=== PATIENT | male | born 1960 | race Caucasian/White ===

== ENCOUNTER 2016-10-13 11:47 | Inpatient (IN) | payer MEDICARE, MEDICAID ==
[2016-10-13 12:12] VITALS: BMI 29.1
[2016-10-13] MEDS ORDERED: Sodium Chloride 0.9% 1,000 ML IV ONE (13:25)
[2016-10-13 13:44] LABS: BASO # 0.1 K/uL (0.0-0.2); BASO % 0.4 % (0.0-2.0); EOS % 0.2 % (0.0-4.0); HEMATOCRIT 39.3 % (35.0-51.0); LYMPH % 6.1 % (20.0-40.0); MEAN CELL VOLUME 89.3 fL (80.0-94.0); MEAN CORPUSCULAR HEMOGLOBIN 29.7 pg (27.0-31.0); MEAN CORPUSCULAR HGB CONC 33.3 g/dL (33.0-37.0); MEAN PLATELET VOLUME 8.2 fL (7.2-11.7); MONO # 1.3 K/uL (0.0-0.8); PLATELET COUNT 232 K/uL (130-400); WHITE BLOOD COUNT 15.9 K/uL (4.8-10.8)
[2016-10-13 13:46] LABS: CHLORIDE 92 mmol/L (98-107); POTASSIUM 4.5 mmol/L (3.6-5.2); SODIUM 127 mmol/L (132-148)
[2016-10-13 13:48] LABS: AST/SGOT 21 U/L (17-59); BILIRUBIN,TOTAL 1.2 mg/dL (0.2-1.3); CARBON DIOXIDE 22 mmol/L (22-30); GFR AFRICAN-AMERICAN > 60
[2016-10-13 13:49] LABS: ALKALINE PHOSPHATASE 66 U/L (38-126); ALT/SGPT 29 U/L (21-72); BLOOD UREA NITROGEN 20 mg/dL (9-20); CALCIUM 8.3 mg/dl (8.6-10.4); GLUCOSE,RANDOM 222 mg/dL (75-110); MAGNESIUM 1.4 mg/dL (1.6-2.3); PHOSPHOROUS 3.2 mg/dL (2.5-4.5); TOTAL PROTEIN 7.1 g/dL (6.3-8.3)
[2016-10-13 14:06] LABS: INR 1.3
[2016-10-13 14:11] LABS: VENOUS BLOOD GAS BASE EXCESS -0.8 mmol/L (0.0-2.0); VENOUS BLOOD GAS PCO2 37 mmHg (40-60); VENOUS BLOOD PH 7.41 (7.32-7.43)
--- NOTE | 2016-10-13 14:12 | C.PDOC ---
History Of Present Illness Pt c/o b/l foot ulcers. Right foot got infected and became red. Pt developed fever. He was evaluated by his PMD who started him on Cipro and Clindamycin within any improvement. Time Seen by Provider: 10/13/16 13:05 Chief Complaint (Nursing): Abnormal Skin Integrity History Per: Patient Onset/Duration Of Symptoms: Days (about 2 weeks), Gradual Current Symptoms Are (Timing): Worse Location Of Injury: Right: Foot, Left: Foot Quality Of Symptoms: Painful, Draining Severity: Severe Additional History Per: Prior Records Past Medical History Reviewed: Historical Data, Nursing Documentation, Vital Signs Vital Signs: Last Vital Signs Temp 101.6 F H 10/13/16 12:12 Pulse 107 H 10/13/16 12:12 Resp 20 10/13/16 12:12 BP 114/76 10/13/16 12:12 Pulse Ox 97 10/13/16 14:16 - Medical History PMH: Depression, Diabetes, HTN, Hyperlipidemia Surgical History: Appendectomy (5 yrs ago) - [facility] Procedures CENTRAL VENOUS CATHETER PLACEMENT WITH GUIDANCE (11/13/14) EXCIS DEBRIDE OF WOUND, INFECT, OR BURN (07/16/14) OTH METATARS/TARS INCIS (07/16/14) PART OSTECT-METATAR/TAR (10/29/13) Family History: States: Unknown Family Hx - Social History Hx Tobacco Use: Yes Hx Alcohol Use: No Hx Substance Use: No - Immunization History Hx Tetanus Toxoid Vaccination: No Hx Influenza Vaccination: No Hx Pneumococcal Vaccination: No Review Of Systems Except As Marked, All Systems Reviewed And Found Negative. Constitutional: Positive for: Fever, Chills, Malaise ENT: Negative for: Throat Pain Cardiovascular: Negative for: Chest Pain Respiratory: Negative for: Cough, Shortness of Breath Gastrointestinal: Negative for: Vomiting, Abdominal Pain, Diarrhea Genitourinary: Negative for: Dysuria Musculoskeletal: Positive for: Leg Pain, Foot Pain. Negative for: Neck Pain Skin: Positive for: Rash Neurological: Negative for: Weakness, Numbness, Seizures, Altered Mental Status Physical Exam - Physical Exam Appears: No Acute Distress Skin: Warm, Dry Head: Atraumatic, Normacephalic Eye(s): bilateral: PERRL, EOMI Neck: Normal ROM, Supple Cardiovascular: Rhythm Regular Respiratory: Normal Breath Sounds, No Accessory Muscle Use Gastrointestinal/Abdominal: Soft, No Tenderness Back: No CVA Tenderness Extremity: Normal ROM, Other (Right foot ulcers with erythema, tenderness and lymphangitic streaking going up leg. Left foot ulcer also, but with no erythema. ) Pulses: Left Dorsalis Pedis: Normal, Right Dorsalis Pedis: Decreased Neurological/Psych: Oriented x3, Normal Motor, Normal Sensation ED Course And Treatment - Laboratory Results Result Diagrams: 10/13/16 13:34 10/13/16 13:34 Lab Interpretation: Abnormal Interpretation Of Abnormal: Leukocytosis. ECG: Interpreted By Me, Viewed By Me ECG Rhythm: Sinus Rhythm, Nonspecific Changes ECG Interpretation: No Acute Changes Rate From EC O2 Sat by Pulse Oximetry: 97 Pulse Ox Interpretation: Normal - Radiology CXR: Viewed By Me, Read By Radiologist CXR Interpretation: Yes: No Acute Disease - Physician Consult Information Physician Contacted: Adryan Mayen (PMD) Outcome Of Conversation: He wants pt admitted on hospitalist service. Progress - Interventions Interventions:: Observation, Intravenous fluid - Data Reviewed Data Reviewed: Lab, Diagnostic imaging, Old records - Patient Status Patient status: Partially improved - Continuity of Care Discussed patient case with:: Patient, ED Nurse, PMD, Covering for PMD - Patient Plan Patient Plan: Admission Disposition Discussed With : Dawson Guevara Comment: He accepted pt on hospitalist service. Doctor Will See Patient In The: Hospital Counseled Patient/Family Regarding: Studies Performed, Diagnosis - Disposition Disposition: HOSPITALIZED Disposition Time: 15:37 Condition: SERIOUS - Clinical Impression Clinical Impression: Diabetic ulcer of both feet, Cellulitis of right foot, Fever
--- NOTE | 2016-10-13 14:20 | RAD ---
HISTORY: Sepsis Patient COMPARISON: Chest x-ray performed 11/14/14 TECHNIQUE: Chest, one view. FINDINGS: Examination limited by habitus. LUNGS: No focal consolidation. Please note that chest x-ray has limited sensitivity for the detection of pulmonary masses. PLEURA: No significant pleural effusion identified. No definite pneumothorax . CARDIOVASCULAR: Heart size appears within normal limits. OSSEOUS STRUCTURES: Partially imaged cervical fusion hardware. VISUALIZED UPPER ABDOMEN: Unremarkable. OTHER FINDINGS: None. IMPRESSION: No focal consolidation, significant pleural effusion, or definite pneumothorax identified.
[2016-10-13 14:26] LABS: EOSINOPHIL 1 % (0-4); NEUTROPHIL 79 % (50-75); TOTAL CELLS COUNTED 100
[2016-10-13 14:29] LABS: LARGE PLATELETS PRESENT
[2016-10-13] MEDS ORDERED: Piperacillin/Tazobact 3.375 gm 100 ML IVPB STA (14:52)
[2016-10-13] MEDS ORDERED: Vancomycin 1 GM 1 GM/250 ML BAG IVPB STA (14:52)
[2016-10-13] MEDS ORDERED: Piperacillin/Tazobact 3.375 gm 100 ML IVPB ONE (14:56)
[2016-10-13] MEDS ORDERED: Vancomycin 1 GM 1 GM/250 ML BAG IVPB ONE (14:56)
[2016-10-13 15:47] LABS: GRANULAR CAST 5 /lpf (0-1); RBC URINE 4 /hpf (0-3); URINE BACTERIA RARE (<OCC); URINE BILIRUBIN NEGATIVE (NEGATIVE); URINE BLOOD NEGATIVE (NEGATIVE); URINE COLOR Amber (YELLOW); URINE GLUCOSE (UA) 3+ mg/dL (Normal); URINE KETONE TRACE mg/dL (NEGATIVE); URINE LEUKOCYTE ESTERASE NEG Leu/uL (Negative); URINE PROTEIN 2+ mg/dL (NEGATIVE); URINE UROBILINOGEN NORMAL mg/dL (0.2-1.0); WBC URINE 4 /hpf (0-5)
--- NOTE | 2016-10-13 16:03 | CP.PCM.HP ---
Addendum entered and electronically signed by Guillermo Vega DO 10/13/16 19:01: Addendum to plan: Hypertension Well-controlled since admission Pt reorts taking both MOHAMUD/ARB as home med - will restart home enalapril 20mg PO Daily - will hold home losartan/hctz NS @ 100 cc/hr Will monitor elevated creatinine Elevated Creatinine Last admission 06/10 0.9; now Cr 1.3 Will monitor Hyponatremia Na 127 on presentation labs NS @ 100cc/hr Monitor Hypomagnesemia 1.4 on presentation labs - repleted Abnormal UA Ua (10/13/16): 2+ protein, 3+ glucose, 4 RBC, hyaline casts -, LE/nitrite negative Discussed with Dr. 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 Patient reports that he first noted the foot pain on September 27, 2016 when [place] He was been wrapping the foot himself with no relief. On Monday, he went to see his PMD, Dr. Mayen, who wanted him to go to the Emergency room, but patient denied and asked for antibiotics, for which he received Ciprofloxacin and Clindamycin and promised his PMD that if it got worse he would go to the ED. When pt began to have fever/chills today, with increasing pain and discoloration in the foot he knew he had to go to the ED. Patient also states that he also has a wound in his left foot that is not concerning to him. Patient states that prior to arriving to the ED, his foot was intact but when he tried standing up to use the restroom his foot opened up and started to drain. Patient has admission before for a similar presentation but moved to [place] and was unable to follow up with Dr. Urrutia (credit control administrator). ROS: patient denies chest pain, palpitations, SOB, N/V/C/D, headches, fevers. Patient admits to chills, night sweats and numbness and tingling in his feet. PMHx: Diabetes Type II, HTN, hyperlipidemia (10 years) and Emphysema Surgical Hx: Endoscopy, surgery for cervical neck disc/impingement, appendectomy , 2 foot surgeries (removed portions of bone) over the right foot and left foot. Family Hx: Mother - asthma, DM, HTN, hyperlipidemia, triple bypass (living). Father - DM, from [place]. Allergies: Morphine - gets itchy and red. Social Hx: currently smokes 1/2 pack of cigarettes in 1 week as he is trying to quit. Has smoked since age 15; Avg of quarter pack x 30 years. Denies any alcohol or illicit drug use. Patient lives at home with . Currently on disability. 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 Mayen (PMD), Dr. Cortes (cardiology) Dr. Tahir Urrutia (podiatry) Present on Admission - Present on Admission Any Indicators Present on Admission: No History of DVT/PE: No History of Uncontrolled Diabetes: No Urinary Catheter: No Review of Systems - Constitutional Constitutional: Chills, Fever, Malaise - EENT Eyes: absent: Change in Vision Ears: absent: Decreased Hearing - Cardiovascular Cardiovascular: absent: Chest Pain, Dyspnea, Syncope - Respiratory Respiratory: absent: Cough, Dyspnea - Gastrointestinal Gastrointestinal: absent: Abdominal Pain, Diarrhea, Nausea, Vomiting - Genitourinary Genitourinary: absent: Difficulty Urinating, Dysuria - Musculoskeletal Musculoskeletal: absent: Back Pain, Numbness, Tingling - Integumentary Integumentary: Bleeding Lesions, Non-Healing Lesions, Wounds (right foot ulcer ) - Neurological Neurological: Numbness, Sensory Deficit, Tingling, Weakness. absent: Dizziness - Psychiatric Psychiatric: absent: Anxiety, Depression - Endocrine Endocrine: Polyuria. absent: Fatigue, Polydipsia, Polyphagia Past Patient History - Infectious Disease Hx of Infectious Diseases: None - Tetanus Immunizations Tetanus Immunization: Unknown - Past Medical History & Family History Past Medical History?: Yes - Past Social History Smoking Status: Light Smoker < 10 Cigarettes Daily - CARDIAC Hx Hypertension: Yes - PULMONARY Hx Respiratory Disorders: No - NEUROLOGICAL Hx Neurological Disorder: Yes (chronic fatigue) - HEENT Hx HEENT Problems: No - RENAL Hx Chronic Kidney Disease: No - ENDOCRINE/METABOLIC Hx Endocrine Disorders: Yes Hx Diabetes Mellitus Type 2: Yes - HEMATOLOGICAL/ONCOLOGICAL Hx Blood Disorders: No - INTEGUMENTARY Hx Dermatological Problems: No - MUSCULOSKELETAL/RHEUMATOLOGICAL Hx Musculoskeletal Disorders: Yes Hx Herniated Disk: Yes (cervical +metal, lumbar disc) - GASTROINTESTINAL Hx Gastrointestinal Disorders: No - GENITOURINARY/GYNECOLOGICAL Hx Genitourinary Disorders: No - PSYCHIATRIC Hx Depression: Yes Hx Substance Use: No - SURGICAL HISTORY Hx Appendectomy: Yes (5 yrs ago) - ANESTHESIA Hx Anesthesia: Yes Hx Anesthesia Reactions: No Hx Malignant Hyperthermia: No Meds Allergies/Adverse Reactions: Allergies Allergy/AdvReac Type Severity Reaction Status Date / Time morphine Allergy RASH Verified 03/17/16 14:32 Physical Exam - Constitutional Appears: Non-toxic, No Acute Distress Additional comments: Pt found laughing talking on phone, able to speak in full sentences - Head Exam Head Exam: ATRAUMATIC, NORMAL INSPECTION, NORMOCEPHALIC - Eye Exam Eye Exam: EOMI. absent: Scleral icterus Pupil Exam: PERRL - ENT Exam ENT Exam: Mucous Membranes Dry - Neck Exam Neck exam: Positive for: Tenderness Additional comments: hx - Respiratory Exam Respiratory Exam: Clear to Auscultation Bilateral, NORMAL BREATHING PATTERN - Cardiovascular Exam Cardiovascular Exam: REGULAR RHYTHM, +S1, +S2 - GI/Abdominal Exam GI & Abdominal Exam: Normal Bowel Sounds, Soft. absent: Distended, Firm, Tenderness - Extremities Exam Extremities exam: Negative for: normal inspection Additional comments: Right foot ulcer between 1st /2nd digit. Draining serosanguinous fluid. Tender to palpation. Lympangitic streaking up right leg. DP pulse 1/4 1cm ulcer on left foot. DP pulse 2/4 - Back Exam Back exam: absent: CVA tenderness (L), CVA tenderness (R) - Neurological Exam Neurological exam: Alert, Oriented x3 Additional comments: Proprioception intact on right foot; Babinski WNL; Light touch sensation reduced on L5-S1 dermatome bilaterally - Psychiatric Exam Psychiatric exam: Normal Affect, Normal Mood - Skin Skin Exam: Normal Color, Warm Results - Vital Signs Recent Vital Signs: Last Vital Signs Temp 101.6 F H 10/13/16 12:12 Pulse 107 H 10/13/16 12:12 Resp 20 10/13/16 12:12 BP 114/76 10/13/16 12:12 Pulse Ox 97 10/13/16 15:42 - Labs Result Diagrams: 10/13/16 13:34 10/13/16 13:34 Labs: Laboratory Results - last 24 hr 10/13/16 10/13/16 10/13/16 13:34 13:34 13:55 WBC 15.9 H RBC 4.40 Hgb 13.1 D Hct 39.3 MCV 89.3 MCH 29.7 MCHC 33.3 RDW 13.0 Plt Count 232 MPV 8.2 Neut % (Auto) 85.3 H Lymph % (Auto) 6.1 L [place] % (Auto) 8.0 Eos % (Auto) 0.2 Baso % (Auto) 0.4 Neut # 13.5 H Lymph # 1.0 [place] # 1.3 H Eos # 0.0 Baso # 0.1 Neutrophils % (Manual) 79 H Band Neutrophils % 3 H Lymphocytes % (Manual) 6 L Monocytes % (Manual) 11 H Eosinophils % (Manual) 1 Platelet Estimate Normal Large Platelets Present RBC Morphology Normal PT 14.7 H INR 1.3 APTT 31 pO2 VBG pH VBG pCO2 VBG HCO3 VBG Total CO2 VBG O2 Sat (Calc) VBG Base Excess VBG Potassium Glucose Lactate Sodium 127 L Potassium 4.5 Chloride 92 L Carbon Dioxide 22 Anion Gap 18 BUN 20 Creatinine 1.3 Est GFR ( Amer) > 60 Est GFR (Non-Af Amer) 57 Random Glucose 222 H Calcium 8.3 L Phosphorus 3.2 Magnesium 1.4 L Total Bilirubin 1.2 AST 21 ALT 29 Alkaline Phosphatase 66 Total Protein 7.1 Albumin 3.5 D Globulin 3.6 Albumin/Globulin Ratio 1.0 Venous Blood Potassium Urine Color Urine Clarity Urine pH Ur Specific [place] Urine Protein Urine Glucose (UA) Urine Ketones Urine Blood Urine Nitrate Urine Bilirubin Urine Urobilinogen Ur Leukocyte Esterase Urine WBC (Auto) Urine RBC (Auto) Ur Squamous Epith Cells Urine Bacteria Hyaline Casts Granular Casts (Auto) 10/13/16 10/13/16 14:05 15:32 WBC RBC Hgb Hct MCV MCH MCHC RDW Plt Count MPV Neut % (Auto) Lymph % (Auto) [place] % (Auto) Eos % (Auto) Baso % (Auto) Neut # Lymph # [place] # Eos # Baso # Neutrophils % (Manual) Band Neutrophils % Lymphocytes % (Manual) Monocytes % (Manual) Eosinophils % (Manual) Platelet Estimate Large Platelets RBC Morphology PT INR APTT pO2 39 VBG pH 7.41 VBG pCO2 37 L VBG HCO3 23.7 VBG Total CO2 24.6 VBG O2 Sat (Calc) 82.2 H VBG Base Excess -0.8 L VBG Potassium 4.4 Glucose 237 H Lactate 2.0 Sodium 130.0 L Potassium Chloride 97.0 L Carbon Dioxide Anion Gap BUN Creatinine Est GFR ( Amer) Est GFR (Non-Af Amer) Random Glucose Calcium Phosphorus Magnesium Total Bilirubin AST ALT Alkaline Phosphatase Total Protein Albumin Globulin Albumin/Globulin Ratio Venous Blood Potassium 4.4 Urine Color Brandi Urine Clarity Hazy Urine pH 5.0 Ur Specific [place] 1.023 Urine Protein 2+ H Urine Glucose (UA) 3+ H Urine Ketones Trace Urine Blood Negative Urine Nitrate Negative Urine Bilirubin Negative Urine Urobilinogen Normal Ur Leukocyte Esterase Neg Urine WBC (Auto) 4 Urine RBC (Auto) 4 H Ur Squamous Epith Cells 1 Urine Bacteria Rare Hyaline Casts 11-20 H Granular Casts (Auto) 5 Assessment & Plan - Assessment and Plan (Free Text) Assessment: Diabetic foot ulcers Admit to med/surg Consult: Dr. Carney (podiatry) Blood cultures X2 ordered Zosyn and Vancomycin 1 dose each given in ED Zosyn 3.375 IV Q 6hours Vancomycin 1 gram IV Q12H f/u foot xray f/u MRI foot Note: patient has metal in neck Sepsis Criteria (WBC >12k, Temp > 100.9, HR> 90) Secondary to foot infection Lactate on VB.0 NS @ 100 cc/hr f/u blood, urine cx Cellulitis Current Visit: No Status: Acute Priority: Medium Comment: Consult: Dr. Carney (podiatry) Zosyn 2.25 IV q 8hours Vancomycin 1 gram IVq daily given zosyn and Vanco in the ED X1 Blood cultures Ordered stat Diabetes Current Visit: No Status: Chronic Priority: Medium Comment: Accuchecks QACHS Lantus 40 units daily Novolog 15 units TIDAC -Novolog insulin sliding scale held janumet and glimepride Moderate carbohydrate diet f/u A1C - 8.4 on 05/2016 Emphysema Home med Arnuity ellipta (not formulary) Duonebs Q6H PRN Cervical pain (neck) Comment: history of cervical neck pain sees pain management outpatient - Dr. Banda (salinas) Oxycodone 15mg PO Q6H Hyperlipidemia Crestor 5mg PO HS Prophylactic measure Heparin 5000 units sub [id number] for dvt ppx Protonix 40mg PO daily for gi ppx SCD CI PT/OT ordered <Bolivar Guevaran Nicholas - Last Filed: 10/14/16 17:38> Results - Vital Signs Recent Vital Signs: Last Vital Signs Temp 98 F 10/14/16 14:40 Pulse 65 10/14/16 14:45 Resp 15 10/14/16 14:45 BP 120/65 10/14/16 14:45 Pulse Ox 100 10/14/16 14:45 - Labs Result Diagrams: 10/14/16 07:09 10/14/16 07:09 Labs: Laboratory Results - last 24 hr 10/13/16 10/14/16 10/14/16 21:16 02:31 07:09 WBC RBC Hgb Hct MCV MCH MCHC RDW Plt Count MPV Neut % (Auto) Lymph % (Auto) [place] % (Auto) Eos % (Auto) Baso % (Auto) Neut # Lymph # [place] # Eos # Baso # Neutrophils % (Manual) Lymphocytes % (Manual) Monocytes % (Manual) Eosinophils % (Manual) Platelet Estimate Hypochromasia (manual) Sodium Potassium Chloride Carbon Dioxide Anion Gap BUN Creatinine Est GFR ( Amer) Est GFR (Non-Af Amer) POC Glucose (mg/dL) 402 H* 233 H Random Glucose Hemoglobin A1c 8.5 H Calcium Phosphorus Magnesium Total Bilirubin AST ALT Alkaline Phosphatase Total Protein Albumin Globulin Albumin/Globulin Ratio 10/14/16 10/14/16 10/14/16 07:09 07:09 07:13 WBC 10.0 RBC 3.72 L Hgb 11.3 L Hct 33.3 L MCV 89.5 MCH 30.4 MCHC 33.9 RDW 12.8 Plt Count 209 MPV 8.2 Neut % (Auto) 79.2 H Lymph % (Auto) 9.0 L [place] % (Auto) 9.5 Eos % (Auto) 1.9 Baso % (Auto) 0.4 Neut # 7.9 H Lymph # 0.9 L [place] # 0.9 H Eos # 0.2 Baso # 0.0 Neutrophils % (Manual) 76 H Lymphocytes % (Manual) 15 L Monocytes % (Manual) 7 Eosinophils % (Manual) 2 Platelet Estimate Normal Hypochromasia (manual) Slight Sodium 128 L Potassium 4.4 Chloride 97 L Carbon Dioxide 23 Anion Gap 12 BUN 19 Creatinine 1.2 Est GFR ( Amer) > 60 Est GFR (Non-Af Amer) > 60 POC Glucose (mg/dL) 277 H Random Glucose 241 H Hemoglobin A1c Calcium 7.5 L Phosphorus 2.9 Magnesium 1.9 Total Bilirubin 0.7 AST 22 ALT 34 Alkaline Phosphatase 45 Total Protein 5.8 L Albumin 2.8 L Globulin 3.0 Albumin/Globulin Ratio 0.9 L 10/14/16 10/14/16 11:11 16:24 WBC RBC Hgb Hct MCV MCH MCHC RDW Plt Count MPV Neut % (Auto) Lymph % (Auto) [place] % (Auto) Eos % (Auto) Baso % (Auto) Neut # Lymph # [place] # Eos # Baso # Neutrophils % (Manual) Lymphocytes % (Manual) Monocytes % (Manual) Eosinophils % (Manual) Platelet Estimate Hypochromasia (manual) Sodium Potassium Chloride Carbon Dioxide Anion Gap BUN Creatinine Est GFR ( Amer) Est GFR (Non-Af Amer) POC Glucose (mg/dL) 260 H 317 H Random Glucose Hemoglobin A1c Calcium Phosphorus Magnesium Total Bilirubin AST ALT Alkaline Phosphatase Total Protein Albumin Globulin Albumin/Globulin Ratio Attending/Attestation - Attestation I have personally seen and examined this patient.: Yes I have fully participated in the care of the patient.: Yes I have reviewed all pertinent clinical information: Yes Notes (Text): 10/14/16 17:38 Patient was seen and examined at bedside with the resident Patient will be admitted for diabetic foot ulcer We will request a podiatry and infectious disease consultation Patient may need to debridement of the infected wound on the foot I discussed the plan of care with the resident and agree with the history and physical and assessment/plan documented above.
[2016-10-13] MEDS ORDERED: oxyCODONE 5 mg Immediate Release Tab PO PRN (18:12)
[2016-10-13] MEDS ORDERED: Piperacillin/Tazobact 3.375 GM in Sodium Chloride 100 ML IVPB SCH (18:30)
--- NOTE | 2016-10-13 19:04 | CP.PCM.CON ---
History of Present Illness - History of Present Illness History of Present Illness: discussed with dr Kevin IV antibiotics started cultures pending dr khan on board Review of Systems - Review of Systems All systems: reviewed and no additional remarkable complaints except - Constitutional Constitutional: absent: As Per HPI, Anorexia, Chills, Daytime Sleepiness, Excessive Sweating, Fatigue, Fever, Frequent Falls, Headache, Increased Appetite , Lethargy, Malaise, Night Sweats, Snoring, Sleep Apnea, Weight Gain, Weight Loss, Weakness, Other - EENT Eyes: absent: As Per HPI, Blind Spots, Blurred Vision, Change in Vision, Decreased Night Vision, Diplopia, Discharge, Dry Eye, Exophthalmos, Floaters, Irritation, Itchy Eyes, Loss of Peripheral Vision, Pain, Photophobia, Requires Corrective Lenses, Sees Flashes, Spots in Vision, Tunnel Vision, Other Visual Disturbances, Loss of Vision, Other Nose/Mouth/Throat: absent: As Per HPI, Epistaxis, Nasal Congestion, Nasal Discharge, Nasal Obstruction, Nasal Trauma, Nose Pain, Post Nasal Drip, Sinus Pain, Sinus Pressure, Bleeding Gums, Change in Voice, Dental Pain, Dry Mouth, Dysphagia, Halitosis, Hoarsness, Lip Swelling, Mouth Lesions, Mouth Pain, Odynophagia, Sore Throat, Throat Swelling, Tongue Swelling, Facial Pain, Neck Pain, Neck Mass, Other - Cardiovascular Cardiovascular: absent: As Per HPI, Acrocyanosis, Chest Pain, Chest Pain at Rest , Chest Pain with Activity, Claudication, Diaphoresis, Dyspnea, Dyspnea on Exertion, Edema, Irregular Heart Rhythm, Pain Radiating to Arm/Neck/Jaw, Leg Edema, Leg Ulcers, Lightheadedness, Orthopnea, Palpitations, Paroxysmal Nocturnal Dyspnea, Pedal Edema, Radiating Pain, Rapid Heart Rate, Slow Heart Rate, Syncope, Other - Gastrointestinal Gastrointestinal: absent: As Per HPI, Abdominal Pain, Belching, Bloating, Change in Bowel Habits, Change in Stool Character, Coffee Ground Emesis, Constipation, Cramping, Diarrhea, Dyspepsia, Dysphagia, Early Satiety, Excessive Flatus, Fecal Incontinence, Heartburn, Hematemesis, Hematochezia, Loose Stools, Melena, Nausea, Odynophagia, Temesmus, Vomiting, Other - Genitourinary Genitourinary: absent: As Per HPI, Change in Urinary Stream, Difficulty Urinating, Dysuria, Flank Pain, Hematuria, Pyuria, Nocturia, Urinary Incontinence, Urinary Frequency, Urinary Hesitance, Urinary Urgency, Voiding Freq/Small Amts, Freq UTI, Hx Renal/Bladder Calculi, Hx /Renal Surgery, Bladder Distension, Other - Musculoskeletal Musculoskeletal: absent: As Per HPI, Abnormal Gait, Arthralgias, Atrophy, Back Pain, Deformity, Joint Swelling, Limited Range of Motion, Loss of Height, Muscle Cramps, Muscle Weakness, Myalgias, Neck Pain, Numbness, Radiating Pain into Limb, Stiffness, Tingling, Other - Integumentary Integumentary: As Per HPI - Neurological Neurological: absent: As Per HPI, Abnormal Gait, Abnormal Hearing, Abnormal Movements, Abnormal Speech, Behavioral Changes, Burning Sensations, Confusion, Convulsions, Disequilibrium, Dizziness, Numbness, Focal Weakness, Frequent Falls , Headaches, Lack of Coordination, Loss of Vision, Memory Loss, Paresthesias, Radicular Pain, Restless Legs, Sensory Deficit, Syncope, Tingling, Tremor, Vertigo, Weakness, Other Visual Disturbances, Other - Psychiatric Psychiatric: absent: As Per HPI, Abnormal Sleep Pattern, Anhedonia, Anxiety, Auditory Hallucinations, Behavioral Changes, Change in Appetite, Change in Libido, Confusion, Depression, Difficulty Concentrating, Hallucinations, Homicidal Ideation, Hopelessness, Irritability, Memory Loss, Mood Swings, Panic Attacks, Paranoia, Suicidal Ideation, Visual Hallucinations, Tactile Hallucinations, Other - Endocrine Endocrine: As Per HPI - Hematologic/Lymphatic Hematologic: absent: As Per HPI, Easy Bleeding, Easy Bruising, Lymphadenopathy, Other Past Patient History - Infectious Disease Hx of Infectious Diseases: None - Tetanus Immunizations Tetanus Immunization: Unknown - Past Medical History & Family History Past Medical History?: Yes - Past Social History Smoking Status: Light Smoker < 10 Cigarettes Daily - CARDIAC Hx Hypertension: Yes - PULMONARY Hx Respiratory Disorders: No - NEUROLOGICAL Hx Neurological Disorder: Yes (chronic fatigue) - HEENT Hx HEENT Problems: No - RENAL Hx Chronic Kidney Disease: No - ENDOCRINE/METABOLIC Hx Endocrine Disorders: Yes Hx Diabetes Mellitus Type 2: Yes - HEMATOLOGICAL/ONCOLOGICAL Hx Blood Disorders: No - INTEGUMENTARY Hx Dermatological Problems: No - MUSCULOSKELETAL/RHEUMATOLOGICAL Hx Musculoskeletal Disorders: Yes Hx Herniated Disk: Yes (cervical +metal, lumbar disc) - GASTROINTESTINAL Hx Gastrointestinal Disorders: No - GENITOURINARY/GYNECOLOGICAL Hx Genitourinary Disorders: No - PSYCHIATRIC Hx Depression: Yes Hx Substance Use: No - SURGICAL HISTORY Hx Appendectomy: Yes (5 yrs ago) - ANESTHESIA Hx Anesthesia: Yes Hx Anesthesia Reactions: No Hx Malignant Hyperthermia: No Meds Allergies/Adverse Reactions: Allergies Allergy/AdvReac Type Severity Reaction Status Date / Time morphine Allergy RASH Verified 03/17/16 14:32 - Medications Medications: Current Medications Albuterol/Ipratropium (Duoneb 3 Mg/0.5 Mg (3 Ml) Ud) 3 ml INH RQ4 PRN PRN Reason: Shortness of Breath Aspirin (Ecotrin) 81 mg PO DAILY [facility] Enalapril Maleate (Vasotec) 20 mg PO DAILY [facility] Heparin Sodium (Porcine) (Heparin) 5,000 units SC Q8 [facility] Sodium Chloride (Sodium Chloride 0.9%) 1,000 mls @ 100 mls/hr IV .Q10H [facility] Vancomycin HCl 1,000 mg/ (Sodium Chloride) 250 mls @ 166.6 mls/hr IVPB Q12H [facility] Piperacillin Sod/Tazobactam (Sod 3.375 gm/ Sodium Chloride) 100 mls @ 200 mls/ hr IVPB Q6H [facility] Insulin Aspart (Novolog) 15 unit SC TIDAC [facility] Insulin Aspart (Novolog) 0 unit SC ACHS [facility] PRN Reason: Protocol Insulin Glargine (Lantus) 40 unit SC DAILY [facility] Oxycodone HCl (Oxycodone Immediate Release Tab) 15 mg PO Q6 [facility] Pantoprazole Sodium (Protonix Ec Tab) 40 mg PO DAILY [facility] Rosuvastatin Calcium (Crestor) 5 mg PO HS [facility] Physical Exam - Constitutional Appears: Non-toxic, Chronically Ill - Head Exam Head Exam: NORMOCEPHALIC - Eye Exam Eye Exam: PERRL. absent: Scleral icterus - ENT Exam ENT Exam: Mucous Membranes Dry - Neck Exam Neck exam: Negative for: Lymphadenopathy - Respiratory Exam Respiratory Exam: Decreased Breath Sounds, Rhonchi - Cardiovascular Exam Cardiovascular Exam: REGULAR RHYTHM, +S1, +S2 - GI/Abdominal Exam GI & Abdominal Exam: Diminished Bowel Sounds, Soft. absent: Tenderness - Rectal Exam Rectal Exam: Deferred - Exam Exam: NORMAL INSPECTION - Extremities Exam Extremities exam: Positive for: pedal edema Additional comments: foot ulcers infected - Back Exam Back exam: absent: CVA tenderness (L), CVA tenderness (R) - Neurological Exam Neurological exam: Alert, CN II-XII Intact, Oriented x3, Reflexes Normal - Psychiatric Exam Psychiatric exam: Normal Mood - Skin Skin Exam: Dry Results - Vital Signs Recent Vital Signs: Last Vital Signs Temp 98.6 F 10/13/16 18:15 Pulse 90 10/13/16 18:15 Resp 20 10/13/16 18:15 BP 128/68 10/13/16 18:15 Pulse Ox 98 10/13/16 18:15 - Labs Result Diagrams: 10/16/16 07:07 10/16/16 07:07 Assessment & Plan (1) Cellulitis of right foot Status: Acute (2) Diabetic ulcer of both feet Status: Acute (3) Fever Status: Acute (4) Abscess Status: Acute (5) Cellulitis Status: Acute Priority: Medium (6) Diabetic foot ulcers Status: Acute
[2016-10-13] MEDS ORDERED: Magnesium Sulfate 1 gm in D5W 1 GM/100 ML BAG IVPB ONE (19:44)
[2016-10-13] MEDS: Magnesium Sulfate 1 gm in D5W 1 GM/100 ML BAG IVPB SCH ×2 (19:52→20:09)
[2016-10-13] MEDS: Sodium Chloride 0.9% 1,000 ML IV SCH (19:53)
--- NOTE | 2016-10-13 21:18 | CP.PCM.CON ---
History of Present Illness - History of Present Illness History of Present Illness: 56 year old male with PMHx of DM, osteomyelitis, cervical disc herniation, emphysema, HLD, HTN seen in [facility] complaining of painful ulceration to first interdigital space of right foot. Patient states he first noticed a blister in the area roughly three weeks ago and did not see any significant improvement with self treatment. On Monday he presented to his PCP who placed him on Clindamycin and Ciprofloxacin and urged him to visit the ED which he did not do until today, stating that the pain has become significantly worsened. Patient states that while in the ED he began to notice dark colored drainage from the ulceration site as well as malodor. He has also noticed increased redness and swelling to his forefoot over the last few days. Patient also states that he has seen Dr. 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 During the time spent with patient in ED he admitted to increased right foot pain. Patient denies any further pedal complaints at this time. Patient admits to chills but denies N/V/F /CP/SOB at this time. Review of Systems - Review of Systems Review of Systems: ROS unremarkable outside of HPI Past Patient History - Infectious Disease Hx of Infectious Diseases: None - Tetanus Immunizations Tetanus Immunization: Unknown - Past Medical History & Family History Past Medical History?: Yes - Past Social History Smoking Status: Light Smoker < 10 Cigarettes Daily - CARDIAC Hx Hypertension: Yes - PULMONARY Hx Respiratory Disorders: No - NEUROLOGICAL Hx Neurological Disorder: Yes (chronic fatigue) - HEENT Hx HEENT Problems: No - RENAL Hx Chronic Kidney Disease: No - ENDOCRINE/METABOLIC Hx Endocrine Disorders: Yes Hx Diabetes Mellitus Type 2: Yes - HEMATOLOGICAL/ONCOLOGICAL Hx Blood Disorders: No - INTEGUMENTARY Hx Dermatological Problems: No - MUSCULOSKELETAL/RHEUMATOLOGICAL Hx Musculoskeletal Disorders: Yes Hx Herniated Disk: Yes (cervical +metal, lumbar disc) - GASTROINTESTINAL Hx Gastrointestinal Disorders: No - GENITOURINARY/GYNECOLOGICAL Hx Genitourinary Disorders: No - PSYCHIATRIC Hx Depression: Yes Hx Substance Use: No - SURGICAL HISTORY Hx Appendectomy: Yes (5 yrs ago) - ANESTHESIA Hx Anesthesia: Yes Hx Anesthesia Reactions: No Hx Malignant Hyperthermia: No Meds Allergies/Adverse Reactions: Allergies Allergy/AdvReac Type Severity Reaction Status Date / Time morphine Allergy RASH Verified 03/17/16 14:32 - Medications Medications: Current Medications Albuterol/Ipratropium (Duoneb 3 Mg/0.5 Mg (3 Ml) Ud) 3 ml INH RQ4 PRN PRN Reason: Shortness of Breath Enalapril Maleate (Vasotec) 20 mg PO DAILY [facility] Sodium Chloride (Sodium Chloride 0.9%) 1,000 mls @ 100 mls/hr IV .Q10H [facility] Last Admin: 10/13/16 19:53 Dose: 100 mls/hr Vancomycin HCl 1,000 mg/ (Sodium Chloride) 250 mls @ 166.6 mls/hr IVPB Q12H [facility] Piperacillin Sod/Tazobactam (Sod 3.375 gm/ Sodium Chloride) 100 mls @ 200 mls/ hr IVPB Q6H [facility] Insulin Aspart (Novolog) 15 unit SC TIDAC [facility] Insulin Aspart (Novolog) 0 unit SC ACHS [facility] PRN Reason: Protocol Insulin Glargine (Lantus) 40 unit SC DAILY [facility] Oxycodone HCl (Oxycodone Immediate Release Tab) 15 mg PO Q6 [facility] Pantoprazole Sodium (Protonix Ec Tab) 40 mg PO DAILY [facility] Rosuvastatin Calcium (Crestor) 5 mg PO HS [facility] Physical Exam - Constitutional Appears: Well, Non-toxic, No Acute Distress - Extremities Exam Additional comments: LE focused examination: Vasc: DP/PT pulses fully palpable 2/4 b/l. CFT < 3 seconds to digits 1-5 b/l. Skin temperature increased at distal forefoot of right foot. Neuro: Epicritic and protective sensations grossly diminished to b/l LE Derm: Ulcerations noted to first interdigital space of right foot, medial plantar aspect of right foot at level of first MTPJ (1.0 cm x 1.0 cm) and plantar left foot at level of fourth metatarsal head (0.7 cm x 0.7 cm). Fluctuance is present proximally to interdigital ulceration and approximately 2 cc of purulent drainage was appreciated following milking of the foot. Probe to bone test negative at all ulceration sites but undermining between right foot ulcerations appreciated. Strong malodor from right foot noted as well as periwound erythema with erythematous streaking up the leg. Mild erythematous streaking also noted to dorsum of left foot as well. No malodor or purulent drainage appreciated from ulceration on plantar aspect of left foot. MSK: POP noted to interdigital ulceration of right foot Xrays evaluated. No osseous changes indicative of osteomyelitis present at this time. No evidence of soft tissue emphysema noted. - Neurological Exam Neurological exam: Alert, Oriented x3 - Psychiatric Exam Psychiatric exam: Normal Affect, Normal Mood Results - Vital Signs Recent Vital Signs: Last Vital Signs Temp 99.2 F 10/13/16 20:15 Pulse 93 H 10/13/16 20:15 Resp 20 10/13/16 20:15 BP 134/76 10/13/16 20:15 Pulse Ox 98 10/13/16 20:15 - Labs Result Diagrams: 10/13/16 13:34 10/13/16 13:34 Assessment & Plan - Assessment and Plan (Free Text) Assessment: 56 year old male seen for multiple foot ulcerations secondary to DM Plan: Patient seen and evaluated in the ED Labs, charts and vitals reviewed; WBC 15.9, afebrile, glucose 222 Patient admitted to hospital under Dr. Ismael Penny also consulted Plan discussed with Dr. Patel: To be taken to OR tomorrow if medically cleared for radical I and D with possible resection of bone pending MRI results Patient to continue Vancomycin/Zosyn per ID Aspirin and Heparin stopped at this time Wound, blood and urine cx pending MRI results pending Dr. Guevara's resident, Dr. Vega contacted to give medical clearance for surgery Patient to be NPO except meds after midnight - Date & Time Date: 10/13/16 Time: 20:30
[2016-10-13] MEDS ORDERED: (Novolog) Insulin Aspart, Recombinant 100 u/ml 10 ml vial SC ONE (21:39)
[2016-10-13] MEDS ORDERED: oxyCODONE 5 mg Immediate Release Tab PO STA (21:42)
[2016-10-13] MEDS: (Novolog) Insulin Aspart, Recombinant 100 u/ml 10 ml vial SC SCH (21:47)
[2016-10-13] MEDS: Piperacillin/Tazobact 3.375 GM in Sodium Chloride 100 ML IVPB SCH (22:01)
[2016-10-14] MEDS: oxyCODONE 5 mg Immediate Release Tab PO SCH ×4 (00:14→18:00)
[2016-10-14] MEDS: Piperacillin/Tazobact 3.375 GM in Sodium Chloride 100 ML IVPB SCH ×4 (03:00→21:17)
[2016-10-14] MEDS: Sodium Chloride 0.9% 1,000 ML IV SCH ×3 (05:39→23:45)
[2016-10-14 07:26] LABS: BASO % 0.4 % (0.0-2.0); EOS # 0.2 K/uL (0.0-0.7); EOS % 1.9 % (0.0-4.0); HEMATOCRIT 33.3 % (35.0-51.0); LYMPH # 0.9 K/uL (1.0-4.3); MEAN CELL VOLUME 89.5 fL (80.0-94.0); MEAN CORPUSCULAR HEMOGLOBIN 30.4 pg (27.0-31.0); MEAN CORPUSCULAR HGB CONC 33.9 g/dL (33.0-37.0); MEAN PLATELET VOLUME 8.2 fL (7.2-11.7); MONO # 0.9 K/uL (0.0-0.8); MONO % 9.5 % (0.0-10.0); PLATELET COUNT 209 K/uL (130-400); RED CELL DISTRIBUTION WIDTH 12.8 % (11.5-14.5)
[2016-10-14 07:39] LABS: CHLORIDE 97 mmol/L (98-107); POTASSIUM 4.4 mmol/L (3.6-5.2); SODIUM 128 mmol/L (132-148)
[2016-10-14 07:41] LABS: AST/SGOT 22 U/L (17-59); BILIRUBIN,TOTAL 0.7 mg/dL (0.2-1.3); CARBON DIOXIDE 23 mmol/L (22-30); GFR AFRICAN-AMERICAN > 60
[2016-10-14 07:42] LABS: ALB/GLOB RATIO 0.9 (1.0-2.1); ALKALINE PHOSPHATASE 45 U/L (38-126); ALT/SGPT 34 U/L (21-72); BLOOD UREA NITROGEN 19 mg/dL (9-20); CALCIUM 7.5 mg/dl (8.6-10.4); GLUCOSE,RANDOM 241 mg/dL (75-110); MAGNESIUM 1.9 mg/dL (1.6-2.3); PHOSPHOROUS 2.9 mg/dL (2.5-4.5); TOTAL PROTEIN 5.8 g/dL (6.3-8.3)
[2016-10-14] MEDS: (Novolog) Insulin Aspart, Recombinant 100 u/ml 10 ml vial SC SCH ×7 (08:46→21:23)
[2016-10-14 09:00] LABS: EOSINOPHIL 2 % (0-4); NEUTROPHIL 76 % (50-75); TOTAL CELLS COUNTED 100
--- NOTE | 2016-10-14 10:03 | CP.PCM.PN ---
Subjective - Date & Time of Evaluation Date of Evaluation: 10/14/16 Time of Evaluation: 10:00 - Subjective Subjective: 56 year old male seen at bedside regarding right foot ulceration. Patient scheduled to go to OR today for right foot debridement with incision and drainage by Dr. Patel. Patient denies any further pedal complaints at this time. Patient admits to chills but denies N/V/F/CP/SOB at this time. Objective - Vital Signs/Intake and Output Vital Signs (last 24 hours): Temp Pulse Resp BP Pulse Ox 97.8 F 71 20 99/65 L 96 10/14/16 07:32 10/14/16 07:32 10/14/16 07:32 10/14/16 07:32 10/14/16 07:32 Intake and Output: 10/14/16 10/14/16 06:59 18:59 Intake Total 540 800 Balance 540 800 - Medications Medications: Current Medications Acetaminophen (Tylenol 325mg Tab) 650 mg PO Q6 PRN PRN Reason: Fever >100.4 F Albuterol/Ipratropium (Duoneb 3 Mg/0.5 Mg (3 Ml) Ud) 3 ml INH RQ4 PRN PRN Reason: Shortness of Breath Enalapril Maleate (Vasotec) 20 mg PO DAILY [facility] Sodium Chloride (Sodium Chloride 0.9%) 1,000 mls @ 100 mls/hr IV .Q10H [facility] Last Admin: 10/14/16 05:39 Dose: 100 mls/hr Vancomycin HCl 1,000 mg/ (Sodium Chloride) 250 mls @ 166.6 mls/hr IVPB Q12H [facility] Last Admin: 10/14/16 06:01 Dose: 166.6 mls/hr Piperacillin Sod/Tazobactam (Sod 3.375 gm/ Sodium Chloride) 100 mls @ 200 mls/ hr IVPB Q6H [facility] Last Admin: 10/14/16 03:00 Dose: 200 mls/hr Insulin Aspart (Novolog) 15 unit SC TIDAC [facility] Last Admin: 10/14/16 08:47 Dose: Not Given Insulin Aspart (Novolog) 0 unit SC ACHS [facility] PRN Reason: Protocol Last Admin: 10/14/16 08:46 Dose: Not Given Insulin Glargine (Lantus) 40 unit SC DAILY [facility] Oxycodone HCl (Oxycodone Immediate Release Tab) 15 mg PO Q6 [facility] Last Admin: 10/14/16 05:33 Dose: 15 mg Pantoprazole Sodium (Protonix Ec Tab) 40 mg PO DAILY [facility] Rosuvastatin Calcium (Crestor) 5 mg PO HS [facility] Last Admin: 10/13/16 21:42 Dose: 5 mg - Labs Labs: 10/14/16 07:09 10/14/16 07:09 PT 14.7 SECONDS (9.7-12.2) H 10/13/16 13:55 INR 1.3 10/13/16 13:55 APTT 31 SECONDS (21-34) 10/13/16 13:55 - Constitutional Appears: Well, Non-toxic, No Acute Distress - Extremities Exam Additional comments: LE focused examination: Vasc: DP/PT pulses fully palpable 2/4 b/l. CFT < 3 seconds to digits 1-5 b/l. Skin temperature increased at distal forefoot of right foot. Neuro: Epicritic and protective sensations grossly diminished to b/l LE Derm: Ulcerations noted to first interdigital space of right foot, medial plantar aspect of right foot at level of first MTPJ (1.0 cm x 1.0 cm) and plantar left foot at level of fourth metatarsal head (0.7 cm x 0.7 cm). Fluctuance is present proximally to interdigital ulceration and approximately 2 cc of purulent drainage was noted, Probe to bone test negative at all ulceration sites but undermining between right foot ulcerations appreciated. Strong malodor from right foot noted as well as periwound erythema with erythematous streaking up the leg. Mild erythematous streaking also noted to dorsum of left foot as well. No malodor or purulent drainage appreciated from ulceration on plantar aspect of left foot. MSK: POP noted to interdigital ulceration of right foot Xrays evaluated. No osseous changes indicative of osteomyelitis present at this time. No evidence of soft tissue emphysema noted. - Neurological Exam Neurological Exam: Alert, Awake, Oriented x3 - Psychiatric Exam Psychiatric exam: Normal Affect, Normal Mood Assessment and Plan - Assessment and Plan (Free Text) Assessment: 56 year old male seen for multiple foot ulcerations secondary to DM Plan: Patient seen and evaluated in the ED Labs, charts and vitals reviewed; WBC 10.0, afebrile discussed in detail with attending Dr. Patel Patient admitted to hospital under Dr. Ismael Penny also consulted, cont. IV abx - Vanc/Zosyn Patient to go to OR today for right foot radical I and D with possible resection of bone F/U MRI Aspirin and Heparin held Wound, blood and urine cx pending medical optimization obtained as per Dr. Guevara discussed risks, benefits, complications of surgical procedure no guarantees were given nor implied NPO status was confirmed podiatry will continue to follow while patient remains in house
[2016-10-14] MEDS: (Lantus) Insulin Glargine, Recombinant SC SCH (10:23)
[2016-10-14] MEDS: Pantoprazole 40 mg EC Tab PO SCH (10:24)
[2016-10-14] MEDS ORDERED: Lidocaine 1% Inj (20ml) ONE (11:36)
[2016-10-14] MEDS ORDERED: Bupivacaine HCl 0.5% PF (10 ml) Inj ONE (11:36)
[2016-10-14] MEDS ORDERED: Bacitracin 50,000 UNIT in Sodium Chloride 0.9% Irrig 1,000 ML IR SCH (12:07)
--- NOTE | 2016-10-14 12:38 | CARD ---
APPROVED REPORT EKG Measurement Heart [id number] <Conclusion> Normal sinus rhythm Possible Left atrial enlargement Borderline ECG
[2016-10-14] MEDS ORDERED: HYDROmorphone 0.5 mg/0.5 ml ISec IVP PRN ×2 (12:52→13:59)
[2016-10-14] MEDS ORDERED: Lactated Ringer's 1,000 ML IV ONE ×2 (13:05)
[2016-10-14] MEDS ORDERED: Midazolam 2 MG/2 ML VIAL ONE (13:11)
[2016-10-14] MEDS ORDERED: Propofol 10 mg/ml Inj (20 ML) ONE (13:11)
[2016-10-14] MEDS ORDERED: Oxycodone/Acetaminophen 5/325 mg Tab PO PRN ×2 (13:56)
--- NOTE | 2016-10-14 13:56 | PCM.SURG1 ---
Surgeon's Initial Post Op Note - Surgeon's Notes Surgeon: Dr. Patel Release Specialist: Dr. Trinidad PGY-2 Type of Anesthesia: General LMA, Local Anesthesia Administered By: Suzan Marti Pre-Operative Diagnosis: right foot gas gangrene Operative Findings: see dictation Post-Operative Diagnosis: same Operation Performed: right foot incision and drainage Specimen/Specimens Removed: soft tissue Estimated Blood Loss: EBL {In ML}: 10 Blood Products Given: N/A Drains Used: No Drains Post-Op Condition: Good Date of Surgery/Procedure: 10/14/16 Time of Surgery/Procedure: 13:00
[2016-10-14] MEDS: Lactated Ringer's 1,000 ML IV SCH (15:12)
--- NOTE | 2016-10-14 15:16 | RAD ---
PROCEDURE: Bilateral Feet Radiographs. HISTORY: diabetic foot ulcer; eval for osteomyelitis COMPARISON: 11/14/2014 FINDINGS: BONES: Right Foot: No acute fracture. Status post osteotomy distal aspect 2nd and 3rd metatarsal. There is thick smooth periosteal reaction about the distal aspect of the 3rd metatarsal. This is unchanged from prior examination. No osseous erosion. Left Foot: Status post osteotomy distal aspect 5th metatarsal. No acute fracture. No osseous erosion. JOINTS: Right Foot: Normal. No osteoarthritis. Left Foot: Normal. No osteoarthritis. SOFT TISSUES: Right Foot: Unremarkable Left Foot: Soft tissue swelling adjacent to 5th metatarsal phalangeal articulation. OTHER FINDINGS: None. IMPRESSION: No plain radiographic evidence of osteomyelitis. Multiple prior osteotomies as described.
--- NOTE | 2016-10-14 16:37 | CP.PCM.PN ---
<Corky Guerra R - Last Filed: 10/14/16 21:55> Subjective - Date & Time of Evaluation Date of Evaluation: 10/14/16 Time of Evaluation: 16:00 - Subjective Subjective: PGY-[address] Guevara's Service: Patient was S and E at bedside. Patient was seen in the morning and then again in late afternoon after his I&D procedure with medical chief technician Dr Carney. Patient was resting comfortably in bed eating pudding and watching tv. Patient stated he had pain in his right foot, the patient was offered percocet 5/325 but says it makes him nauseous and is requesting oxycodone 15mg. He denied cp, sob, headache, f/c, n/v/d/c, bleeding. Objective - Vital Signs/Intake and Output Vital Signs (last 24 hours): Temp Pulse Resp BP Pulse Ox 98 F 65 15 120/65 100 10/14/16 14:40 10/14/16 14:45 10/14/16 14:45 10/14/16 14:45 10/14/16 14:45 Intake and Output: 10/14/16 10/14/16 06:59 18:59 Intake Total 540 800 Balance 540 800 - Medications Medications: Current Medications Acetaminophen (Tylenol 325mg Tab) 650 mg PO Q6 PRN PRN Reason: Fever >100.4 F Acetaminophen (Tylenol 325mg Tab) 650 mg PO Q6 PRN PRN Reason: Pain, Mild (1-3) Albuterol/Ipratropium (Duoneb 3 Mg/0.5 Mg (3 Ml) Ud) 3 ml INH RQ4 PRN PRN Reason: Shortness of Breath Enalapril Maleate (Vasotec) 20 mg PO DAILY [facility] Last Admin: 10/14/16 10:24 Dose: Not Given Sodium Chloride (Sodium Chloride 0.9%) 1,000 mls @ 100 mls/hr IV .Q10H [facility] Last Admin: 10/14/16 14:30 Dose: Not Given Vancomycin HCl 1,000 mg/ (Sodium Chloride) 250 mls @ 166.6 mls/hr IVPB Q12H [facility] Last Admin: 10/14/16 06:01 Dose: 166.6 mls/hr Piperacillin Sod/Tazobactam (Sod 3.375 gm/ Sodium Chloride) 100 mls @ 200 mls/ hr IVPB Q6H [facility] Last Admin: 10/14/16 15:00 Dose: 200 mls/hr Lactated Ringer's (Lactated Ringer's) 1,000 mls @ 100 mls/hr IV .Q10H [facility] Last Admin: 10/14/16 15:12 Dose: Not Given Insulin Aspart (Novolog) 15 unit SC TIDAC [facility] Last Admin: 10/14/16 11:34 Dose: Not Given Insulin Aspart (Novolog) 0 unit SC ACHS [facility] PRN Reason: Protocol Last Admin: 10/14/16 11:34 Dose: Not Given Insulin Glargine (Lantus) 40 unit SC DAILY [facility] Last Admin: 10/14/16 10:23 Dose: Not Given Oxycodone HCl (Oxycodone Immediate Release Tab) 15 mg PO Q6 [facility] Last Admin: 10/14/16 11:35 Dose: Not Given Oxycodone/Acetaminophen (Percocet 5/325 Mg Tab) 1 tab PO Q4H PRN PRN Reason: Pain, moderate (4-7) Stop: 10/17/16 13:57 Oxycodone/Acetaminophen (Percocet 5/325 Mg Tab) 2 tab PO Q4H PRN PRN Reason: Pain, severe (8-10) Stop: 10/17/16 13:57 Pantoprazole Sodium (Protonix Ec Tab) 40 mg PO DAILY [facility] Last Admin: 10/14/16 10:24 Dose: Not Given Rosuvastatin Calcium (Crestor) 5 mg PO HS [facility] Last Admin: 10/13/16 21:42 Dose: 5 mg - Labs Labs: 10/14/16 07:09 10/14/16 07:09 PT 14.7 SECONDS (9.7-12.2) H 10/13/16 13:55 INR 1.3 10/13/16 13:55 APTT 31 SECONDS (21-34) 10/13/16 13:55 - Constitutional Appears: Well, No Acute Distress - Head Exam Head Exam: NORMAL INSPECTION - Eye Exam Eye Exam: EOMI, Normal appearance - ENT Exam ENT Exam: Mucous Membranes Moist - Neck Exam Neck Exam: Normal Inspection - Respiratory Exam Respiratory Exam: Clear to Ausculation Bilateral, NORMAL BREATHING PATTERN - Cardiovascular Exam Cardiovascular Exam: REGULAR RHYTHM, +S1, +S2. absent: JVD, Rubs, Murmur - GI/Abdominal Exam GI & Abdominal Exam: Soft, Normal Bowel Sounds - Rectal Exam Rectal Exam: Deferred - Extremities Exam Additional comments: right foot dressing was c/d/i DP/PT pulses fully palpable 2/4 b/l Capillary Fill Time < 3 seconds right foot warmer to touch compared to left - Neurological Exam Neurological Exam: Alert, Awake - Psychiatric Exam Psychiatric exam: Normal Affect, Normal Mood - Skin Skin Exam: Dry, Intact, Normal Color, Warm Assessment and Plan - Assessment and Plan (Free Text) Assessment: Diabetic foot ulcers 10/14: s/p right foot incision and drainage with Dr Carney to treat right foot gas gangrene 10/14: foot xray: "No plain radiographic evidence of osteomyelitis. Multiple prior osteotomies as described" Admit to med/surg Consult: Dr. Carney (podiatry) Blood cultures X2 ordered Zosyn and Vancomycin 1 dose each given in ED Zosyn 3.375 IV Q 6hours Vancomycin 1 gram IV Q12H f/u foot xray f/u MRI foot Note: patient has metal in neck Sepsis Criteria (WBC >12k, Temp > 100.9, HR> 90) Secondary to foot infection Lactate on VB.0 NS @ 100 cc/hr f/u blood, urine cx Cellulitis Current Visit: No Status: Acute Priority: Medium Comment: Consult: Dr. Carney (podiatry) Zosyn 2.25 IV q 8hours Vancomycin 1 gram IVq daily given zosyn and Vanco in the ED X1 Blood cultures Ordered stat Diabetes Current Visit: No Status: Chronic Priority: Medium Comment: Accuchecks QACHS 10/14: A1C 8.5 on this admission Lantus 40 units daily Novolog 15 units TIDAC -Novolog insulin sliding scale held janumet and glimepride Moderate carbohydrate diet f/u A1C - 8.4 on 05/2016 Emphysema Home med Arnuity ellipta (not formulary) Duonebs Q6H PRN Cervical pain (neck) Comment: history of cervical neck pain sees pain management outpatient - Dr. Banda ([facility]) Oxycodone 15mg PO Q6H Hyperlipidemia Crestor 5mg PO HS Hypertension Well-controlled since admission Pt reorts taking both MOHAMUD/ARB as home med - will restart home enalapril 20mg PO Daily - will hold home losartan/hctz NS @ 100 cc/hr Will monitor elevated creatinine Elevated Creatinine 10/14: Cr 1.2 today Last admission 06/10 0.9; now Cr 1.3 Will monitor Hyponatremia 10/14: Na 128 today Na 127 on presentation labs NS @ 100cc/hr Monitor Hypomagnesemia 10/14: Mag 1.9 today 1.4 on presentation labs - repleted Abnormal UA Ua (10/13/16): 2+ protein, 3+ glucose, 4 RBC, hyaline casts 11-20, LE/nitrite negative Prophylactic measure Heparin 5000 units sub [id number] for dvt ppx Protonix 40mg PO daily for gi ppx SCD CI PT/OT ordered <Dawson Guevara - Last Filed: 10/15/16 16:20> Objective - Vital Signs/Intake and Output Vital Signs (last 24 hours): Temp Pulse Resp BP Pulse Ox 99 F 69 20 127/74 95 10/15/16 07:51 10/15/16 07:51 10/15/16 07:51 10/15/16 10:00 10/15/16 07:51 Intake and Output: 10/15/16 10/15/16 06:59 18:59 Intake Total 2250 800 Output Total 1450 1200 Balance 800 -400 - Medications Medications: Current Medications Acetaminophen (Tylenol 325mg Tab) 650 mg PO Q6 PRN PRN Reason: Fever >100.4 F Albuterol/Ipratropium (Duoneb 3 Mg/0.5 Mg (3 Ml) Ud) 3 ml INH RQ4 PRN PRN Reason: Shortness of Breath Aspirin (Ecotrin) 81 mg PO DAILY [facility] Last Admin: 10/15/16 10:00 Dose: 81 mg Enalapril Maleate (Vasotec) 20 mg PO DAILY [facility] Last Admin: 10/15/16 10:00 Dose: 20 mg Heparin Sodium (Porcine) (Heparin) 5,000 units SC Q8 [facility] Last Admin: 10/15/16 14:53 Dose: 5,000 units Sodium Chloride (Sodium Chloride 0.9%) 1,000 mls @ 100 mls/hr IV .Q10H [facility] Last Admin: 10/15/16 09:45 Dose: Not Given Vancomycin HCl 1,000 mg/ (Sodium Chloride) 250 mls @ 166.6 mls/hr IVPB Q12H [facility] Last Admin: 10/15/16 06:42 Dose: 166.6 mls/hr Piperacillin Sod/Tazobactam (Sod 3.375 gm/ Sodium Chloride) 100 mls @ 200 mls/ hr IVPB Q6H [facility] Last Admin: 10/15/16 14:54 Dose: 200 mls/hr Lactated Ringer's (Lactated Ringer's) 1,000 mls @ 100 mls/hr IV .Q10H [facility] Last Admin: 10/15/16 10:00 Dose: 100 mls/hr Insulin Aspart (Novolog) 0 unit SC ACHS [facility] PRN Reason: Protocol Last Admin: 10/15/16 07:30 Dose: 6 unit Insulin Aspart (Novolog) 18 unit SC TIDAC [facility] Last Admin: 10/15/16 11:19 Dose: 18 unit Insulin Glargine (Lantus) 40 unit SC DAILY [facility] Last Admin: 10/15/16 10:05 Dose: 40 units Oxycodone HCl (Oxycodone Immediate Release Tab) 15 mg PO Q4H PRN PRN Reason: Pain, moderate (4-7) Last Admin: 10/15/16 14:51 Dose: 15 mg Pantoprazole Sodium (Protonix Ec Tab) 40 mg PO DAILY [facility] Last Admin: 10/15/16 10:00 Dose: 40 mg Rosuvastatin Calcium (Crestor) 5 mg PO HS [facility] Last Admin: 10/14/16 21:24 Dose: 5 mg - Labs Labs: 10/15/16 08:50 10/15/16 08:50 PT 14.7 SECONDS (9.7-12.2) H 10/13/16 13:55 INR 1.3 10/13/16 13:55 APTT 31 SECONDS (21-34) 10/13/16 13:55 Attending/Attestation - Attestation I have personally seen and examined this patient.: Yes I have fully participated in the care of the patient.: Yes I have reviewed all pertinent clinical information, including history, physical exam and plan: Yes Notes (Text): 10/15/16 16:19 Patient seen and examined at bedside with the resident Status post incision and drainage of the right foot wound Follow-up report of the MRI Continue antibiotics as per recommendations of ID Discussed the plan of care with the resident and agree with the history and physical and assessment/plan but the resident.
--- NOTE | 2016-10-14 16:58 | CP.PCM.CON ---
History of Present Illness - History of Present Illness History of Present Illness: Pt c/o b/l foot ulcers. Right foot got infected and became red. Pt developed fever. He was evaluated by his PMD who started him on Cipro and Clindamycin without any improvement. - Medical History PMH: Depression, Diabetes, HTN, Hyperlipidemia Surgical History: Appendectomy (5 yrs ago) - [facility] Procedures CENTRAL VENOUS CATHETER PLACEMENT WITH GUIDANCE (11/13/14) EXCIS DEBRIDE OF WOUND, INFECT, OR BURN (07/16/14) OTH METATARS/TARS INCIS (07/16/14) PART OSTECT-METATAR/TAR (10/29/13) Review of Systems - Review of Systems All systems: reviewed and no additional remarkable complaints except - Constitutional Constitutional: absent: As Per HPI, Anorexia, Chills, Daytime Sleepiness, Excessive Sweating, Fatigue, Fever, Frequent Falls, Headache, Increased Appetite , Lethargy, Malaise, Night Sweats, Snoring, Sleep Apnea, Weight Gain, Weight Loss, Weakness, Other - EENT Eyes: absent: As Per HPI, Blind Spots, Blurred Vision, Change in Vision, Decreased Night Vision, Diplopia, Discharge, Dry Eye, Exophthalmos, Floaters, Irritation, Itchy Eyes, Loss of Peripheral Vision, Pain, Photophobia, Requires Corrective Lenses, Sees Flashes, Spots in Vision, Tunnel Vision, Other Visual Disturbances, Loss of Vision, Other Ears: absent: As Per HPI, Decreased Hearing, Ear Discharge, Ear Pain, Tinnitus, Abnormal Hearing, Disequilibrium, Dizziness, Other Nose/Mouth/Throat: absent: As Per HPI, Epistaxis, Nasal Congestion, Nasal Discharge, Nasal Obstruction, Nasal Trauma, Nose Pain, Post Nasal Drip, Sinus Pain, Sinus Pressure, Bleeding Gums, Change in Voice, Dental Pain, Dry Mouth, Dysphagia, Halitosis, Hoarsness, Lip Swelling, Mouth Lesions, Mouth Pain, Odynophagia, Sore Throat, Throat Swelling, Tongue Swelling, Facial Pain, Neck Pain, Neck Mass, Other - Cardiovascular Cardiovascular: absent: As Per HPI, Acrocyanosis, Chest Pain, Chest Pain at Rest , Chest Pain with Activity, Claudication, Diaphoresis, Dyspnea, Dyspnea on Exertion, Edema, Irregular Heart Rhythm, Pain Radiating to Arm/Neck/Jaw, Leg Edema, Leg Ulcers, Lightheadedness, Orthopnea, Palpitations, Paroxysmal Nocturnal Dyspnea, Pedal Edema, Radiating Pain, Rapid Heart Rate, Slow Heart Rate, Syncope, Other - Respiratory Respiratory: absent: As Per HPI, Cough, Dyspnea, Hemoptysis, Dyspnea on Exertion , Wheezing, Snoring, Stridor, Pain on Inspiration, Chest Congestion, Excessive Mucous Production, Change in Mucous Color, Pain with Coughing, Other - Gastrointestinal Gastrointestinal: absent: As Per HPI, Abdominal Pain, Belching, Bloating, Change in Bowel Habits, Change in Stool Character, Coffee Ground Emesis, Constipation, Cramping, Diarrhea, Dyspepsia, Dysphagia, Early Satiety, Excessive Flatus, Fecal Incontinence, Heartburn, Hematemesis, Hematochezia, Loose Stools, Melena, Nausea, Odynophagia, Temesmus, Vomiting, Other - Genitourinary Genitourinary: absent: As Per HPI, Change in Urinary Stream, Difficulty Urinating, Dysuria, Flank Pain, Hematuria, Pyuria, Nocturia, Urinary Incontinence, Urinary Frequency, Urinary Hesitance, Urinary Urgency, Voiding Freq/Small Amts, Freq UTI, Hx Renal/Bladder Calculi, Hx /Renal Surgery, Bladder Distension, Other - Musculoskeletal Musculoskeletal: As Per HPI - Integumentary Integumentary: As Per HPI - Neurological Neurological: As Per HPI - Psychiatric Psychiatric: absent: As Per HPI, Abnormal Sleep Pattern, Anhedonia, Anxiety, Auditory Hallucinations, Behavioral Changes, Change in Appetite, Change in Libido, Confusion, Depression, Difficulty Concentrating, Hallucinations, Homicidal Ideation, Hopelessness, Irritability, Memory Loss, Mood Swings, Panic Attacks, Paranoia, Suicidal Ideation, Visual Hallucinations, Tactile Hallucinations, Other - Endocrine Endocrine: absent: As Per HPI, Change in Body Appearance, Change in Libido, Cold Intolorance, Deepening of Voice, Excessive Sweating, Fatigue, Flushing, Heat Intolorance, Increase in Ring/Shoe/Hat Size, Palpitations, Polydipsia, Polyphagia, Polyuria, Other Past Patient History - Infectious Disease Hx of Infectious Diseases: None - Tetanus Immunizations Tetanus Immunization: Unknown - Past Medical History & Family History Past Medical History?: Yes - Past Social History Smoking Status: Light Smoker < 10 Cigarettes Daily - CARDIAC Hx Hypertension: Yes - PULMONARY Hx Respiratory Disorders: No - NEUROLOGICAL Hx Neurological Disorder: Yes (chronic fatigue) - HEENT Hx HEENT Problems: No - RENAL Hx Chronic Kidney Disease: No - ENDOCRINE/METABOLIC Hx Endocrine Disorders: Yes Hx Diabetes Mellitus Type 2: Yes - HEMATOLOGICAL/ONCOLOGICAL Hx Blood Disorders: No - INTEGUMENTARY Hx Dermatological Problems: No - MUSCULOSKELETAL/RHEUMATOLOGICAL Hx Musculoskeletal Disorders: Yes Hx Falls: No Hx Herniated Disk: Yes (cervical +metal, lumbar disc) - GASTROINTESTINAL Hx Gastrointestinal Disorders: No - GENITOURINARY/GYNECOLOGICAL Hx Genitourinary Disorders: No - PSYCHIATRIC Hx Depression: Yes Hx Substance Use: No - SURGICAL HISTORY Hx Appendectomy: Yes (5 yrs ago) - ANESTHESIA Hx Anesthesia: Yes Hx Anesthesia Reactions: No Hx Malignant Hyperthermia: No Meds Allergies/Adverse Reactions: Allergies Allergy/AdvReac Type Severity Reaction Status Date / Time morphine Allergy RASH Verified 03/17/16 14:32 - Medications Medications: Current Medications Acetaminophen (Tylenol 325mg Tab) 650 mg PO Q6 PRN PRN Reason: Fever >100.4 F Acetaminophen (Tylenol 325mg Tab) 650 mg PO Q6 PRN PRN Reason: Pain, Mild (1-3) Albuterol/Ipratropium (Duoneb 3 Mg/0.5 Mg (3 Ml) Ud) 3 ml INH RQ4 PRN PRN Reason: Shortness of Breath Enalapril Maleate (Vasotec) 20 mg PO DAILY [facility] Last Admin: 10/14/16 10:24 Dose: Not Given Sodium Chloride (Sodium Chloride 0.9%) 1,000 mls @ 100 mls/hr IV .Q10H [facility] Last Admin: 10/14/16 14:30 Dose: Not Given Vancomycin HCl 1,000 mg/ (Sodium Chloride) 250 mls @ 166.6 mls/hr IVPB Q12H [facility] Last Admin: 10/14/16 06:01 Dose: 166.6 mls/hr Piperacillin Sod/Tazobactam (Sod 3.375 gm/ Sodium Chloride) 100 mls @ 200 mls/ hr IVPB Q6H [facility] Last Admin: 10/14/16 15:00 Dose: 200 mls/hr Lactated Ringer's (Lactated Ringer's) 1,000 mls @ 100 mls/hr IV .Q10H [facility] Last Admin: 10/14/16 15:12 Dose: Not Given Insulin Aspart (Novolog) 15 unit SC TIDAC [facility] Last Admin: 10/14/16 11:34 Dose: Not Given Insulin Aspart (Novolog) 0 unit SC ACHS [facility] PRN Reason: Protocol Last Admin: 10/14/16 11:34 Dose: Not Given Insulin Glargine (Lantus) 40 unit SC DAILY [facility] Last Admin: 10/14/16 10:23 Dose: Not Given Oxycodone HCl (Oxycodone Immediate Release Tab) 15 mg PO Q6 [facility] Last Admin: 10/14/16 11:35 Dose: Not Given Oxycodone/Acetaminophen (Percocet 5/325 Mg Tab) 1 tab PO Q4H PRN PRN Reason: Pain, moderate (4-7) Stop: 10/17/16 13:57 Oxycodone/Acetaminophen (Percocet 5/325 Mg Tab) 2 tab PO Q4H PRN PRN Reason: Pain, severe (8-10) Stop: 10/17/16 13:57 Pantoprazole Sodium (Protonix Ec Tab) 40 mg PO DAILY [facility] Last Admin: 10/14/16 10:24 Dose: Not Given Rosuvastatin Calcium (Crestor) 5 mg PO HS [facility] Last Admin: 10/13/16 21:42 Dose: 5 mg Physical Exam - Constitutional Appears: No Acute Distress - Head Exam Head Exam: ATRAUMATIC - Eye Exam Eye Exam: PERRL. absent: Scleral icterus - ENT Exam ENT Exam: Mucous Membranes Dry - Neck Exam Neck exam: Negative for: Lymphadenopathy - Respiratory Exam Respiratory Exam: Decreased Breath Sounds, Clear to Auscultation Bilateral - Cardiovascular Exam Cardiovascular Exam: REGULAR RHYTHM - GI/Abdominal Exam GI & Abdominal Exam: Diminished Bowel Sounds, Soft. absent: Tenderness - Rectal Exam Rectal Exam: Deferred - Exam Exam: NORMAL INSPECTION - Extremities Exam Extremities exam: Positive for: pedal edema Additional comments: LE focused examination: Vasc: DP/PT pulses fully palpable 2/4 b/l. CFT < 3 seconds to digits 1-5 b/l. Skin temperature increased at distal forefoot of right foot. Neuro: Epicritic and protective sensations grossly diminished to b/l LE Derm: Ulcerations noted to first interdigital space of right foot, medial plantar aspect of right foot at level of first MTPJ (1.0 cm x 1.0 cm) and plantar left foot at level of fourth metatarsal head (0.7 cm x 0.7 cm). Fluctuance is present proximally to interdigital ulceration and approximately 2 cc of purulent drainage was noted, Probe to bone test negative at all ulceration sites but undermining between right foot ulcerations appreciated. Strong malodor from right foot noted as well as periwound erythema with erythematous streaking up the leg. Mild erythematous streaking also noted to dorsum of left foot as well. No malodor or purulent drainage appreciated from ulceration on plantar aspect of left foot. MSK: POP noted to interdigital ulceration of right foot Xrays evaluated. No osseous changes indicative of osteomyelitis present at this time. No evidence of soft tissue emphysema noted. - Back Exam Back exam: absent: CVA tenderness (L), CVA tenderness (R) - Neurological Exam Neurological exam: Alert, CN II-XII Intact, Oriented x3, Reflexes Normal - Psychiatric Exam Psychiatric exam: Anxious Results - Vital Signs Recent Vital Signs: Last Vital Signs Temp 98 F 10/14/16 14:40 Pulse 65 10/14/16 14:45 Resp 15 10/14/16 14:45 BP 120/65 10/14/16 14:45 Pulse Ox 100 10/14/16 14:45 - Labs Result Diagrams: 10/14/16 07:09 10/14/16 07:09 Labs: Laboratory Results - last 24 hr 10/13/16 10/14/16 10/14/16 21:16 02:31 07:09 WBC RBC Hgb Hct MCV MCH MCHC RDW Plt Count MPV Neut % (Auto) Lymph % (Auto) [place] % (Auto) Eos % (Auto) Baso % (Auto) Neut # Lymph # [place] # Eos # Baso # Neutrophils % (Manual) Lymphocytes % (Manual) Monocytes % (Manual) Eosinophils % (Manual) Platelet Estimate Hypochromasia (manual) Sodium Potassium Chloride Carbon Dioxide Anion Gap BUN Creatinine Est GFR ( Amer) Est GFR (Non-Af Amer) POC Glucose (mg/dL) 402 H* 233 H Random Glucose Hemoglobin A1c 8.5 H Calcium Phosphorus Magnesium Total Bilirubin AST ALT Alkaline Phosphatase Total Protein Albumin Globulin Albumin/Globulin Ratio 10/14/16 10/14/16 10/14/16 07:09 07:09 07:13 WBC 10.0 RBC 3.72 L Hgb 11.3 L Hct 33.3 L MCV 89.5 MCH 30.4 MCHC 33.9 RDW 12.8 Plt Count 209 MPV 8.2 Neut % (Auto) 79.2 H Lymph % (Auto) 9.0 L [place] % (Auto) 9.5 Eos % (Auto) 1.9 Baso % (Auto) 0.4 Neut # 7.9 H Lymph # 0.9 L [place] # 0.9 H Eos # 0.2 Baso # 0.0 Neutrophils % (Manual) 76 H Lymphocytes % (Manual) 15 L Monocytes % (Manual) 7 Eosinophils % (Manual) 2 Platelet Estimate Normal Hypochromasia (manual) Slight Sodium 128 L Potassium 4.4 Chloride 97 L Carbon Dioxide 23 Anion Gap 12 BUN 19 Creatinine 1.2 Est GFR ( Amer) > 60 Est GFR (Non-Af Amer) > 60 POC Glucose (mg/dL) 277 H Random Glucose 241 H Hemoglobin A1c Calcium 7.5 L Phosphorus 2.9 Magnesium 1.9 Total Bilirubin 0.7 AST 22 ALT 34 Alkaline Phosphatase 45 Total Protein 5.8 L Albumin 2.8 L Globulin 3.0 Albumin/Globulin Ratio 0.9 L 10/14/16 10/14/16 11:11 16:24 WBC RBC Hgb Hct MCV MCH MCHC RDW Plt Count MPV Neut % (Auto) Lymph % (Auto) [place] % (Auto) Eos % (Auto) Baso % (Auto) Neut # Lymph # [place] # Eos # Baso # Neutrophils % (Manual) Lymphocytes % (Manual) Monocytes % (Manual) Eosinophils % (Manual) Platelet Estimate Hypochromasia (manual) Sodium Potassium Chloride Carbon Dioxide Anion Gap BUN Creatinine Est GFR ( Amer) Est GFR (Non-Af Amer) POC Glucose (mg/dL) 260 H 317 H Random Glucose Hemoglobin A1c Calcium Phosphorus Magnesium Total Bilirubin AST ALT Alkaline Phosphatase Total Protein Albumin Globulin Albumin/Globulin Ratio Assessment & Plan - Assessment and Plan (Free Text) Assessment: gangrene right foot failed out pt rx taken to or for debridment needs vascular deuce; may need BKA poor prognosis await cultures cont iv antibiotics
[2016-10-15] MEDS: Lactated Ringer's 1,000 ML IV SCH ×3 (00:05→20:00)
[2016-10-15] MEDS: oxyCODONE 5 mg Immediate Release Tab PO SCH ×3 (00:14→11:04)
[2016-10-15] MEDS: Piperacillin/Tazobact 3.375 GM in Sodium Chloride 100 ML IVPB SCH ×4 (03:04→21:14)
[2016-10-15] MEDS: (Novolog) Insulin Aspart, Recombinant 100 u/ml 10 ml vial SC SCH ×4 (07:30→16:30)
[2016-10-15 07:52] VITALS: RESP 20
[2016-10-15 09:04] LABS: BASO % 0.6 % (0.0-2.0); EOS # 0.2 K/uL (0.0-0.7); HEMATOCRIT 32.2 % (35.0-51.0); LYMPH # 1.1 K/uL (1.0-4.3); LYMPH % 14.6 % (20.0-40.0); MEAN CELL VOLUME 88.4 fL (80.0-94.0); MEAN CORPUSCULAR HEMOGLOBIN 29.9 pg (27.0-31.0); MEAN CORPUSCULAR HGB CONC 33.9 g/dL (33.0-37.0); MEAN PLATELET VOLUME 8.4 fL (7.2-11.7); MONO # 0.9 K/uL (0.0-0.8); MONO % 12.5 % (0.0-10.0); WHITE BLOOD COUNT 7.5 K/uL (4.8-10.8)
[2016-10-15 09:21] LABS: ALB/GLOB RATIO 0.9 (1.0-2.1); ALKALINE PHOSPHATASE 55 U/L (38-126); ALT/SGPT 48 U/L (21-72); AST/SGOT 37 U/L (17-59); BILIRUBIN,TOTAL 0.7 mg/dL (0.2-1.3); BLOOD UREA NITROGEN 14 mg/dL (9-20); CALCIUM 7.9 mg/dl (8.6-10.4); CARBON DIOXIDE 22 mmol/L (22-30); CHLORIDE 99 mmol/L (98-107); GFR AFRICAN-AMERICAN > 60; GLUCOSE,RANDOM 264 mg/dL (75-110); MAGNESIUM 1.9 mg/dL (1.6-2.3); PHOSPHOROUS 2.8 mg/dL (2.5-4.5); POTASSIUM 4.4 mmol/L (3.6-5.2); SODIUM 130 mmol/L (132-148); TOTAL PROTEIN 6.1 g/dL (6.3-8.3)
[2016-10-15] MEDS: Sodium Chloride 0.9% 1,000 ML IV SCH ×2 (09:45→19:45)
[2016-10-15] MEDS: Pantoprazole 40 mg EC Tab PO SCH (10:00)
[2016-10-15] MEDS: (Lantus) Insulin Glargine, Recombinant SC SCH (10:05)
[2016-10-15] MEDS ORDERED: Gadodiamide 287 mg/ml 20 ml IV ONE (10:32)
--- NOTE | 2016-10-15 13:26 | CP.PCM.PN ---
<Connie Bryson - Last Filed: 10/15/16 13:23> Subjective - Date & Time of Evaluation Date of Evaluation: 10/15/16 Time of Evaluation: 13:23 - Subjective Subjective: PGY2 progress note for hospitalists Pt is seen and examined at bedside. No acute events overnight. s/p I&D of right foot POD #1. Pt denies having any CP, SOB, abd pain, N/V/D/C. Patient will have MRI of [place] done today. Patient only complains of right foot pain. 12 point ROS are negative except for the above mentioned. Objective - Vital Signs/Intake and Output Vital Signs (last 24 hours): Temp Pulse Resp BP Pulse Ox 99 F 69 20 127/74 95 10/15/16 07:51 10/15/16 07:51 10/15/16 07:51 10/15/16 10:00 10/15/16 07:51 Intake and Output: 10/15/16 10/15/16 06:59 18:59 Intake Total 2250 Output Total 1450 Balance 800 - Medications Medications: Current Medications Acetaminophen (Tylenol 325mg Tab) 650 mg PO Q6 PRN PRN Reason: Fever >100.4 F Albuterol/Ipratropium (Duoneb 3 Mg/0.5 Mg (3 Ml) Ud) 3 ml INH RQ4 PRN PRN Reason: Shortness of Breath Aspirin (Ecotrin) 81 mg PO DAILY [facility] Last Admin: 10/15/16 10:00 Dose: 81 mg Enalapril Maleate (Vasotec) 20 mg PO DAILY [facility] Last Admin: 10/15/16 10:00 Dose: 20 mg Heparin Sodium (Porcine) (Heparin) 5,000 units SC Q8 [facility] Sodium Chloride (Sodium Chloride 0.9%) 1,000 mls @ 100 mls/hr IV .Q10H [facility] Last Admin: 10/14/16 23:45 Dose: Not Given Vancomycin HCl 1,000 mg/ (Sodium Chloride) 250 mls @ 166.6 mls/hr IVPB Q12H [facility] Last Admin: 10/15/16 06:42 Dose: 166.6 mls/hr Piperacillin Sod/Tazobactam (Sod 3.375 gm/ Sodium Chloride) 100 mls @ 200 mls/ hr IVPB Q6H [facility] Last Admin: 10/15/16 05:11 Dose: 200 mls/hr Lactated Ringer's (Lactated Ringer's) 1,000 mls @ 100 mls/hr IV .Q10H [facility] Last Admin: 10/15/16 10:00 Dose: 100 mls/hr Insulin Aspart (Novolog) 0 unit SC ACHS [facility] PRN Reason: Protocol Last Admin: 10/15/16 07:30 Dose: 6 unit Insulin Aspart (Novolog) 18 unit SC TIDAC [facility] Last Admin: 10/15/16 11:19 Dose: 18 unit Insulin Glargine (Lantus) 40 unit SC DAILY [facility] Last Admin: 10/15/16 10:05 Dose: 40 units Oxycodone HCl (Oxycodone Immediate Release Tab) 15 mg PO Q4H PRN PRN Reason: Pain, moderate (4-7) Pantoprazole Sodium (Protonix Ec Tab) 40 mg PO DAILY [facility] Last Admin: 10/15/16 10:00 Dose: 40 mg Rosuvastatin Calcium (Crestor) 5 mg PO HS [facility] Last Admin: 10/14/16 21:24 Dose: 5 mg - Labs Labs: 10/15/16 08:50 10/15/16 08:50 PT 14.7 SECONDS (9.7-12.2) H 10/13/16 13:55 INR 1.3 10/13/16 13:55 APTT 31 SECONDS (21-34) 10/13/16 13:55 - Constitutional Appears: Non-toxic, No Acute Distress - Head Exam Head Exam: ATRAUMATIC - ENT Exam ENT Exam: Mucous Membranes Moist - Respiratory Exam Respiratory Exam: Clear to Ausculation Bilateral. absent: Accessory Muscle Use , Rales, Rhonchi, Wheezes, Respiratory Distress - Cardiovascular Exam Cardiovascular Exam: REGULAR RHYTHM, +S1, +S2. absent: Gallop, Rubs, Murmur - GI/Abdominal Exam GI & Abdominal Exam: Soft, Normal Bowel Sounds. absent: Firm, Guarding, Rigid, Tenderness, Organomegaly - Extremities Exam Extremities Exam: absent: Pedal Edema, Tenderness - Neurological Exam Neurological Exam: Alert, Awake, Oriented x3 - Psychiatric Exam Psychiatric exam: Normal Affect, Normal Mood - Skin Skin Exam: Dry, Intact, Normal Color, Warm Assessment and Plan - Assessment and Plan (Free Text) Assessment: Diabetic foot ulcers s/p right foot I&D POD #[address] Carney to treat right foot gas gangrene. After discussed with Dr. Carney, will restart patient on Aspirin and heparin sc Right foot wound culture shows gram negative rods and cocci Patient remained a febrile overnight. WBC count down trending 10/14: foot xray: "No plain radiographic evidence of osteomyelitis. Multiple prior osteotomies as described" Consult: Dr. Carney (podiatry) Blood cultures X2 ordered Zosyn and Vancomycin 1 dose each given in ED Zosyn 3.375 IV Q 6hours Vancomycin 1 gram IV Q12H f/u foot xray f/u MRI foot Note: patient has metal in neck Continue NS 100 cc Cellulitis Consult: Dr. Carney (podiatry) Zosyn 2.25 IV q 8hours Vancomycin 1 gram IVq daily Diabetes Patient blood sugar is still elevated. Will increase Novolog 15 units TIDAC ( pre-meal insulin) to 18 units Accuchecks QACHS Hgb A1C 8.5 Lantus 40 units daily Novolog 18 units TIDAC Novolog insulin sliding scale held janumet and glimepride Moderate carbohydrate diet Emphysema Home med Arnuity ellipta (not formulary) Duonebs Q6H PRN Cervical pain (neck) history of cervical neck pain sees pain management outpatient - Dr. Banda ([facility]) Oxycodone 15mg PO Q6H Hyperlipidemia Crestor 5mg PO HS Hypertension Well-controlled since admission Pt reports taking both MOHAMUD/ARB as home med - will restart home enalapril 20mg PO Daily - will hold home losartan/hctz Will monitor elevated creatinine Elevated Creatinine Resolved Hyponatremia Stable and asymptomatic NS @ 100cc/hr Monitor Hypomagnesemia Resolved Prophylactic measure Heparin 5000 units sub [id number] for dvt ppx Protonix 40mg PO daily for gi ppx SCD CI PT/OT ordered Case discussed with attending, Dr. Guevara <Dawson Guevara - Last Filed: 10/15/16 16:56> Objective - Vital Signs/Intake and Output Vital Signs (last 24 hours): Temp Pulse Resp BP Pulse Ox 99 F 69 20 127/74 95 10/15/16 07:51 10/15/16 07:51 10/15/16 07:51 10/15/16 10:00 10/15/16 07:51 Intake and Output: 10/15/16 10/15/16 06:59 18:59 Intake Total 2250 800 Output Total 1450 1200 Balance 800 -400 - Medications Medications: Current Medications Acetaminophen (Tylenol 325mg Tab) 650 mg PO Q6 PRN PRN Reason: Fever >100.4 F Albuterol/Ipratropium (Duoneb 3 Mg/0.5 Mg (3 Ml) Ud) 3 ml INH RQ4 PRN PRN Reason: Shortness of Breath Aspirin (Ecotrin) 81 mg PO DAILY [facility] Last Admin: 10/15/16 10:00 Dose: 81 mg Enalapril Maleate (Vasotec) 20 mg PO DAILY [facility] Last Admin: 10/15/16 10:00 Dose: 20 mg Heparin Sodium (Porcine) (Heparin) 5,000 units SC Q8 [facility] Last Admin: 10/15/16 14:53 Dose: 5,000 units Sodium Chloride (Sodium Chloride 0.9%) 1,000 mls @ 100 mls/hr IV .Q10H [facility] Last Admin: 10/15/16 09:45 Dose: Not Given Vancomycin HCl 1,000 mg/ (Sodium Chloride) 250 mls @ 166.6 mls/hr IVPB Q12H [facility] Last Admin: 10/15/16 06:42 Dose: 166.6 mls/hr Piperacillin Sod/Tazobactam (Sod 3.375 gm/ Sodium Chloride) 100 mls @ 200 mls/ hr IVPB Q6H [facility] Last Admin: 10/15/16 14:54 Dose: 200 mls/hr Lactated Ringer's (Lactated Ringer's) 1,000 mls @ 100 mls/hr IV .Q10H [facility] Last Admin: 10/15/16 10:00 Dose: 100 mls/hr Insulin Aspart (Novolog) 0 unit SC ACHS [facility] PRN Reason: Protocol Last Admin: 10/15/16 07:30 Dose: 6 unit Insulin Aspart (Novolog) 18 unit SC TIDAC [facility] Last Admin: 10/15/16 11:19 Dose: 18 unit Insulin Glargine (Lantus) 40 unit SC DAILY [facility] Last Admin: 10/15/16 10:05 Dose: 40 units Oxycodone HCl (Oxycodone Immediate Release Tab) 15 mg PO Q4H PRN PRN Reason: Pain, moderate (4-7) Last Admin: 10/15/16 14:51 Dose: 15 mg Pantoprazole Sodium (Protonix Ec Tab) 40 mg PO DAILY [facility] Last Admin: 10/15/16 10:00 Dose: 40 mg Rosuvastatin Calcium (Crestor) 5 mg PO HS [facility] Last Admin: 10/14/16 21:24 Dose: 5 mg - Labs Labs: 10/15/16 08:50 10/15/16 08:50 PT 14.7 SECONDS (9.7-12.2) H 10/13/16 13:55 INR 1.3 10/13/16 13:55 APTT 31 SECONDS (21-34) 10/13/16 13:55 Attending/Attestation - Attestation I have personally seen and examined this patient.: Yes I have fully participated in the care of the patient.: Yes I have reviewed all pertinent clinical information, including history, physical exam and plan: Yes Notes (Text): 10/15/16 16:53 Patient was seen and examined at bedside Patient is status post incision and drainage of the right foot wound by podiatry Continue antibiotics as per recommendations of ID Aspirin is on hold pending decision by podiatry for further surgical intervention We have restarted the heparin subcutaneous for DVT prophylaxis after discussion with podiatry Follow-up report of the MRI of the foot to rule out osteomyelitis I discussed the plan of care with the resident IV discontinued and assessment/ plan documented here.
[2016-10-15] MEDS: oxyCODONE 5 mg Immediate Release Tab PO PRN ×2 (14:51→18:50)
--- NOTE | 2016-10-15 23:20 | CP.PCM.PN ---
Subjective - Date & Time of Evaluation Date of Evaluation: 10/15/16 Time of Evaluation: 12:00 - Subjective Subjective: 56 year old male patient seen at bedside POD#1 right foot incision and drainage. Patient seen resting in bed comfortably, AAOx3 and NAD. Patient is accompanied by his friend. Patient reports pain to surgical site, however well managed by pain medications. Patient denies any acute events overnight. Patient denies N/V/F/D/C/SOB/calf pain. No other pedal complaints at this time. Objective - Vital Signs/Intake and Output Vital Signs (last 24 hours): Temp Pulse Resp BP Pulse Ox 98.6 F 64 20 98/61 L 97 10/15/16 16:00 10/15/16 16:00 10/15/16 16:00 10/15/16 16:00 10/15/16 16:00 Intake and Output: 10/15/16 10/16/16 18:59 06:59 Intake Total 800 Output Total 1200 Balance -400 - Medications Medications: Current Medications Acetaminophen (Tylenol 325mg Tab) 650 mg PO Q6 PRN PRN Reason: Fever >100.4 F Albuterol/Ipratropium (Duoneb 3 Mg/0.5 Mg (3 Ml) Ud) 3 ml INH RQ4 PRN PRN Reason: Shortness of Breath Aspirin (Ecotrin) 81 mg PO DAILY [facility] Last Admin: 10/15/16 10:00 Dose: 81 mg Enalapril Maleate (Vasotec) 20 mg PO DAILY [facility] Last Admin: 10/15/16 10:00 Dose: 20 mg Heparin Sodium (Porcine) (Heparin) 5,000 units SC Q8 [facility] Last Admin: 10/15/16 21:08 Dose: 5,000 units Sodium Chloride (Sodium Chloride 0.9%) 1,000 mls @ 100 mls/hr IV .Q10H [facility] Last Admin: 10/15/16 19:45 Dose: Not Given Vancomycin HCl 1,000 mg/ (Sodium Chloride) 250 mls @ 166.6 mls/hr IVPB Q12H [facility] Last Admin: 10/15/16 18:08 Dose: 166.6 mls/hr Piperacillin Sod/Tazobactam (Sod 3.375 gm/ Sodium Chloride) 100 mls @ 200 mls/ hr IVPB Q6H [facility] Last Admin: 10/15/16 21:14 Dose: 200 mls/hr Lactated Ringer's (Lactated Ringer's) 1,000 mls @ 100 mls/hr IV .Q10H [facility] Last Admin: 10/15/16 20:00 Dose: 100 mls/hr Insulin Aspart (Novolog) 0 unit SC ACHS [facility] PRN Reason: Protocol Last Admin: 10/15/16 07:30 Dose: 6 unit Insulin Aspart (Novolog) 18 unit SC TIDAC [facility] Last Admin: 10/15/16 16:30 Dose: 18 unit Insulin Glargine (Lantus) 40 unit SC DAILY [facility] Last Admin: 10/15/16 10:05 Dose: 40 units Oxycodone HCl (Oxycodone Immediate Release Tab) 15 mg PO Q4H PRN PRN Reason: Pain, moderate (4-7) Last Admin: 10/15/16 18:50 Dose: 15 mg Pantoprazole Sodium (Protonix Ec Tab) 40 mg PO DAILY [facility] Last Admin: 10/15/16 10:00 Dose: 40 mg Rosuvastatin Calcium (Crestor) 5 mg PO HS [facility] Last Admin: 10/15/16 21:08 Dose: 5 mg - Labs Labs: 10/15/16 08:50 10/15/16 08:50 PT 14.7 SECONDS (9.7-12.2) H 10/13/16 13:55 INR 1.3 10/13/16 13:55 APTT 31 SECONDS (21-34) 10/13/16 13:55 - Constitutional Appears: Well, Non-toxic, No Acute Distress - Extremities Exam Additional comments: Dressings appear clean, dry, and intact. - Neurological Exam Neurological Exam: Alert, Awake, Oriented x3 - Psychiatric Exam Psychiatric exam: Normal Affect, Normal Mood Assessment and Plan - Assessment and Plan (Free Text) Assessment: 56 year old male seen for multiple foot ulcerations secondary to DM Plan: Patient seen and evaluated at bedside. Discussed with attending, Dr. Patel. Charts, labs, vitals reviewed = afebrile, WBC WNL @ 7.5 Continue abx per ID = Zosyn, Vancomycin. Awaiting cultures. Contine pain mgmt per medicine Per conversation with Dr. Guevara, Aspirin is on hold pending need for further surgical intervention. Restart heparin for DVT prophylaxis. F/U MRI report Dressing change tomorrow. Podiatry will continue to follow patient while in house.
[2016-10-16] MEDS: oxyCODONE 5 mg Immediate Release Tab PO PRN ×6 (00:10→22:30)
[2016-10-16] MEDS: Albuterol-Ipratrop 3 mg / 0.5 (3 ml) UD INH PRN (00:23)
[2016-10-16] MEDS: Piperacillin/Tazobact 3.375 GM in Sodium Chloride 100 ML IVPB SCH ×4 (02:14→20:29)
[2016-10-16] MEDS: Sodium Chloride 0.9% 1,000 ML IV SCH (05:14)
[2016-10-16] MEDS: Lactated Ringer's 1,000 ML IV SCH (05:15)
[2016-10-16 07:32] LABS: ALB/GLOB RATIO 0.9 (1.0-2.1); ALKALINE PHOSPHATASE 62 U/L (38-126); ALT/SGPT 65 U/L (21-72); AST/SGOT 47 U/L (17-59); BILIRUBIN,TOTAL 0.5 mg/dL (0.2-1.3); BLOOD UREA NITROGEN 13 mg/dL (9-20); CALCIUM 7.9 mg/dl (8.6-10.4); CARBON DIOXIDE 24 mmol/L (22-30); CHLORIDE 97 mmol/L (98-107); GFR AFRICAN-AMERICAN > 60; GLUCOSE,RANDOM 257 mg/dL (75-110); MAGNESIUM 1.6 mg/dL (1.6-2.3); PHOSPHOROUS 3.8 mg/dL (2.5-4.5); POTASSIUM 4.3 mmol/L (3.6-5.2); SODIUM 134 mmol/L (132-148)
[2016-10-16] MEDS: (Novolog) Insulin Aspart, Recombinant 100 u/ml 10 ml vial SC SCH ×3 (07:50→17:10)
[2016-10-16 07:56] LABS: BASO # 0.1 K/uL (0.0-0.2); EOS # 0.2 K/uL (0.0-0.7); EOS % 3.6 % (0.0-4.0); HEMATOCRIT 31.7 % (35.0-51.0); LYMPH # 1.5 K/uL (1.0-4.3); LYMPH % 22.6 % (20.0-40.0); MEAN CELL VOLUME 89.4 fL (80.0-94.0); MEAN CORPUSCULAR HEMOGLOBIN 30.3 pg (27.0-31.0); MEAN CORPUSCULAR HGB CONC 33.9 g/dL (33.0-37.0); MEAN PLATELET VOLUME 8.3 fL (7.2-11.7); MONO # 0.9 K/uL (0.0-0.8); MONO % 13.6 % (0.0-10.0); RED CELL DISTRIBUTION WIDTH 12.9 % (11.5-14.5); WHITE BLOOD COUNT 6.6 K/uL (4.8-10.8)
[2016-10-16] MEDS: Pantoprazole 40 mg EC Tab PO SCH (09:19)
[2016-10-16] MEDS: (Lantus) Insulin Glargine, Recombinant SC SCH ×2 (09:20→10:37)
[2016-10-16] MEDS ORDERED: (Lantus) Insulin Glargine, Recombinant SC ONE (10:45)
--- NOTE | 2016-10-16 10:53 | CP.PCM.PN ---
Subjective - Date & Time of Evaluation Date of Evaluation: 10/16/16 Time of Evaluation: 10:53 - Subjective Subjective: 56 year old male patient seen at bedside POD#2 right foot incision and drainage. Patient seen resting in bed comfortably, AAOx3 and NAD. Patient reports increased pain to surgical site, however well managed by pain medications. Patient denies any acute events overnight. Patient denies N/V/F/D/C /SOB/calf pain. No other pedal complaints at this time. Objective - Vital Signs/Intake and Output Vital Signs (last 24 hours): Temp Pulse Resp BP Pulse Ox 98.7 F 68 20 123/75 96 10/16/16 08:31 10/16/16 08:31 10/16/16 08:31 10/16/16 09:19 10/16/16 08:31 Intake and Output: 10/16/16 10/16/16 06:59 18:59 Intake Total 1040 Output Total 800 Balance 240 - Medications Medications: Current Medications Acetaminophen (Tylenol 325mg Tab) 650 mg PO Q6 PRN PRN Reason: Fever >100.4 F Albuterol/Ipratropium (Duoneb 3 Mg/0.5 Mg (3 Ml) Ud) 3 ml INH RQ4 PRN PRN Reason: Shortness of Breath Last Admin: 10/16/16 00:23 Dose: 3 ml Aspirin (Ecotrin) 81 mg PO DAILY [facility] Last Admin: 10/15/16 10:00 Dose: 81 mg Enalapril Maleate (Vasotec) 20 mg PO DAILY [facility] Last Admin: 10/16/16 09:19 Dose: 20 mg Heparin Sodium (Porcine) (Heparin) 5,000 units SC Q8 [facility] Last Admin: 10/16/16 04:59 Dose: 5,000 units Sodium Chloride (Sodium Chloride 0.9%) 1,000 mls @ 100 mls/hr IV .Q10H [facility] Last Admin: 10/16/16 05:14 Dose: Not Given Vancomycin HCl 1,000 mg/ (Sodium Chloride) 250 mls @ 166.6 mls/hr IVPB Q12H [facility] Last Admin: 10/16/16 06:21 Dose: 166.6 mls/hr Piperacillin Sod/Tazobactam (Sod 3.375 gm/ Sodium Chloride) 100 mls @ 200 mls/ hr IVPB Q6H [facility] Last Admin: 10/16/16 09:19 Dose: 200 mls/hr Insulin Aspart (Novolog) 0 unit SC ACHS [facility] PRN Reason: Protocol Last Admin: 10/15/16 07:30 Dose: 6 unit Insulin Aspart (Novolog) 18 unit SC TIDAC [facility] Last Admin: 10/16/16 07:50 Dose: 18 unit Insulin Glargine (Lantus) 45 unit SC DAILY [facility] Last Admin: 10/16/16 10:37 Dose: Not Given Oxycodone HCl (Oxycodone Immediate Release Tab) 15 mg PO Q4H PRN PRN Reason: Pain, moderate (4-7) Last Admin: 10/16/16 09:36 Dose: 15 mg Pantoprazole Sodium (Protonix Ec Tab) 40 mg PO DAILY [facility] Last Admin: 10/16/16 09:19 Dose: 40 mg Rosuvastatin Calcium (Crestor) 5 mg PO HS [facility] Last Admin: 10/15/16 21:08 Dose: 5 mg - Labs Labs: 10/16/16 07:07 10/16/16 07:07 PT 14.7 SECONDS (9.7-12.2) H 10/13/16 13:55 INR 1.3 10/13/16 13:55 APTT 31 SECONDS (21-34) 10/13/16 13:55 - Constitutional Appears: Well, Non-toxic, No Acute Distress - Extremities Exam Additional comments: Vasc: DP/PT pulses palpable 2/4 b/l. CFT < 3 seconds to digits x10. TG warm to warm Neuro: Epicritic and protective sensations grossly diminished to b/l LE Derm: 1)Ulceration noted to first interdigital space of right foot to medial plantar aspect of right foot at level of first MTPJ s/p surgical debridement. Wound has a mixed fibrogranular base. Sanguinous drainage expressed from wound however no purulence noted. 2) Ulceration noted to plantar left foot at level of fourth metatarsal head (0.7 cm x 0.7 cm) with hyperkeratotic rim. No drainage , purulence, malodor, increase in warmth, erythema noted to left foot ulceration. No clinical signs of infection noted at this time. MSK: POP noted to interdigital ulceration s/p wound debridement right foot - Neurological Exam Neurological Exam: Alert, Awake, Oriented x3 - Psychiatric Exam Psychiatric exam: Normal Affect, Normal Mood Assessment and Plan - Assessment and Plan (Free Text) Assessment: 56 year old male POD#2 right foot incision and drainage for ulcerations secondary to DM Plan: Patient seen and evaluated at bedside. Discussed with attending, Dr. Patel. Charts, labs, vitals reviewed = afebrile, WBC WNL and trending downards @ 6.6 ( 7.5 on 10/15/16) Dressing changed today - wound flushed with peroxide, packed with saline soaked kerlix, and dressed with DSD. Continue abx per ID = Zosyn, Vancomycin. Reviewed wound cx = Proteus Mirabilis, Strep Intermedius/Milleri Contine pain mgmt per medicine F/U MRI report Podiatry will continue to follow patient while in house.
--- NOTE | 2016-10-16 14:07 | CP.PCM.PN ---
<Connie Bryson - Last Filed: 10/16/16 14:01> Subjective - Date & Time of Evaluation Date of Evaluation: 10/16/16 Time of Evaluation: 14:01 - Subjective Subjective: PGY2 progress note for hospitalists Pt is seen and exmained at bedside. No acute events overnight. patient c/o LE pain but it is controlled with pain medications. Patient denies having any CP, SOB, abd pain, N/V/D/C, F/c. 12 point ROS are negative except for the above mentioned. Objective - Vital Signs/Intake and Output Vital Signs (last 24 hours): Temp Pulse Resp BP Pulse Ox 98.7 F 68 20 123/75 96 10/16/16 08:31 10/16/16 08:31 10/16/16 08:31 10/16/16 09:19 10/16/16 08:31 Intake and Output: 10/16/16 10/16/16 06:59 18:59 Intake Total 1040 Output Total 800 Balance 240 - Medications Medications: Current Medications Acetaminophen (Tylenol 325mg Tab) 650 mg PO Q6 PRN PRN Reason: Fever >100.4 F Albuterol/Ipratropium (Duoneb 3 Mg/0.5 Mg (3 Ml) Ud) 3 ml INH RQ4 PRN PRN Reason: Shortness of Breath Last Admin: 10/16/16 00:23 Dose: 3 ml Aspirin (Ecotrin) 81 mg PO DAILY [facility] Last Admin: 10/15/16 10:00 Dose: 81 mg Enalapril Maleate (Vasotec) 20 mg PO DAILY [facility] Last Admin: 10/16/16 09:19 Dose: 20 mg Heparin Sodium (Porcine) (Heparin) 5,000 units SC Q8 [facility] Last Admin: 10/16/16 04:59 Dose: 5,000 units Vancomycin HCl 1,000 mg/ (Sodium Chloride) 250 mls @ 166.6 mls/hr IVPB Q12H [facility] Last Admin: 10/16/16 06:21 Dose: 166.6 mls/hr Piperacillin Sod/Tazobactam (Sod 3.375 gm/ Sodium Chloride) 100 mls @ 200 mls/ hr IVPB Q6H [facility] Last Admin: 10/16/16 14:00 Dose: 200 mls/hr Insulin Aspart (Novolog) 0 unit SC ACHS [facility] PRN Reason: Protocol Last Admin: 10/15/16 07:30 Dose: 6 unit Insulin Aspart (Novolog) 18 unit SC TIDAC [facility] Last Admin: 10/16/16 12:11 Dose: 18 unit Insulin Glargine (Lantus) 45 unit SC DAILY [facility] Last Admin: 10/16/16 10:37 Dose: Not Given Oxycodone HCl (Oxycodone Immediate Release Tab) 15 mg PO Q4H PRN PRN Reason: Pain, moderate (4-7) Last Admin: 10/16/16 13:50 Dose: 15 mg Pantoprazole Sodium (Protonix Ec Tab) 40 mg PO DAILY [facility] Last Admin: 10/16/16 09:19 Dose: 40 mg Rosuvastatin Calcium (Crestor) 5 mg PO HS [facility] Last Admin: 10/15/16 21:08 Dose: 5 mg - Labs Labs: 10/16/16 07:07 10/16/16 07:07 PT 14.7 SECONDS (9.7-12.2) H 10/13/16 13:55 INR 1.3 10/13/16 13:55 APTT 31 SECONDS (21-34) 10/13/16 13:55 - Constitutional Appears: Non-toxic, No Acute Distress - Head Exam Head Exam: ATRAUMATIC - Eye Exam Eye Exam: EOMI - ENT Exam ENT Exam: Mucous Membranes Moist - Respiratory Exam Respiratory Exam: Clear to Ausculation Bilateral. absent: Accessory Muscle Use , Rales, Rhonchi, Wheezes, Respiratory Distress - Cardiovascular Exam Cardiovascular Exam: REGULAR RHYTHM, +S1, +S2 - GI/Abdominal Exam GI & Abdominal Exam: Soft, Normal Bowel Sounds. absent: Firm, Guarding, Rigid, Tenderness, Organomegaly - Extremities Exam Extremities Exam: Tenderness. absent: Pedal Edema - Neurological Exam Neurological Exam: Alert, Awake, Oriented x3 - Psychiatric Exam Psychiatric exam: Normal Affect, Normal Mood - Skin Skin Exam: Dry, Intact, Normal Color, Warm Assessment and Plan - Assessment and Plan (Free Text) Assessment: Diabetic foot ulcers s/p right foot I&D POD #[address] Carney to treat right foot gas gangrene. Right foot wound culture grew proteus mirabilis MRI of foot shows no signs of osteomyelitis 10/14: foot xray: "No plain radiographic evidence of osteomyelitis. Multiple prior osteotomies as described" Consult: Dr. Carney (podiatry). Pending recs about further procedures Zosyn 3.375 IV Q 6hours Vancomycin 1 gram IV Q12H Continue NS 100 cc Aspirin will be on hold in case further surgical intervention is necessary. Continue heparin SC Cellulitis Consult: Dr. Carney (podiatry) Zosyn 2.25 IV q 8hours Vancomycin 1 gram IVq daily Diabetes Patient's blood sugar remains elevated. Increased Lantus to 45 units today Accuchecks QACHS Hgb A1C 8.5 Lantus 45 units daily Novolog 18 units TIDAC Novolog insulin sliding scale held janumet and glimepride Moderate carbohydrate diet Emphysema Home med Arnuity ellipta (not formulary) Duonebs Q6H PRN Cervical pain (neck) history of cervical neck pain sees pain management outpatient - Dr. Banda ([place]) Oxycodone 15mg PO Q6H Hyperlipidemia Crestor 5mg PO HS Hypertension Well-controlled since admission Pt reports taking both MOHAMUD/ARB as home med - will restart home enalapril 20mg PO Daily - will hold home losartan/hctz Will monitor elevated creatinine Elevated Creatinine Resolved Prophylactic measure Heparin 5000 units sub I4dmeta for dvt ppx Protonix 40mg PO daily for gi ppx SCD CI PT/OT ordered Case discussed with attending, Dr. Guevara <Dawson Guevara - Last Filed: 10/16/16 16:22> Objective - Vital Signs/Intake and Output Vital Signs (last 24 hours): Temp Pulse Resp BP Pulse Ox 98.7 F 68 20 123/75 96 10/16/16 08:31 10/16/16 08:31 10/16/16 08:31 10/16/16 09:19 10/16/16 08:31 Intake and Output: 10/16/16 10/16/16 06:59 18:59 Intake Total 2040 Output Total 800 Balance 1240 - Medications Medications: Current Medications Acetaminophen (Tylenol 325mg Tab) 650 mg PO Q6 PRN PRN Reason: Fever >100.4 F Albuterol/Ipratropium (Duoneb 3 Mg/0.5 Mg (3 Ml) Ud) 3 ml INH RQ4 PRN PRN Reason: Shortness of Breath Last Admin: 10/16/16 00:23 Dose: 3 ml Aspirin (Ecotrin) 81 mg PO DAILY [facility] Last Admin: 10/15/16 10:00 Dose: 81 mg Enalapril Maleate (Vasotec) 20 mg PO DAILY [facility] Last Admin: 10/16/16 09:19 Dose: 20 mg Heparin Sodium (Porcine) (Heparin) 5,000 units SC Q8 [facility] Last Admin: 10/16/16 14:05 Dose: 5,000 units Vancomycin HCl 1,000 mg/ (Sodium Chloride) 250 mls @ 166.6 mls/hr IVPB Q12H [facility] Last Admin: 10/16/16 06:21 Dose: 166.6 mls/hr Piperacillin Sod/Tazobactam (Sod 3.375 gm/ Sodium Chloride) 100 mls @ 200 mls/ hr IVPB Q6H [facility] Last Admin: 10/16/16 14:00 Dose: 200 mls/hr Insulin Aspart (Novolog) 0 unit SC ACHS [facility] PRN Reason: Protocol Last Admin: 10/15/16 07:30 Dose: 6 unit Insulin Aspart (Novolog) 18 unit SC TIDAC [facility] Last Admin: 10/16/16 12:11 Dose: 18 unit Insulin Glargine (Lantus) 45 unit SC DAILY [facility] Last Admin: 10/16/16 10:37 Dose: Not Given Oxycodone HCl (Oxycodone Immediate Release Tab) 15 mg PO Q4H PRN PRN Reason: Pain, moderate (4-7) Last Admin: 10/16/16 13:50 Dose: 15 mg Pantoprazole Sodium (Protonix Ec Tab) 40 mg PO DAILY [facility] Last Admin: 10/16/16 09:19 Dose: 40 mg Rosuvastatin Calcium (Crestor) 5 mg PO HS [facility] Last Admin: 10/15/16 21:08 Dose: 5 mg - Labs Labs: 10/16/16 07:07 10/16/16 07:07 PT 14.7 SECONDS (9.7-12.2) H 10/13/16 13:55 INR 1.3 10/13/16 13:55 APTT 31 SECONDS (21-34) 10/13/16 13:55 Attending/Attestation - Attestation I have personally seen and examined this patient.: Yes I have fully participated in the care of the patient.: Yes I have reviewed all pertinent clinical information, including history, physical exam and plan: Yes Notes (Text): 10/16/16 16:20 Patient was seen and examined at bedside Patient appears comfortable Status post incision and drainage of the diabetic foot ulcer. Do follow-up blood culture reports and continue antibiotics as per recommendation of ID Aspirin is on hold pending decision by the podiatry to take the patient to OR again. Restart aspirin if no plan for OR. Hyperglycemia noted. Increase the dose of insulin. Titrate as needed. I agree with the history and physical and assessment/plan but the wound with the necessary amendments .
--- NOTE | 2016-10-16 15:22 | CP.PCM.PN ---
Subjective - Date & Time of Evaluation Date of Evaluation: 10/16/16 Time of Evaluation: 07:00 - Subjective Subjective: events noted dressings changed foot same s/p debridement await MRI cont iv rx and wound care Objective - Vital Signs/Intake and Output Vital Signs (last 24 hours): Temp Pulse Resp BP Pulse Ox 98.7 F 68 20 123/75 96 10/16/16 08:31 10/16/16 08:31 10/16/16 08:31 10/16/16 09:19 10/16/16 08:31 Intake and Output: 10/16/16 10/16/16 06:59 18:59 Intake Total 2040 Output Total 800 Balance 1240 - Medications Medications: Current Medications Acetaminophen (Tylenol 325mg Tab) 650 mg PO Q6 PRN PRN Reason: Fever >100.4 F Albuterol/Ipratropium (Duoneb 3 Mg/0.5 Mg (3 Ml) Ud) 3 ml INH RQ4 PRN PRN Reason: Shortness of Breath Last Admin: 10/16/16 00:23 Dose: 3 ml Aspirin (Ecotrin) 81 mg PO DAILY [facility] Last Admin: 10/15/16 10:00 Dose: 81 mg Enalapril Maleate (Vasotec) 20 mg PO DAILY [facility] Last Admin: 10/16/16 09:19 Dose: 20 mg Heparin Sodium (Porcine) (Heparin) 5,000 units SC Q8 [facility] Last Admin: 10/16/16 14:05 Dose: 5,000 units Vancomycin HCl 1,000 mg/ (Sodium Chloride) 250 mls @ 166.6 mls/hr IVPB Q12H [facility] Last Admin: 10/16/16 06:21 Dose: 166.6 mls/hr Piperacillin Sod/Tazobactam (Sod 3.375 gm/ Sodium Chloride) 100 mls @ 200 mls/ hr IVPB Q6H [facility] Last Admin: 10/16/16 14:00 Dose: 200 mls/hr Insulin Aspart (Novolog) 0 unit SC ACHS [facility] PRN Reason: Protocol Last Admin: 10/15/16 07:30 Dose: 6 unit Insulin Aspart (Novolog) 18 unit SC TIDAC [facility] Last Admin: 10/16/16 12:11 Dose: 18 unit Insulin Glargine (Lantus) 45 unit SC DAILY [facility] Last Admin: 10/16/16 10:37 Dose: Not Given Oxycodone HCl (Oxycodone Immediate Release Tab) 15 mg PO Q4H PRN PRN Reason: Pain, moderate (4-7) Last Admin: 10/16/16 13:50 Dose: 15 mg Pantoprazole Sodium (Protonix Ec Tab) 40 mg PO DAILY [facility] Last Admin: 10/16/16 09:19 Dose: 40 mg Rosuvastatin Calcium (Crestor) 5 mg PO HS [facility] Last Admin: 10/15/16 21:08 Dose: 5 mg - Labs Labs: 10/16/16 07:07 10/16/16 07:07 PT 14.7 SECONDS (9.7-12.2) H 10/13/16 13:55 INR 1.3 10/13/16 13:55 APTT 31 SECONDS (21-34) 10/13/16 13:55 - Constitutional Appears: Non-toxic, Chronically Ill - Head Exam Head Exam: NORMOCEPHALIC - Eye Exam Eye Exam: PERRL - ENT Exam ENT Exam: Normal External Ear Exam - Neck Exam Neck Exam: absent: Lymphadenopathy - Respiratory Exam Respiratory Exam: Decreased Breath Sounds, Clear to Ausculation Bilateral - Cardiovascular Exam Cardiovascular Exam: REGULAR RHYTHM - GI/Abdominal Exam GI & Abdominal Exam: Distended, Soft - Exam Exam: NORMAL INSPECTION - Extremities Exam Extremities Exam: Pedal Edema, Tenderness - Back Exam Back Exam: absent: CVA tenderness (L), CVA tenderness (R) - Neurological Exam Neurological Exam: Alert, Awake, Oriented x3 Assessment and Plan (1) Cellulitis of right foot Status: Acute (2) Diabetic ulcer of both feet Status: Acute (3) Fever Status: Acute (4) Abscess Status: Acute (5) Cellulitis Status: Acute (6) Diabetic foot ulcers Status: Acute - Assessment and Plan (Free Text) Assessment: severely infected diabetic ulcers s/p debridement await MRI may need loing term rx
[2016-10-17] MEDS: Piperacillin/Tazobact 3.375 GM in Sodium Chloride 100 ML IVPB SCH ×3 (02:28→15:01)
[2016-10-17] MEDS: oxyCODONE 5 mg Immediate Release Tab PO PRN ×4 (02:28→19:22)
[2016-10-17 07:44] LABS: BASO # 0.1 K/uL (0.0-0.2); BASO % 0.7 % (0.0-2.0); EOS # 0.3 K/uL (0.0-0.7); EOS % 3.5 % (0.0-4.0); HEMATOCRIT 33.3 % (35.0-51.0); LYMPH # 1.9 K/uL (1.0-4.3); LYMPH % 22.1 % (20.0-40.0); MEAN CELL VOLUME 88.6 fL (80.0-94.0); MEAN CORPUSCULAR HEMOGLOBIN 29.7 pg (27.0-31.0); MEAN CORPUSCULAR HGB CONC 33.5 g/dL (33.0-37.0); MEAN PLATELET VOLUME 8.3 fL (7.2-11.7); MONO # 0.8 K/uL (0.0-0.8); MONO % 9.5 % (0.0-10.0); RED CELL DISTRIBUTION WIDTH 12.8 % (11.5-14.5); WHITE BLOOD COUNT 8.6 K/uL (4.8-10.8)
[2016-10-17 08:05] LABS: CHLORIDE 97 mmol/L (98-107); SODIUM 135 mmol/L (132-148)
[2016-10-17 08:06] LABS: POTASSIUM 4.4 mmol/L (3.6-5.2)
[2016-10-17 08:07] LABS: GFR AFRICAN-AMERICAN > 60
[2016-10-17 08:08] LABS: ALB/GLOB RATIO 0.9 (1.0-2.1); ALKALINE PHOSPHATASE 60 U/L (38-126); AST/SGOT 31 U/L (17-59); BILIRUBIN,TOTAL 0.4 mg/dL (0.2-1.3); BLOOD UREA NITROGEN 12 mg/dL (9-20); CARBON DIOXIDE 26 mmol/L (22-30); GLUCOSE,RANDOM 224 mg/dL (75-110); PHOSPHOROUS 3.6 mg/dL (2.5-4.5); TOTAL PROTEIN 6.3 g/dL (6.3-8.3)
[2016-10-17 08:09] LABS: ALT/SGPT 67 U/L (21-72); CALCIUM 8.3 mg/dl (8.6-10.4); MAGNESIUM 1.5 mg/dL (1.6-2.3)
[2016-10-17] MEDS: (Novolog) Insulin Aspart, Recombinant 100 u/ml 10 ml vial SC SCH ×7 (08:55→22:10)
[2016-10-17] MEDS: Pantoprazole 40 mg EC Tab PO SCH (10:18)
[2016-10-17] MEDS: (Lantus) Insulin Glargine, Recombinant SC SCH (10:19)
[2016-10-17] MEDS ORDERED: Magnesium Sulfate 1 gm in D5W 1 GM/100 ML BAG IVPB ONE (10:56)
--- NOTE | 2016-10-17 11:09 | MRI ---
MRI right forefoot History: Prior recent surgery. Evaluate for osteomyelitis. Comparison: X-ray dated 10/13/2016 Technique: Multi-echo multiplanar sequences were performed through the right forefoot without the use of intravenous contrast. Findings: Markedly limited evaluation given the patient's recent postoperative status as well as prominent patient artifact as well as suboptimal patient positioning. Prominent degenerative changes at the tarsometatarsal joint spaces throughout the forefoot. Postsurgical changes at the 3rd metatarsal head with periosteal reaction and cortical thickening at the 3rd metatarsal head. Minimal reactive edema at this level as well as within the corresponding base of the 3rd proximal phalanx. No gross corresponding T1 signal abnormality. This may be the sequelae of postoperative changes. No gross acute osteomyelitis noted at this level ; however, mild acute infectious and or inflammatory changes cannot also be excluded on the basis of these images. Postsurgical changes at the head of the 2nd metatarsal bone. Signal abnormality seen within the 2nd proximal phalanx with increased STIR signal and minimal patchy decreased T1 signal. These changes may be related to postsurgical changes versus suboptimal positioning versus early acute infectious and or inflammatory changes. Clinical correlation. Mild hallux valgus deformity. Mild patchy nonspecific reactive edema seen at the head of the 1st metatarsal bone as well as 1st proximal phalanx. Clinical correlation. Patchy reactive signal abnormality seen within the lateral aspect of the cuboid bone with increased STIR signal and patchy decreased T1 signal, this is of uncertain clinical etiology however acute infectious and or inflammatory changes at this level cannot entirely be excluded. Clinical correlation. Minimal patchy nonspecific reactive edema seen within the medial cuneiform bone. Additional mild patchy nonspecific reactive edema seen at the lateral aspect of the calcaneus. Plantar calcaneal spurring. Impression: Markedly limited evaluation given the patient's recent postoperative status as well as prominent patient artifact as well as suboptimal patient positioning. 1. Prominent degenerative changes at the tarsometatarsal joint spaces throughout the forefoot. 2. Postsurgical changes at the 3rd metatarsal head with periosteal reaction and cortical thickening at the 3rd metatarsal head. Minimal reactive edema at this level as well as within the corresponding base of the 3rd proximal phalanx. No gross corresponding T1 signal abnormality. This may be the sequelae of postoperative changes. No gross acute osteomyelitis noted at this level ; however, mild acute infectious and or inflammatory changes cannot also be excluded on the basis of these images. 3. Postsurgical changes at the head of the 2nd metatarsal bone. Signal abnormality seen within the 2nd proximal phalanx with increased STIR signal and minimal patchy decreased T1 signal. These changes may be related to postsurgical changes versus suboptimal positioning versus early acute infectious and or inflammatory changes. Clinical correlation. 4. Mild hallux valgus deformity. Mild patchy nonspecific reactive edema seen at the head of the 1st metatarsal bone as well as 1st proximal phalanx. Clinical correlation. 5. Patchy reactive signal abnormality seen within the lateral aspect of the cuboid bone with increased STIR signal and patchy decreased T1 signal, this is of uncertain clinical etiology however acute infectious and or inflammatory changes at this level cannot entirely be excluded. Clinical correlation. 6. Minimal patchy nonspecific reactive edema seen within the medial cuneiform bone. 7. Additional mild patchy nonspecific reactive edema seen at the lateral aspect of the calcaneus. 8. Plantar calcaneal spurring. These findings were preliminarily reported 2:18 p.m. on 10/15/[address] Jaimee Martinez from [facility].
--- NOTE | 2016-10-17 14:05 | CP.PCM.PN ---
Subjective - Date & Time of Evaluation Date of Evaluation: 10/17/16 Time of Evaluation: 14:03 - Subjective Subjective: 56 year old male patient seen at bedside POD#3 right foot incision and drainage. Patient seen resting in bed comfortably, AAOx3 and NAD. Patient reports increased pain to surgical site, however well managed by pain medications. Patient denies any acute events overnight. Patient denies N/V/F/D/C /SOB/calf pain. No other pedal complaints at this time. Objective - Vital Signs/Intake and Output Vital Signs (last 24 hours): Temp Pulse Resp BP Pulse Ox 98.8 F 72 20 133/74 97 10/17/16 08:00 10/17/16 08:00 10/17/16 08:00 10/17/16 10:18 10/17/16 08:00 Intake and Output: 10/17/16 10/17/16 06:59 18:59 Intake Total 1680 Output Total 1200 Balance 480 - Medications Medications: Current Medications Acetaminophen (Tylenol 325mg Tab) 650 mg PO Q6 PRN PRN Reason: Fever >100.4 F Albuterol/Ipratropium (Duoneb 3 Mg/0.5 Mg (3 Ml) Ud) 3 ml INH RQ4 PRN PRN Reason: Shortness of Breath Last Admin: 10/16/16 00:23 Dose: 3 ml Aspirin (Ecotrin) 81 mg PO DAILY [facility] Last Admin: 10/15/16 10:00 Dose: 81 mg Enalapril Maleate (Vasotec) 20 mg PO DAILY [facility] Last Admin: 10/17/16 10:18 Dose: 20 mg Heparin Sodium (Porcine) (Heparin) 5,000 units SC Q8 [facility] Last Admin: 10/17/16 07:15 Dose: 5,000 units Vancomycin HCl 1,000 mg/ (Sodium Chloride) 250 mls @ 166.6 mls/hr IVPB Q12H [facility] Last Admin: 10/17/16 07:51 Dose: 166.6 mls/hr Piperacillin Sod/Tazobactam (Sod 3.375 gm/ Sodium Chloride) 100 mls @ 200 mls/ hr IVPB Q6H [facility] Last Admin: 10/17/16 08:57 Dose: 200 mls/hr Insulin Aspart (Novolog) 0 unit SC ACHS [facility] PRN Reason: Protocol Last Admin: 10/17/16 12:21 Dose: 2 unit Insulin Aspart (Novolog) 18 unit SC TIDAC [facility] Last Admin: 10/17/16 12:24 Dose: 18 unit Insulin Glargine (Lantus) 45 unit SC DAILY [facility] Last Admin: 10/17/16 10:19 Dose: 45 units Oxycodone HCl (Oxycodone Immediate Release Tab) 15 mg PO Q4H PRN PRN Reason: Pain, moderate (4-7) Last Admin: 10/17/16 08:53 Dose: 15 mg Pantoprazole Sodium (Protonix Ec Tab) 40 mg PO DAILY [facility] Last Admin: 10/17/16 10:18 Dose: 40 mg Rosuvastatin Calcium (Crestor) 5 mg PO HS [facility] Last Admin: 10/16/16 22:29 Dose: 5 mg Saccharomyces Boulardii (Florastor) 250 mg PO BID [facility] - Labs Labs: 10/17/16 07:12 10/17/16 07:12 PT 14.7 SECONDS (9.7-12.2) H 10/13/16 13:55 INR 1.3 10/13/16 13:55 APTT 31 SECONDS (21-34) 10/13/16 13:55 - Constitutional Appears: Well, Non-toxic, No Acute Distress - Extremities Exam Additional comments: Vasc: DP/PT pulses palpable 2/4 b/l. CFT < 3 seconds to digits x10. TG warm to warm Neuro: Epicritic and protective sensations grossly diminished to b/l LE Derm: 1)Ulceration noted to first interdigital space of right foot to medial plantar aspect of right foot at level of first MTPJ s/p surgical debridement. Wound has a mixed fibrogranular base. Sanguinous drainage expressed from wound however no purulence noted. 2) Ulceration noted to plantar left foot at level of fourth metatarsal head (0.7 cm x 0.7 cm) with hyperkeratotic rim. No drainage , purulence, malodor, increase in warmth, erythema noted to left foot ulceration. No clinical signs of infection noted at this time. MSK: POP noted to interdigital ulceration s/p wound debridement right foot - Neurological Exam Neurological Exam: Alert, Awake, Oriented x3 - Psychiatric Exam Psychiatric exam: Normal Affect, Normal Mood Assessment and Plan - Assessment and Plan (Free Text) Assessment: 56 year old male POD#3 right foot incision and drainage for ulcerations secondary to DM Plan: Patient seen and evaluated at bedside. Discussed with attending, Dr. Patel. Charts, labs, vitals reviewed = afebrile, WBC 8.6 Dressing changed today - wound flushed with peroxide, packed with saline soaked kerlix, and dressed with DSD. Continue abx per ID = Zosyn, Vancomycin. Reviewed wound cx = Proteus Mirabilis, Strep Intermedius/Milleri Contine pain mgmt per medicine MRI report shows reactive edema and post surgical changes at the 1st,2nd,3rd metatarsal levels Podiatry will continue to follow patient while in house.
--- NOTE | 2016-10-17 14:43 | CP.PCM.PN ---
<Corky Guerra R - Last Filed: 10/17/16 18:18> Subjective - Date & Time of Evaluation Date of Evaluation: 10/17/16 Time of Evaluation: 14:30 - Subjective Subjective: PGY-[address] Juan Carlos Flynn's Service Patient was seen and examined at bedside. Patient was lying comfortably in bed. He stated he had mild pain in plantar surfaces of feet bilaterally. He had no other complaints. He was concerned about being sent back to rehab for foot wound treatment and stated he will decline. He consented for PICC placement. He denied cp, sob, n/v/d/c, f/d, bleeding, headache, appetite change. Objective - Vital Signs/Intake and Output Vital Signs (last 24 hours): Temp Pulse Resp BP Pulse Ox 98.8 F 72 20 133/74 97 10/17/16 08:00 10/17/16 08:00 10/17/16 08:00 10/17/16 10:18 10/17/16 08:00 Intake and Output: 10/17/16 10/17/16 06:59 18:59 Intake Total 1680 Output Total 1200 Balance 480 - Medications Medications: Current Medications Acetaminophen (Tylenol 325mg Tab) 650 mg PO Q6 PRN PRN Reason: Fever >100.4 F Albuterol/Ipratropium (Duoneb 3 Mg/0.5 Mg (3 Ml) Ud) 3 ml INH RQ4 PRN PRN Reason: Shortness of Breath Last Admin: 10/16/16 00:23 Dose: 3 ml Aspirin (Ecotrin) 81 mg PO DAILY [facility] Last Admin: 10/15/16 10:00 Dose: 81 mg Enalapril Maleate (Vasotec) 20 mg PO DAILY [facility] Last Admin: 10/17/16 10:18 Dose: 20 mg Heparin Sodium (Porcine) (Heparin) 5,000 units SC Q8 [facility] Last Admin: 10/17/16 07:15 Dose: 5,000 units Vancomycin HCl 1,000 mg/ (Sodium Chloride) 250 mls @ 166.6 mls/hr IVPB Q12H [facility] Last Admin: 10/17/16 07:51 Dose: 166.6 mls/hr Piperacillin Sod/Tazobactam (Sod 3.375 gm/ Sodium Chloride) 100 mls @ 200 mls/ hr IVPB Q6H [facility] Last Admin: 10/17/16 08:57 Dose: 200 mls/hr Insulin Aspart (Novolog) 0 unit SC ACHS [facility] PRN Reason: Protocol Last Admin: 10/17/16 12:21 Dose: 2 unit Insulin Aspart (Novolog) 18 unit SC TIDAC [facility] Last Admin: 10/17/16 12:24 Dose: 18 unit Insulin Glargine (Lantus) 45 unit SC DAILY [facility] Last Admin: 10/17/16 10:19 Dose: 45 units Oxycodone HCl (Oxycodone Immediate Release Tab) 15 mg PO Q4H PRN PRN Reason: Pain, moderate (4-7) Last Admin: 10/17/16 08:53 Dose: 15 mg Pantoprazole Sodium (Protonix Ec Tab) 40 mg PO DAILY [facility] Last Admin: 10/17/16 10:18 Dose: 40 mg Rosuvastatin Calcium (Crestor) 5 mg PO HS [facility] Last Admin: 10/16/16 22:29 Dose: 5 mg Saccharomyces Boulardii (Florastor) 250 mg PO BID [facility] - Labs Labs: 10/17/16 07:12 10/17/16 07:12 PT 14.7 SECONDS (9.7-12.2) H 10/13/16 13:55 INR 1.3 10/13/16 13:55 APTT 31 SECONDS (21-34) 10/13/16 13:55 - Constitutional Appears: Well, No Acute Distress - Head Exam Head Exam: NORMAL INSPECTION - Eye Exam Eye Exam: Normal appearance - ENT Exam ENT Exam: Mucous Membranes Moist - Neck Exam Neck Exam: Full ROM, Normal Inspection - Respiratory Exam Respiratory Exam: Clear to Ausculation Bilateral, NORMAL BREATHING PATTERN - Cardiovascular Exam Cardiovascular Exam: REGULAR RHYTHM, +S1, +S2. absent: Murmur - GI/Abdominal Exam GI & Abdominal Exam: Soft, Normal Bowel Sounds. absent: Tenderness - Rectal Exam Rectal Exam: Deferred - Extremities Exam Extremities Exam: absent: Calf Tenderness, Pedal Edema Additional comments: gauze covered his feet bilaterally. the right foot gauze was intact, slightly damp with red spotting. the left foot gauze was clean/dry/intact - Neurological Exam Neurological Exam: Alert, Awake - Psychiatric Exam Psychiatric exam: Normal Affect, Normal Mood - Skin Skin Exam: Dry, Intact, Normal Color, Warm Assessment and Plan - Assessment and Plan (Free Text) Assessment: Diabetic foot ulcers s/p right foot I&D POD #[address] Carney to treat right foot gas gangrene. Right foot wound culture grew proteus mirabilis and Strep Intermedius MRI of foot done I&D POD #0 shows reactive edema and post surgical changes at the 1st,2nd,3rd metatarsal levels. Consider repeat MRI vs bone scan to rule out osteomylitis as prior MRI showed post surgical changes which prevented an accurate read. 10/14: foot xray: "No plain radiographic evidence of osteomyelitis. Multiple prior osteotomies as described" Consult: Dr. Carney (podiatry). Pending recs about further procedures Ceftriaxone 1gm ivpb q12, started 10/17 as it covers both proteus mirabilis and strep intermedius Zosyn 3.375 IV Q 6hours, d/c 7/ Vancomycin 1 gram IV Q12H, d/c 7/24 Florastor 250mg bid po daily Continue NS 100 cc PICC line placement ordered Aspirin will be on hold in case further surgical intervention is necessary. Continue heparin SC Cellulitis Consult: Dr. Carney (podiatry) Ceftriaxone 1gm ivpb q12, started 10/17 as it covers both proteus mirabilis and strep intermedius Zosyn 3.375 IV Q 6hours, d/c 7/24 Vancomycin 1 gram IV Q12H, d/c 7/24 Diabetes Patient's friend brings in donuts, etc. Dr Juan Carlos Flynn counseled patient on effects of high sugar foods on blood sugar levels. Patient's blood sugar remains elevated. Increased Lantus to 45 units today. Accuchecks QACHS Hgb A1C 8.5 Lantus 45 units daily Novolog 18 units TIDAC Novolog insulin sliding scale held janumet and glimepride Moderate carbohydrate diet Emphysema Home med Arnuity ellipta (not formulary) Duonebs Q6H PRN Cervical pain (neck) history of cervical neck pain sees pain management outpatient - Dr. Banda ([place]) Oxycodone 15mg PO Q6H Hyperlipidemia Crestor 5mg PO HS Hypertension Well-controlled since admission Pt reports taking both MOHAMUD/ARB as home med - will restart home enalapril 20mg PO Daily - will hold home losartan/hctz Will monitor elevated creatinine Elevated Creatinine Resolved Hypomagnesemia Mag 1.5, repleted with 1gm iv, f/u Prophylactic measure Heparin 5000 units sub [id number] for dvt ppx Protonix 40mg PO daily for gi ppx SCD CI PT/OT ordered Case discussed with attending, Dr. Juan Carlos Flynn <Juan Carlos Flynn - Last Filed: 10/17/16 20:03> Objective - Vital Signs/Intake and Output Vital Signs (last 24 hours): Temp Pulse Resp BP Pulse Ox 98.5 F 66 20 165/81 H 96 10/17/16 15:00 10/17/16 15:00 10/17/16 15:00 10/17/16 15:00 10/17/16 15:00 Intake and Output: 10/17/16 10/18/16 18:59 06:59 Intake Total 680 Output Total 800 Balance -120 - Medications Medications: Current Medications Acetaminophen (Tylenol 325mg Tab) 650 mg PO Q6 PRN PRN Reason: Fever >100.4 F Albuterol/Ipratropium (Duoneb 3 Mg/0.5 Mg (3 Ml) Ud) 3 ml INH RQ4 PRN PRN Reason: Shortness of Breath Last Admin: 10/16/16 00:23 Dose: 3 ml Aspirin (Ecotrin) 81 mg PO DAILY [facility] Last Admin: 10/15/16 10:00 Dose: 81 mg Enalapril Maleate (Vasotec) 20 mg PO DAILY [facility] Last Admin: 10/17/16 10:18 Dose: 20 mg Heparin Sodium (Porcine) (Heparin) 5,000 units SC Q8 [facility] Last Admin: 10/17/16 15:05 Dose: Not Given Ceftriaxone Sodium 1 gm/ (Sodium Chloride) 100 mls @ 100 mls/hr IVPB Q12H [facility] Insulin Aspart (Novolog) 0 unit SC ACHS [facility] PRN Reason: Protocol Last Admin: 10/17/16 17:10 Dose: 2 unit Insulin Aspart (Novolog) 18 unit SC TIDAC [facility] Last Admin: 10/17/16 17:10 Dose: 18 unit Insulin Glargine (Lantus) 45 unit SC DAILY [facility] Last Admin: 10/17/16 10:19 Dose: 45 units Oxycodone HCl (Oxycodone Immediate Release Tab) 15 mg PO Q4H PRN PRN Reason: Pain, moderate (4-7) Last Admin: 10/17/16 19:22 Dose: 15 mg Pantoprazole Sodium (Protonix Ec Tab) 40 mg PO DAILY [facility] Last Admin: 10/17/16 10:18 Dose: 40 mg Rosuvastatin Calcium (Crestor) 5 mg PO HS [facility] Last Admin: 10/16/16 22:29 Dose: 5 mg Saccharomyces Boulardii (Florastor) 250 mg PO BID [facility] Last Admin: 10/17/16 17:51 Dose: 250 mg - Labs Labs: 10/17/16 07:12 10/17/16 07:12 PT 14.7 SECONDS (9.7-12.2) H 10/13/16 13:55 INR 1.3 10/13/16 13:55 APTT 31 SECONDS (21-34) 10/13/16 13:55 Attending/Attestation - Attestation I have personally seen and examined this patient.: Yes I have fully participated in the care of the patient.: Yes I have reviewed all pertinent clinical information, including history, physical exam and plan: Yes Notes (Text): 10/17/16 19:56 Patient was seen and examined at 12:30 PM 10/17/16: Exam, assessment and plan were thoroughly gone over with the Resident. Please also note that the above should also include the following Assessment and Plans: Hyponatremia: 127 on admission and today 135 Anemia Likely Secondary to Chronic Disease: F/U Stool Occult Blood, Vitamin B12 , Folate, Iron Studies, Peripheral Blood Smear, Homocysteine, Methylmalonic Acid , Haptoglobin, LDH, Reticulocyte Count, Direct Bilirubin Chronic Cervical Neck Pain: history of surgery with metal hardware placement, patient follows up with Pain Management Dr. Santiago as an outpatient, oxycodone 15 mg PO Q4H PRN Pain Juan Carlos Flynn D.O.
--- NOTE | 2016-10-17 16:04 | RAD ---
HISTORY: verify right PICC COMPARISON: 10/13/2016. FINDINGS: Evaluation of this portable radiograph is limited due to patient rotation to the left. Allowing for this, the right PICC line likely terminates at the cavoatrial junction. LUNGS: There is multifocal airspace disease in the right lower lobe, left upper and lower lobes. PLEURA: No significant pleural effusion identified, no pneumothorax apparent. CARDIOVASCULAR: Normal. OSSEOUS STRUCTURES: No significant abnormalities. VISUALIZED UPPER ABDOMEN: Normal. OTHER FINDINGS: None. IMPRESSION: Limited portable radiographs due to patient rotation to the left. Allowing for this, the right PICC line likely terminates at the cavoatrial junction. Suspect multifocal pneumonia in the right lower lobe, left upper and lower lobes. Follow-up to resolution is advised.
[2016-10-17] MEDS: Saccharomyces Boulardi 250 mg Cap PO SCH (17:51)
[2016-10-18] MEDS: oxyCODONE 5 mg Immediate Release Tab PO PRN ×5 (00:19→19:44)
--- NOTE | 2016-10-18 03:58 | OP ---
PROCEDURE DATE: 10/14/2016 PREOPERATIVE DIAGNOSIS: Right foot - gangrene. POSTOPERATIVE DIAGNOSIS: Right foot - gangrene. NAME OF PROCEDURE: Right foot incision and drainage. SURGEON: Dr. Youngblood. COMPENSATION CONSULTING MANAGER: Dr. Trinidad, PGY2 SUPERVISOR PRE WAVE: Dr. Calzada. ANESTHESIA: General, LMA. INDICATIONS: The patient is a 56-year-old male with the above diagnosis. The patient has exhausted all conservative treatment at this time and now requires surgical intervention. The patient signed the consent after careful explanation of risks, benefits, complications and alternatives for surgical procedure. No guarantees were given or implied. PREPARATION: The patient was brought into the operating room and placed on the operating room table in a supine position. A time out was performed for identification of the correct patient and procedure. After induction of general anesthesia, the right foot was then prepped and draped in a normal sterile manner. No tourniquet was used during the procedure. DESCRIPTION OF PROCEDURE: Attention was then directed to the dorsal aspect of the first interspace of the right foot. A linear incision was made at extending proximally to the level of the metatarsal shaft and then The incision was then extended distally through the interspace and plantarly to the plantar metatarsal shaft in the first interspace about midway along the metatarsal shaft in the interspace. The incision site was then deepened using a hemostat and scissors and all purulent drainage was expressed about 3 mL and all nonviable necrotic tissue was excisionally debrided and sent to pathology. The site was then copiously flushed with peroxide mixed with saline and then a 3 L pulse lavage of bacitracin mixed with saline was used to irrigate the wound. Wound cultures were then taken from the wound site. The wound site was left open and packed with peroxide soaked gauze, dry sterile dressing, ABD and Kerlix. POSTOPERATIVE CONDITION: The patient tolerated the anesthesia and procedure well and was escorted to the recovery room with vital signs stable and neurovascular status intact to the right foot. The patient will be seen and followed by Dr. Youngblood while the patient remains in the hospital. Tahmina Trinidad DPM [facility] # [id number] PATRICK
[2016-10-18 06:54] LABS: BASO # 0.1 K/uL (0.0-0.2); BASO % 0.8 % (0.0-2.0); EOS # 0.3 K/uL (0.0-0.7); EOS % 3.4 % (0.0-4.0); HEMATOCRIT 34.5 % (35.0-51.0); LYMPH % 23.5 % (20.0-40.0); MEAN CELL VOLUME 87.9 fL (80.0-94.0); MEAN CORPUSCULAR HEMOGLOBIN 30.9 pg (27.0-31.0); MEAN CORPUSCULAR HGB CONC 35.1 g/dL (33.0-37.0); MEAN PLATELET VOLUME 8.1 fL (7.2-11.7); MONO # 0.7 K/uL (0.0-0.8); MONO % 8.8 % (0.0-10.0); RED CELL DISTRIBUTION WIDTH 12.7 % (11.5-14.5); WHITE BLOOD COUNT 8.5 K/uL (4.8-10.8)
[2016-10-18 07:02] LABS: ALB/GLOB RATIO 0.9 (1.0-2.1); ALKALINE PHOSPHATASE 55 U/L (38-126); ALT/SGPT 54 U/L (21-72); AST/SGOT 24 U/L (17-59); BILIRUBIN,DIRECT 0.4 mg/dL (0.0-0.4); BILIRUBIN,TOTAL 0.5 mg/dL (0.2-1.3); BLOOD UREA NITROGEN 15 mg/dL (9-20); CALCIUM 8.8 mg/dl (8.6-10.4); CARBON DIOXIDE 28 mmol/L (22-30); CHLORIDE 94 mmol/L (98-107); GFR AFRICAN-AMERICAN > 60; GLUCOSE,RANDOM 260 mg/dL (75-110); MAGNESIUM 1.7 mg/dL (1.6-2.3); PHOSPHOROUS 4.1 mg/dL (2.5-4.5); POTASSIUM 4.5 mmol/L (3.6-5.2); SODIUM 134 mmol/L (132-148); TOTAL PROTEIN 6.8 g/dL (6.3-8.3)
[2016-10-18 07:37] LABS: HOMOCYSTEINE 11.2 umol/L (6.6-14.8)
[2016-10-18 07:48] LABS: RETIC% 1.2 % (0.5-1.5)
[2016-10-18] MEDS: (Novolog) Insulin Aspart, Recombinant 100 u/ml 10 ml vial SC SCH ×7 (08:47→22:25)
[2016-10-18] MEDS: Pantoprazole 40 mg EC Tab PO SCH (10:12)
[2016-10-18] MEDS: Saccharomyces Boulardi 250 mg Cap PO SCH ×2 (10:12→17:53)
[2016-10-18] MEDS: (Lantus) Insulin Glargine, Recombinant SC SCH (10:14)
--- NOTE | 2016-10-18 10:26 | CP.PCM.PN ---
Subjective - Date & Time of Evaluation Date of Evaluation: 10/18/16 Time of Evaluation: 10:15 - Subjective Subjective: PGY-[address] Juan Carlos Flynn's Service: Patient was seen and examined at bedside today in NAD POD#4 right foot I&D. Complains of pain at the incision site, well managed on pain medication. Patient denies any acute events overnight. Reports no BM since the surgery, although no urinary complaints. Admits fatigue, tingling down lower extremities bilaterally, numbness in digits 2-5 of left hand. Denies headache, chest pain, palpitations, SOB, TAN, n/v/c/d, f/c, cough, wheezing, sputum production. Objective - Vital Signs/Intake and Output Vital Signs (last 24 hours): Temp Pulse Resp BP Pulse Ox 97.9 F 63 20 137/79 95 10/18/16 08:00 10/18/16 08:00 10/18/16 08:00 10/18/16 08:00 10/18/16 08:00 Intake and Output: 10/18/16 10/18/16 06:59 18:59 Intake Total 990 Output Total 1050 Balance -60 - Medications Medications: Current Medications Acetaminophen (Tylenol 325mg Tab) 650 mg PO Q6 PRN PRN Reason: Fever >100.4 F Albuterol/Ipratropium (Duoneb 3 Mg/0.5 Mg (3 Ml) Ud) 3 ml INH RQ4 PRN PRN Reason: Shortness of Breath Last Admin: 10/16/16 00:23 Dose: 3 ml Aspirin (Ecotrin) 81 mg PO DAILY [facility] Last Admin: 10/15/16 10:00 Dose: 81 mg Enalapril Maleate (Vasotec) 20 mg PO DAILY [facility] Last Admin: 10/17/16 10:18 Dose: 20 mg Heparin Sodium (Porcine) (Heparin) 5,000 units SC Q8 [facility] Last Admin: 10/18/16 05:56 Dose: 5,000 units Ceftriaxone Sodium 1 gm/ (Sodium Chloride) 100 mls @ 100 mls/hr IVPB Q12H [facility] Last Admin: 10/18/16 06:08 Dose: 100 mls/hr Insulin Aspart (Novolog) 0 unit SC ACHS [facility] PRN Reason: Protocol Last Admin: 10/18/16 08:47 Dose: 4 unit Insulin Aspart (Novolog) 18 unit SC TIDAC [facility] Last Admin: 10/18/16 08:48 Dose: 18 unit Insulin Glargine (Lantus) 45 unit SC DAILY [facility] Last Admin: 10/17/16 10:19 Dose: 45 units Oxycodone HCl (Oxycodone Immediate Release Tab) 15 mg PO Q4H PRN PRN Reason: Pain, moderate (4-7) Last Admin: 10/18/16 06:02 Dose: 15 mg Pantoprazole Sodium (Protonix Ec Tab) 40 mg PO DAILY [facility] Last Admin: 10/17/16 10:18 Dose: 40 mg Rosuvastatin Calcium (Crestor) 5 mg PO HS [facility] Last Admin: 10/17/16 21:13 Dose: 5 mg Saccharomyces Boulardii (Florastor) 250 mg PO BID [facility] Last Admin: 10/17/16 17:51 Dose: 250 mg - Labs Labs: 10/18/16 06:32 10/18/16 06:34 PT 14.7 SECONDS (9.7-12.2) H 10/13/16 13:55 INR 1.3 10/13/16 13:55 APTT 31 SECONDS (21-34) 10/13/16 13:55 - Constitutional Appears: No Acute Distress - Head Exam Head Exam: NORMAL INSPECTION - Eye Exam Eye Exam: Normal appearance - ENT Exam ENT Exam: Mucous Membranes Moist - Neck Exam Neck Exam: Normal Inspection - Respiratory Exam Respiratory Exam: Clear to Ausculation Bilateral, NORMAL BREATHING PATTERN - Cardiovascular Exam Cardiovascular Exam: REGULAR RHYTHM, +S1, +S2. absent: Murmur - GI/Abdominal Exam GI & Abdominal Exam: Soft, Normal Bowel Sounds - Rectal Exam Rectal Exam: Deferred - Extremities Exam Extremities Exam: Normal Inspection Additional comments: right and left foot covered in gauze which was clean/dry/intact New dressing had just been replaced by podiatry so I did not uncover for my exam. Please see podiatry note for full examination of feet. - Neurological Exam Neurological Exam: Alert, Awake - Psychiatric Exam Psychiatric exam: Normal Affect, Normal Mood - Skin Skin Exam: Dry, Intact, Normal Color, Warm Assessment and Plan - Assessment and Plan (Free Text) Assessment: Diabetic foot ulcers 10/18: If ceftriaxone can be given 2g iv once a day then patient can receive antibiotic treatment at infusion center via picc line. Will discuss this plan with ID, Dr Penny. 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 Right foot wound culture grew proteus mirabilis and Strep Intermedius MRI of foot done I&D POD #0 shows reactive edema and post surgical changes at the 1st,2nd,3rd metatarsal levels. Consider repeat MRI vs bone scan to rule out osteomylitis as prior MRI showed post surgical changes which prevented an accurate read. 10/14: foot xray: "No plain radiographic evidence of osteomyelitis. Multiple prior osteotomies as described" Consult: Dr. Carney (podiatry). Pending recs about further procedures Ceftriaxone 1gm ivpb q12, started 10/17 as it covers both proteus mirabilis and strep intermedius Zosyn 3.375 IV Q 6hours, -> d/c 10/17 Vancomycin 1 gram IV Q12H, -> d/c 10/17 Florastor 250mg bid po daily Continue NS 100 cc PICC line placement ordered Aspirin will be on hold in case further surgical intervention is necessary. Continue heparin SC Multifocal pneumonia on portable CXR 10/18: Portable cxr s/p picc placement showed multifocal pneumonia in right lower lobe and left upper and left lower lobe. A repeat PA and Lateral cxr has been ordered, will f/u. Cellulitis Consult: Dr. Carney (podiatry) Ceftriaxone 1gm ivpb q12, started 10/17 as it covers both proteus mirabilis and strep intermedius Zosyn 3.375 IV Q 6hours, d/c 10/17 Vancomycin 1 gram IV Q12H, d/c 10/17 Diabetes Patient's friend brings in donuts, etc. Dr Juan Carlos Flynn counseled patient on effects of high sugar foods on blood sugar levels. Patient's blood sugar remains elevated. Increased Lantus to 45 units today. Accuchecks QACHS Hgb A1C 8.5 Lantus 45 units daily Novolog 18 units TIDAC Novolog insulin sliding scale held janumet and glimepride Moderate carbohydrate diet Anemia Likely Secondary to Chronic Disease F/U Stool Occult Blood, Vitamin B12, Folate, Iron Studies, Peripheral Blood Smear, Homocysteine 11.2, wnl Methylmalonic Acid, Haptoglobin, LDH, Reticulocyte Count 1.2, wnl Direct Bilirubin 0.4, wnl Emphysema Home med Arnuity ellipta (not formulary) Duonebs Q6H PRN Chronic Cervical Neck Pain history of surgery with metal hardware placement sees pain management outpatient - Dr. Banda ([place]) Oxycodone 15mg PO Q6H Hyperlipidemia Crestor 5mg PO HS Hypertension Well-controlled since admission Pt reports taking both MOHAMUD/ARB as home med - will restart home enalapril 20mg PO Daily - will hold home losartan/hctz Will monitor elevated creatinine Hyponatremia Resolved 10/17: Na 135 Na 127 on admission Elevated Creatinine Resolved Cr 1.3 on admission Hypomagnesemia Resolved Mag 1.5, repleted with 1gm iv, f/u Prophylactic measure Heparin 5000 units sub [id number] for dvt ppx Protonix 40mg PO daily for gi ppx SCD CI PT/OT ordered Colace 100mg bid Case discussed with attending, Dr. Juan Carlos Flynn
--- NOTE | 2016-10-18 11:01 | CP.PCM.PN ---
Subjective - Date & Time of Evaluation Date of Evaluation: 10/18/16 Time of Evaluation: 10:57 - Subjective Subjective: 56 year old male patient seen at bedside POD#4right foot incision and drainage. Patient seen resting in bed comfortably, AAOx3 and NAD. Patient reports increased pain to surgical site, however well managed by pain medications. Patient denies any acute events overnight. Patient denies N/V/F/D/C/SOB/calf pain. No other pedal complaints at this time. Objective - Vital Signs/Intake and Output Vital Signs (last 24 hours): Temp Pulse Resp BP Pulse Ox 97.9 F 63 20 137/79 95 10/18/16 08:00 10/18/16 08:00 10/18/16 08:00 10/18/16 10:12 10/18/16 08:00 Intake and Output: 10/18/16 10/18/16 06:59 18:59 Intake Total 990 Output Total 1050 Balance -60 - Medications Medications: Current Medications Acetaminophen (Tylenol 325mg Tab) 650 mg PO Q6 PRN PRN Reason: Fever >100.4 F Albuterol/Ipratropium (Duoneb 3 Mg/0.5 Mg (3 Ml) Ud) 3 ml INH RQ4 PRN PRN Reason: Shortness of Breath Last Admin: 10/16/16 00:23 Dose: 3 ml Aspirin (Ecotrin) 81 mg PO DAILY [facility] Last Admin: 10/15/16 10:00 Dose: 81 mg Enalapril Maleate (Vasotec) 20 mg PO DAILY [facility] Last Admin: 10/18/16 10:12 Dose: 20 mg Heparin Sodium (Porcine) (Heparin) 5,000 units SC Q8 [facility] Last Admin: 10/18/16 05:56 Dose: 5,000 units Ceftriaxone Sodium 1 gm/ (Sodium Chloride) 100 mls @ 100 mls/hr IVPB Q12H [facility] Last Admin: 10/18/16 06:08 Dose: 100 mls/hr Insulin Aspart (Novolog) 0 unit SC ACHS [facility] PRN Reason: Protocol Last Admin: 10/18/16 08:47 Dose: 4 unit Insulin Aspart (Novolog) 18 unit SC TIDAC [facility] Last Admin: 10/18/16 08:48 Dose: 18 unit Insulin Glargine (Lantus) 45 unit SC DAILY [facility] Last Admin: 10/18/16 10:14 Dose: 45 units Oxycodone HCl (Oxycodone Immediate Release Tab) 15 mg PO Q4H PRN PRN Reason: Pain, moderate (4-7) Last Admin: 10/18/16 10:13 Dose: 15 mg Pantoprazole Sodium (Protonix Ec Tab) 40 mg PO DAILY [facility] Last Admin: 10/18/16 10:12 Dose: 40 mg Rosuvastatin Calcium (Crestor) 5 mg PO HS [facility] Last Admin: 10/17/16 21:13 Dose: 5 mg Saccharomyces Boulardii (Florastor) 250 mg PO BID [facility] Last Admin: 10/18/16 10:12 Dose: 250 mg - Labs Labs: 10/18/16 06:32 10/18/16 06:34 PT 14.7 SECONDS (9.7-12.2) H 10/13/16 13:55 INR 1.3 10/13/16 13:55 APTT 31 SECONDS (21-34) 10/13/16 13:55 - Constitutional Appears: Well, Non-toxic, No Acute Distress - Extremities Exam Additional comments: Vasc: DP/PT pulses palpable 2/4 b/l. CFT < 3 seconds to digits x10. TG warm to warm Neuro: Epicritic and protective sensations grossly diminished to b/l LE Derm: 1)Ulceration noted to first interdigital space of right foot to medial plantar aspect of right foot at level of first MTPJ s/p surgical debridement. Wound has a granular base. Sanguinous drainage expressed from wound however no purulence noted. 2) Ulceration noted to plantar left foot at level of fourth metatarsal head (0.7 cm x 0.7 cm) with hyperkeratotic rim. No drainage, purulence, malodor, increase in warmth, erythema noted to left foot ulceration. No clinical signs of infection noted at this time. MSK: POP noted to interdigital ulceration s/p wound debridement right foot - Neurological Exam Neurological Exam: Alert, Awake, Oriented x3 - Psychiatric Exam Psychiatric exam: Normal Affect, Normal Mood Assessment and Plan - Assessment and Plan (Free Text) Assessment: 56 year old male POD#4 right foot incision and drainage for ulcerations secondary to DM Plan: Patient seen and evaluated at bedside. seen at bedside with attending, Dr. Patel. Charts, labs, vitals reviewed = afebrile, WBC 8.5 Dressing changed today - wound flushed with peroxide, packed with saline soaked gauze, and dressed with DSD. Continue abx per ID = Zosyn, Vancomycin. Reviewed wound cx = Proteus Mirabilis, Strep Intermedius/Milleri Contine pain mgmt per medicine MRI report shows reactive edema and post surgical changes at the 1st,2nd,3rd metatarsal levels Podiatry will continue to follow patient while in house.
[2016-10-18] MEDS: Albuterol-Ipratrop 3 mg / 0.5 (3 ml) UD INH PRN ×2 (16:11→19:55)
[2016-10-19] MEDS: oxyCODONE 5 mg Immediate Release Tab PO PRN ×5 (04:15→22:55)
[2016-10-19 07:27] LABS: BASO % 0.6 % (0.0-2.0); EOS # 0.2 K/uL (0.0-0.7); EOS % 2.5 % (0.0-4.0); HEMATOCRIT 35.4 % (35.0-51.0); LYMPH # 1.6 K/uL (1.0-4.3); LYMPH % 19.3 % (20.0-40.0); MEAN CELL VOLUME 88.4 fL (80.0-94.0); MEAN CORPUSCULAR HEMOGLOBIN 30.1 pg (27.0-31.0); MEAN PLATELET VOLUME 8.1 fL (7.2-11.7); MONO # 0.7 K/uL (0.0-0.8); WHITE BLOOD COUNT 8.3 K/uL (4.8-10.8)
[2016-10-19 07:53] LABS: CHLORIDE 94 mmol/L (98-107)
[2016-10-19 07:54] LABS: POTASSIUM 4.6 mmol/L (3.6-5.2); SODIUM 135 mmol/L (132-148)
[2016-10-19 07:56] LABS: ALB/GLOB RATIO 0.9 (1.0-2.1); ALKALINE PHOSPHATASE 56 U/L (38-126); ALT/SGPT 46 U/L (21-72); AST/SGOT 20 U/L (17-59); BILIRUBIN,TOTAL 0.5 mg/dL (0.2-1.3); BLOOD UREA NITROGEN 16 mg/dL (9-20); CARBON DIOXIDE 28 mmol/L (22-30); GFR AFRICAN-AMERICAN > 60; GLUCOSE,RANDOM 236 mg/dL (75-110); TOTAL PROTEIN 6.8 g/dL (6.3-8.3)
[2016-10-19 07:57] LABS: CALCIUM 8.9 mg/dl (8.6-10.4); MAGNESIUM 1.5 mg/dL (1.6-2.3); PHOSPHOROUS 3.8 mg/dL (2.5-4.5)
[2016-10-19] MEDS: (Novolog) Insulin Aspart, Recombinant 100 u/ml 10 ml vial SC SCH ×6 (08:51→22:08)
--- NOTE | 2016-10-19 09:29 | RAD ---
HISTORY: multifocal pneumonia on portable cxr COMPARISON: 10/17/2016 TECHNIQUE: Chest PA and lateral FINDINGS: LUNGS: There is interval improved aeration in both lungs with patchy airspace disease in the left lower lobe. PLEURA: No significant pleural effusion identified. No pneumothorax apparent. CARDIOVASCULAR: Normal. OSSEOUS STRUCTURES: No significant abnormalities. VISUALIZED UPPER ABDOMEN: Normal. OTHER FINDINGS: None. IMPRESSION: Interval improved aeration in both lungs which in part could be related to improved inspiration. Patchy airspace disease in the left lower lobe could represent atelectasis or pneumonia. Follow-up after medical management is advised.
[2016-10-19] MEDS: Pantoprazole 40 mg EC Tab PO SCH (11:04)
[2016-10-19] MEDS: Saccharomyces Boulardi 250 mg Cap PO SCH ×2 (11:04→18:37)
[2016-10-19] MEDS: (Lantus) Insulin Glargine, Recombinant SC SCH (11:04)
--- NOTE | 2016-10-19 12:32 | CP.PCM.PN ---
Subjective - Date & Time of Evaluation Date of Evaluation: 10/19/16 Time of Evaluation: 12:29 - Subjective Subjective: 56 year old male patient seen at bedside POD# 5 right foot incision and drainage. Patient seen resting in bed comfortably, AAOx3 and NAD. Patient reports mild pain to surgical site, however well managed by pain medications. Patient denies any acute events overnight. Patient denies N/V/F/D/C/SOB/calf pain. No other pedal complaints at this time. Objective - Vital Signs/Intake and Output Vital Signs (last 24 hours): Temp Pulse Resp BP Pulse Ox 98.4 F 75 20 145/92 H 97 10/19/16 07:32 10/19/16 07:32 10/19/16 07:32 10/19/16 11:04 10/19/16 07:32 Intake and Output: 10/19/16 10/19/16 06:59 18:59 Intake Total 1480 Output Total 700 Balance 780 - Medications Medications: Current Medications Acetaminophen (Tylenol 325mg Tab) 650 mg PO Q6 PRN PRN Reason: Fever >100.4 F Albuterol/Ipratropium (Duoneb 3 Mg/0.5 Mg (3 Ml) Ud) 3 ml INH RQ4 PRN PRN Reason: Shortness of Breath Last Admin: 10/18/16 19:55 Dose: 3 ml Aspirin (Ecotrin) 81 mg PO DAILY [facility] Last Admin: 10/15/16 10:00 Dose: 81 mg Docusate Sodium (Colace) 100 mg PO BID [facility] Last Admin: 10/19/16 11:04 Dose: 100 mg Enalapril Maleate (Vasotec) 20 mg PO DAILY [facility] Last Admin: 10/19/16 11:04 Dose: 20 mg Ceftriaxone Sodium 1 gm/ (Sodium Chloride) 100 mls @ 100 mls/hr IVPB Q12H [facility] Last Admin: 10/19/16 06:15 Dose: 100 mls/hr Insulin Aspart (Novolog) 0 unit SC ACHS [facility] PRN Reason: Protocol Last Admin: 10/19/16 08:51 Dose: 2 unit Insulin Aspart (Novolog) 18 unit SC TIDAC [facility] Last Admin: 10/19/16 08:51 Dose: 18 unit Insulin Glargine (Lantus) 45 unit SC DAILY [facility] Last Admin: 10/19/16 11:04 Dose: 45 units Oxycodone HCl (Oxycodone Immediate Release Tab) 15 mg PO Q4H PRN PRN Reason: Pain, moderate (4-7) Last Admin: 10/19/16 09:57 Dose: 15 mg Pantoprazole Sodium (Protonix Ec Tab) 40 mg PO DAILY [facility] Last Admin: 10/19/16 11:04 Dose: 40 mg Rosuvastatin Calcium (Crestor) 5 mg PO HS [facility] Last Admin: 10/18/16 21:23 Dose: 5 mg Saccharomyces Boulardii (Florastor) 250 mg PO BID [facility] Last Admin: 10/19/16 11:04 Dose: 250 mg - Labs Labs: 10/19/16 06:46 10/19/16 06:46 PT 14.7 SECONDS (9.7-12.2) H 10/13/16 13:55 INR 1.3 10/13/16 13:55 APTT 31 SECONDS (21-34) 10/13/16 13:55 - Constitutional Appears: Well, Non-toxic, No Acute Distress - Extremities Exam Additional comments: Vasc: DP/PT pulses palpable 2/4 b/l. CFT < 3 seconds to digits x10. TG warm to warm Neuro: Epicritic and protective sensations grossly diminished to b/l LE Derm: 1)Ulceration noted to first interdigital space of right foot to medial plantar aspect of right foot at level of first MTPJ s/p surgical debridement. Wound has a granular base. Sanguinous drainage expressed from wound however no purulence noted. 2) Ulceration noted to plantar left foot at level of fourth metatarsal head (0.7 cm x 0.7 cm) with hyperkeratotic rim. No drainage, purulence, malodor, increase in warmth, erythema noted to left foot ulceration. No clinical signs of infection noted at this time. MSK: POP noted to interdigital ulceration s/p wound debridement right foot - Neurological Exam Neurological Exam: Alert, Awake, Oriented x3 - Psychiatric Exam Psychiatric exam: Normal Affect, Normal Mood Assessment and Plan - Assessment and Plan (Free Text) Assessment: 56 year old male POD# 5 right foot incision and drainage for ulcerations secondary to DM Plan: Patient seen and evaluated at bedside. discussed in detail with attending Dr. Patel Charts, labs, vitals reviewed = afebrile, WBC 8.3 Dressing changed today - wound flushed with peroxide, packed with saline soaked gauze, and dressed with DSD to right foot, left foot dressed with peroxide soaked gauze, DSD Continue abx per ID = Zosyn, Vancomycin. Reviewed wound cx = Proteus Mirabilis, Strep Intermedius/Milleri Contine pain mgmt per medicine MRI report shows reactive edema and post surgical changes at the 1st,2nd,3rd metatarsal levels patient stable from podiatry standpoint and will follow up with Dr. Patel as outpatient Podiatry will continue to follow patient while in house.
--- NOTE | 2016-10-19 12:52 | CP.PCM.PN ---
Subjective - Date & Time of Evaluation Date of Evaluation: 10/19/16 Time of Evaluation: 07:00 - Subjective Subjective: discussed on rounds to cont iv rx for om Objective - Vital Signs/Intake and Output Vital Signs (last 24 hours): Temp Pulse Resp BP Pulse Ox 98.4 F 75 20 145/92 H 97 10/19/16 07:32 10/19/16 07:32 10/19/16 07:32 10/19/16 11:04 10/19/16 07:32 Intake and Output: 10/19/16 10/19/16 06:59 18:59 Intake Total 1480 Output Total 700 Balance 780 - Medications Medications: Current Medications Acetaminophen (Tylenol 325mg Tab) 650 mg PO Q6 PRN PRN Reason: Fever >100.4 F Albuterol/Ipratropium (Duoneb 3 Mg/0.5 Mg (3 Ml) Ud) 3 ml INH RQ4 PRN PRN Reason: Shortness of Breath Last Admin: 10/18/16 19:55 Dose: 3 ml Aspirin (Ecotrin) 81 mg PO DAILY [facility] Last Admin: 10/15/16 10:00 Dose: 81 mg Docusate Sodium (Colace) 100 mg PO BID [facility] Last Admin: 10/19/16 11:04 Dose: 100 mg Enalapril Maleate (Vasotec) 20 mg PO DAILY [facility] Last Admin: 10/19/16 11:04 Dose: 20 mg Ceftriaxone Sodium 1 gm/ (Sodium Chloride) 100 mls @ 100 mls/hr IVPB Q12H [facility] Last Admin: 10/19/16 06:15 Dose: 100 mls/hr Insulin Aspart (Novolog) 0 unit SC ACHS [facility] PRN Reason: Protocol Last Admin: 10/19/16 12:38 Dose: 6 unit Insulin Aspart (Novolog) 18 unit SC TIDAC [facility] Last Admin: 10/19/16 08:51 Dose: 18 unit Insulin Glargine (Lantus) 45 unit SC DAILY [facility] Last Admin: 10/19/16 11:04 Dose: 45 units Oxycodone HCl (Oxycodone Immediate Release Tab) 15 mg PO Q4H PRN PRN Reason: Pain, moderate (4-7) Last Admin: 10/19/16 09:57 Dose: 15 mg Pantoprazole Sodium (Protonix Ec Tab) 40 mg PO DAILY [facility] Last Admin: 10/19/16 11:04 Dose: 40 mg Rosuvastatin Calcium (Crestor) 5 mg PO HS [facility] Last Admin: 10/18/16 21:23 Dose: 5 mg Saccharomyces Boulardii (Florastor) 250 mg PO BID [facility] Last Admin: 10/19/16 11:04 Dose: 250 mg - Labs Labs: 10/19/16 06:46 10/19/16 06:46 PT 14.7 SECONDS (9.7-12.2) H 10/13/16 13:55 INR 1.3 10/13/16 13:55 APTT 31 SECONDS (21-34) 10/13/16 13:55 - Constitutional Appears: Non-toxic - Head Exam Head Exam: NORMOCEPHALIC - Eye Exam Eye Exam: EOMI, PERRL - ENT Exam ENT Exam: Mucous Membranes Dry - Neck Exam Neck Exam: absent: Lymphadenopathy - Respiratory Exam Respiratory Exam: Decreased Breath Sounds - Cardiovascular Exam Cardiovascular Exam: REGULAR RHYTHM - GI/Abdominal Exam GI & Abdominal Exam: Distended, Soft - Rectal Exam Rectal Exam: Deferred - Exam Exam: NORMAL INSPECTION - Extremities Exam Extremities Exam: absent: Pedal Edema - Back Exam Back Exam: absent: CVA tenderness (L), CVA tenderness (R) - Neurological Exam Neurological Exam: Alert, Awake Assessment and Plan (1) Cellulitis of right foot Status: Acute (2) Diabetic ulcer of both feet Status: Acute (3) Fever Status: Acute (4) Abscess Status: Acute (5) Cellulitis Status: Acute (6) Diabetic foot ulcers Status: Acute
--- NOTE | 2016-10-19 18:42 | CP.PCM.DIS ---
<Corky Guerra - Last Filed: 10/19/16 18:24> Provider - Provider Date of Admission: 10/13/16 15:43 Attending physician: Dawson Guevara MD Primary care physician: PMD: Dr Mayen Consults: Podiatry: Dr Urrutia ID: Dr Penny Time Spent in preparation of Discharge (in minutes): 45 Hospital Course - Lab Results Lab Results: Micro Results 10/14/16 Unknown Foot - Right Gram Stain - Final 10/14/16 Unknown Foot - Right Wound Culture - Final Proteus Mirabilis Strep Intermedius/Milleri 10/13/16 21:20 Foot - Right Gram Stain - Final 10/13/16 21:20 Foot - Right Wound Culture - Final Proteus Mirabilis Strep Intermedius/Milleri Most Recent Lab Values WBC 8.3 K/uL (4.8-10.8) 10/19/16 06:46 RBC 4.01 Mil/uL (4.40-5.90) L 10/19/16 06:46 Hgb 12.1 g/dL (12.0-18.0) 10/19/16 06:46 Hct 35.4 % (35.0-51.0) 10/19/16 06:46 MCV 88.4 fL (80.0-94.0) 10/19/16 06:46 MCH 30.1 pg (27.0-31.0) 10/19/16 06:46 MCHC 34.0 g/dL (33.0-37.0) 10/19/16 06:46 RDW 13.0 % (11.5-14.5) 10/19/16 06:46 Plt Count 325 K/uL (130-400) 10/19/16 06:46 MPV 8.1 fL (7.2-11.7) 10/19/16 06:46 Neut % (Auto) 69.6 % (50.0-75.0) 10/19/16 06:46 Lymph % (Auto) 19.3 % (20.0-40.0) L 10/19/16 06:46 Grant % (Auto) 8.0 % (0.0-10.0) 10/19/16 06:46 Eos % (Auto) 2.5 % (0.0-4.0) 10/19/16 06:46 Baso % (Auto) 0.6 % (0.0-2.0) 10/19/16 06:46 Neut # 5.8 K/uL (1.8-7.0) 10/19/16 06:46 Lymph # 1.6 K/uL (1.0-4.3) 10/19/16 06:46 Grant # 0.7 K/uL (0.0-0.8) 10/19/16 06:46 Eos # 0.2 K/uL (0.0-0.7) 10/19/16 06:46 Baso # 0.0 K/uL (0.0-0.2) 10/19/16 06:46 Neutrophils % (Manual) 76 % (50-75) H 10/14/16 07:09 Band Neutrophils % 3 % (0-2) H 10/13/16 13:34 Lymphocytes % (Manual) 15 % (20-40) L 10/14/16 07:09 Monocytes % (Manual) 7 % (0-10) 10/14/16 07:09 Eosinophils % (Manual) 2 % (0-4) 10/14/16 07:09 Platelet Estimate Normal (NORMAL) 10/14/16 07:09 Large Platelets Present 10/13/16 13:34 RBC Morphology Normal 10/13/16 13:34 Hypochromasia (manual) Slight 10/14/16 07:09 Retic Count 1.2 % (0.5-1.5) 10/18/16 06:32 Haptoglobin 285 mg/dL (43-212) H 10/18/16 06:32 PT 14.7 SECONDS (9.7-12.2) H 10/13/16 13:55 INR 1.3 10/13/16 13:55 APTT 31 SECONDS (21-34) 10/13/16 13:55 pO2 39 mm/Hg (30-55) 10/13/16 14:05 VBG pH 7.41 (7.32-7.43) 10/13/16 14:05 VBG pCO2 37 mmHg (40-60) L 10/13/16 14:05 VBG HCO3 23.7 mmol/L 10/13/16 14:05 VBG Total CO2 24.6 mmol/L (22-28) 10/13/16 14:05 VBG O2 Sat (Calc) 82.2 % (40-65) H 10/13/16 14:05 VBG Base Excess -0.8 mmol/L (0.0-2.0) L 10/13/16 14:05 VBG Potassium 4.4 mmol/L (3.6-5.2) 10/13/16 14:05 Sodium 130.0 mmol/l (132-148) L 10/13/16 14:05 Chloride 97.0 mmol/L (98-107) L 10/13/16 14:05 Glucose 237 mg/dl (75-110) H 10/13/16 14:05 Lactate 2.0 mmol/L (0.7-2.1) 10/13/16 14:05 Sodium 135 mmol/L (132-148) 10/19/16 06:46 Potassium 4.6 mmol/L (3.6-5.2) 10/19/16 06:46 Chloride 94 mmol/L (98-107) L 10/19/16 06:46 Carbon Dioxide 28 mmol/L (22-30) 10/19/16 06:46 Anion Gap 18 (10-20) 10/19/16 06:46 BUN 16 mg/dL (9-20) 10/19/16 06:46 Creatinine 1.0 MG/DL (0.8-1.5) 10/19/16 06:46 Est GFR ( Amer) > 60 10/19/16 06:46 Est GFR (Non-Af Amer) > 60 10/19/16 06:46 POC Glucose (mg/dL) 185 mg/dL (65-110) H 10/19/16 16:09 Random Glucose 236 mg/dL (75-110) H 10/19/16 06:46 Hemoglobin A1c 8.5 % (4.2-6.5) H 10/14/16 07:09 Calcium 8.9 mg/dl (8.6-10.4) 10/19/16 06:46 Phosphorus 3.8 mg/dL (2.5-4.5) 10/19/16 06:46 Magnesium 1.5 mg/dL (1.6-2.3) L 10/19/16 06:46 Total Bilirubin 0.5 mg/dL (0.2-1.3) 10/19/16 06:46 Direct Bilirubin 0.4 mg/dL (0.0-0.4) 10/18/16 06:34 AST 20 U/L (17-59) 10/19/16 06:46 ALT 46 U/L (21-72) 10/19/16 06:46 Alkaline Phosphatase 56 U/L (38-126) 10/19/16 06:46 Lactate Dehydrogenase 289 U/L (313-618) L 10/18/16 06:34 Total Protein 6.8 g/dL (6.3-8.3) 10/19/16 06:46 Albumin 3.2 g/dL (3.5-5.0) L 10/19/16 06:46 Globulin 3.6 gm/dL (2.2-3.9) 10/19/16 06:46 Albumin/Globulin Ratio 0.9 (1.0-2.1) L 10/19/16 06:46 Homocysteine 11.2 umol/L (6.6-14.8) 10/18/16 06:34 Venous Blood Potassium 4.4 mmol/L (3.6-5.2) 10/13/16 14:05 Urine Color Brandi (YELLOW) 10/13/16 15:32 Urine Clarity Hazy (Clear) 10/13/16 15:32 Urine pH 5.0 (5.0-8.0) 10/13/16 15:32 Ur Specific Bristow 1.023 (1.003-1.030) 10/13/16 15:32 Urine Protein 2+ mg/dL (NEGATIVE) H 10/13/16 15:32 Urine Glucose (UA) 3+ mg/dL (Normal) H 10/13/16 15:32 Urine Ketones Trace mg/dL (NEGATIVE) 10/13/16 15:32 Urine Blood Negative (NEGATIVE) 10/13/16 15:32 Urine Nitrate Negative (NEGATIVE) 10/13/16 15:32 Urine Bilirubin Negative (NEGATIVE) 10/13/16 15:32 Urine Urobilinogen Normal mg/dL (0.2-1.0) 10/13/16 15:32 Ur Leukocyte Esterase Neg Rosemarie/uL (Negative) 10/13/16 15:32 Urine WBC (Auto) 4 /hpf (0-5) 10/13/16 15:32 Urine RBC (Auto) 4 /hpf (0-3) H 10/13/16 15:32 Ur Squamous Epith Cells 1 /hpf (0-5) 10/13/16 15:32 Urine Bacteria Rare (<OCC) 10/13/16 15:32 Hyaline Casts 11-20 /lpf (0-2) H 10/13/16 15:32 Granular Casts (Auto) 5 /lpf (0-1) 10/13/16 15:32 Stool Occult Blood Negative (NEGATIVE) 10/19/16 16:52 Vancomycin Trough 11.2 ug/mL (5.0-10.0) H 10/17/16 06:31 - Hospital Course Hospital Course: CC: diabetic foot ulcer HPI:56 year old male with a PMHx of DM, cervical disc herniation/metal, HTN, hyperlipidemia, emphysema, and previous osteomyelits requiring parital amputation of right hallux, that comes to the emergency room for acute on chronic right foot blister pain. Patient reports that he first noted the foot pain on September 27, 2016 when [place] He was been wrapping the foot himself with no relief. On Monday, he went to see his PMD, Dr. Mayen, who wanted him to go to the Emergency room, but patient denied and asked for antibiotics, for which he received Ciprofloxacin and Clindamycin and promised his PMD that if it got worse he would go to the ED. When pt began to have fever/chills today, with increasing pain and discoloration in the foot he knew he had to go to the ED. Patient also states that he also has a wound in his left foot that is not concerning to him. Patient states that prior to arriving to the ED, his foot was intact but when he tried standing up to use the restroom his foot opened up and started to drain. Patient has admission before for a similar presentation but moved to [place] and was unable to follow up with Dr. Urrutia (wire sawyer). ROS: patient denies chest pain, palpitations, SOB, N/V/C/D, headches, fevers. Patient admits to chills, night sweats and numbness and tingling in his feet. PMHx: Diabetes Type II, HTN, hyperlipidemia (10 years) and Emphysema Surgical Hx: Endoscopy, surgery for cervical neck disc/impingement, appendectomy , 2 foot surgeries (removed portions of bone) over the right foot and left foot. Family Hx: Mother - asthma, DM, HTN, hyperlipidemia, triple bypass (living). Father - DM, from [place]. Allergies: Morphine - gets itchy and red. Social Hx: currently smokes 1/2 pack of cigarettes in 1 week as he is trying to quit. Has smoked since age 15; Avg of quarter pack x 30 years. Denies any alcohol or illicit drug use. Patient lives at home with . Currently on disability. 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 Mayen (PMD), Dr. Cortes (cardiology) Dr. Tahir Urrutia (podiatry) Hospital Course: Bilateral foot radiographs showed no evidence of osteomyelitis or fracture. Initial recommendation by Dr. Penny (infectious disease) followed and patient was started on IV Zosyn 1g IV q12h. Given the patient's Hx cellulitis, he was additionally given vancomycin 1g IV daily. Medical clearance for radical I&D of the diabetic foot ulcers and gas gangrene with possible resection of bone given 10/13/16, and taken for surgery 10/14/16. Wound culture showed proteus mirabilis and Strep intermedius/milleri. Per ID, Cefepime and Vanco continued. Sepsis secondary to foot infection was diagnosed. NS started at 100cc/hr. Follow up blood and urine cultures showed no growth. MRI done post op was unable to r/o osteomyelitis due to postsurgical reactive edema and inflammation. Course of treatment guided by ID's recommendation to continue IV antibiotics. His diabetes was not well controlled on admission. He was started on 40u Lantus daily with a Novolog 15u TIDAC and insulin sliding scale. He was started on Duonebs q6h prn for his emphysema. His home pain medication for cervical neck pain was continued: oxycodone 15mg PO q6h. His hyperlipidemia was controlled using Crestor 5mg PO HS. His hypertension home medications were started: enalapril 20mg PO daily. Losartan/HCTZ stopped due to elevated creatinine, and BP still held steady. GI and VTE ppx done throughout hospital stay. He was discharged to [facility] rehab facility and will continue antibiotic tx with recephin 2gm IV for the next 6 weeks. Discharge Exam - Head Exam Head Exam: NORMOCEPHALIC - Eye Exam Eye Exam: EOMI, Normal appearance, PERRL - ENT Exam ENT Exam: Mucous Membranes Moist - Neck Exam Neck exam: Normal Inspection - Respiratory Exam Respiratory Exam: Clear to PA & Lateral, NORMAL BREATHING PATTERN - Cardiovascular Exam Cardiovascular Exam: REGULAR RHYTHM, RRR, +S1, +S2 - GI/Abdominal Exam GI & Abdominal Exam: Normal Bowel Sounds - Rectal Exam Rectal Exam: Deferred - Extremities Exam Additional comments: DP/PT pulses palpable 2/4 b/l. CFT < 3 seconds to digits x10. TG warm to warm - Neurological Exam Neurological exam: Alert - Psychiatric Exam Psychiatric exam: Normal Affect, Normal Mood - Skin Skin Exam: Dry, Intact, Normal Color, Warm Discharge Plan - Discharge Medications Prescriptions: cefTRIAXone 1 gm [Rocephin 1 gram IVPB] 2 gm IVPB DAILY 42 Days - Follow Up Plan Condition: SERIOUS Disposition: REHAB FACILITY/REHAB UNIT Additional Instructions: Patient is medically stable for discharge to [facility]. Upon discharge from [facility], the patient is to follow up with his primary medical doctor, Dr Mayen. Upon discharge from [facility], the patient is to follow up with his pain management doctor, Dr Castaneda. The patient is to continue his home medications are previously prescribed. To treat his infection, the patient will require 6 more weeks of antibiotics with Rocephin 2gm IV qd. This medication is to be given daily until October 30 2016. Please be well and take care. Referrals: Jarad Urrutia DPM [Doctor Podiatric Medicine] - Dwayne Penny MD [Staff Provider] - <Juan Carlos Flynn - Last Filed: 10/19/16 20:55> Provider - Provider Date of Admission: 10/13/16 15:43 Attending physician: Dawson Guevara MD Hospital Course - Lab Results Lab Results: Micro Results 10/14/16 Unknown Foot - Right Gram Stain - Final 10/14/16 Unknown Foot - Right Wound Culture - Final Proteus Mirabilis Strep Intermedius/Milleri 10/13/16 21:20 Foot - Right Gram Stain - Final 10/13/16 21:20 Foot - Right Wound Culture - Final Proteus Mirabilis Strep Intermedius/Milleri Most Recent Lab Values WBC 8.3 K/uL (4.8-10.8) 10/19/16 06:46 RBC 4.01 Mil/uL (4.40-5.90) L 10/19/16 06:46 Hgb 12.1 g/dL (12.0-18.0) 10/19/16 06:46 Hct 35.4 % (35.0-51.0) 10/19/16 06:46 MCV 88.4 fL (80.0-94.0) 10/19/16 06:46 MCH 30.1 pg (27.0-31.0) 10/19/16 06:46 MCHC 34.0 g/dL (33.0-37.0) 10/19/16 06:46 RDW 13.0 % (11.5-14.5) 10/19/16 06:46 Plt Count 325 K/uL (130-400) 10/19/16 06:46 MPV 8.1 fL (7.2-11.7) 10/19/16 06:46 Neut % (Auto) 69.6 % (50.0-75.0) 10/19/16 06:46 Lymph % (Auto) 19.3 % (20.0-40.0) L 10/19/16 06:46 Grant % (Auto) 8.0 % (0.0-10.0) 10/19/16 06:46 Eos % (Auto) 2.5 % (0.0-4.0) 10/19/16 06:46 Baso % (Auto) 0.6 % (0.0-2.0) 10/19/16 06:46 Neut # 5.8 K/uL (1.8-7.0) 10/19/16 06:46 Lymph # 1.6 K/uL (1.0-4.3) 10/19/16 06:46 Grant # 0.7 K/uL (0.0-0.8) 10/19/16 06:46 Eos # 0.2 K/uL (0.0-0.7) 10/19/16 06:46 Baso # 0.0 K/uL (0.0-0.2) 10/19/16 06:46 Neutrophils % (Manual) 76 % (50-75) H 10/14/16 07:09 Band Neutrophils % 3 % (0-2) H 10/13/16 13:34 Lymphocytes % (Manual) 15 % (20-40) L 10/14/16 07:09 Monocytes % (Manual) 7 % (0-10) 10/14/16 07:09 Eosinophils % (Manual) 2 % (0-4) 10/14/16 07:09 Platelet Estimate Normal (NORMAL) 10/14/16 07:09 Large Platelets Present 10/13/16 13:34 RBC Morphology Normal 10/13/16 13:34 Hypochromasia (manual) Slight 10/14/16 07:09 Retic Count 1.2 % (0.5-1.5) 10/18/16 06:32 Haptoglobin 285 mg/dL (43-212) H 10/18/16 06:32 PT 14.7 SECONDS (9.7-12.2) H 10/13/16 13:55 INR 1.3 10/13/16 13:55 APTT 31 SECONDS (21-34) 10/13/16 13:55 pO2 39 mm/Hg (30-55) 10/13/16 14:05 VBG pH 7.41 (7.32-7.43) 10/13/16 14:05 VBG pCO2 37 mmHg (40-60) L 10/13/16 14:05 VBG HCO3 23.7 mmol/L 10/13/16 14:05 VBG Total CO2 24.6 mmol/L (22-28) 10/13/16 14:05 VBG O2 Sat (Calc) 82.2 % (40-65) H 10/13/16 14:05 VBG Base Excess -0.8 mmol/L (0.0-2.0) L 10/13/16 14:05 VBG Potassium 4.4 mmol/L (3.6-5.2) 10/13/16 14:05 Sodium 130.0 mmol/l (132-148) L 10/13/16 14:05 Chloride 97.0 mmol/L (98-107) L 10/13/16 14:05 Glucose 237 mg/dl (75-110) H 10/13/16 14:05 Lactate 2.0 mmol/L (0.7-2.1) 10/13/16 14:05 Sodium 135 mmol/L (132-148) 10/19/16 06:46 Potassium 4.6 mmol/L (3.6-5.2) 10/19/16 06:46 Chloride 94 mmol/L (98-107) L 10/19/16 06:46 Carbon Dioxide 28 mmol/L (22-30) 10/19/16 06:46 Anion Gap 18 (10-20) 10/19/16 06:46 BUN 16 mg/dL (9-20) 10/19/16 06:46 Creatinine 1.0 MG/DL (0.8-1.5) 10/19/16 06:46 Est GFR ( Amer) > 60 10/19/16 06:46 Est GFR (Non-Af Amer) > 60 10/19/16 06:46 POC Glucose (mg/dL) 185 mg/dL (65-110) H 10/19/16 16:09 Random Glucose 236 mg/dL (75-110) H 10/19/16 06:46 Hemoglobin A1c 8.5 % (4.2-6.5) H 10/14/16 07:09 Calcium 8.9 mg/dl (8.6-10.4) 10/19/16 06:46 Phosphorus 3.8 mg/dL (2.5-4.5) 10/19/16 06:46 Magnesium 1.5 mg/dL (1.6-2.3) L 10/19/16 06:46 Total Bilirubin 0.5 mg/dL (0.2-1.3) 10/19/16 06:46 Direct Bilirubin 0.4 mg/dL (0.0-0.4) 10/18/16 06:34 AST 20 U/L (17-59) 10/19/16 06:46 ALT 46 U/L (21-72) 10/19/16 06:46 Alkaline Phosphatase 56 U/L (38-126) 10/19/16 06:46 Lactate Dehydrogenase 289 U/L (313-618) L 10/18/16 06:34 Total Protein 6.8 g/dL (6.3-8.3) 10/19/16 06:46 Albumin 3.2 g/dL (3.5-5.0) L 10/19/16 06:46 Globulin 3.6 gm/dL (2.2-3.9) 10/19/16 06:46 Albumin/Globulin Ratio 0.9 (1.0-2.1) L 10/19/16 06:46 Homocysteine 11.2 umol/L (6.6-14.8) 10/18/16 06:34 Venous Blood Potassium 4.4 mmol/L (3.6-5.2) 10/13/16 14:05 Urine Color Brandi (YELLOW) 10/13/16 15:32 Urine Clarity Hazy (Clear) 10/13/16 15:32 Urine pH 5.0 (5.0-8.0) 10/13/16 15:32 Ur Specific Bristow 1.023 (1.003-1.030) 10/13/16 15:32 Urine Protein 2+ mg/dL (NEGATIVE) H 10/13/16 15:32 Urine Glucose (UA) 3+ mg/dL (Normal) H 10/13/16 15:32 Urine Ketones Trace mg/dL (NEGATIVE) 10/13/16 15:32 Urine Blood Negative (NEGATIVE) 10/13/16 15:32 Urine Nitrate Negative (NEGATIVE) 10/13/16 15:32 Urine Bilirubin Negative (NEGATIVE) 10/13/16 15:32 Urine Urobilinogen Normal mg/dL (0.2-1.0) 10/13/16 15:32 Ur Leukocyte Esterase Neg Rosemarie/uL (Negative) 10/13/16 15:32 Urine WBC (Auto) 4 /hpf (0-5) 10/13/16 15:32 Urine RBC (Auto) 4 /hpf (0-3) H 10/13/16 15:32 Ur Squamous Epith Cells 1 /hpf (0-5) 10/13/16 15:32 Urine Bacteria Rare (<OCC) 10/13/16 15:32 Hyaline Casts 11-20 /lpf (0-2) H 10/13/16 15:32 Granular Casts (Auto) 5 /lpf (0-1) 10/13/16 15:32 Stool Occult Blood Negative (NEGATIVE) 10/19/16 16:52 Vancomycin Trough 11.2 ug/mL (5.0-10.0) H 10/17/16 06:31 Attending/Attestation - Attestation I have personally seen and examined this patient.: Yes I have fully participated in the care of the patient.: Yes I have reviewed all pertinent clinical information, including history, physical exam and plan: Yes Notes (Text): 10/19/16 20:54 Patient was seen and examined at 3:45 PM Exam, discharge instructions were thoroughly gone over with the Resident. Juan Carlos Flynn D.O.
[2016-10-20] MEDS: oxyCODONE 5 mg Immediate Release Tab PO PRN ×4 (06:31→18:47)
[2016-10-20] MEDS: (Novolog) Insulin Aspart, Recombinant 100 u/ml 10 ml vial SC SCH ×6 (07:43→16:30)
[2016-10-20] MEDS: Pantoprazole 40 mg EC Tab PO SCH (10:21)
[2016-10-20] MEDS: (Lantus) Insulin Glargine, Recombinant SC SCH (10:21)
[2016-10-20] MEDS: Saccharomyces Boulardi 250 mg Cap PO SCH ×2 (10:21→17:47)
--- NOTE | 2016-10-20 11:09 | CP.PCM.PN ---
Subjective - Date & Time of Evaluation Date of Evaluation: 10/20/16 Time of Evaluation: 11:08 - Subjective Subjective: 56 year old male patient seen at bedside POD# 6 right foot incision and drainage. Patient seen resting in bed comfortably, AAOx3 and NAD. Patient reports mild pain to surgical site, however well managed by pain medications. Patient denies any acute events overnight. Patient denies N/V/F/D/C/SOB/calf pain. No other pedal complaints at this time. Objective - Vital Signs/Intake and Output Vital Signs (last 24 hours): Temp Pulse Resp BP Pulse Ox 98.7 F 75 20 122/85 96 10/20/16 08:16 10/20/16 08:16 10/20/16 08:16 10/20/16 10:21 10/20/16 08:16 Intake and Output: 10/20/16 10/20/16 06:59 18:59 Intake Total 940 Output Total 900 Balance 40 - Medications Medications: Current Medications Acetaminophen (Tylenol 325mg Tab) 650 mg PO Q6 PRN PRN Reason: Fever >100.4 F Albuterol/Ipratropium (Duoneb 3 Mg/0.5 Mg (3 Ml) Ud) 3 ml INH RQ4 PRN PRN Reason: Shortness of Breath Last Admin: 10/18/16 19:55 Dose: 3 ml Aspirin (Ecotrin) 81 mg PO DAILY [facility] Last Admin: 10/15/16 10:00 Dose: 81 mg Docusate Sodium (Colace) 100 mg PO BID [facility] Last Admin: 10/20/16 10:22 Dose: 100 mg Enalapril Maleate (Vasotec) 20 mg PO DAILY [facility] Last Admin: 10/20/16 10:21 Dose: 20 mg Ceftriaxone Sodium 1 gm/ (Sodium Chloride) 100 mls @ 100 mls/hr IVPB Q12H [facility] Last Admin: 10/20/16 06:26 Dose: 100 mls/hr Insulin Aspart (Novolog) 0 unit SC ACHS [facility] PRN Reason: Protocol Last Admin: 10/20/16 07:45 Dose: 3 unit Insulin Aspart (Novolog) 18 unit SC TIDAC [facility] Last Admin: 10/20/16 07:43 Dose: 18 unit Insulin Glargine (Lantus) 45 unit SC DAILY [facility] Last Admin: 10/20/16 10:21 Dose: 45 units Oxycodone HCl (Oxycodone Immediate Release Tab) 15 mg PO Q4H PRN PRN Reason: Pain, moderate (4-7) Last Admin: 10/20/16 10:22 Dose: 15 mg Pantoprazole Sodium (Protonix Ec Tab) 40 mg PO DAILY [facility] Last Admin: 10/20/16 10:21 Dose: 40 mg Rosuvastatin Calcium (Crestor) 5 mg PO HS [facility] Last Admin: 10/19/16 22:08 Dose: 5 mg Saccharomyces Boulardii (Florastor) 250 mg PO BID [facility] Last Admin: 10/20/16 10:21 Dose: 250 mg - Labs Labs: 10/19/16 06:46 10/19/16 06:46 PT 14.7 SECONDS (9.7-12.2) H 10/13/16 13:55 INR 1.3 10/13/16 13:55 APTT 31 SECONDS (21-34) 10/13/16 13:55 - Constitutional Appears: Well, Non-toxic, No Acute Distress - Extremities Exam Additional comments: Vasc: DP/PT pulses palpable 2/4 b/l. CFT < 3 seconds to digits x10. TG warm to warm Neuro: Epicritic and protective sensations grossly diminished to b/l LE Derm: 1)Ulceration noted to first interdigital space of right foot to medial plantar aspect of right foot at level of first MTPJ s/p surgical debridement. Wound has a granular base. Sanguinous drainage expressed from wound however no purulence noted. 2) Ulceration noted to plantar left foot at level of fourth metatarsal head (0.7 cm x 0.7 cm) with hyperkeratotic rim. No drainage, purulence, malodor, increase in warmth, erythema noted to left foot ulceration. No clinical signs of infection noted at this time. MSK: POP noted to interdigital ulceration s/p wound debridement right foot - Neurological Exam Neurological Exam: Alert, Awake, Oriented x3 - Psychiatric Exam Psychiatric exam: Normal Affect, Normal Mood Assessment and Plan - Assessment and Plan (Free Text) Assessment: 56 year old male POD# 6 right foot incision and drainage for ulcerations secondary to DM Plan: Patient seen and evaluated at bedside. discussed in detail with attending Dr. Patel Charts, labs, vitals reviewed = afebrile Dressing changed today - wound flushed with peroxide, packed with saline soaked gauze, and dressed with DSD to right foot, left foot dressing c/d/i Continue abx per ID = Zosyn, Vancomycin. Reviewed wound cx = Proteus Mirabilis, Strep Intermedius/Milleri Contine pain mgmt per medicine MRI report shows reactive edema and post surgical changes at the 1st,2nd,3rd metatarsal levels patient stable from podiatry standpoint and will follow up with Dr. Patel as outpatient Podiatry will continue to follow patient while in house.
[2016-10-20 16:21] VITALS: BP 121/63; PULSE 80; TEMP 98.5; O2SAT 97
== END 2016-10-20 19:25 | DRG 264 ==
LOC: C.ER 11:47 → C.9E 15:43 → C.3T 19:57
PROVIDERS: ADMIT Internal Medicine; ATTEND Internal Medicine
PROC: 0JBQ0ZZ Excision of Right Foot Subcutaneous Tissue and Fascia, Open Approach (ICD-10-PCS; principal; 2016-10-14 12:15)
PROC: 02HV33Z Insertion of Infusion Device into Superior Vena Cava, Percutaneous Approach (ICD-10-PCS; 2016-10-17)
PROC: B518ZZA Fluoroscopy of Superior Vena Cava, Guidance (ICD-10-PCS; 2016-10-17)
DX: E11.52 Type 2 diabetes mellitus with diabetic peripheral angiopathy with gangrene (principal); J18.9 Pneumonia, unspecified organism; A48.0 Gas gangrene; E11.621 Type 2 diabetes mellitus with foot ulcer; E87.1 Hypo-osmolality and hyponatremia; L03.115 Cellulitis of right lower limb; Z79.4 Long term (current) use of insulin; D63.8 Anemia in other chronic diseases classified elsewhere; E11.622 Type 2 diabetes mellitus with other skin ulcer; E11.65 Type 2 diabetes mellitus with hyperglycemia; E11.69 Type 2 diabetes mellitus with other specified complication; E78.5 Hyperlipidemia, unspecified; E83.42 Hypomagnesemia; F17.210 Nicotine dependence, cigarettes, uncomplicated; I10 Essential (primary) hypertension; J43.9 Emphysema, unspecified; L97.519 Non-pressure chronic ulcer of other part of right foot with unspecified severity; L97.529 Non-pressure chronic ulcer of other part of left foot with unspecified severity; Z90.49 Acquired absence of other specified parts of digestive tract; Z89.411 Acquired absence of right great toe

== ENCOUNTER 2016-11-16 08:16 | Day surgery (SDC) | payer MEDICARE, MEDICAID ==
[2016-11-16] MEDS ORDERED: Midazolam 2 MG/2 ML VIAL ONE (08:42)
[2016-11-16] MEDS ORDERED: Lidocaine Hydrochloride 5 ML INJ ONE (08:42)
[2016-11-16] MEDS ORDERED: Propofol 10 mg/ml Inj (20 ML) ONE ×2 (08:42→09:57)
[2016-11-16] MEDS ORDERED: ePHEDrine 50 mg/ml Inj ONE (08:47)
[2016-11-16] MEDS ORDERED: Phenylephrine 10 mg/ml Inj ONE (08:47)
[2016-11-16] MEDS ORDERED: ceFAZolin IV 1 gm in Dextrose 1 GM/50 ML BAG IVPB ONE (09:09)
[2016-11-16] MEDS ORDERED: Lidocaine 2% Inj (20ml) ONE (09:10)
[2016-11-16] MEDS ORDERED: Bupivacaine HCl 0.25% PF (10 ml) Inj ONE ×2 (09:10)
[2016-11-16] MEDS ORDERED: Bacitracin Ointment 30 GM TUBE ONE (10:08)
--- NOTE | 2016-11-16 10:35 | PCM.SURG1 ---
Surgeon's Initial Post Op Note - Surgeon's Notes Surgeon: Dr. Urrutia DPM Professor Of Management: Dr. Dotson DPM PGY-2 Type of Anesthesia: IV Sedation, Local Anesthesia Administered By: Dr. Ashley Pre-Operative Diagnosis: left foot chronic non-healing ulcer, right foot necrotic wound Operative Findings: see dictation. M:3-0 nylon, 3-0 chromic Post-Operative Diagnosis: same Operation Performed: left foot 4th metatarsal head resection with debridement of plantar ulceration, right foot debridement of necrotic tissue Specimen/Specimens Removed: left 4th metatarsal head Estimated Blood Loss: EBL {In ML}: 5 Blood Products Given: N/A Drains Used: No Drains Post-Op Condition: Good Date of Surgery/Procedure: 11/16/16 Time of Surgery/Procedure: 10:35
[2016-11-16] MEDS ORDERED: HYDROmorphone 0.5 mg/0.5 ml ISec IVP PRN (10:51)
[2016-11-16 12:56] VITALS: BP 116/89; PULSE 78; RESP 11; TEMP 97.5; O2SAT 98
--- NOTE | 2016-11-16 15:52 | RAD ---
PROCEDURE: Left Foot Radiographs. HISTORY: s/p left foot surgery COMPARISON: Bilateral foot radiographs dated 10/13/2016 FINDINGS: BONES: Patient is not seen UB status post mastectomy at the distal portion of the 4th metatarsal bone with postop changes seen in the local soft tissues here. Diffuse osteopenia suggests osteoporosis throughout the bones of right foot and general. Prior ostectomy is again seen at the distal portion of the left 5th metatarsal bone. No acute fracture subluxation or dislocation. JOINTS: Degenerate joint changes seen throughout the left foot concentrated at the interphalangeal joints diffusely. SOFT TISSUES: As above. OTHER FINDINGS: None. IMPRESSION: Status post recent ostectomy of the distal portion of the left 4th metatarsal bone with limited postop changes seen locally. Prior ostectomy of the distal 5th metatarsal bone is also identified as seen previously 10/13/2016 left foot radiographs.
--- NOTE | 2016-11-17 23:34 | OP ---
PROCEDURE DATE: 11/16/2016 SURGEON: Dr. Jarad Youngblood DPM. SUPERINTENDENT DRIVERS: Dr. Laura Dotson DPM, PGY-2. ANESTHESIOLOGIST: Dr. Ashley. ANESTHESIA TYPE: IV sedation with local. PREOPERATIVE DIAGNOSES: 1. Left foot chronic nonhealing ulcer. 2. Right foot necrotic wound. POSTOPERATIVE DIAGNOSES: 1. Left foot chronic nonhealing ulcer. 2. Right foot necrotic wound. PROCEDURES: 1. Left foot fourth metatarsal head resection with debridement of plantar ulceration. 2. Right foot wound debridement of necrotic tissue. INDICATION: The patient is a 56-year-old male with the above diagnoses. The patient has exhausted all conservative treatment at this time and now requires surgical intervention. The patient signed the consent after careful explanation of risks, benefits, complications and alternatives for the surgical procedure. No guarantees were given or implied. PREPARATION: The patient was brought into the operating room and placed on the operating room table in the supine position. A time-out was performed for identification of correct patient and procedure. The patient received a total of 10 mL of 1:1 mixture of 1% lidocaine plain and 0.5% Marcaine plain. Once local anesthesia was achieved, the right and left foot were then prepped and draped in a normal sterile manner. PROCEDURE 1: Left foot fourth metatarsal head resection with debridement of plantar ulceration. So attention was directed to the dorsal aspect of the fourth metatarsal head where an excision was made from the base of the proximal phalanx to proximal to the metatarsal head. The incision was carried down to subcutaneous tissue and care was taken to identify and retract all vital neurovascular structures. All bleeders were ligated and cauterized as necessary. At this time, dissection was continued down to the level of the fourth metatarsal head, and with a Wills elevator, the periosteum was removed from the bone. Utilizing a sagittal saw, the fourth metatarsal head was resected and passed from the operating field and sent for pathology. Correction of the deformity was assessed and noted to be excellent. All the rough edges were then smoothed with a bone rasp and the foot was irrigated with copious amounts of normal sterile saline mixed with peroxide and Bacitracin. Then attention was directed to the plantar aspect of the fourth metatarsal where the ulcer is located. Utilizing a #15 blade, all of the hyperkeratotic lesion was sharply debrided to healthy tissue without incident. PROCEDURE 2: Attention was then directed to the plantar aspect of the right foot. One ulcer measuring approximately 3 x 5 cm was located. The edges of the wound were noted to be necrotic. Utilizing a #15 blade, the edges were sharply debrided down to healthy tissue without incident. The area was then irrigated with copious amounts of normal sterile saline mixed with peroxide and Bacitracin. The subcutaneous as well as the periosteum and capsular structures were reapproximated with #3-0 chromic and the skin was approximated with #3-0 nylon. POSTOPERATIVE CONDITION: The patient tolerated the anesthesia and procedure well and was escorted to the recovery room with vital signs stable and neurovascular status intact to both the right and left foot. The patient will be following up with Dr. Patel in office. Laura Dotson DPM MTDChris
== END 2016-11-16 13:04 ==
LOC: C.SDS 08:16
PROVIDERS: ATTEND Podiatrist Foot Surgery
DX: L97.519 Non-pressure chronic ulcer of other part of right foot with unspecified severity (principal); M20.62 Acquired deformities of toe(s), unspecified, left foot; L97.529 Non-pressure chronic ulcer of other part of left foot with unspecified severity
CPT/HCPCS: 11042; 28810; 73630; 82948; 88304; J0690; J2250; J2370; J2704; J3010

== ENCOUNTER 2016-12-18 05:29 | Emergency (ER) | payer MEDICARE, MEDICAID ==
[2016-12-18 05:30] VITALS: BMI 29.1
--- NOTE | 2016-12-18 06:13 | C.PDOC ---
History Of Present Illness 56 year old male presents to the ED for evaluation of left foot pain which began around 3 days ago. Patient states he underwent surgery on to his right foot 2 months ago and surgery to left foot 1 month ago. Patient was in rehab center until he was discharged 3 days ago without pain medication. Since his discharge, patient has been experiencing left foot pain that radiates to his calf and posterolateral thigh. Patient denies any exacerbating or reliving factors. He states this pain is unlike anything he's experienced in the past and has been causing difficulty with sleeping. Otherwise, patient denies fever, chills, extremity numbness/weakness, and recent trauma/injury to the affected area. Chief Complaint (Nursing): Lower Extremity Problem/Injury History Per: Patient History/Exam Limitations: no limitations Onset/Duration Of Symptoms: Days (3) Current Symptoms Are (Timing): Still Present - Ankle/Foot Description Of Injury: denies: Fell, Struck With Object, Struck Against Object, Twisted, Laceration Past Medical History Reviewed: Historical Data, Nursing Documentation, Vital Signs Vital Signs: Last Vital Signs Temp 98.2 F 12/18/16 05:49 Pulse Resp BP 146/73 12/18/16 05:49 Pulse Ox - Medical History PMH: COPD (Emphysema), Depression, Diabetes, HTN, Hypercholesterolemia, Hyperlipidemia Surgical History: Appendectomy (5 yrs ago) - [facility] Procedures CENTRAL VENOUS CATHETER PLACEMENT WITH GUIDANCE (11/13/14) EXCIS DEBRIDE OF WOUND, INFECT, OR BURN (07/16/14) EXCISION OF R FOOT SUBCU/FASCIA, OPEN APPROACH (10/13/16) FLUOROSCOPY OF SUPERIOR VENA CAVA, GUIDANCE (10/13/16) INSERTION OF INFUSION DEV INTO SUP VENA CAVA, PERC APPROACH (10/13/16) OTH METATARS/TARS INCIS (07/16/14) PART OSTECT-METATAR/TAR (10/29/13) Family History: States: Unknown Family Hx - Social History Hx Tobacco Use: Yes Hx Alcohol Use: No Hx Substance Use: No - Immunization History Hx Tetanus Toxoid Vaccination: No Hx Influenza Vaccination: No Hx Pneumococcal Vaccination: No Review Of Systems Constitutional: Negative for: Fever, Chills Musculoskeletal: Positive for: Foot Pain (left) Neurological: Negative for: Weakness, Numbness Physical Exam - Physical Exam Appears: Non-toxic, No Acute Distress Skin: Normal Color, Warm, Dry, Other (no erythema or open wounds to left foot) Head: Atraumatic, Normacephalic Eye(s): bilateral: Normal Inspection Oral Mucosa: Moist Neck: Supple Chest: Symmetrical, No Deformity, No Tenderness Cardiovascular: Rhythm Regular, No Murmur Respiratory: Normal Breath Sounds, No Rales, No Rhonchi, No Wheezing Extremity: Normal ROM, Calf Tenderness (left calf), Capillary Refill (less than 2 seconds ), No Deformity, No Swelling, Other (Right foot is covered with dressing ) Pulses: Left Dorsalis Pedis: Normal Neurological/Psych: Oriented x3, Normal Speech, Normal Cognition Gait: Unable To Assess ED Course And Treatment Progress Note: Foot XR and Venous Duplex Scan of left extremity ordered. Labs ordered. Disposition - Disposition Disposition Time: 06:54 Condition: STABLE Forms: [facility] ([place]) - Clinical Impression Clinical Impression: Leg pain - PA / EAR SPECIALIST / Resident Statement MD/DO has reviewed & agrees with the documentation as recorded. - Scribe Statement The provider has reviewed the documentation as recorded by the Scribe (Racquel Flynn) All medical record entries made by the Scribe were at my direction and personally dictated by me. I have reviewed the chart and agree that the record accurately reflects my personal performance of the history, physical exam, medical decision making, and the department course for this patient. I have also personally directed, reviewed, and agree with the discharge instructions and disposition. Physician Patient Turnover Patient Signed Over To: Alyssa Navarro Handoff Comments: xray and duplex are pending
[2016-12-18] MEDS ORDERED: Oxycodone/Acetaminophen 5/325 mg Tab PO STA (06:39)
[2016-12-18 06:44] LABS: RBC URINE 6 /hpf (0-3); URINE BACTERIA RARE (<OCC); URINE BILIRUBIN NEGATIVE (NEGATIVE); URINE BLOOD NEGATIVE (NEGATIVE); URINE COLOR Yellow (YELLOW); URINE GLUCOSE (UA) 3+ mg/dL (Normal); URINE KETONE NEGATIVE (NEGATIVE); URINE LEUKOCYTE ESTERASE NEG Leu/uL (Negative); URINE PROTEIN 2+ mg/dL (NEGATIVE); URINE UROBILINOGEN NORMAL mg/dL (0.2-1.0); WBC URINE 3 /hpf (0-5)
[2016-12-18] MEDS ORDERED: Oxycodone/Acetaminophen 5/325 mg Tab ONE (06:45)
[2016-12-18 07:21] VITALS: RESP 20
--- NOTE | 2016-12-18 08:57 | RAD ---
Left foot three views History: Pain. Comparison: None available. Findings Prior resection of the 4th and 5th metatarsal heads to the level of the metatarsal shafts. Prominent productive change seen at the remnant metatarsal shaft of the 5th metatarsal bone and to a lesser extent 4th metatarsal bones. Soft tissue swelling at the lateral aspect of the midfoot. Mild cortical productive change along the lateral cortex of the 5th metatarsal bone. This is nonspecific ; however, if there is concern for acute osteomyelitis, consider further evaluation with MRI. Additional cortical productive change at the lateral aspect of the cuboid bone likely at the site of an accessory ossicle. Clinical correlation. Plantar and dorsal calcaneal spurring. Vascular calcifications. Mild hallux valgus deformity. Impression: Prior resection of the 4th and 5th metatarsal heads to the level of the metatarsal shafts. Prominent productive change seen at the remnant metatarsal shaft of the 5th metatarsal bone and to a lesser extent 4th metatarsal bones. Soft tissue swelling at the lateral aspect of the midfoot. Mild cortical productive change along the lateral cortex of the 5th metatarsal bone. This is nonspecific ; however, if there is concern for acute osteomyelitis, consider further evaluation with MRI. Additional cortical productive change at the lateral aspect of the cuboid bone likely at the site of an accessory ossicle. Clinical correlation. Plantar and dorsal calcaneal spurring. Vascular calcifications. Mild hallux valgus deformity.
--- NOTE | 2016-12-18 09:08 | RAD ---
Lumbar spine three views History: Pain. Comparison: None available. Findings: Mild retrolisthesis of L5 on S1. Mild inferior endplate concavity of the L5 vertebral body. Mild superior endplate concavities at the L2, L3, and L4 vertebral bodies. Question minimal loss of height of the T11 and T12 vertebral bodies. Multilevel anterior osteophytosis throughout the lumbar spine. Lower level facet hypertrophy. Calcification within the aorta. Vascular calcifications in the pelvis. Impression: Degenerative changes. If pain persists, consider MRI.
[2016-12-18 10:47] VITALS: TEMP 97.8
[2016-12-18 10:55] VITALS: BP 149/79; PULSE 82; O2SAT 100
--- NOTE | 2016-12-20 09:52 | VASCLAB ---
PROCEDURE: Left Lower Extremity Venous Duplex Exam. HISTORY: Pain in limb, s/p foot surgery PRIORS: None. TECHNIQUE: Left common femoral, femoral, popliteal and posterior tibial, peroneal and great saphenous veins were evaluated. Flow was assessed with color Doppler, compressibility, assessment of phasic flow and augmentation response. Report prepared by AJAY Del Toro Peripheral Equipment Operator. FINDINGS: LEFT: 1. Common Femoral Vein: 1.1. Compressibility - Fully compressible: Thrombus - None : Flow - Phasic: Augmentation -Normal: Reflux - None. 2. Femoral Vein: 2.1. Compressibility - Fully compressible: Thrombus - None: Flow - Phasic: Augmentation -Normal: Reflux - None. 3. Popliteal Vein: 3.1. Compressibility - Fully compressible: Thrombus - None: Flow - Phasic: Augmentation -Normal: Reflux - None. 4. Posterior Tibial Vein: 4.1. Compressibility - Fully compressible: Thrombus - None: Flow - Phasic: Augmentation -Normal: Reflux - None. 5. Peroneal Vein: 5.1. Compressibility - Fully compressible: Thrombus - None: Flow - Phasic: Augmentation -Normal: Reflux - None. 6. Great Saphenous Vein: 6.1. Compressibility - Fully compressible: Thrombus - None: Flow - Phasic: Augmentation - Normal: Reflux - None. OTHER FINDINGS: IMPRESSION: No evidence of deep or superficial vein thrombosis of the left lower extremity with excellent venous flow. Normal valve function noted of the left side. Normal venous flow noted in the right common femoral vein.
== END 2016-12-18 10:55 | disposition home or self-care (01) ==
LOC: C.ER 05:29
DX: M79.605 Pain in left leg (principal); J44.9 Chronic obstructive pulmonary disease, unspecified; I10 Essential (primary) hypertension; E78.00 Pure hypercholesterolemia, unspecified; E11.9 Type 2 diabetes mellitus without complications

== ENCOUNTER 2018-04-19 06:03 | Inpatient (IN) | payer MEDICARE, MEDICAID ==
[2018-04-12 09:53] VITALS: BMI 28.8
[2018-04-19] MEDS ORDERED: ceFAZolin 1 gm in NS 1 GM/100 ML BAG IVPB ONE ×2 (07:42→08:20)
[2018-04-19] MEDS ORDERED: Lidocaine 2% w Epi 1:100,000 Inj IJ ONE (07:42)
[2018-04-19] MEDS ORDERED: Bupivacaine HCl 0.5% PF (10 ml) Inj ONE (07:42)
[2018-04-19] MEDS ORDERED: Bacitracin 500 Units/gm Oint Foilpak UD ONE (07:45)
[2018-04-19] MEDS ORDERED: Midazolam 2 MG/2 ML VIAL ONE ×2 (08:14→08:41)
[2018-04-19] MEDS ORDERED: Propofol 10 mg/ml Inj (20 ML) ONE ×2 (08:14→08:44)
[2018-04-19] MEDS ORDERED: LIDOCAINE 2% PF (2ML) ONE (08:20)
[2018-04-19] MEDS ORDERED: HYDROmorphone 0.5 mg/0.5 ml ISec IVP PRN ×2 (09:11→09:53)
[2018-04-19] MEDS ORDERED: Lactated Ringer's 1,000 ML IV ONE (09:30)
--- NOTE | 2018-04-19 10:01 | PCM.SURG1 ---
Surgeon's Initial Post Op Note - Surgeon's Notes Surgeon: Dr. Patel Clinical Project Coordinator: Crystal Menezes PGY-2 Type of Anesthesia: IV Sedation, Local Anesthesia Administered By: Krupa/Dr. Adame Pre-Operative Diagnosis: 1) right foot 4th digit osteomyelitis. 2) non-healing diabetic ulcer sub metatarsal 1 right foot Operative Findings: I: 20cc 1:1 mixture 2% Lidocaine plain and 0.5% marcaine plain. M: Retention suture, 2-0 Nylon, 1/2" iodoform packing, xeroform, ABD, DSD Post-Operative Diagnosis: same Operation Performed: 1) right foot 4th digit amputation. 2) right foot debridement of bone sub metatarsal 1 Specimen/Specimens Removed: right foot 4th digit, right foot 1st metatarsal bone and soft tissue Estimated Blood Loss: EBL {In ML}: 25 Blood Products Given: N/A Drains Used: No Drains Post-Op Condition: Good Date of Surgery/Procedure: 04/19/18 Time of Surgery/Procedure: 08:30
[2018-04-19] MEDS: HYDROmorphone 0.5 mg/0.5 ml ISec IVP PRN ×2 (10:22→11:40)
--- NOTE | 2018-04-19 10:54 | RAD ---
Date of service: 04/19/2018 PROCEDURE: Right Foot Radiographs. HISTORY: s/p right 4th digit amputation, debridement of bon COMPARISON: 10/31/2013 FINDINGS: BONES: The 2nd and 3rd distal metatarsals are partially resected a Since the prior exam the 2nd metatarsal shows more smooth tapering to its and. The 3rd metatarsal and shows some bulbous enlargement with possible smooth periosteal reaction since 2013. This appearance is nonspecific no gross cortical destruction at either of these 2 sites 2nd or 3rd is apparent. There is interval removal amputation of all 4th digit phalanges. The 4th metatarsal head appears intact. JOINTS: 1st metatarsal-phalangeal joint arthrosis SOFT TISSUES: There is mottled density compatible with bandaging about the recent inferred amputation of the 4th phalanges OTHER FINDINGS: Os tibial externum and os peroneum IMPRESSION: Status post 4th recent phalangeal resection amputation with overlying bandaging. Remote postop changes 2nd and 3rd metatarsals-as detailed above. Other findings as above.
[2018-04-19] MEDS ORDERED: Dextrose 50% SYRINGE Inj (50 ml) IV PRN (11:49)
[2018-04-19] MEDS ORDERED: Glucagon Recombinant 1 mg Inj IM PRN (11:49)
--- NOTE | 2018-04-19 12:05 | CP.PCM.HP ---
<Petra Chinchilla - Last Filed: 04/19/18 14:54> History of Present Illness - History of Present Illness History of Present Illness: PGY-1 Medicine H&P for Dr. Flynn's service CC: s/p 4th digit on RLE amputation and debridement of 1st metatarsal base HPI: Patient is a 57 yo male w/ PMH of emphysema, HTN, HLD, osteomyelitis, and DM2 admitted to hospital for operation of lower extremity. Patient states that two weeks ago he went to visit his punch operator who has been managing his ulcers on the lower extremity. Patient states at this time his doctor set up an appoint ment for surgical debridement of the 1st metatarsal. However, by the time the foot was re-evaluated two weeks later the punch operator noted further changes on the 4th digit of his foot. Patient went for surgical debridement and amputation. Post-op patient states he has pain in his lower extremity. Describes it as sharp pain, worsened with movement or touching and relieved with rest. Denies fevers, chills, chest pain, sob, n/v, constipation or diarrhea, and dysuria. 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, 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) Code- Full code Proxy- Brother (Noel Swift) PMD- Junaid Scott Present on Admission - Present on Admission Any Indicators Present on Admission: Yes History of Uncontrolled Diabetes: Yes Review of Systems - Review of Systems Review of Systems: 12 point ROS obtained and noted in HPI Past Patient History - Infectious Disease Hx of Infectious Diseases: None - Tetanus Immunizations Tetanus Immunization: Unknown - Past Medical History & Family History Past Medical History?: Yes - Past Social History Smoking Status: Light Smoker < 10 Cigarettes Daily - CARDIAC Hx Cardiac Disorders: Yes Hx Hypercholesterolemia: Yes Hx Hypertension: Yes Hx Peripheral Vascular Disease: Yes - PULMONARY Hx Respiratory Disorders: Yes Hx Chronic Obstructive Pulmonary Disease (COPD): Yes (Emphysema) - NEUROLOGICAL Hx Neurological Disorder: Yes (NEUROPATHY) - ENDOCRINE/METABOLIC Hx Endocrine Disorders: Yes Hx Diabetes Mellitus Type 2: Yes - INTEGUMENTARY Hx Dermatological Problems: Yes Other/Comment: HX: ULCER RIGHT FOOT - MUSCULOSKELETAL/RHEUMATOLOGICAL Hx Musculoskeletal Disorders: Yes Hx Back Pain: Yes Hx Herniated Disk: Yes (cervical +metal, lumbar disc) Other/Comment: HX: ANGULAR BONE DEFORMITY 4TH METARCARPAL LEFT FOOT SX DONE - SURGICAL HISTORY Hx Surgeries: Yes Hx Appendectomy: Yes (5 yrs ago) Hx Musculoskeletal Surgery: Yes (CERVICAL HARDWARE) Hx Orthopedic Surgery: Yes (BOTH FEET SEVERAL) Other/Comment: HX: 10/14/16-I&D RIGHT FOOT - ANESTHESIA Hx Anesthesia: Yes Hx Anesthesia Reactions: No Hx Malignant Hyperthermia: No Has any member of the family had a problem w/ anesthesia?: No Meds Allergies/Adverse Reactions: Allergies Allergy/AdvReac Type Severity Reaction Status Date / Time morphine Allergy RASH Verified 03/17/16 14:32 Physical Exam - Constitutional Appears: Non-toxic, No Acute Distress - Head Exam Head Exam: NORMAL INSPECTION, NORMOCEPHALIC - Eye Exam Eye Exam: EOMI, Normal appearance. absent: Nystagmus, Scleral icterus - ENT Exam ENT Exam: Mucous Membranes Moist - Respiratory Exam Respiratory Exam: Clear to Auscultation Bilateral, NORMAL BREATHING PATTERN. absent: Rales, Rhonchi, Wheezes - Cardiovascular Exam Cardiovascular Exam: REGULAR RHYTHM, +S1, +S2. absent: Tachycardia, Systolic Murmur - GI/Abdominal Exam GI & Abdominal Exam: Normal Bowel Sounds, Soft. absent: Diminished Bowel Sounds , Distended, Firm, Guarding, Tenderness - Extremities Exam Additional comments: RLE with dressing in place covering foot no oozing, drainage, or blood noted c/d/i LLE normal inspection - Neurological Exam Neurological exam: Alert, Oriented x3 - Psychiatric Exam Psychiatric exam: Normal Affect, Normal Mood - Skin Skin Exam: Dry, Intact, Normal Color Results - Vital Signs Recent Vital Signs: Last Vital Signs Temp 97.9 F 04/19/18 09:30 Pulse 78 04/19/18 10:35 Resp 15 04/19/18 10:35 BP 120/65 04/19/18 10:35 Pulse Ox 97 04/19/18 10:35 - Labs Result Diagrams: 04/19/18 12:48 04/19/18 12:48 Labs: Laboratory Results - last 24 hr 04/19/18 04/19/18 06:53 11:28 POC Glucose (mg/dL) 207 H 243 H Assessment & Plan - Assessment and Plan (Free Text) Assessment: Patient is a 57 yo male w/ PMH of emphysema, HTN, HLD, osteomyelitis, and DM2 admitted to hospital for operation of lower extremity. S/P 4th toe digit amputation and 1st toe base debridement. Osteomyelitis s/p 4th digit right toe amputation and right 1st digit base debrid ement [facility] ID Consulted: Dr. Wilson- duration of abx? Zosyn 3.375 q6, Vanc 1gm q12; Vanc trough prior to 4th dose ordered noted leukocytosis, trend cbc, afebrile Oxy 5 q6 prn mild pain; oxy 10 q6 prn moderate pain; colace 100mg po bid Surgical cx pending, BCx pending will put in picc line for IV abx Repeat CBC pending Hx of HTN Enalapril 10mg po daily HCTZ 25mg po daily monitor bp Hx of Emphysema Duoneb Breo Ellipta Hx of HLD Lipid panel- shows elevated TGs, normal LDL, HDL, chol Fenofibrate 67mg po daily Aspirin 81mg daily Hx of DM ISS regular ACHS Metformin 500mg po bid Amaryl 2mg po daily Hx of chronic back pain Oxy 5; Oxy 10 as above Lidocaine patch 1 TD daily DVT ppx: Heparin 5000 sc q8, SCDs left leg only GI ppx: Lactoacid bacillus 1 cap po bid (2 hrs after IV abx) PGY-1 Petra Chinchilla Medical Management discussed with Dr. Flynn <Juan Carlos Flynn - Last Filed: 04/26/18 08:52> Results - Vital Signs Recent Vital Signs: Last Vital Signs Temp 98.3 F 04/25/18 08:29 Pulse 66 04/25/18 08:29 Resp 20 04/25/18 08:29 BP 156/81 H 04/25/18 09:48 Pulse Ox 98 04/25/18 08:29 - Labs Result Diagrams: 04/25/18 07:13 04/25/18 07:13 Labs: Laboratory Results - last 24 hr 04/19/18 04/25/18 10:54 11:26 POC Glucose (mg/dL) 310 H Nicotine Metabolite 2 ng/ml Cotinine 148 ng/ml 1-[id number]-Dcozfogd 113 ng/ml Attending/Attestation - Attestation I have personally seen and examined this patient.: Yes I have fully participated in the care of the patient.: Yes I have reviewed all pertinent clinical information: Yes Notes (Text): 04/26/18 08:52 This is a late entry. Care of this patient was discussed with resident. Juan Carlos Flynn D.O.
[2018-04-19 12:51] LABS: BASO # 0.1 K/uL (0.0-0.2); BASO % 0.9 % (0.0-2.0); EOS # 0.1 K/uL (0.0-0.7); EOS % 1.2 % (0.0-4.0); HEMOGLOBIN 12.2 g/dL (12.0-18.0); LYMPH # 2.1 K/uL (1.0-4.3); MEAN CELL VOLUME 90.2 fL (80.0-94.0); MEAN CORPUSCULAR HEMOGLOBIN 29.3 pg (27.0-31.0); MEAN CORPUSCULAR HGB CONC 32.5 g/dL (33.0-37.0); MEAN PLATELET VOLUME 7.6 fL (7.2-11.7); MONO # 0.7 K/uL (0.0-0.8); MONO % 6.1 % (0.0-10.0); NEUT # 9.1 K/uL (1.8-7.0); NEUT % 74.8 % (50.0-75.0); RBC 4.16 Mil/uL (4.40-5.90); RED CELL DISTRIBUTION WIDTH 13.2 % (11.5-14.5); WHITE BLOOD COUNT 12.1 K/uL (4.8-10.8)
[2018-04-19 13:03] LABS: ALB/GLOB RATIO 1.1 (1.0-2.1); ALBUMIN 4.1 g/dL (3.5-5.0); ALT/SGPT 11 U/L (21-72); AST/SGOT 17 U/L (17-59); BLOOD UREA NITROGEN 22 mg/dL (9-20); CALCIUM 8.9 mg/dl (8.6-10.4); GFR NON-AFRICAN AMERICAN > 60; HDL CHOLESTEROL 20 mg/dL (30-70)
[2018-04-19 13:16] LABS: LDL CHOLESTEROL 70 mg/dL (0-129)
[2018-04-19] MEDS: HYDROmorphone 0.5 mg/0.5 ml ISec IVP STA ×2 (13:45→14:00)
[2018-04-19] MEDS ORDERED: HYDROmorphone 0.5 mg/0.5 ml ISec ONE (13:47)
[2018-04-19] MEDS ORDERED: Albuterol HFA 90 mcg/actuation (8 g) IH PRN (14:38)
[2018-04-19] MEDS ORDERED: oxyCODONE 5 mg Immediate Release Tab PO PRN (14:58)
[2018-04-19] MEDS: oxyCODONE 10 mg Immediate Release Tab PO PRN ×2 (15:58→22:51)
[2018-04-19] MEDS: Lidocaine 5% Patch TD SCH (16:15)
--- NOTE | 2018-04-19 16:27 | CP.PCM.CON ---
History of Present Illness - History of Present Illness History of Present Illness: dictated Past Patient History - Infectious Disease Hx of Infectious Diseases: None - Tetanus Immunizations Tetanus Immunization: Unknown - Past Medical History & Family History Past Medical History?: Yes - Past Social History Smoking Status: Light Smoker < 10 Cigarettes Daily - CARDIAC Hx Cardiac Disorders: Yes Hx Hypercholesterolemia: Yes Hx Hypertension: Yes Hx Peripheral Vascular Disease: Yes - PULMONARY Hx Respiratory Disorders: Yes Hx Chronic Obstructive Pulmonary Disease (COPD): Yes (Emphysema) - NEUROLOGICAL Hx Neurological Disorder: Yes (NEUROPATHY) - ENDOCRINE/METABOLIC Hx Endocrine Disorders: Yes Hx Diabetes Mellitus Type 2: Yes - INTEGUMENTARY Hx Dermatological Problems: Yes Other/Comment: HX: ULCER RIGHT FOOT - MUSCULOSKELETAL/RHEUMATOLOGICAL Hx Musculoskeletal Disorders: Yes Hx Back Pain: Yes Hx Herniated Disk: Yes (cervical +metal, lumbar disc) Other/Comment: HX: ANGULAR BONE DEFORMITY 4TH METARCARPAL LEFT FOOT SX DONE - SURGICAL HISTORY Hx Surgeries: Yes Hx Appendectomy: Yes (5 yrs ago) Hx Musculoskeletal Surgery: Yes (CERVICAL HARDWARE) Hx Orthopedic Surgery: Yes (BOTH FEET SEVERAL) Other/Comment: HX: 10/14/16-I&D RIGHT FOOT - ANESTHESIA Hx Anesthesia: Yes Hx Anesthesia Reactions: No Hx Malignant Hyperthermia: No Has any member of the family had a problem w/ anesthesia?: No Meds Allergies/Adverse Reactions: Allergies Allergy/AdvReac Type Severity Reaction Status Date / Time morphine Allergy RASH Verified 03/17/16 14:32 - Medications Medications: Current Medications Albuterol (Ventolin Hfa 90 Mcg/Actuation (8 G)) 1 puff IH Q4 PRN PRN Reason: Shortness of Breath Aspirin (Ecotrin) 81 mg PO DAILY [facility] Last Admin: 04/19/18 16:14 Dose: 81 mg Dextrose (Dextrose 50% Inj) 0 ml IV STAT PRN; Protocol PRN Reason: Hypoglycemia Protocol Dextrose (Glutose 15) 0 gm PO ONCE PRN; Protocol PRN Reason: Hypoglycemia Protocol Docusate Sodium (Colace) 100 mg PO BID [facility] Enalapril Maleate (Vasotec) 10 mg PO DAILY [facility] Last Admin: 04/19/18 16:15 Dose: Not Given Fenofibrate (Tricor) 48 mg PO DAILY [facility] Fluticasone/Vilanterol (Breo Ellipta 100-25 Mcg Inh) 1 puff INH RQD [facility] Glimepiride (Amaryl) 2 mg PO ACB [facility] Last Admin: 04/19/18 16:17 Dose: 2 mg Glucagon (Glucagen Diagnostic Kit) 0 mg IM STAT PRN; Protocol PRN Reason: Hypoglycemia Protocol Heparin Sodium (Porcine) (Heparin) 5,000 units SC Q8 [facility] Last Admin: 04/19/18 16:14 Dose: 5,000 units Hydrochlorothiazide (Hydrodiuril) 25 mg PO DAILY [facility] Last Admin: 04/19/18 16:15 Dose: Not Given Dextrose (Dextrose 5% In Water 1000 Ml) 1,000 mls @ 0 mls/hr IV .Q0M PRN; Protocol PRN Reason: Hypoglycemia Protocol Piperacillin Sod/Tazobactam (Sod 3.375 gm/ Sodium Chloride) 100 mls @ 200 mls/hr IVPB Q6H [facility]; Protocol Vancomycin HCl 1,000 mg/ (Sodium Chloride) 250 mls @ 166.6 mls/hr IVPB Q12H [facility]; Protocol Insulin Human Regular (Novolin R) 0 unit SC ACHS [facility]; Protocol Lactobacillus Acidophilus (Bacid Acidophilus) 1 cap PO BID [facility] Lidocaine (Lidoderm) 1 ea TD DAILY [facility] Last Admin: 04/19/18 16:15 Dose: Not Given Metformin HCl (Glucophage) 500 mg PO BIDCC [facility] Oxycodone HCl (Oxycodone Immediate Release Tab) 10 mg PO Q6 PRN PRN Reason: Pain, moderate (4-7) Last Admin: 04/19/18 15:58 Dose: 10 mg Oxycodone HCl (Oxycodone Immediate Release Tab) 5 mg PO Q6 PRN PRN Reason: Pain, Mild (1-3) Results - Vital Signs Recent Vital Signs: Last Vital Signs Temp 98.5 F 04/19/18 15:29 Pulse 80 04/19/18 15:29 Resp 20 04/19/18 15:29 BP 112/65 04/19/18 15:29 Pulse Ox 95 04/19/18 15:29 - Labs Result Diagrams: 04/19/18 12:48 04/19/18 12:48 Labs: Laboratory Results - last 24 hr 04/19/18 04/19/18 04/19/18 06:53 11:28 12:48 WBC 12.1 H RBC 4.16 L Hgb 12.2 Hct 37.5 MCV 90.2 MCH 29.3 MCHC 32.5 L RDW 13.2 Plt Count 464 H D MPV 7.6 Neut % (Auto) 74.8 Lymph % (Auto) 17.0 L Moffat % (Auto) 6.1 Eos % (Auto) 1.2 Baso % (Auto) 0.9 Neut # (Auto) 9.1 H Lymph # (Auto) 2.1 Moffat # (Auto) 0.7 Eos # (Auto) 0.1 Baso # (Auto) 0.1 Sodium Potassium Chloride Carbon Dioxide Anion Gap BUN Creatinine Est GFR ( Amer) Est GFR (Non-Af Amer) POC Glucose (mg/dL) 207 H 243 H Random Glucose Calcium Total Bilirubin AST ALT Alkaline Phosphatase Total Protein Albumin Globulin Albumin/Globulin Ratio Triglycerides Cholesterol LDL Cholesterol Direct HDL Cholesterol TSH 3rd Generation 04/19/18 04/19/18 12:48 15:46 WBC RBC Hgb Hct MCV MCH MCHC RDW Plt Count MPV Neut % (Auto) Lymph % (Auto) Moffat % (Auto) Eos % (Auto) Baso % (Auto) Neut # (Auto) Lymph # (Auto) Moffat # (Auto) Eos # (Auto) Baso # (Auto) Sodium 134 Potassium 4.2 Chloride 101 Carbon Dioxide 23 Anion Gap 15 BUN 22 H Creatinine 1.0 Est GFR ( Amer) > 60 Est GFR (Non-Af Amer) > 60 POC Glucose (mg/dL) 313 H Random Glucose 185 H D Calcium 8.9 Total Bilirubin 0.6 AST 17 ALT 11 L D Alkaline Phosphatase 40 Total Protein 7.6 Albumin 4.1 Globulin 3.6 Albumin/Globulin Ratio 1.1 Triglycerides 242 H D Cholesterol 105 LDL Cholesterol Direct 70 HDL Cholesterol 20 L TSH 3rd Generation 0.98
[2018-04-19] MEDS: Piperacillin/Tazobact 3.375 GM in Sodium Chloride 100 ML IVPB SCH ×2 (16:28→21:25)
[2018-04-19] MEDS: (Novolin R) Insulin Human Regular 100 units/ml vial SC SCH ×2 (18:11→21:28)
[2018-04-19] MEDS: Lactobacillus Acidophilus 500 MU Cap PO SCH (18:14)
[2018-04-19] MEDS ORDERED: HYDROmorphone 0.5 mg/0.5 ml ISec IVP STA (19:30)
[2018-04-20] MEDS ORDERED: Tramadol 25 mg PO ONE (00:40)
[2018-04-20] MEDS: Piperacillin/Tazobact 3.375 GM in Sodium Chloride 100 ML IVPB SCH ×4 (02:51→21:41)
[2018-04-20] MEDS: oxyCODONE 10 mg Immediate Release Tab PO PRN ×2 (04:42→12:34)
[2018-04-20 06:55] LABS: BASO # 0.1 K/uL (0.0-0.2); BASO % 0.7 % (0.0-2.0); EOS # 0.2 K/uL (0.0-0.7); EOS % 2.2 % (0.0-4.0); HEMOGLOBIN 11.6 g/dL (12.0-18.0); LYMPH # 1.6 K/uL (1.0-4.3); LYMPH % 17.6 % (20.0-40.0); MEAN CELL VOLUME 89.6 fL (80.0-94.0); MEAN CORPUSCULAR HEMOGLOBIN 30.2 pg (27.0-31.0); MEAN CORPUSCULAR HGB CONC 33.8 g/dL (33.0-37.0); MONO # 0.7 K/uL (0.0-0.8); MONO % 7.8 % (0.0-10.0); NEUT # 6.6 K/uL (1.8-7.0); NEUT % 71.7 % (50.0-75.0); NRBC % 0.1 % (0.0-2.0); RBC 3.84 Mil/uL (4.40-5.90); RED CELL DISTRIBUTION WIDTH 13.3 % (11.5-14.5); WHITE BLOOD COUNT 9.2 K/uL (4.8-10.8)
[2018-04-20 07:01] LABS: ALB/GLOB RATIO 1.3 (1.0-2.1); ALBUMIN 3.7 g/dL (3.5-5.0); ALT/SGPT 13 U/L (21-72); AST/SGOT 20 U/L (17-59); BLOOD UREA NITROGEN 20 mg/dL (9-20); CALCIUM 8.6 mg/dl (8.6-10.4); GFR NON-AFRICAN AMERICAN > 60
--- NOTE | 2018-04-20 07:14 | CON ---
DATE: 04/19/2018 INFECTIOUS DISEASE CONSULT REQUESTED BY: Juan Carlos Flynn DO HISTORY OF PRESENT ILLNESS: This patient is a 57-year-old male. He has history of hypertension, hyperlipidemia, and emphysema. He has had osteomyelitis. He says he has had a gangrene on the left foot in the past. He just came back after amputation of his fourth digit as he has been having ulceration there and also had debridement of the first metatarsal base. He has had surgeries before in this foot as well as in the other foot at different times, and he said 2 weeks back, he went to see Dr. Youngblood who is managing his lower extremity ulcerations for long time, and he was told to have surgical debridement of first metatarsal, and 2 weeks later when he came in, there were changes on his fourth digit of his foot which requiring amputation and he was also having pain in the lower extremity and was admitted, and he just went through that procedure prior to my seeing him, and he is on IV antibiotics. He denies any fever, chills, chest pain, shortness of breath, nausea, vomiting, diarrhea, constipation, or dysuria. He does tell me that he has had surgeries on his both feet before. He does suffer from emphysema, hypertension, diabetes type 2, hyperlipidemia, and osteomyelitis. SURGICAL HISTORY: Significant for disk replacement in the cervical area and appendicectomy, right foot gas gangrene, left foot surgery in the past, and now had this procedure on the right foot again. ALLERGIES: HE IS ALLERGIC TO MORPHINE, GIVES HIM RASH. MEDICATIONS: He is on oxycodone at this time, , Anoro, enalapril, metformin, Crestor, albuterol inhaler, famotidine, fenofibrate, glimepiride, and Tradjenta. FAMILY HISTORY: He says that whole family has diabetes. Mother is diabetic with coronary artery disease with CABG and father has diabetes. 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 Junaid Scott. So, he is admitted with this. PAST MEDICAL HISTORY: Significant for those infections in the foot, and he is a smoker, light smoker, less than 10 cigarettes a day. Does have cardiac problems with cardiac disorder, hypercholesterolemia, hypertension, peripheral vascular disease. Pulmonary, he has COPD and respiratory diseases. Neurologically, he has neuropathy. Endocrine, he has history of endocrine disorders, diabetes type 2. He has dermatological problems. He has ulcer in right foot, and he has had surgeries, appendicectomy 5 years ago. He has cervical hardware placed for the disk problem. 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 Orthopedic surgery, several in the foot. This was the third one at this time. He says that he had the last I and D in the right foot on 10/14/2016. HE HAS ALLERGY TO MORPHINE. MEDICATIONS: He is on albuterol inhaler. He is on Ecotrin. He is on dextrose IV, and he is on Colace, enalapril, fenofibrate, fluticasone, glimepiride, and heparin subcutaneously every 8, and hydrochlorothiazide. He did get the influenza virus vaccine, and Flucelvax is active, but they have not given him the Flu. They will give him when he is going, and then, he is on Novolin R, Lactobacillus, and metformin is started. He is on oxycodone, Zosyn every 6, and he is on vancomycin 1 g every 12 hours. PHYSICAL EXAMINATION: GENERAL: I find he is awake, alert. VITAL SIGNS: T-max is 98.5, pulse 80, blood pressure 112/65, and respirations are 20. HEENT: Head is atraumatic and normocephalic. Pupils are reacting to light. No icterus present. No pallor present. Tongue is moist. NECK: Supple. JVP is flat. Trachea is central. No lymphadenopathy and no thyromegaly noted. CHEST: Chest wall is symmetrical. No rales. No wheezing. No rhonchi. HEART: S1, S2 are regular. No murmurs present. ABDOMEN: Soft, nontender. No guarding, no rigidity present. EXTREMITIES: Right lower extremity has dressing from the OR at this time. Left foot is unremarkable. Does show a surgical scar. Otherwise, left foot has no edema. LABORATORY DATA: White count today was 12.1, hemoglobin 12.2, hematocrit 37.5, platelet count of 464. BUN is 22, creatinine is 1, glucose is 185, sodium 134, and potassium 4.2. ASSESSMENT AND PLAN: So this patient was admitted with a history of emphysema, hypertension, hyperlipidemia, osteomyelitis, diabetes type 2, underwent amputation of the fourth digit of left foot and also had debridement of the first toe base, and the x-ray which he had on 04/19/2018 shows there is moderate density compatible with bandaging about the recent foot amputation of the fourth phalanx, os tibiale externum and os peroneum, status post fourth pharyngeal resection amputation with overlying bandaging, remote postop changes, second and third metatarsal as detailed above. Other findings as above. This was done after the debridement. The second metatarsal shows more smooth tapering to it and third metatarsal shows some bullous enlargement with possible smooth periosteal reaction since . This appearance is nonspecific. No gross cortical destruction at either of these two sites of second or third is apparent. There is interval removal of the fourth digit. The fourth metatarsal head appears intact. The first metatarsal phalangeal joint arthrosis. It does not show anything different. At this time, I will continue the antibiotics and we will follow the pathology report of the procedure done and discuss with Dr. Youngblood and Dr. Flynn, and we will want to repeat the laboratories tomorrow with erythrocyte sedimentation rate. We will follow. Jackie Wilson MD
[2018-04-20] MEDS: Fluticasone-Vilanterol 100/25mcg Diskus INH SCH (07:15)
[2018-04-20] MEDS: (Novolin R) Insulin Human Regular 100 units/ml vial SC SCH ×4 (08:30→21:45)
--- NOTE | 2018-04-20 08:39 | CP.PCM.PN ---
Subjective - Date & Time of Evaluation Date of Evaluation: 04/20/18 Time of Evaluation: 08:39 - Subjective Subjective: Podiatry Progress Note - Dr. Patel 57 y/o male with PMHx of DM, HTN, HLD, emphysema seen at bedside this morning, 1 day s/p right foot 4th toe amputation 2' osteomyelitis and debridement of bone from sub metatarsal 1 ulceration right foot. Pt resting in bed this morning in NAD. Says pain today is ok and managed with medications. Admits to occasional tingling and burning in the lower extremities due to his high sugars. Has no new pedal complaints. Denies F/C/N/V/CP/SOB PSH: appendectomy, disc replacement in back, multiple right foot surgeries All: morphine SocHx: 1 pack cigarettes/wk x 40+years; social EtOH; denies drug use Objective - Vital Signs/Intake and Output Vital Signs (last 24 hours): Temp Pulse Resp BP Pulse Ox 98 F 68 20 125/77 95 04/20/18 08:00 04/20/18 08:00 04/20/18 08:00 04/20/18 08:00 04/20/18 08:00 - Medications Medications: Current Medications Albuterol (Ventolin Hfa 90 Mcg/Actuation (8 G)) 1 puff IH Q4 PRN PRN Reason: Shortness of Breath Aspirin (Ecotrin) 81 mg PO DAILY [facility] Last Admin: 04/19/18 16:14 Dose: 81 mg Dextrose (Dextrose 50% Inj) 0 ml IV STAT PRN; Protocol PRN Reason: Hypoglycemia Protocol Dextrose (Glutose 15) 0 gm PO ONCE PRN; Protocol PRN Reason: Hypoglycemia Protocol Docusate Sodium (Colace) 100 mg PO BID [facility] Last Admin: 04/19/18 18:18 Dose: Not Given Enalapril Maleate (Vasotec) 10 mg PO DAILY [facility] Last Admin: 04/19/18 16:15 Dose: Not Given Fenofibrate (Tricor) 48 mg PO DAILY [facility] Last Admin: 04/19/18 16:29 Dose: 48 mg Fluticasone/Vilanterol (Breo Ellipta 100-25 Mcg Inh) 1 puff INH RQD [facility] Glimepiride (Amaryl) 2 mg PO ACB [facility] Last Admin: 04/19/18 16:17 Dose: 2 mg Glucagon (Glucagen Diagnostic Kit) 0 mg IM STAT PRN; Protocol PRN Reason: Hypoglycemia Protocol Heparin Sodium (Porcine) (Heparin) 5,000 units SC Q8 [facility] Last Admin: 04/19/18 21:27 Dose: Not Given Hydrochlorothiazide (Hydrodiuril) 25 mg PO DAILY [facility] Last Admin: 04/19/18 16:15 Dose: Not Given Dextrose (Dextrose 5% In Water 1000 Ml) 1,000 mls @ 0 mls/hr IV .Q0M PRN; Protocol PRN Reason: Hypoglycemia Protocol Piperacillin Sod/Tazobactam (Sod 3.375 gm/ Sodium Chloride) 100 mls @ 200 mls/hr IVPB Q6H [facility]; Protocol Last Admin: 04/20/18 02:51 Dose: 200 mls/hr Vancomycin HCl 1,000 mg/ (Sodium Chloride) 250 mls @ 166.6 mls/hr IVPB Q12H [facility]; Protocol Last Admin: 04/20/18 02:51 Dose: 166.6 mls/hr Influenza Virus Vaccine (Flucelvax Quad [id number] Syr) 60 mcg IM .ONCE ONE Stop: 04/23/18 10:01 Insulin Human Regular (Novolin R) 0 unit SC ACHS [facility]; Protocol Last Admin: 04/19/18 21:28 Dose: 2 units Lactobacillus Acidophilus (Bacid Acidophilus) 1 cap PO BID [facility] Last Admin: 04/19/18 18:14 Dose: 1 cap Lidocaine (Lidoderm) 1 ea TD DAILY [facility] Last Admin: 04/19/18 16:15 Dose: Not Given [facility]formin [facility] ([facility]) [facility] Last Admin: 04/19/18 18:11 Dose: 500 mg Oxycodone HCl (Oxycodone Immediate Release Tab) 10 mg PO Q6 PRN PRN Reason: Pain, moderate (4-7) Last Admin: 04/20/18 04:42 Dose: 10 mg Oxycodone HCl (Oxycodone Immediate Release Tab) 5 mg PO Q6 PRN PRN Reason: Pain, Mild (1-3) - Labs Labs: 04/20/18 06:32 04/20/18 06:32 - Constitutional Appears: Well, Non-toxic, No Acute Distress - Extremities Exam Additional comments: Right lower extremity focused exam: Vasc: DP/PT pulses palpable 2/4. Temperature gradient is warm to warm. Capillary refill < 3 sec x 4 digits. Mild pedal edema noted to forefoot Derm: Open wound noted to 3rd interspace s/p 4th digit amputation spanning approx 6cm from dorsal to plantar and approx 2cm wide, 0.7cm in depth with exposed 4th metatarsal bone and adjacent healthy-appearing granular soft tissue. Wound is packed open with 1/2" iodoform packing. No active drainage or purulence, no malodor, no fluctuance present. Additional surgical site sub metatarsal head 1 with linear longitudinal incision approx 6cm in length with retention sutures intact and skin edges well-coapted. No signs of dehiscence, no drainage or purulence. Neuro: protective and gross sensation diminished Ortho: - Neurological Exam Neurological Exam: Alert, Awake, Oriented x3 - Psychiatric Exam Psychiatric exam: Normal Affect, Normal Mood Assessment and Plan - Assessment and Plan (Free Text) Assessment: 57 y/o male who is 1 day s/p right foot 4th digit amputation 2' osteomyelitis and debridement of non-healing diabetic ulcer down to bone sub met 1 right foot Plan Patient seen and evaluated with Dr. Patel Afebrile overnight, WBC down from 12.1 to 9.2, ESR 65 Continue IV Dioni Joshi ID on board Dr. Wilson, appreciate recommendations Await bone pathology report/intra-op wound cultures for tailored abx therapy Postoperative xrays consistent s/p 4th digit amp, planing of sub met 1 head/sesamoids Will continue to follow patient in house
[2018-04-20] MEDS: Lactobacillus Acidophilus 500 MU Cap PO SCH ×2 (09:12→18:12)
[2018-04-20] MEDS: Lidocaine 5% Patch TD SCH (09:14)
--- NOTE | 2018-04-20 14:28 | CP.PCM.PN ---
<Abdirizak Sheldon - Last Filed: 04/20/18 15:08> Subjective - Date & Time of Evaluation Date of Evaluation: 04/20/18 Time of Evaluation: 15:12 - Subjective Subjective: PGY-[address] Matthew Flynn Patient seen and examined at bedside. No acute events overnight. Patient complaining of pain and requesting that we increase the dose of his Oxycontin. We did increase his pain medication to Oxy 15 Q6 after confirming this m edication with his pharmacy. On exam this morning, foot was non-tender to palpation. Patient denies numbness or tingling in foot, decreased sensation, temp changes, headache, nausea, vomiting, chest pain, shortness of breath. Objective - Vital Signs/Intake and Output Vital Signs (last 24 hours): Temp Pulse Resp BP Pulse Ox 98 F 75 20 143/81 95 04/20/18 08:00 04/20/18 09:08 04/20/18 08:00 04/20/18 09:13 04/20/18 08:00 - Medications Medications: Current Medications Albuterol (Ventolin Hfa 90 Mcg/Actuation (8 G)) 1 puff IH Q4 PRN PRN Reason: Shortness of Breath Aspirin (Ecotrin) 81 mg PO DAILY [facility] Last Admin: 04/20/18 09:13 Dose: 81 mg Dextrose (Dextrose 50% Inj) 0 ml IV STAT PRN; Protocol PRN Reason: Hypoglycemia Protocol Dextrose (Glutose 15) 0 gm PO ONCE PRN; Protocol PRN Reason: Hypoglycemia Protocol Docusate Sodium (Colace) 100 mg PO BID [facility] Last Admin: 04/20/18 09:18 Dose: Not Given Enalapril Maleate (Vasotec) 10 mg PO DAILY [facility] Last Admin: 04/20/18 09:13 Dose: 10 mg Fenofibrate (Tricor) 48 mg PO DAILY [facility] Last Admin: 04/20/18 09:53 Dose: 48 mg Fluticasone/Vilanterol (Breo Ellipta 100-25 Mcg Inh) 1 puff INH RQD [facility] Last Admin: 04/20/18 07:15 Dose: 1 puff Glimepiride (Amaryl) 2 mg PO ACB [facility] Last Admin: 04/20/18 08:30 Dose: 2 mg Glucagon (Glucagen Diagnostic Kit) 0 mg IM STAT PRN; Protocol PRN Reason: Hypoglycemia Protocol Heparin Sodium (Porcine) (Heparin) 5,000 units SC Q8 [facility] Last Admin: 04/19/18 21:27 Dose: Not Given Hydrochlorothiazide (Hydrodiuril) 25 mg PO DAILY [facility] Last Admin: 04/20/18 09:13 Dose: 25 mg Dextrose (Dextrose 5% In Water 1000 Ml) 1,000 mls @ 0 mls/hr IV .Q0M PRN; Protocol PRN Reason: Hypoglycemia Protocol Piperacillin Sod/Tazobactam (Sod 3.375 gm/ Sodium Chloride) 100 mls @ 200 mls/hr IVPB Q6H [facility]; Protocol Last Admin: 04/20/18 14:05 Dose: 200 mls/hr Vancomycin HCl 1,000 mg/ (Sodium Chloride) 250 mls @ 166.6 mls/hr IVPB Q12H [facility]; Protocol Last Admin: 04/20/18 02:51 Dose: 166.6 mls/hr Influenza Virus Vaccine (Flucelvax Quad [id number] Syr) 60 mcg IM .ONCE ONE Stop: 04/23/18 10:01 Insulin Human Regular (Novolin R) 0 unit SC ACHS [facility]; Protocol Last Admin: 04/20/18 12:30 Dose: 8 units Lactobacillus Acidophilus (Bacid Acidophilus) 1 cap PO BID [facility] Last Admin: 04/20/18 09:12 Dose: 1 cap Lidocaine (Lidoderm) 1 ea TD DAILY [facility] Last Admin: 04/20/18 09:14 Dose: Not Given Metformin HCl (Glucophage) 500 mg PO BIDCC [facility] Last Admin: 04/20/18 09:00 Dose: 500 mg Oxycodone HCl (Oxycodone Immediate Release Tab) 15 mg PO Q6 [facility] - Labs Labs: 04/20/18 06:32 04/20/18 06:32 - Constitutional Appears: Non-toxic, No Acute Distress - Head Exam Head Exam: ATRAUMATIC, NORMOCEPHALIC - Eye Exam Eye Exam: EOMI, Normal appearance - ENT Exam ENT Exam: Mucous Membranes Moist - Respiratory Exam Respiratory Exam: Clear to Ausculation Bilateral, NORMAL BREATHING PATTERN. absent: Rhonchi, Wheezes - Cardiovascular Exam Cardiovascular Exam: REGULAR RHYTHM, +S1, +S2. absent: Murmur - GI/Abdominal Exam GI & Abdominal Exam: Soft, Normal Bowel Sounds. absent: Tenderness - Extremities Exam Extremities Exam: absent: Pedal Edema, Tenderness Additional comments: R foot s/p 4th phalanx amputation, with dressings c/d/i. Patient c/o of pain, but foot is clearly nontender to palpation/manipulation on exam. - Neurological Exam Neurological Exam: Alert, Awake, Oriented x3 - Psychiatric Exam Psychiatric exam: Normal Affect, Normal Mood - Skin Skin Exam: Dry, Intact Assessment and Plan - Assessment and Plan (Free Text) Assessment: Patient is a 57 yo male w/ PMH of emphysema, HTN, HLD, osteomyelitis, and DM2 admitted to hospital for operation of lower extremity. S/P 4th toe digit amputation and 1st toe base debridement. Osteomyelitis s/p 4th digit right toe amputation and right 1st digit base debridement Imaging -Chest XR 04/19 - Status post 4th recent phalangeal resection amputation with overlying bandaging. Remote postop changes 2nd and 3rd metatarsals-as detailed above. -Podiatry Consulted: Dr. Fischer- recs as below -ID Consulted: Dr. Wilson- will f/u duration of abx. Continue current regimen (see below) ----- -Zosyn 3.375 q6, Vanc 1gm q12; --Vanc trough prior to 4th dose -noted leukocytosis, trend cbc, afebrile -Oxy 5 q6 prn mild pain; oxy 10 q6 prn moderate pain; colace 100mg po bid -Tissue Cx prelim - Gram negative rods; Blood cultures prelim - neg x 24 hours -Will require picc line for IV abx - f/u PICC placement -WBC normalized (9.2 from 12.1) Hx of HTN -Enalapril 10mg po daily -HCTZ 25mg po daily -monitor bp Hx of Emphysema -Duoneb -Breo Ellipta Hx of HLD -Lipid panel- shows elevated TGs, normal LDL, HDL, chol -Fenofibrate 67mg po daily -Aspirin 81mg daily Hx of DM -ISS regular ACHS -Metformin 500mg po bid -Amaryl 2mg po daily Hx of chronic back pain -Oxy 5; Oxy 10 as above -Lidocaine patch 1 TD daily DVT ppx: Heparin 5000 sc q8, SCDs left leg only GI ppx: Lactoacid bacillus 1 cap po bid (2 hrs after IV abx) Medical Management discussed with Dr. Gee Sheldon, PGY-1 <Juan Carlos Flynn - Last Filed: 04/26/18 08:51> Objective - Vital Signs/Intake and Output Vital Signs (last 24 hours): Temp Pulse Resp BP Pulse Ox 98.3 F 66 20 156/81 H 98 04/25/18 08:29 04/25/18 08:29 04/25/18 08:29 04/25/18 09:48 04/25/18 08:29 - Labs Labs: 04/25/18 07:13 04/25/18 07:13 Attending/Attestation - Attestation I have personally seen and examined this patient.: Yes I have fully participated in the care of the patient.: Yes I have reviewed all pertinent clinical information, including history, physical exam and plan: Yes Notes (Text): 04/26/18 08:51 This is a late entry. Care of this patient was discussed with resident Dr. Sheldon. Juan Carlos Flynn D.O.
[2018-04-20] MEDS: oxyCODONE 5 mg Immediate Release Tab PO SCH ×2 (17:37→23:52)
--- NOTE | 2018-04-20 21:06 | CP.PCM.PN ---
Subjective - Date & Time of Evaluation Date of Evaluation: 04/20/18 Time of Evaluation: 14:30 - Subjective Subjective: dictated Objective - Vital Signs/Intake and Output Vital Signs (last 24 hours): Temp Pulse Resp BP Pulse Ox 98.0 F 70 20 119/74 96 04/20/18 15:52 04/20/18 15:52 04/20/18 15:52 04/20/18 15:52 04/20/18 15:52 - Medications Medications: Current Medications Albuterol (Ventolin Hfa 90 Mcg/Actuation (8 G)) 1 puff IH Q4 PRN PRN Reason: Shortness of Breath Aspirin (Ecotrin) 81 mg PO DAILY [facility] Last Admin: 04/20/18 09:13 Dose: 81 mg Dextrose (Dextrose 50% Inj) 0 ml IV STAT PRN; Protocol PRN Reason: Hypoglycemia Protocol Dextrose (Glutose 15) 0 gm PO ONCE PRN; Protocol PRN Reason: Hypoglycemia Protocol Docusate Sodium (Colace) 100 mg PO BID [facility] Last Admin: 04/20/18 17:37 Dose: 100 mg Enalapril Maleate (Vasotec) 10 mg PO DAILY [facility] Last Admin: 04/20/18 09:13 Dose: 10 mg Fenofibrate (Tricor) 48 mg PO DAILY [facility] Last Admin: 04/20/18 09:53 Dose: 48 mg Fluticasone/Vilanterol (Breo Ellipta 100-25 Mcg Inh) 1 puff INH RQD [facility] Last Admin: 04/20/18 07:15 Dose: 1 puff Glimepiride (Amaryl) 2 mg PO ACB [facility] Last Admin: 04/20/18 08:30 Dose: 2 mg Glucagon (Glucagen Diagnostic Kit) 0 mg IM STAT PRN; Protocol PRN Reason: Hypoglycemia Protocol Heparin Sodium (Porcine) (Heparin) 5,000 units SC Q8 [facility] Last Admin: 04/20/18 14:48 Dose: Not Given Hydrochlorothiazide (Hydrodiuril) 25 mg PO DAILY [facility] Last Admin: 04/20/18 09:13 Dose: 25 mg Dextrose (Dextrose 5% In Water 1000 Ml) 1,000 mls @ 0 mls/hr IV .Q0M PRN; Protocol PRN Reason: Hypoglycemia Protocol Piperacillin Sod/Tazobactam (Sod 3.375 gm/ Sodium Chloride) 100 mls @ 200 mls/hr IVPB Q6H [facility]; Protocol Last Admin: 04/20/18 14:05 Dose: 200 mls/hr Vancomycin/Sodium Chloride (Vancomycin 1 Gm/Ns 200 Ml) 1 gm in 200 mls @ 133 mls/hr IVPB Q12H [facility]; Protocol Stop: 04/26/18 03:31 Influenza Virus Vaccine (Flucelvax Quad 0708-1129 Syr) 60 mcg IM .ONCE ONE Stop: 04/23/18 10:01 Insulin Human Regular (Novolin R) 0 unit SC ACHS [facility]; Protocol Last Admin: 04/20/18 17:39 Dose: 6 units Lactobacillus Acidophilus (Bacid Acidophilus) 1 cap PO BID [facility] Last Admin: 04/20/18 18:12 Dose: 1 cap Lidocaine (Lidoderm) 1 ea TD DAILY [facility] Last Admin: 04/20/18 09:14 Dose: Not Given Metformin HCl (Glucophage) 500 mg PO BIDCC [facility] Last Admin: 04/20/18 17:37 Dose: 500 mg Oxycodone HCl (Oxycodone Immediate Release Tab) 15 mg PO Q6 [facility] Last Admin: 04/20/18 17:37 Dose: 15 mg - Labs Labs: 04/20/18 06:32 04/20/18 06:32
--- NOTE | 2018-04-20 21:57 | PN ---
DATE: 04/20/2018 SUBJECTIVE: The patient was saying that they changed the dressing. He is feeling better. Still complains of pain. He did not tell me, but he told Dr. Flynn to increase his OxyContin. He says, he will be going home on IV antibiotics, and he is waiting for the culture report. It seems, he has done the PICC line before. He knew that the nurse would come and change the dressings. He seems to have gone through this in the past. Right now, he has no fever, no headache. No ear, nose, throat problems. No nausea, no vomiting. OBJECTIVE: VITAL SIGNS: Afebrile. Vitals are stable. Blood pressure is 143/81, respirations are 20, pulse 75. HEAD: Atraumatic. NECK: Supple. LUNGS: Clear. HEART: S1, S2 regular. No murmurs appreciated. ABDOMEN: Soft, nontender. No guarding. No rigidity present. EXTREMITIES: Right foot has a dressing at this time. He is status post fourth phalangeal amputation, and left foot is unremarkable at this time even though he has had surgeries. He is on vancomycin and Zosyn at this time, and OR report, I want to see. In the OR, he underwent excision of bone with flap rotation right foot and right foot fourth digit amputation and debridement. We are waiting for the Pathology and the culture report, and we will discuss plans with Podiatry if they have removed it completely or if we need antibiotics for 6 weeks, it all depends. Right now, the wound culture has gram-negative rods, slight growth. We will follow culture and ID, and we will follow with the Primary. The patient had diabetic foot ulcer, and underwent surgery. Jackie Wilson MD
--- NOTE | 2018-04-21 00:27 | CP.PCM.PN ---
<Jessica Hernandez - Last Filed: 04/21/18 06:35> Subjective - Date & Time of Evaluation Date of Evaluation: 04/21/18 Time of Evaluation: 06:30 - Subjective Subjective: Patient examined at bedside. [place] acute events overnight. Pt reports some confusion regarding podiatry and dressing changes. Pt reports the pain is moderate, but he has been doing his best to tolerate it. Reports he is eating well, voiding and having bowel movements. Denies chest pain, SOB, nausea Objective - Vital Signs/Intake and Output Vital Signs (last 24 hours): Temp Pulse Resp BP Pulse Ox 98.0 F 70 20 119/74 96 04/20/18 15:52 04/20/18 15:52 04/20/18 15:52 04/20/18 15:52 04/20/18 15:52 - Medications Medications: Current Medications Albuterol (Ventolin Hfa 90 Mcg/Actuation (8 G)) 1 puff IH Q4 PRN PRN Reason: Shortness of Breath Aspirin (Ecotrin) 81 mg PO DAILY [facility] Last Admin: 04/20/18 09:13 Dose: 81 mg Dextrose (Dextrose 50% Inj) 0 ml IV STAT PRN; Protocol PRN Reason: Hypoglycemia Protocol Dextrose (Glutose 15) 0 gm PO ONCE PRN; Protocol PRN Reason: Hypoglycemia Protocol Docusate Sodium (Colace) 100 mg PO BID [facility] Last Admin: 04/20/18 17:37 Dose: 100 mg Enalapril Maleate (Vasotec) 10 mg PO DAILY [facility] Last Admin: 04/20/18 09:13 Dose: 10 mg Fenofibrate (Tricor) 48 mg PO DAILY [facility] Last Admin: 04/20/18 09:53 Dose: 48 mg Fluticasone/Vilanterol (Breo Ellipta 100-25 Mcg Inh) 1 puff INH RQD [facility] Last Admin: 04/20/18 07:15 Dose: 1 puff Glimepiride (Amaryl) 2 mg PO ACB [facility] Last Admin: 04/20/18 08:30 Dose: 2 mg Glucagon (Glucagen Diagnostic Kit) 0 mg IM STAT PRN; Protocol PRN Reason: Hypoglycemia Protocol Heparin Sodium (Porcine) (Heparin) 5,000 units SC Q8 [facility] Last Admin: 04/20/18 21:47 Dose: Not Given Hydrochlorothiazide (Hydrodiuril) 25 mg PO DAILY [facility] Last Admin: 04/20/18 09:13 Dose: 25 mg Dextrose (Dextrose 5% In Water 1000 Ml) 1,000 mls @ 0 mls/hr IV .Q0M PRN; Protocol PRN Reason: Hypoglycemia Protocol Piperacillin Sod/Tazobactam (Sod 3.375 gm/ Sodium Chloride) 100 mls @ 200 mls/hr IVPB Q6H [facility]; Protocol Last Admin: 04/20/18 21:41 Dose: 200 mls/hr Vancomycin/Sodium Chloride (Vancomycin 1 Gm/Ns 200 Ml) 1 gm in 200 mls @ 133 mls/hr IVPB Q12H [facility]; Protocol Stop: 04/26/18 03:31 Influenza Virus Vaccine (Flucelvax Quad 2283-2673 Syr) 60 mcg IM .ONCE ONE Stop: 04/23/18 10:01 Insulin Human Regular (Novolin R) 0 unit SC ACHS [facility]; Protocol Last Admin: 04/20/18 21:45 Dose: 3 units Lactobacillus Acidophilus (Bacid Acidophilus) 1 cap PO BID [facility] Last Admin: 04/20/18 18:12 Dose: 1 cap Lidocaine (Lidoderm) 1 ea TD DAILY [facility] Last Admin: 04/20/18 09:14 Dose: Not Given Metformin HCl (Glucophage) 500 mg PO BIDCC [facility] Last Admin: 04/20/18 17:37 Dose: 500 mg Oxycodone HCl (Oxycodone Immediate Release Tab) 15 mg PO Q6 [facility] Last Admin: 04/20/18 23:52 Dose: 15 mg - Labs Labs: 04/20/18 06:32 04/20/18 06:32 - Constitutional Appears: Non-toxic, No Acute Distress - Head Exam Head Exam: ATRAUMATIC, NORMAL INSPECTION, NORMOCEPHALIC - Eye Exam Eye Exam: EOMI, Normal appearance - ENT Exam ENT Exam: Mucous Membranes Moist, Normal Exam - Neck Exam Neck Exam: Normal Inspection - Respiratory Exam Respiratory Exam: Clear to Ausculation Bilateral, NORMAL BREATHING PATTERN - Cardiovascular Exam Cardiovascular Exam: REGULAR RHYTHM. absent: Tachycardia - GI/Abdominal Exam GI & Abdominal Exam: Soft. absent: Distended, Tenderness - Extremities Exam Extremities Exam: absent: Calf Tenderness, Pedal Edema Additional comments: Right foot bandaged. Serosanguineous drainage noted on plantar surface. Does not extend beyond traced line made by nursing. - Neurological Exam Neurological Exam: Alert, Awake, Oriented x3 - Psychiatric Exam Psychiatric exam: Normal Affect, Normal Mood - Skin Skin Exam: Dry, Normal Color, Warm Assessment and Plan - Assessment and Plan (Free Text) Assessment: 57 year old male w/ PMHx of emphysema, HTN, HLD, DM2, osteomyelitis, s/p debridement of right foot ulcer and right 4th toe amputation; POD#1 Plan: s/p debridement of right foot ulcer and right 4th toe amputation; POD#1 -f/u pathology report -continue IV abx, vanc/zosyn pending report -pain medication prn, oxycodone, tramadol -ID consul, Dr. Wilson -Podiatry consult, Dr. Patel, will continue to follow DM2 -accuchecks ACHS -hypoglycemia protocol -Glimepiride 2mg ACB -metformin 500mg BID -ISS ACHS COPD -continue home ventolin q4 prn -Nancy-Ellipta HTN -continue home enalapril -HCTZ 25mg qd -HHD HLD -continue home fenofibrate Ppx -VTE ppx: heparin 5000 q8, SCD to LEFT leg only -GI ppx: Lactobacillus Will discuss with Dr. Flynn -Jessica Hernandez, PGY-1 <Juan Carlos Flynn - Last Filed: 04/26/18 08:51> Objective - Vital Signs/Intake and Output Vital Signs (last 24 hours): Temp Pulse Resp BP Pulse Ox 98.3 F 66 20 156/81 H 98 04/25/18 08:29 04/25/18 08:29 04/25/18 08:29 04/25/18 09:48 04/25/18 08:29 - Labs Labs: 04/25/18 07:13 04/25/18 07:13 Attending/Attestation - Attestation I have personally seen and examined this patient.: Yes I have fully participated in the care of the patient.: Yes I have reviewed all pertinent clinical information, including history, physical exam and plan: Yes Notes (Text): 04/26/18 08:51 This is a late entry. Care of this patient was discussed with resident Dr. Hernandez. Juan Carlos Flynn D.O.
[2018-04-21] MEDS: Vancomycin 1 gm/NS 200 ml 1 GM/200 ML BAG IVPB SCH ×2 (03:54→14:49)
[2018-04-21] MEDS: Piperacillin/Tazobact 3.375 GM in Sodium Chloride 100 ML IVPB SCH ×2 (03:56→09:16)
[2018-04-21] MEDS: oxyCODONE 5 mg Immediate Release Tab PO SCH ×4 (05:43→23:49)
[2018-04-21 07:32] LABS: BASO # 0.1 K/uL (0.0-0.2); BASO % 0.7 % (0.0-2.0); EOS # 0.3 K/uL (0.0-0.7); EOS % 3.7 % (0.0-4.0); HEMOGLOBIN 11.6 g/dL (12.0-18.0); LYMPH # 1.5 K/uL (1.0-4.3); LYMPH % 17.6 % (20.0-40.0); MEAN CELL VOLUME 90.4 fL (80.0-94.0); MEAN CORPUSCULAR HEMOGLOBIN 29.8 pg (27.0-31.0); MONO # 0.7 K/uL (0.0-0.8); MONO % 7.9 % (0.0-10.0); NEUT % 70.1 % (50.0-75.0); NRBC % 0.1 % (0.0-2.0); RBC 3.9 Mil/uL (4.40-5.90); RED CELL DISTRIBUTION WIDTH 12.9 % (11.5-14.5); WHITE BLOOD COUNT 8.6 K/uL (4.8-10.8)
[2018-04-21] MEDS: Fluticasone-Vilanterol 100/25mcg Diskus INH SCH (07:48)
[2018-04-21 07:58] LABS: ALB/GLOB RATIO 1.3 (1.0-2.1); ALBUMIN 3.6 g/dL (3.5-5.0); ALT/SGPT 20 U/L (21-72); AST/SGOT 16 U/L (17-59); BLOOD UREA NITROGEN 17 mg/dL (9-20); CALCIUM 8.6 mg/dl (8.6-10.4); GFR NON-AFRICAN AMERICAN > 60
[2018-04-21] MEDS: (Novolin R) Insulin Human Regular 100 units/ml vial SC SCH ×4 (08:25→21:35)
[2018-04-21] MEDS: Lactobacillus Acidophilus 500 MU Cap PO SCH ×2 (09:15→17:37)
[2018-04-21] MEDS: Lidocaine 5% Patch TD SCH (09:16)
[2018-04-21] MEDS ORDERED: Meropenem 500 MG in Sodium Chloride 0.9% 100 ML IVPB SCH (10:00)
[2018-04-21] MEDS: Meropenem 500 MG in Sodium Chloride 0.9% 100 ML IVPB SCH ×2 (10:55→17:38)
--- NOTE | 2018-04-21 13:49 | CP.PCM.PN ---
Subjective - Date & Time of Evaluation Date of Evaluation: 04/21/18 Time of Evaluation: 13:47 - Subjective Subjective: Podiatry Progress Note - Dr. Patel 57 y/o male with PMHx of DM, HTN, HLD, emphysema seen at bedside this morning, 2 days s/p right foot 4th toe amputation 2' osteomyelitis and debridement of bone from sub metatarsal 1 ulceration right foot. Pt resting in bed this morning in NAD. Says pain today is ok and managed with medications. Admits to occasional tingling and burning in the lower extremities due to his high sugars. Has no new pedal complaints. Denies F/C/N/V/CP/SOB PSH: appendectomy, disc replacement in back, multiple right foot surgeries All: morphine SocHx: 1 pack cigarettes/wk x 40+years; social EtOH; denies drug use Objective - Vital Signs/Intake and Output Vital Signs (last 24 hours): Temp Pulse Resp BP Pulse Ox 98.4 F 73 20 133/74 96 04/21/18 07:30 04/21/18 09:22 04/21/18 07:30 04/21/18 09:22 04/21/18 07:30 Intake and Output: 04/21/18 04/21/18 06:59 18:59 Output Total 800 Balance -800 - Medications Medications: Current Medications Albuterol (Ventolin Hfa 90 Mcg/Actuation (8 G)) 1 puff IH Q4 PRN PRN Reason: Shortness of Breath Aspirin (Ecotrin) 81 mg PO DAILY [facility] Last Admin: 04/21/18 09:15 Dose: 81 mg Dextrose (Dextrose 50% Inj) 0 ml IV STAT PRN; Protocol PRN Reason: Hypoglycemia Protocol Dextrose (Glutose 15) 0 gm PO ONCE PRN; Protocol PRN Reason: Hypoglycemia Protocol Docusate Sodium (Colace) 100 mg PO BID [facility] Last Admin: 04/21/18 09:18 Dose: Not Given Enalapril Maleate (Vasotec) 10 mg PO DAILY [facility] Last Admin: 04/21/18 09:15 Dose: 10 mg Fenofibrate (Tricor) 48 mg PO DAILY [facility] Last Admin: 04/21/18 10:49 Dose: 48 mg Fluticasone/Vilanterol (Breo Ellipta 100-25 Mcg Inh) 1 puff INH RQD [facility] Last Admin: 04/21/18 07:48 Dose: 1 puff Glimepiride (Amaryl) 2 mg PO ACB [facility] Last Admin: 04/21/18 08:25 Dose: 2 mg Glucagon (Glucagen Diagnostic Kit) 0 mg IM STAT PRN; Protocol PRN Reason: Hypoglycemia Protocol Heparin Sodium (Porcine) (Heparin) 5,000 units SC Q8 [facility] Last Admin: 04/20/18 21:47 Dose: Not Given Hydrochlorothiazide (Hydrodiuril) 25 mg PO DAILY [facility] Last Admin: 04/21/18 10:49 Dose: 25 mg Dextrose (Dextrose 5% In Water 1000 Ml) 1,000 mls @ 0 mls/hr IV .Q0M PRN; Protocol PRN Reason: Hypoglycemia Protocol Vancomycin/Sodium Chloride (Vancomycin 1 Gm/Ns 200 Ml) 1 gm in 200 mls @ 133 mls/hr IVPB Q12H [facility]; Protocol Stop: 04/26/18 03:31 Last Admin: 04/21/18 03:54 Dose: 133 mls/hr Meropenem 500 mg/ Sodium (Chloride) 100 mls @ 100 mls/hr IVPB Q8H [facility]; Protocol Last Admin: 04/21/18 10:55 Dose: 100 mls/hr Influenza Virus Vaccine (Flucelvax Quad 3259-6930 Syr) 60 mcg IM .ONCE ONE Stop: 04/23/18 10:01 Insulin Human Regular (Novolin R) 0 unit SC ACHS [facility]; Protocol Last Admin: 04/21/18 12:27 Dose: 8 units Lactobacillus Acidophilus (Bacid Acidophilus) 1 cap PO BID [facility] Last Admin: 04/21/18 09:15 Dose: 1 cap Lidocaine (Lidoderm) 1 ea TD DAILY [facility] Last Admin: 04/21/18 09:16 Dose: 1 ea Metformin HCl (Glucophage) 500 mg PO BIDCC [facility] Last Admin: 04/21/18 08:25 Dose: 500 mg Oxycodone HCl (Oxycodone Immediate Release Tab) 15 mg PO Q6 [facility] Last Admin: 04/21/18 12:36 Dose: 15 mg - Labs Labs: 04/21/18 07:14 04/21/18 07:14 - Constitutional Appears: Well, Non-toxic, No Acute Distress - Head Exam Head Exam: ATRAUMATIC, NORMOCEPHALIC - Extremities Exam Additional comments: Right lower extremity focused exam: Vasc: DP/PT pulses palpable 2/4. Temperature gradient is warm to warm. Capillary refill < 3 sec x 4 digits. Mild pedal edema noted to forefoot Derm: Open wound noted to 3rd interspace s/p 4th digit amputation spanning approx 6cm from dorsal to plantar and approx 2cm wide, 0.7cm in depth with exposed 4th metatarsal bone and adjacent healthy-appearing granular soft tissue. Wound is packed open with 1/2" iodoform packing. No active drainage or purulence, no malodor, no fluctuance present. Additional surgical site sub metatarsal head 1 with linear longitudinal incision approx 6cm in length with retention sutures intact and skin edges well-coapted. No signs of dehiscence, no drainage or purulence. Neuro: protective and gross sensation diminished - Neurological Exam Neurological Exam: Alert, Awake, Oriented x3 - Psychiatric Exam Psychiatric exam: Normal Affect, Normal Mood Assessment and Plan - Assessment and Plan (Free Text) Assessment: 57 y/o male who is 2 days s/p right foot 4th digit amputation 2' osteomyelitis and debridement of non-healing diabetic ulcer down to bone sub met 1 right foot Plan: Patient seen and evaluated with Dr. Patel Afebrile overnight, WBC down to 8.6 today Continue IV Vanco, Meropenem ID on board Dr. Wilson, appreciate recommendations Postoperative xrays consistent s/p 4th digit amp, planing of sub met 1 head/sesamoids Will continue to follow patient in house
--- NOTE | 2018-04-21 18:13 | CP.PCM.PN ---
Subjective - Date & Time of Evaluation Date of Evaluation: 04/21/18 Time of Evaluation: 15:30 - Subjective Subjective: dictated Objective - Vital Signs/Intake and Output Vital Signs (last 24 hours): Temp Pulse Resp BP Pulse Ox 98 F 71 20 112/68 96 04/21/18 15:42 04/21/18 15:42 04/21/18 15:42 04/21/18 15:42 04/21/18 15:42 Intake and Output: 04/21/18 04/21/18 06:59 18:59 Intake Total 200 Output Total 800 320 Balance -800 -120 - Medications Medications: Current Medications Albuterol (Ventolin Hfa 90 Mcg/Actuation (8 G)) 1 puff IH Q4 PRN PRN Reason: Shortness of Breath Aspirin (Ecotrin) 81 mg PO DAILY [facility] Last Admin: 04/21/18 09:15 Dose: 81 mg Dextrose (Dextrose 50% Inj) 0 ml IV STAT PRN; Protocol PRN Reason: Hypoglycemia Protocol Dextrose (Glutose 15) 0 gm PO ONCE PRN; Protocol PRN Reason: Hypoglycemia Protocol Docusate Sodium (Colace) 100 mg PO BID [facility] Last Admin: 04/21/18 17:38 Dose: Not Given Enalapril Maleate (Vasotec) 10 mg PO DAILY [facility] Last Admin: 04/21/18 09:15 Dose: 10 mg Fenofibrate (Tricor) 48 mg PO DAILY [facility] Last Admin: 04/21/18 10:49 Dose: 48 mg Fluticasone/Vilanterol (Breo Ellipta 100-25 Mcg Inh) 1 puff INH RQD [facility] Last Admin: 04/21/18 07:48 Dose: 1 puff Glimepiride (Amaryl) 2 mg PO ACB [facility] Last Admin: 04/21/18 08:25 Dose: 2 mg Glucagon (Glucagen Diagnostic Kit) 0 mg IM STAT PRN; Protocol PRN Reason: Hypoglycemia Protocol Heparin Sodium (Porcine) (Heparin) 5,000 units SC Q8 [facility] Last Admin: 04/21/18 13:48 Dose: Not Given Hydrochlorothiazide (Hydrodiuril) 25 mg PO DAILY [facility] Last Admin: 04/21/18 10:49 Dose: 25 mg Dextrose (Dextrose 5% In Water 1000 Ml) 1,000 mls @ 0 mls/hr IV .Q0M PRN; Protocol PRN Reason: Hypoglycemia Protocol Vancomycin/Sodium Chloride (Vancomycin 1 Gm/Ns 200 Ml) 1 gm in 200 mls @ 133 m ls/hr IVPB Q12H [facility]; Protocol Stop: 04/26/18 03:31 Last Admin: 04/21/18 14:49 Dose: 133 mls/hr Meropenem 500 mg/ Sodium (Chloride) 100 mls @ 100 mls/hr IVPB Q8H [facility]; Protocol Last Admin: 04/21/18 17:38 Dose: 100 mls/hr Influenza Virus Vaccine (Flucelvax Quad 9429-6108 Syr) 60 mcg IM .ONCE ONE Stop: 04/23/18 10:01 Insulin Human Regular (Novolin R) 0 unit SC ACHS [facility]; Protocol Last Admin: 04/21/18 16:39 Dose: 6 units Lactobacillus Acidophilus (Bacid Acidophilus) 1 cap PO BID [facility] Last Admin: 04/21/18 17:37 Dose: 1 cap Lidocaine (Lidoderm) 1 ea TD DAILY [facility] Last Admin: 04/21/18 09:16 Dose: 1 ea Metformin HCl (Glucophage) 500 mg PO BIDCC [facility] Last Admin: 04/21/18 16:39 Dose: 500 mg Oxycodone HCl (Oxycodone Immediate Release Tab) 15 mg PO Q6 [facility] Last Admin: 04/21/18 12:36 Dose: 15 mg - Labs Labs: 04/21/18 07:14 04/21/18 07:14
[2018-04-21] MEDS ORDERED: Meropenem 1,000 MG in Sodium Chloride 0.9% 100 ML IVPB SCH (19:00)
--- NOTE | 2018-04-21 21:55 | PN ---
DATE: 04/21/2018 SUBJECTIVE: The patient remains afebrile. He said the antibiotic was changed because of his culture reports. He has Enterobacter and sensitivity was better to meropenem; hence, he is placed on meropenem now and he says he has lot of pain issues. He just recently had a week ago back surgery and he has still a pack and a dressing on the back and now, he had this foot surgery. He says he is full of pain and he is already on pain medications as outpatient. PHYSICAL EXAMINATION: VITAL SIGNS: T-max is 98, pulse 71, blood pressure 112/68, respirations are 20. HEAD: Atraumatic and normocephalic. NECK: Supple. LUNGS: Clear. HEART: S1, S2 is regular. No murmurs appreciated. ABDOMEN: Soft, nontender. No guarding, no rigidity present. EXTREMITIES: Right foot has a dressing at this time. Left foot is unremarkable. He said the foot is coming along well as per Podiatry. LABORATORY DATA: White count is 8.6, hemoglobin 11.6, hematocrit 35.2, platelet count is 385, BUN is 17, creatinine is 1.02. The patient's wound culture grew Enterobacter which is sensitive to meropenem and right now, he is on vancomycin and meropenem. I am going to increase the dose, as his creatinine is okay, to 1 g every 8 hours and we will follow with Dr. Youngblood. He also had surgery on the first great toe with an open wound and may need antibiotics for it. He will also need a PICC line and so we will follow. We will increase the dose of meropenem at this time and continue vancomycin while he is in the hospital and he is still waiting for the culture to be finalized. IMPRESSION: The patient underwent amputation of the fourth toe and also some department of the first toe. He is diabetic, but on oral medications and he is hypertensive and has back issues. He had cervical disk disease and surgery in the past. We will continue with meropenem and vancomycin at this time. Jackie Wilson MD [facility] # [id number]
--- NOTE | 2018-04-22 00:59 | CP.PCM.PN ---
<Jessica Hernandez - Last Filed: 04/22/18 06:31> Subjective - Date & Time of Evaluation Date of Evaluation: 04/22/18 Time of Evaluation: 06:20 - Subjective Subjective: Patient examined at bedside. No acute overnight events. Patient reports podiatry came yesterday and cleaned the wound and changed the dressing. Conversation was also had with patient regarding the change of antibiotics based on culture sensitivities. Patient reports pain is adequately controlled with medications prn; denies chest pain, SOB, nausea, diarrhea Objective - Vital Signs/Intake and Output Vital Signs (last 24 hours): Temp Pulse Resp BP Pulse Ox 98.6 F 78 16 138/73 96 04/21/18 18:50 04/21/18 18:50 04/21/18 18:50 04/21/18 18:50 04/21/18 15:42 Intake and Output: 04/21/18 04/22/18 18:59 06:59 Intake Total 440 Output Total 320 Balance 120 - Medications Medications: Current Medications Albuterol (Ventolin Hfa 90 Mcg/Actuation (8 G)) 1 puff IH Q4 PRN PRN Reason: Shortness of Breath Aspirin (Ecotrin) 81 mg PO DAILY [facility] Last Admin: 04/21/18 09:15 Dose: 81 mg Dextrose (Dextrose 50% Inj) 0 ml IV STAT PRN; Protocol PRN Reason: Hypoglycemia Protocol Dextrose (Glutose 15) 0 gm PO ONCE PRN; Protocol PRN Reason: Hypoglycemia Protocol Docusate Sodium (Colace) 100 mg PO BID [facility] Last Admin: 04/21/18 17:38 Dose: Not Given Enalapril Maleate (Vasotec) 10 mg PO DAILY [facility] Last Admin: 04/21/18 09:15 Dose: 10 mg Fenofibrate (Tricor) 48 mg PO DAILY [facility] Last Admin: 04/21/18 10:49 Dose: 48 mg Fluticasone/Vilanterol (Breo Ellipta 100-25 Mcg Inh) 1 puff INH RQD [facility] Last Admin: 04/21/18 07:48 Dose: 1 puff Glimepiride (Amaryl) 2 mg PO ACB [facility] Last Admin: 04/21/18 08:25 Dose: 2 mg Glucagon (Glucagen Diagnostic Kit) 0 mg IM STAT PRN; Protocol PRN Reason: Hypoglycemia Protocol Heparin Sodium (Porcine) (Heparin) 5,000 units SC Q8 [facility] Last Admin: 04/21/18 21:35 Dose: Not Given Hydrochlorothiazide (Hydrodiuril) 25 mg PO DAILY [facility] Last Admin: 04/21/18 10:49 Dose: 25 mg Dextrose (Dextrose 5% In Water 1000 Ml) 1,000 mls @ 0 mls/hr IV .Q0M PRN; Brian col PRN Reason: Hypoglycemia Protocol Vancomycin/Sodium Chloride (Vancomycin 1 Gm/Ns 200 Ml) 1 gm in 200 mls @ 133 mls/hr IVPB Q12H [facility]; Protocol Stop: 04/26/18 03:31 Last Admin: 04/21/18 14:49 Dose: 133 mls/hr Meropenem 1,000 mg/ Sodium (Chloride) 100 mls @ 100 mls/hr IVPB Q8H [facility]; Protocol Influenza Virus Vaccine (Flucelvax Quad 5469-5673 Syr) 60 mcg IM .ONCE ONE Stop: 04/23/18 10:01 Insulin Human Regular (Novolin R) 0 unit SC ACHS [facility]; Protocol Last Admin: 04/21/18 21:35 Dose: Not Given Lactobacillus Acidophilus (Bacid Acidophilus) 1 cap PO BID [facility] Last Admin: 04/21/18 17:37 Dose: 1 cap Lidocaine (Lidoderm) 1 ea TD DAILY [facility] Last Admin: 04/21/18 09:16 Dose: 1 ea Metformin HCl (Glucophage) 500 mg PO BIDCC [facility] Last Admin: 04/21/18 16:39 Dose: 500 mg Oxycodone HCl (Oxycodone Immediate Release Tab) 15 mg PO Q6 [facility] Last Admin: 04/21/18 23:49 Dose: 15 mg - Labs Labs: 04/21/18 07:14 04/21/18 07:14 - Additional Findings Additional findings: - Constitutional Appears: Non-toxic, No Acute Distress - Head Exam Head Exam: ATRAUMATIC, NORMAL INSPECTION, NORMOCEPHALIC - Eye Exam Eye Exam: EOMI, Normal appearance - ENT Exam ENT Exam: Mucous Membranes Moist, Normal Exam - Neck Exam Neck Exam: Normal Inspection - Respiratory Exam Respiratory Exam: Clear to Ausculation Bilateral, NORMAL BREATHING PATTERN - Cardiovascular Exam Cardiovascular Exam: REGULAR RHYTHM. absent: Tachycardia - GI/Abdominal Exam GI & Abdominal Exam: Soft. absent: Distended, Tenderness - Extremities Exam Extremities Exam: absent: Calf Tenderness, Pedal Edema Additional comments: Right foot dressing changed, new gauze and wrapped in MOHAMUD bandage. No drainage noted. ROM at ankle intact - Neurological Exam Neurological Exam: Alert, Awake, Oriented x3 - Psychiatric Exam Psychiatric exam: Normal Affect, Normal Mood - Skin Skin Exam: Dry, Normal Color, Warm Assessment and Plan - Assessment and Plan (Free Text) Assessment: 57 year old male w/ PMHx of emphysema, HTN, HLD, DM2, osteomyelitis, s/p debridement of right foot ulcer and right 4th toe amputation; POD#2 Plan: s/p debridement of right foot ulcer and right 4th toe amputation; POD#2 -f/u pathology report -bone cx positive for Enterobacter Clocae -continue IV abx, vanc -f/u vanco trough @ 15:00 -start IV Merrem, per S/S -d/c zosyn, as culture is resistant -pain medication prn, oxycodone, tramadol -ID consult, Dr. Wilson -Podiatry consult, Dr. Patel, will continue to follow DM2 -accuchecks ACHS -hypoglycemia protocol -Glimepiride 2mg ACB -metformin 500mg BID -ISS ACHS COPD -continue home ventolin q4 prn -Breo-Ellipta HTN -continue home enalapril -HCTZ 25mg qd -HHD HLD -continue home fenofibrate Ppx -VTE ppx: heparin 5000 q8, SCD to LEFT leg only -GI ppx: Lactobacillus -PT, encourage weight bearing activity Will discuss with Dr. Flynn -Jessica Hernandez, PGY-1 <Juan Carlos Flynn - Last Filed: 04/26/18 08:51> Objective - Vital Signs/Intake and Output Vital Signs (last 24 hours): Temp Pulse Resp BP Pulse Ox 98.3 F 66 20 156/81 H 98 04/25/18 08:29 04/25/18 08:29 04/25/18 08:29 04/25/18 09:48 04/25/18 08:29 - Labs Labs: 04/25/18 07:13 04/25/18 07:13 Attending/Attestation - Attestation I have personally seen and examined this patient.: Yes I have fully participated in the care of the patient.: Yes I have reviewed all pertinent clinical information, including history, physical exam and plan: Yes Notes (Text): 04/26/18 08:51 This is a late entry. Care of this patient was discussed with resident Dr. Hernandez. Juan Carlos Flynn D.O.
[2018-04-22] MEDS: Meropenem 1,000 MG in Sodium Chloride 0.9% 100 ML IVPB SCH ×3 (02:20→17:26)
[2018-04-22] MEDS: Vancomycin 1 gm/NS 200 ml 1 GM/200 ML BAG IVPB SCH ×2 (03:37→16:23)
[2018-04-22] MEDS: oxyCODONE 5 mg Immediate Release Tab PO SCH ×4 (05:38→23:52)
[2018-04-22] MEDS: Fluticasone-Vilanterol 100/25mcg Diskus INH SCH (07:15)
[2018-04-22] MEDS: (Novolin R) Insulin Human Regular 100 units/ml vial SC SCH ×4 (08:41→21:23)
--- NOTE | 2018-04-22 08:44 | CP.PCM.PN ---
Subjective - Date & Time of Evaluation Date of Evaluation: 04/22/18 Time of Evaluation: 08:43 - Subjective Subjective: Podiatry Progress Note - Dr. Patel 57 y/o male with PMHx of DM, HTN, HLD, emphysema seen at bedside this morning, 3 days s/p right foot 4th toe amputation 2' osteomyelitis and debridement of bone from sub metatarsal 1 ulceration right foot. Pt resting in bed this morning in NAD. Says pain today is ok and managed with medications. Admits to occasional tingling and burning in the lower extremities due to his high sugars. Has no new pedal complaints. Denies F/C/N/V/CP/SOB Objective - Vital Signs/Intake and Output Vital Signs (last 24 hours): Temp Pulse Resp BP Pulse Ox 97.7 F 64 20 128/81 96 04/22/18 08:00 04/22/18 08:00 04/22/18 08:00 04/22/18 08:00 04/22/18 08:00 - Medications Medications: Current Medications Albuterol (Ventolin Hfa 90 Mcg/Actuation (8 G)) 1 puff IH Q4 PRN PRN Reason: Shortness of Breath Aspirin (Ecotrin) 81 mg PO DAILY [facility] Last Admin: 04/21/18 09:15 Dose: 81 mg Dextrose (Dextrose 50% Inj) 0 ml IV STAT PRN; Protocol PRN Reason: Hypoglycemia Protocol Dextrose (Glutose 15) 0 gm PO ONCE PRN; Protocol PRN Reason: Hypoglycemia Protocol Docusate Sodium (Colace) 100 mg PO BID [facility] Last Admin: 04/21/18 17:38 Dose: Not Given Enalapril Maleate (Vasotec) 10 mg PO DAILY [facility] Last Admin: 04/21/18 09:15 Dose: 10 mg Fenofibrate (Tricor) 48 mg PO DAILY [facility] Last Admin: 04/21/18 10:49 Dose: 48 mg Fluticasone/Vilanterol (Breo Ellipta 100-25 Mcg Inh) 1 puff INH RQD [facility] Last Admin: 04/21/18 07:48 Dose: 1 puff Glimepiride (Amaryl) 2 mg PO ACB [facility] Last Admin: 04/22/18 08:41 Dose: 2 mg Glucagon (Glucagen Diagnostic Kit) 0 mg IM STAT PRN; Protocol PRN Reason: Hypoglycemia Protocol Heparin Sodium (Porcine) (Heparin) 5,000 units SC Q8 [facility] Last Admin: 04/21/18 21:35 Dose: Not Given Hydrochlorothiazide (Hydrodiuril) 25 mg PO DAILY [facility] Last Admin: 04/21/18 10:49 Dose: 25 mg Dextrose (Dextrose 5% In Water 1000 Ml) 1,000 mls @ 0 mls/hr IV .Q0M PRN; Protocol PRN Reason: Hypoglycemia Protocol Vancomycin/Sodium Chloride (Vancomycin 1 Gm/Ns 200 Ml) 1 gm in 200 mls @ 133 mls/hr IVPB Q12H [facility]; Protocol Stop: 04/26/18 03:31 Last Admin: 04/22/18 03:37 Dose: 133 mls/hr Meropenem 1,000 mg/ Sodium (Chloride) 100 mls @ 100 mls/hr IVPB Q8H [facility]; Pr otocol Last Admin: 04/22/18 02:20 Dose: 100 mls/hr Influenza Virus Vaccine (Flucelvax Quad 4502-6389 Syr) 60 mcg IM .ONCE ONE Stop: 04/23/18 10:01 Insulin Human Regular (Novolin R) 0 unit SC ACHS [facility]; Protocol Last Admin: 04/22/18 08:41 Dose: 10 units Lactobacillus Acidophilus (Bacid Acidophilus) 1 cap PO BID [facility] Last Admin: 04/21/18 17:37 Dose: 1 cap Lidocaine (Lidoderm) 1 ea TD DAILY [facility] Last Admin: 04/21/18 09:16 Dose: 1 ea Metformin HCl (Glucophage) 500 mg PO BIDCC [facility] Last Admin: 04/22/18 08:40 Dose: 500 mg Oxycodone HCl (Oxycodone Immediate Release Tab) 15 mg PO Q6 [facility] Last Admin: 04/22/18 05:38 Dose: 15 mg - Labs Labs: 04/21/18 07:14 04/21/18 07:14 - Constitutional Appears: Well, Non-toxic, No Acute Distress - Head Exam Head Exam: ATRAUMATIC, NORMOCEPHALIC - Extremities Exam Additional comments: Right lower extremity focused exam: Vasc: DP/PT pulses palpable 2/4. Temperature gradient is warm to warm. Capillary refill < 3 sec x 4 digits. Mild pedal edema noted to forefoot Derm: Open wound noted to 3rd interspace s/p 4th digit amputation spanning approx 6cm from dorsal to plantar and approx 2cm wide, 0.7cm in depth with exposed 4th metatarsal bone and adjacent healthy-appearing granular soft tissue. Wound is packed open with 1/2" iodoform packing. No active drainage or purulence, no malodor, no fluctuance present. Additional surgical site sub metatarsal head 1 with linear longitudinal incision approx 6cm in length with retention sutures intact and skin edges well-coapted. No signs of dehiscence, no drainage or purulence. Neuro: protective and gross sensation diminished - Neurological Exam Neurological Exam: Alert, Awake, Oriented x3 - Psychiatric Exam Psychiatric exam: Normal Affect, Normal Mood Assessment and Plan - Assessment and Plan (Free Text) Assessment: 57 y/o male who is 3 days s/p right foot 4th digit amputation 2' osteomyelitis and debridement of non-healing diabetic ulcer down to bone sub met 1 right foot Plan: Patient seen and evaluated with Dr. Patel Afebrile overnight, WBC down to 8.6 04/21/18 Continue IV Vanco, Meropenem ID on board Dr. Wilson, appreciate recommendations Postoperative xrays consistent s/p 4th digit amp, planing of sub met 1 head/sesamoids Will continue to follow patient in house
[2018-04-22 08:55] LABS: BASO # 0.1 K/uL (0.0-0.2); EOS # 0.3 K/uL (0.0-0.7); EOS % 3.9 % (0.0-4.0); HEMOGLOBIN 12.7 g/dL (12.0-18.0); LYMPH # 1.4 K/uL (1.0-4.3); LYMPH % 16.4 % (20.0-40.0); MEAN CELL VOLUME 89.7 fL (80.0-94.0); MEAN CORPUSCULAR HGB CONC 33.5 g/dL (33.0-37.0); MEAN PLATELET VOLUME 8.1 fL (7.2-11.7); MONO # 0.6 K/uL (0.0-0.8); MONO % 6.7 % (0.0-10.0); NEUT # 6.2 K/uL (1.8-7.0); RBC 4.22 Mil/uL (4.40-5.90); WHITE BLOOD COUNT 8.6 K/uL (4.8-10.8)
[2018-04-22 09:17] LABS: ALB/GLOB RATIO 1.3 (1.0-2.1); ALBUMIN 4.1 g/dL (3.5-5.0); ALT/SGPT 22 U/L (21-72); AST/SGOT 22 U/L (17-59); BLOOD UREA NITROGEN 18 mg/dL (9-20); GFR NON-AFRICAN AMERICAN > 60
[2018-04-22] MEDS: Lactobacillus Acidophilus 500 MU Cap PO SCH ×2 (09:29→17:25)
[2018-04-22] MEDS: Lidocaine 5% Patch TD SCH (11:21)
--- NOTE | 2018-04-22 14:55 | PCM.OP ---
Operative Report - Operative Report Date of Surgery/Procedure: 04/19/18 Time of Surgery/Procedure: 08:00 Surgeon: Dr. Jarad Patel Beverage Inspection Machine Tender: Dr. Crystal Menezes PGY-2 Anesthesia/Sedation: IV sedation - Krupa DEWITT/Dr. Adame Pre-Operative Diagnosis: 1) right foot 4th digit diabetic ulcer with osteomyelitis 2) non-healing diabetic ulcer sub first metatarsal right foot Post-Operative Diagnosis: same Indication for Surgery: The patient is a 57 year old male with the above diagnoses. The patient has exhausted all conservative treatment at this time and now requires surgical intervention. The patient signed the consent after careful explanation of risks, benefits, complications and alternatives for surgical procedure. No guarantees were given nor implied. NPO status was confirmed prior to taking patient to the operating room. Operative Findings: Preparation: The patient was brought in to the operating room and placed on the operating room table in the supine position. Timeout was performed for identification of the correct patient and procedure. The patient received a total of 20 mL of a 1:1 mix of 2% lidocaine plain and 0.5% Marcaine plain in a digital block fashion to the right foot 4th digit and a Alvarez block fashion to the right foot. The right foot was then prepped and draped in normal sterile manner and the procedure began. No tourniquet was used during the procedure. Procedure/Operation Description: Procedure #1: Right foot 4th digit amputation Attention was then drawn to the dorsal aspect of the right foot 4th digit where a fish mouth circumferential incision was made extending from the dorsal aspect of the 4th metatarsal head distally and plantarly around the 4th digit using a # 15 blade. The incision wasthen extended down through the subcutaneous layers down to the level of bone. Using a bone clamp to stabilize the toe, the 4th digit was then disarticulated from the foot at the level of the metatarsophalangeal joint. All bone and soft tissue was sent for pathology at this time. At this time, deep wound cultures were performed. We then copiously irrigated the wound with sterile saline and peroxide. The surgical site was then left open and packed with iodoform packing and dressed with xeroform, 4x4 gauze, ABD pads and kerlix dressing with a light MOHAMUD bandage. Procedure #2: Debridement of bone, right foot Attention was then directed to the plantar aspect of the right foot 1st metatarsal where an approximately 1.7cm diameter circular ulceration with approx 0.4cm of depth was noted, extending down to the level of subcutaneous tissue. A sterile 15 blade was used to make an elliptical incision surrounding the ulceration. The incision was deepened down to the level of bone with care being taken to identify and avoid all neurovascular and tendinous structures. All non- viable tissue was excised with sterile forceps and a sterile 15 blade. Next, the plantar aspect of the 1st metatarsal-sesamoid apparatus was palpated and noted to be prominent in a plantarflexed position. Using a bone rasp on power, the p lantar aspect of the sesamoids were planed to eliminate any bony prominences in the wound bed. A sterile 15 blade was then used to debulk all remain non-viable tissue from the wound edges. The surgical site was then flushed with peroxide. The skin edges were then reapproximated and coapted with 3-0 chromic gut for subcutanous tissues. Retention sutures and 3-0 Nylon sutures were used to reapproximate skin. Postoperative bandages included xeroform, 4x4 gauze, kerlix, and an MOHAMUD bandage. Estimated Blood Loss: 25 mL Complications: None Specimen: right foot 4th digit, right foot 1st metatarsal bone and soft tissue Discharge & Condition: Postoperative Condition: The patient tolerated the anesthesia and procedure well and was escorted to the recovery room with neurovascular status intact to the right foot. Patient may be weight bearing as tolerated with use of a Darco forefoot offloading shoe. Patient will remain in house and podiatry will continue to follow. Upon discharge, patient is to follow up with Dr. Patel in his office.
--- NOTE | 2018-04-22 22:05 | CP.PCM.PN ---
Subjective - Date & Time of Evaluation Date of Evaluation: 04/22/18 Time of Evaluation: 18:00 - Subjective Subjective: dictated Objective - Vital Signs/Intake and Output Vital Signs (last 24 hours): Temp Pulse Resp BP Pulse Ox 98.3 F 75 16 121/73 95 04/22/18 19:20 04/22/18 19:20 04/22/18 19:20 04/22/18 19:20 04/22/18 15:00 Intake and Output: 04/22/18 04/23/18 18:59 06:59 Intake Total 980 120 Output Total 1080 300 Balance -100 -180 - Medications Medications: Current Medications Albuterol (Ventolin Hfa 90 Mcg/Actuation (8 G)) 1 puff IH Q4 PRN PRN Reason: Shortness of Breath Aspirin (Ecotrin) 81 mg PO DAILY [facility] Last Admin: 04/22/18 09:29 Dose: 81 mg Dextrose (Dextrose 50% Inj) 0 ml IV STAT PRN; Protocol PRN Reason: Hypoglycemia Protocol Dextrose (Glutose 15) 0 gm PO ONCE PRN; Protocol PRN Reason: Hypoglycemia Protocol Docusate Sodium (Colace) 100 mg PO BID [facility] Last Admin: 04/22/18 17:24 Dose: 100 mg Enalapril Maleate (Vasotec) 10 mg PO DAILY [facility] Last Admin: 04/22/18 09:29 Dose: 10 mg Fenofibrate (Tricor) 48 mg PO DAILY [facility] Last Admin: 04/22/18 11:20 Dose: 48 mg Fluticasone/Vilanterol (Breo Ellipta 100-25 Mcg Inh) 1 puff INH RQD [facility] Last Admin: 04/22/18 07:15 Dose: Not Given Glimepiride (Amaryl) 2 mg PO ACB [facility] Last Admin: 04/22/18 08:41 Dose: 2 mg Glucagon (Glucagen Diagnostic Kit) 0 mg IM STAT PRN; Protocol PRN Reason: Hypoglycemia Protocol Heparin Sodium (Porcine) (Heparin) 5,000 units SC Q8 [facility] Last Admin: 04/22/18 21:24 Dose: Not Given Hydrochlorothiazide (Hydrodiuril) 25 mg PO DAILY [facility] Last Admin: 04/22/18 09:29 Dose: 25 mg Dextrose (Dextrose 5% In Water 1000 Ml) 1,000 mls @ 0 mls/hr IV .Q0M PRN; Protocol PRN Reason: Hypoglycemia Protocol Vancomycin/Sodium Chloride (Vancomycin 1 Gm/Ns 200 Ml) 1 gm in 200 mls @ 133 mls/hr IVPB Q12H [facility]; Protocol Stop: 04/26/18 03:31 Last Admin: 04/22/18 16:23 Dose: 133 mls/hr Meropenem 1,000 mg/ Sodium (Chloride) 100 mls @ 100 mls/hr IVPB Q8H [facility]; Protocol Last Admin: 04/22/18 17:26 Dose: 100 mls/hr Influenza Virus Vaccine (Flucelvax Quad [id number] Syr) 60 mcg IM .ONCE ONE Stop: 04/23/18 10:01 Insulin Human Regular (Novolin R) 0 unit SC ACHS [facility]; Protocol Last Admin: 04/22/18 21:23 Dose: 2 units Lactobacillus Acidophilus (Bacid Acidophilus) 1 cap PO BID [facility] Last Admin: 04/22/18 17:25 Dose: 1 cap Lidocaine (Lidoderm) 1 ea TD DAILY [facility] Last Admin: 04/22/18 11:21 Dose: 1 ea Metformin HCl (Glucophage) 500 mg PO BIDCC [facility] Last Admin: 04/22/18 16:26 Dose: 500 mg Oxycodone HCl (Oxycodone Immediate Release Tab) 15 mg PO Q6 [facility] Last Admin: 04/22/18 17:24 Dose: 15 mg - Labs Labs: 04/22/18 08:38 04/22/18 08:38
[2018-04-23] MEDS: Meropenem 1,000 MG in Sodium Chloride 0.9% 100 ML IVPB SCH ×3 (02:51→17:54)
[2018-04-23] MEDS: Vancomycin 1 gm/NS 200 ml 1 GM/200 ML BAG IVPB SCH ×2 (02:52→14:43)
--- NOTE | 2018-04-23 03:18 | PN ---
DATE: 04/22/2018 SUBJECTIVE: The patient is seen today. He still has the right leg wound. He does not have a PICC line, I am waiting to see. There is an operative note from 04/19/2018. It shows nonhealing diabetic ulcers of first metatarsal, right foot. So, this patient, since he has a nonhealing wound, we are waiting for the pathology. So, at this time, the patient is getting meropenem. His wound showed Enterobacter. PHYSICAL EXAMINATION: VITAL SIGNS: Stable. T-max is 98.3, pulse 75, blood pressure 121/73, respirations are 16. HEENT: Head is atraumatic and normocephalic. NECK: Supple. LUNGS: Clear. HEART: S1, S2. Regular. ABDOMEN: Soft, nontender. No guarding, no rigidity present. EXTREMITIES: Right foot has a dressing at this time. The left foot is unremarkable. Has had previous surgeries. ASSESSMENT AND PLAN: The patient denies any nausea, vomiting or diarrhea. He is waiting to know whether he will need intravenous antibiotics. I think if the fourth toe was removed, that is fine; but if the first toe has nonhealing ulcer, then he may be requiring intravenous antibiotics. I do not have all the reports of previous tests, vascular tests or of the MRI if it was done as he does follow up closely with Dr. Youngblood. We will wait to discuss with him on Monday. Jackie Wilson MD
[2018-04-23] MEDS: oxyCODONE 5 mg Immediate Release Tab PO SCH ×3 (05:57→17:56)
[2018-04-23] MEDS: Fluticasone-Vilanterol 100/25mcg Diskus INH SCH (07:15)
[2018-04-23 07:34] LABS: BASO # 0.1 K/uL (0.0-0.2); BASO % 0.8 % (0.0-2.0); EOS # 0.4 K/uL (0.0-0.7); EOS % 3.9 % (0.0-4.0); HEMOGLOBIN 12.7 g/dL (12.0-18.0); LYMPH # 1.8 K/uL (1.0-4.3); LYMPH % 17.6 % (20.0-40.0); MEAN CELL VOLUME 89.5 fL (80.0-94.0); MEAN CORPUSCULAR HEMOGLOBIN 30.2 pg (27.0-31.0); MEAN CORPUSCULAR HGB CONC 33.7 g/dL (33.0-37.0); MEAN PLATELET VOLUME 8.3 fL (7.2-11.7); MONO # 0.6 K/uL (0.0-0.8); MONO % 6.1 % (0.0-10.0); NEUT # 7.2 K/uL (1.8-7.0); NEUT % 71.6 % (50.0-75.0); NRBC % 0.1 % (0.0-2.0); RBC 4.22 Mil/uL (4.40-5.90); RED CELL DISTRIBUTION WIDTH 13.1 % (11.5-14.5); WHITE BLOOD COUNT 10.1 K/uL (4.8-10.8)
[2018-04-23 07:49] LABS: ALB/GLOB RATIO 1.3 (1.0-2.1); ALBUMIN 4.1 g/dL (3.5-5.0); ALT/SGPT 26 U/L (21-72); AST/SGOT 20 U/L (17-59); BLOOD UREA NITROGEN 22 mg/dL (9-20); CALCIUM 9.1 mg/dl (8.6-10.4); GFR NON-AFRICAN AMERICAN > 60
[2018-04-23] MEDS: (Novolin R) Insulin Human Regular 100 units/ml vial SC SCH ×4 (09:09→22:04)
[2018-04-23] MEDS: Lactobacillus Acidophilus 500 MU Cap PO SCH ×2 (09:11→17:56)
[2018-04-23] MEDS: Lidocaine 5% Patch TD SCH (09:12)
[2018-04-23] MEDS ORDERED: Influenza Vaccine 60 mcg/0.5 mL SYR (4YR UP) IM ONE (10:00)
--- NOTE | 2018-04-23 15:40 | CP.PCM.PN ---
<Petra Chinchilla - Last Filed: 04/23/18 18:11> Subjective - Date & Time of Evaluation Date of Evaluation: 04/23/18 Time of Evaluation: 15:27 - Subjective Subjective: PGY-1 Medicine Progress Note for Dr. Ramsay's service S/E at bedside. Offers right lower extremity pain. Denies fevers, chills, chest pain, sob, n/v, constipation or diarrhea, and dysuria. Objective - Vital Signs/Intake and Output Vital Signs (last 24 hours): Temp Pulse Resp BP Pulse Ox 97.9 F 66 18 124/75 97 04/23/18 11:04 04/23/18 11:04 04/23/18 11:04 04/23/18 11:04 04/23/18 11:04 Intake and Output: 04/23/18 04/23/18 06:59 18:59 Intake Total 120 Output Total 300 Balance -180 - Medications Medications: Current Medications Albuterol (Ventolin Hfa 90 Mcg/Actuation (8 G)) 1 puff IH Q4 PRN PRN Reason: Shortness of Breath Aspirin (Ecotrin) 81 mg PO DAILY [facility] Last Admin: 04/23/18 09:11 Dose: 81 mg Dextrose (Dextrose 50% Inj) 0 ml IV STAT PRN; Protocol PRN Reason: Hypoglycemia Protocol Dextrose (Glutose 15) 0 gm PO ONCE PRN; Protocol PRN Reason: Hypoglycemia Protocol Docusate Sodium (Colace) 100 mg PO BID [facility] Last Admin: 04/23/18 09:11 Dose: 100 mg Enalapril Maleate (Vasotec) 10 mg PO DAILY [facility] Last Admin: 04/23/18 09:11 Dose: 10 mg Fenofibrate (Tricor) 48 mg PO DAILY [facility] Last Admin: 04/23/18 09:39 Dose: 48 mg Fluticasone/Vilanterol (Breo Ellipta 100-25 Mcg Inh) 1 puff INH RQD [facility] Last Admin: 04/23/18 07:15 Dose: Not Given Glimepiride (Amaryl) 2 mg PO ACB [facility] Last Admin: 04/23/18 09:10 Dose: 2 mg Glucagon (Glucagen Diagnostic Kit) 0 mg IM STAT PRN; Protocol PRN Reason: Hypoglycemia Protocol Heparin Sodium (Porcine) (Heparin) 5,000 units SC Q8 [facility] Last Admin: 04/23/18 14:45 Dose: Not Given Hydrochlorothiazide (Hydrodiuril) 25 mg PO DAILY [facility] Last Admin: 04/23/18 09:11 Dose: 25 mg Dextrose (Dextrose 5% In Water 1000 Ml) 1,000 mls @ 0 mls/hr IV .Q0M PRN; Protocol PRN Reason: Hypoglycemia Protocol Vancomycin/Sodium Chloride (Vancomycin 1 Gm/Ns 200 Ml) 1 gm in 200 mls @ 133 mls/hr IVPB Q12H [facility]; Protocol Stop: 04/26/18 03:31 Last Admin: 04/23/18 14:43 Dose: 133 mls/hr Meropenem 1,000 mg/ Sodium (Chloride) 100 mls @ 100 mls/hr IVPB Q8H [facility]; Protocol Last Admin: 04/23/18 09:12 Dose: 100 mls/hr Insulin Human Regular (Novolin R) 0 unit SC ACHS [facility]; Protocol Last Admin: 04/23/18 12:21 Dose: 10 units Lactobacillus Acidophilus (Bacid Acidophilus) 1 cap PO BID [facility] Last Admin: 04/23/18 09:11 Dose: 1 cap Lidocaine (Lidoderm) 1 ea TD DAILY [facility] Last Admin: 04/23/18 09:12 Dose: Not Given Metformin HCl (Glucophage) 500 mg PO BIDCC [facility] Last Admin: 04/23/18 09:10 Dose: 500 mg Oxycodone HCl (Oxycodone Immediate Release Tab) 15 mg PO Q6 [facility] Last Admin: 04/23/18 12:20 Dose: 15 mg - Labs Labs: 04/23/18 07:12 04/23/18 07:12 - Additional Findings Additional findings: - Constitutional Appears: Non-toxic, No Acute Distress - Head Exam Head Exam: ATRAUMATIC, NORMAL INSPECTION, NORMOCEPHALIC - Eye Exam Eye Exam: EOMI, Normal appearance - ENT Exam ENT Exam: Mucous Membranes Moist, Normal Exam - Neck Exam Neck Exam: Normal Inspection - Respiratory Exam Respiratory Exam: Clear to Ausculation Bilateral, NORMAL BREATHING PATTERN - Cardiovascular Exam Cardiovascular Exam: REGULAR RHYTHM. absent: Tachycardia - GI/Abdominal Exam GI & Abdominal Exam: Soft. absent: Distended, Tenderness - Extremities Exam Extremities Exam: absent: Calf Tenderness, Pedal Edema Additional comments: Right foot dressing changed, new gauze and wrapped in MOHAMUD bandage. No drainage noted. ROM at ankle intact - Neurological Exam Neurological Exam: Alert, Awake, Oriented x3 - Psychiatric Exam Psychiatric exam: Normal Affect, Normal Mood - Skin Skin Exam: Dry, Normal Color, Warm Assessment and Plan - Assessment and Plan (Free Text) Assessment: Patient is a 57 yo male w/ PMH of emphysema, HTN, HLD, osteomyelitis, and DM2 admitted to hospital for operation of lower extremity. S/P 4th toe digit amputation and 1st toe base debridement. Bone cx positive for enterobacter cloacae. Pending IR picc line for d/c Osteomyelitis s/p 4th digit right toe amputation and right 1st digit base debridement Podiatry Consulted: Dr. Michoacano holt as below ID Consulted: Dr. David holt as below Meropenem 1000mg q8, Vanc 1gm q12 afebrile, wbc trending down Oxy 5 q6 prn mild pain; oxy 10 q6 prn moderate pain; colace 100mg po bid Bone cx positive for enterobacter clocae pending picc line insertion Repeat CBC pending Hx of HTN Enalapril 10mg po daily HCTZ 25mg po daily monitor bp Hx of Emphysema Duoneb Breo Ellipta Hx of HLD Lipid panel- shows elevated TGs, normal LDL, HDL, chol Fenofibrate 67mg po daily Aspirin 81mg daily Hx of DM2 ISS regular ACHS Metformin 500mg po bid Amaryl 2mg po daily Hx of chronic back pain Oxy 5; Oxy 10 as above Lidocaine patch 1 TD daily DVT ppx: Heparin 5000 sc q8, SCDs left leg only GI ppx: Lactoacid bacillus 1 cap po bid (2 hrs after IV abx) Disposition: Pending IR picc line then d/c to home with home paraprofessional for continued IV abx PGY-1 Petra Chinchilla Medical Management discussed with Dr. Ramsay <Nivia Ramsay V - Last Filed: 04/25/18 19:35> Objective - Vital Signs/Intake and Output Vital Signs (last 24 hours): Temp Pulse Resp BP Pulse Ox 98.3 F 66 20 156/81 H 98 04/25/18 08:29 04/25/18 08:29 04/25/18 08:29 04/25/18 09:48 04/25/18 08:29 - Labs Labs: 04/25/18 07:13 04/25/18 07:13 Attending/Attestation - Attestation I have personally seen and examined this patient.: Yes I have fully participated in the care of the patient.: Yes I have reviewed all pertinent clinical information, including history, physical exam and plan: Yes Notes (Text): This is late computer entry for 04/23/18. Patient seen, examined and case discussed with day-time resident. Agree with the assessment and plan as written by resident. Patient is awaiting PICC line for IV abx for home transfusion setup. Pain medications per recommendation of patient's personal management doctor; he is aware we are not changing from his prescribed treatment.
--- NOTE | 2018-04-23 22:05 | CP.PCM.PN ---
Subjective - Date & Time of Evaluation Date of Evaluation: 04/23/18 Time of Evaluation: 18:25 - Subjective Subjective: dictated Objective - Vital Signs/Intake and Output Vital Signs (last 24 hours): Temp Pulse Resp BP Pulse Ox 97.9 F 66 20 111/67 96 04/23/18 16:00 04/23/18 16:00 04/23/18 16:00 04/23/18 16:00 04/23/18 16:00 Intake and Output: 04/23/18 04/24/18 18:59 06:59 Intake Total 600 Balance 600 - Medications Medications: Current Medications Albuterol (Ventolin Hfa 90 Mcg/Actuation (8 G)) 1 puff IH Q4 PRN PRN Reason: Shortness of Breath Aspirin (Ecotrin) 81 mg PO DAILY [facility] Last Admin: 04/23/18 09:11 Dose: 81 mg Dextrose (Dextrose 50% Inj) 0 ml IV STAT PRN; Protocol PRN Reason: Hypoglycemia Protocol Dextrose (Glutose 15) 0 gm PO ONCE PRN; Protocol PRN Reason: Hypoglycemia Protocol Docusate Sodium (Colace) 100 mg PO BID [facility] Last Admin: 04/23/18 09:11 Dose: 100 mg Enalapril Maleate (Vasotec) 10 mg PO DAILY [facility] Last Admin: 04/23/18 09:11 Dose: 10 mg Fenofibrate (Tricor) 48 mg PO DAILY [facility] Last Admin: 04/23/18 09:39 Dose: 48 mg Fluticasone/Vilanterol (Breo Ellipta 100-25 Mcg Inh) 1 puff INH RQD [facility] Last Admin: 04/23/18 07:15 Dose: Not Given Glimepiride (Amaryl) 2 mg PO ACB [facility] Last Admin: 04/23/18 09:10 Dose: 2 mg Glucagon (Glucagen Diagnostic Kit) 0 mg IM STAT PRN; Protocol PRN Reason: Hypoglycemia Protocol Heparin Sodium (Porcine) (Heparin) 5,000 units SC Q8 [facility] Last Admin: 04/23/18 22:02 Dose: Not Given Hydrochlorothiazide (Hydrodiuril) 25 mg PO DAILY [facility] Last Admin: 04/23/18 09:11 Dose: 25 mg Dextrose (Dextrose 5% In Water 1000 Ml) 1,000 mls @ 0 mls/hr IV .Q0M PRN; Protocol PRN Reason: Hypoglycemia Protocol Vancomycin/Sodium Chloride (Vancomycin 1 Gm/Ns 200 Ml) 1 gm in 200 mls @ 133 mls/hr IVPB Q12H [facility]; Protocol Stop: 04/26/18 03:31 Last Admin: 04/23/18 14:43 Dose: 133 mls/hr Meropenem 1,000 mg/ Sodium (Chloride) 100 mls @ 100 mls/hr IVPB Q8H [facility]; Protocol Last Admin: 04/23/18 17:54 Dose: 100 mls/hr Insulin Human Regular (Novolin R) 0 unit SC ACHS [facility]; Protocol Last Admin: 04/23/18 18:37 Dose: 8 units Lactobacillus Acidophilus (Bacid Acidophilus) 1 cap PO BID [facility] Last Admin: 04/23/18 17:56 Dose: 1 cap Lidocaine (Lidoderm) 1 ea TD DAILY [facility] Last Admin: 04/23/18 09:12 Dose: Not Given Metformin HCl (Glucophage) 500 mg PO BIDCC [facility] Last Admin: 04/23/18 17:55 Dose: 500 mg Oxycodone HCl (Oxycodone Immediate Release Tab) 15 mg PO Q6 [facility] Last Admin: 04/23/18 17:56 Dose: 15 mg - Labs Labs: 04/23/18 07:12 04/23/18 07:12
[2018-04-24] MEDS: oxyCODONE 5 mg Immediate Release Tab PO SCH ×4 (00:10→17:46)
[2018-04-24] MEDS: Meropenem 1,000 MG in Sodium Chloride 0.9% 100 ML IVPB SCH ×3 (01:00→17:50)
[2018-04-24] MEDS: Vancomycin 1 gm/NS 200 ml 1 GM/200 ML BAG IVPB SCH ×2 (03:30→16:00)
--- NOTE | 2018-04-24 03:35 | PN ---
DATE: 04/23/2018 SUBJECTIVE: The patient was seen today, and he is waiting for a PICC line which will be placed by the IR tomorrow, and he has open wound on his right foot and he will be going home on meropenem and he was seen by the resident also. He denies any fever, chills, pain, or shortness of breath. He is agreeable to do a PICC line and antibiotics soon after restrained by the infusion nurse and he agrees. He is able to follow after 10 days in my office, and he recently had back surgery. He is, however, on pain management for his back surgery. PHYSICAL EXAMINATION: VITAL SIGNS: T-max is 97.9, pulse 66, blood pressure is 111/67, respirations are 20. HEENT: Head is atraumatic, normocephalic. NECK: Supple. LUNGS: Clear. HEART: S1, S2 are regular. ABDOMEN: Soft, nontender. No guarding, no rigidity present. He has a pain patch as well as a dressing on the back, and he is going to follow up with his pain hugh, and he has dressing on the foot at this time. Right foot and left foot are unremarkable. LABORATORY DATA: White count is 10.1 and BUN is 22, creatinine is 1. ASSESSMENT AND PLAN: He is on antibiotics since 04/19/2018, so he received almost 5 days here and will get 37 days as outpatient. We will need CBC, CMP, ESR, and CRP weekly. He would be going on meropenem as there was Enterobacter isolated on the culture from the tissue culture. We will follow with the Podiatry as well as the primary. Jackie Wilson MD
[2018-04-24 07:27] LABS: BASO # 0.1 K/uL (0.0-0.2); BASO % 0.8 % (0.0-2.0); EOS # 0.3 K/uL (0.0-0.7); EOS % 3.7 % (0.0-4.0); HEMOGLOBIN 12.5 g/dL (12.0-18.0); LYMPH # 1.8 K/uL (1.0-4.3); MEAN CORPUSCULAR HEMOGLOBIN 29.6 pg (27.0-31.0); MEAN CORPUSCULAR HGB CONC 33.3 g/dL (33.0-37.0); MEAN PLATELET VOLUME 7.8 fL (7.2-11.7); MONO # 0.6 K/uL (0.0-0.8); MONO % 6.7 % (0.0-10.0); NEUT # 6.5 K/uL (1.8-7.0); NEUT % 69.8 % (50.0-75.0); RBC 4.23 Mil/uL (4.40-5.90); RED CELL DISTRIBUTION WIDTH 13.2 % (11.5-14.5); WHITE BLOOD COUNT 9.3 K/uL (4.8-10.8)
[2018-04-24] MEDS: Fluticasone-Vilanterol 100/25mcg Diskus INH SCH (07:30)
[2018-04-24 08:18] LABS: ALB/GLOB RATIO 1.3 (1.0-2.1); ALT/SGPT 28 U/L (21-72); AST/SGOT 18 U/L (17-59); BLOOD UREA NITROGEN 23 mg/dL (9-20); CALCIUM 9.1 mg/dl (8.6-10.4); GFR NON-AFRICAN AMERICAN > 60
[2018-04-24] MEDS: (Novolin R) Insulin Human Regular 100 units/ml vial SC SCH ×5 (08:18→22:03)
[2018-04-24] MEDS: Lidocaine 5% Patch TD SCH (09:50)
[2018-04-24] MEDS: Lactobacillus Acidophilus 500 MU Cap PO SCH ×2 (09:52→17:46)
--- NOTE | 2018-04-24 11:16 | CP.PCM.PCO ---
Physician Communication Note - Physician Communication Note Physician Communication Note: antibiotics update
--- NOTE | 2018-04-24 15:56 | CP.PCM.PN ---
<Petra Chinchilla - Last Filed: 04/24/18 15:56> Subjective - Date & Time of Evaluation Date of Evaluation: 04/24/18 Time of Evaluation: 15:53 - Subjective Subjective: PGY-1 Medicine Progress Note for Dr. Ramsay's service S/E at bedside. Reports no acute complaints. Denies fevers, chills, chest pain, sob, n/v, constipation or diarrhea, and dysruai. Objective - Vital Signs/Intake and Output Vital Signs (last 24 hours): Temp Pulse Resp BP Pulse Ox 98.2 F 69 18 143/68 99 04/24/18 08:32 04/24/18 08:32 04/24/18 08:32 04/24/18 09:51 04/24/18 08:32 Intake and Output: 04/24/18 04/24/18 06:59 18:59 Intake Total 950 Balance 950 - Medications Medications: Current Medications Albuterol (Ventolin Hfa 90 Mcg/Actuation (8 G)) 1 puff IH Q4 PRN PRN Reason: Shortness of Breath Aspirin (Ecotrin) 81 mg PO DAILY [facility] Last Admin: 04/24/18 09:52 Dose: 81 mg Dextrose (Dextrose 50% Inj) 0 ml IV STAT PRN; Protocol PRN Reason: Hypoglycemia Protocol Dextrose (Glutose 15) 0 gm PO ONCE PRN; Protocol PRN Reason: Hypoglycemia Protocol Docusate Sodium (Colace) 100 mg PO BID [facility] Last Admin: 04/24/18 09:52 Dose: 100 mg Enalapril Maleate (Vasotec) 10 mg PO DAILY [facility] Last Admin: 04/24/18 09:51 Dose: 10 mg Fenofibrate (Tricor) 48 mg PO DAILY [facility] Last Admin: 04/24/18 11:00 Dose: 48 mg Fluticasone/Vilanterol (Breo Ellipta 100-25 Mcg Inh) 1 puff INH RQD [facility] Last Admin: 04/24/18 07:30 Dose: Not Given Glimepiride (Amaryl) 2 mg PO ACB [facility] Last Admin: 04/24/18 08:17 Dose: 2 mg Glucagon (Glucagen Diagnostic Kit) 0 mg IM STAT PRN; Protocol PRN Reason: Hypoglycemia Protocol Heparin Sodium (Porcine) (Heparin) 5,000 units SC Q8 [facility] Last Admin: 04/24/18 14:02 Dose: Not Given Hydrochlorothiazide (Hydrodiuril) 25 mg PO DAILY [facility] Last Admin: 04/24/18 09:52 Dose: 25 mg Dextrose (Dextrose 5% In Water 1000 Ml) 1,000 mls @ 0 mls/hr IV .Q0M PRN; Protocol PRN Reason: Hypoglycemia Protocol Vancomycin/Sodium Chloride (Vancomycin 1 Gm/Ns 200 Ml) 1 gm in 200 mls @ 133 mls/hr IVPB Q12H [facility]; Protocol Stop: 04/26/18 03:31 Last Admin: 04/24/18 03:30 Dose: 133 mls/hr Meropenem 1,000 mg/ Sodium (Chloride) 100 mls @ 100 mls/hr IVPB Q8H [facility]; Protocol Last Admin: 04/24/18 10:04 Dose: 100 mls/hr Insulin Human Regular (Novolin R) 0 unit SC ACHS [facility]; Protocol Last Admin: 04/24/18 12:14 Dose: 10 units Lactobacillus Acidophilus (Bacid Acidophilus) 1 cap PO BID [facility] Last Admin: 04/24/18 09:52 Dose: 1 cap Lidocaine (Lidoderm) 1 ea TD DAILY [facility] Last Admin: 04/24/18 09:50 Dose: 1 ea Metformin HCl (Glucophage) 500 mg PO BIDCC [facility] Last Admin: 04/24/18 08:17 Dose: 500 mg Oxycodone HCl (Oxycodone Immediate Release Tab) 15 mg PO Q6 [facility] Last Admin: 04/24/18 12:10 Dose: 15 mg - Labs Labs: 04/24/18 07:20 04/24/18 07:20 - Additional Findings Additional findings: - Constitutional Appears: Non-toxic, No Acute Distress - Head Exam Head Exam: ATRAUMATIC, NORMAL INSPECTION, NORMOCEPHALIC - Eye Exam Eye Exam: EOMI, Normal appearance - ENT Exam ENT Exam: Mucous Membranes Moist, Normal Exam - Neck Exam Neck Exam: Normal Inspection - Respiratory Exam Respiratory Exam: Clear to Ausculation Bilateral, NORMAL BREATHING PATTERN - Cardiovascular Exam Cardiovascular Exam: REGULAR RHYTHM. absent: Tachycardia - GI/Abdominal Exam GI & Abdominal Exam: Soft. absent: Distended, Tenderness - Extremities Exam Extremities Exam: absent: Calf Tenderness, Pedal Edema Additional comments: Right foot dressing changed, new gauze and wrapped in MOHAMUD bandage. No drainage noted. ROM at ankle intact - Neurological Exam Neurological Exam: Alert, Awake, Oriented x3 - Psychiatric Exam Psychiatric exam: Normal Affect, Normal Mood - Skin Skin Exam: Dry, Normal Color, Warm Assessment and Plan - Assessment and Plan (Free Text) Assessment: Patient is a 57 yo male w/ PMH of emphysema, HTN, HLD, osteomyelitis, and DM2 admitted to hospital for operation of lower extremity. S/P 4th toe digit amputation and 1st toe base debridement. Bone cx positive for enterobacter cloacae. Pending IR picc line for d/c Osteomyelitis s/p 4th digit right toe amputation and right 1st digit base debridement Podiatry Consulted: Dr. Michoacano holt as below ID Consulted: Dr. David holt as below Meropenem 1000mg q8, Vanc 1gm q12 afebrile, wbc trending down Oxy 5 q6 prn mild pain; oxy 10 q6 prn moderate pain; colace 100mg po bid Bone cx positive for enterobacter clocae pending picc line insertion Repeat CBC pending Hx of HTN Enalapril 10mg po daily HCTZ 25mg po daily monitor bp Hx of Emphysema Duoneb Breo Ellipta Hx of HLD Lipid panel- shows elevated TGs, normal LDL, HDL, chol Fenofibrate 67mg po daily Aspirin 81mg daily Hx of DM2 ISS regular ACHS Metformin 500mg po bid Amaryl 2mg po daily Hx of chronic back pain Oxy 5; Oxy 10 as above Lidocaine patch 1 TD daily DVT ppx: Heparin 5000 sc q8, SCDs left leg only GI ppx: Lactoacid bacillus 1 cap po bid (2 hrs after IV abx) Disposition: PICC line in AM then d/c with IV infusions at home PGY-1 Petra Chinchilla Medical Management discussed with Dr. Ramsay <Nivia Ramsay V - Last Filed: 04/25/18 19:39> Objective - Vital Signs/Intake and Output Vital Signs (last 24 hours): Temp Pulse Resp BP Pulse Ox 98.3 F 66 20 156/81 H 98 04/25/18 08:29 04/25/18 08:29 04/25/18 08:29 04/25/18 09:48 04/25/18 08:29 - Labs Labs: 04/25/18 07:13 04/25/18 07:13 Attending/Attestation - Attestation I have personally seen and examined this patient.: Yes I have fully participated in the care of the patient.: Yes I have reviewed all pertinent clinical information, including history, physical exam and plan: Yes Notes (Text): this is late computer entry for 04/24/18. Patient seen, examined, and case discussed with medical pathologist. Patient is awaiting PICC line placement; I have spoken with Dr. Reid, IR and Dr. Sampson, physician/hospital middleware administrator in regards to PICC line since this is pending for the patient. PICC line unable to be placed by PICC line nurse because the machine is broken. I have spoken with IR who is aware of the situation and will try to add to schedule today. Patient to be discharged on Meropenem 1gram IV Q8H for 6 week course for osteomyelitis.
[2018-04-24 16:22] VITALS: RESP 20
--- NOTE | 2018-04-24 18:40 | CP.PCM.PN ---
Subjective - Date & Time of Evaluation Date of Evaluation: 04/24/18 Time of Evaluation: 08:00 - Subjective Subjective: Podiatry Progress Note for Dr. Urrutia 57M seen at bedside by Dr. Urrutia s/p right foot fourth digit amputation and excision of bone from plantar first metatarsal. Patient is AAO x 3 and NAD, resting comfortably in bed. Denies any acute overnight events or new pedal complaints at this time. Denies N/V/F/C/CP/SOB/D Objective - Vital Signs/Intake and Output Vital Signs (last 24 hours): Temp Pulse Resp BP Pulse Ox 98.2 F 79 20 150/80 97 04/24/18 15:00 04/24/18 15:00 04/24/18 15:00 04/24/18 15:00 04/24/18 15:00 Intake and Output: 04/24/18 04/24/18 06:59 18:59 Intake Total 950 600 Balance 950 600 - Medications Medications: Current Medications Albuterol (Ventolin Hfa 90 Mcg/Actuation (8 G)) 1 puff IH Q4 PRN PRN Reason: Shortness of Breath Aspirin (Ecotrin) 81 mg PO DAILY [facility] Last Admin: 04/24/18 09:52 Dose: 81 mg Dextrose (Dextrose 50% Inj) 0 ml IV STAT PRN; Protocol PRN Reason: Hypoglycemia Protocol Dextrose (Glutose 15) 0 gm PO ONCE PRN; Protocol PRN Reason: Hypoglycemia Protocol Docusate Sodium (Colace) 100 mg PO BID [facility] Last Admin: 04/24/18 17:49 Dose: 100 mg Enalapril Maleate (Vasotec) 10 mg PO DAILY [facility] Last Admin: 04/24/18 09:51 Dose: 10 mg Fenofibrate (Tricor) 48 mg PO DAILY [facility] Last Admin: 04/24/18 11:00 Dose: 48 mg Fluticasone/Vilanterol (Breo Ellipta 100-25 Mcg Inh) 1 puff INH RQD [facility] Last Admin: 04/24/18 07:30 Dose: Not Given Glimepiride (Amaryl) 2 mg PO ACB [facility] Last Admin: 04/24/18 08:17 Dose: 2 mg Glucagon (Glucagen Diagnostic Kit) 0 mg IM STAT PRN; Protocol PRN Reason: Hypoglycemia Protocol Heparin Sodium (Porcine) (Heparin) 5,000 units SC Q8 [facility] Last Admin: 04/24/18 14:02 Dose: Not Given Hydrochlorothiazide (Hydrodiuril) 25 mg PO DAILY [facility] Last Admin: 04/24/18 09:52 Dose: 25 mg Dextrose (Dextrose 5% In Water 1000 Ml) 1,000 mls @ 0 mls/hr IV .Q0M PRN; Protocol PRN Reason: Hypoglycemia Protocol Vancomycin/Sodium Chloride (Vancomycin 1 Gm/Ns 200 Ml) 1 gm in 200 mls @ 133 mls/hr IVPB Q12H [facility]; Protocol Stop: 04/26/18 03:31 Last Admin: 04/24/18 16:00 Dose: 133 mls/hr Meropenem 1,000 mg/ Sodium (Chloride) 100 mls @ 100 mls/hr IVPB Q8H [facility]; Protocol Last Admin: 04/24/18 17:50 Dose: 100 mls/hr Insulin Human Regular (Novolin R) 0 unit SC ACHS [facility]; Protocol Last Admin: 04/24/18 17:51 Dose: 6 units Lactobacillus Acidophilus (Bacid Acidophilus) 1 cap PO BID [facility] Last Admin: 04/24/18 17:46 Dose: 1 cap Lidocaine (Lidoderm) 1 ea TD DAILY [facility] Last Admin: 04/24/18 09:50 Dose: 1 ea Metformin HCl (Glucophage) 500 mg PO BIDCC [facility] Last Admin: 04/24/18 17:48 Dose: 500 mg Oxycodone HCl (Oxycodone Immediate Release Tab) 15 mg PO Q6 [facility] Last Admin: 04/24/18 17:46 Dose: 15 mg - Labs Labs: 04/24/18 07:20 04/24/18 07:20 - Constitutional Appears: Well, Non-toxic, No Acute Distress - Extremities Exam Additional comments: Dressing changed by Dr. Urrutia Dressing left intact during evaluation by resident - Neurological Exam Neurological Exam: Alert, Awake, Oriented x3 - Psychiatric Exam Psychiatric exam: Normal Affect, Normal Mood Assessment and Plan - Assessment and Plan (Free Text) Assessment: 57M seen at bedside by Dr. Urrutia s/p right foot fourth digit amputation and excision of bone from plantar first metatarsal Plan: Patient seen and evaluated by Dr. Urrutia Clear for discharge from podiatric standpoint Podiatry will continue to follow while patient in house
[2018-04-25] MEDS: oxyCODONE 5 mg Immediate Release Tab PO SCH ×2 (00:30→05:45)
[2018-04-25] MEDS: Meropenem 1,000 MG in Sodium Chloride 0.9% 100 ML IVPB SCH ×2 (01:00→09:50)
[2018-04-25] MEDS ORDERED: Oxycodone/Acetaminophen 5/325 mg Tab PO ONE ×2 (01:03→08:00)
--- NOTE | 2018-04-25 02:32 | PN ---
DATE: 04/24/2018 SUBJECTIVE: The patient is still waiting to get a PICC line in as there were too many people getting PICC lines and other procedures. Today, IR was busy. PHYSICAL EXAMINATION: VITAL SIGNS: T-max is 98.2, pulse 79, blood pressure 150/80, respirations are 20. HEAD: Atraumatic, normocephalic. NECK: Supple. LUNGS: Clear. HEART: S1, S2, regular. ABDOMEN: Soft, nontender. No guarding, no rigidity present. EXTREMITIES: Right foot has a dressing at this time. LABORATORY DATA: Labs are noted. White count is 9.3, hemoglobin 12.5, hematocrit 37.7, platelet count is 431. Micro ashley, the wound culture has had Enterobacter cloacae and they want to give if he could go on ertapenem. ASSESSMENT AND PLAN: I would give him meropenem as ertapenem has no role in osteomyelitis. There are not studies done and they say it is only good for diabetic foot, so we will leave him on meropenem at this time to go with it, as he does have extensive foot problems and he is waiting for the peripherally inserted central catheter line. Probably, vancomycin can be discontinued when he makes it out of the hospital. He is supposed to follow in my office after 10 days and he would be going on 35, maybe 36 days of antibiotics. We will follow. Jackie Wilson MD
[2018-04-25] MEDS: Vancomycin 1 gm/NS 200 ml 1 GM/200 ML BAG IVPB SCH (03:00)
[2018-04-25 07:21] LABS: BASO # 0.1 K/uL (0.0-0.2); BASO % 1.1 % (0.0-2.0); EOS # 0.2 K/uL (0.0-0.7); EOS % 2.3 % (0.0-4.0); LYMPH # 2.2 K/uL (1.0-4.3); LYMPH % 20.9 % (20.0-40.0); MEAN CELL VOLUME 89.3 fL (80.0-94.0); MEAN CORPUSCULAR HEMOGLOBIN 29.8 pg (27.0-31.0); MEAN CORPUSCULAR HGB CONC 33.3 g/dL (33.0-37.0); MONO # 0.7 K/uL (0.0-0.8); MONO % 6.8 % (0.0-10.0); NEUT # 7.2 K/uL (1.8-7.0); NEUT % 68.9 % (50.0-75.0); RBC 4.38 Mil/uL (4.40-5.90); RED CELL DISTRIBUTION WIDTH 13.1 % (11.5-14.5); WHITE BLOOD COUNT 10.4 K/uL (4.8-10.8)
[2018-04-25 07:48] LABS: ALB/GLOB RATIO 1.3 (1.0-2.1); ALT/SGPT 21 U/L (21-72); AST/SGOT 22 U/L (17-59); BLOOD UREA NITROGEN 27 mg/dL (9-20); CALCIUM 9.1 mg/dl (8.6-10.4); GFR NON-AFRICAN AMERICAN > 60
[2018-04-25] MEDS: (Novolin R) Insulin Human Regular 100 units/ml vial SC SCH ×2 (08:13→12:22)
[2018-04-25 08:30] VITALS: BP 156/81; PULSE 66; TEMP 98.3; O2SAT 98
--- NOTE | 2018-04-25 09:07 | CP.PCM.PCO ---
Physician Communication Note - Physician Communication Note Physician Communication Note: Patient is medically stable for discharge. His discharge is pending is PICC
[2018-04-25] MEDS: Fluticasone-Vilanterol 100/25mcg Diskus INH SCH (09:27)
[2018-04-25] MEDS: Lactobacillus Acidophilus 500 MU Cap PO SCH (09:47)
[2018-04-25] MEDS: Lidocaine 5% Patch TD SCH (09:49)
--- NOTE | 2018-04-25 11:44 | PCM.SURG1 ---
Surgeon's Initial Post Op Note - Surgeon's Notes Surgeon: Kenrick Marie MD Insurance Account Representative: NONE Type of Anesthesia: Local Pre-Operative Diagnosis: Poor venous acccess Operative Findings: US showed patent right brachial vein Post-Operative Diagnosis: Poor venous access Operation Performed: Single lumen picc right arm, 39 cm Specimen/Specimens Removed: none Estimated Blood Loss: EBL {In ML}: 2 Blood Products Given: N/A Drains Used: No Drains Post-Op Condition: Fair Date of Surgery/Procedure: 04/25/18 Time of Surgery/Procedure: 11:00
--- NOTE | 2018-04-25 15:52 | CP.PCM.DIS ---
<Petra Chinchilla - Last Filed: 04/25/18 15:49> Provider - Provider Date of Admission: 04/19/18 10:04 Attending physician: Juan Carlos Flynn MD Consults: 04/19/18 14:51 Infectious Disease Consult Routine Comment: Consulting Provider: Jackie Wilson Consulting Physician: Jackie Wilson Reason for Consult: Osteomyelitis Abx duration Time Spent in preparation of Discharge (in minutes): 45 Diagnosis - Discharge Diagnosis (1) Osteomyelitis Status: Acute (2) Diabetes Status: Chronic Priority: Medium Hospital Course - Lab Results Lab Results: Micro Results 04/19/18 13:45 Blood Blood Culture - Final NO GROWTH AFTER 5 DAYS 04/19/18 13:45 Blood Gram Stain - Final TEST NOT PERFORMED 04/19/18 12:48 Blood Blood Culture - Final NO GROWTH AFTER 5 DAYS 04/19/18 12:48 Blood Gram Stain - Final TEST NOT PERFORMED 04/19/18 10:31 Bone Gram Stain - Final 04/19/18 10:31 Bone Tissue Culture - Final Enterobacter Cloacae Ssp Cloac Most Recent Lab Values WBC 10.4 K/uL (4.8-10.8) 04/25/18 07:13 RBC 4.38 Mil/uL (4.40-5.90) L 04/25/18 07:13 Hgb 13.0 g/dL (12.0-18.0) 04/25/18 07:13 Hct 39.1 % (35.0-51.0) 04/25/18 07:13 MCV 89.3 fL (80.0-94.0) 04/25/18 07:13 MCH 29.8 pg (27.0-31.0) 04/25/18 07:13 MCHC 33.3 g/dL (33.0-37.0) 04/25/18 07:13 RDW 13.1 % (11.5-14.5) 04/25/18 07:13 Plt Count 435 K/uL (130-400) H 04/25/18 07:13 MPV 8.0 fL (7.2-11.7) 04/25/18 07:13 Neut % (Auto) 68.9 % (50.0-75.0) 04/25/18 07:13 Lymph % (Auto) 20.9 % (20.0-40.0) 04/25/18 07:13 [place] % (Auto) 6.8 % (0.0-10.0) 04/25/18 07:13 Eos % (Auto) 2.3 % (0.0-4.0) 04/25/18 07:13 Baso % (Auto) 1.1 % (0.0-2.0) 04/25/18 07:13 Neut # (Auto) 7.2 K/uL (1.8-7.0) H 04/25/18 07:13 Lymph # (Auto) 2.2 K/uL (1.0-4.3) 04/25/18 07:13 [place] # (Auto) 0.7 K/uL (0.0-0.8) 04/25/18 07:13 Eos # (Auto) 0.2 K/uL (0.0-0.7) 04/25/18 07:13 Baso # (Auto) 0.1 K/uL (0.0-0.2) 04/25/18 07:13 ESR 65 mm/hr (0-15) H 04/20/18 06:32 Sodium 136 mmol/L (132-148) 04/25/18 07:13 Potassium 4.8 mmol/L (3.6-5.2) 04/25/18 07:13 Chloride 100 mmol/L (98-107) 04/25/18 07:13 Carbon Dioxide 27 mmol/L (22-30) 04/25/18 07:13 Anion Gap 13 (10-20) 04/25/18 07:13 BUN 27 mg/dL (9-20) H 04/25/18 07:13 Creatinine 1.0 mg/dL (0.8-1.5) 04/25/18 07:13 Est GFR ( Amer) > 60 04/25/18 07:13 Est GFR (Non-Af Amer) > 60 04/25/18 07:13 POC Glucose (mg/dL) 310 mg/dL (65-110) H 04/25/18 11:26 Random Glucose 278 mg/dL (75-110) H 04/25/18 07:13 Calcium 9.1 mg/dl (8.6-10.4) 04/25/18 07:13 Phosphorus 3.5 mg/dL (2.5-4.5) 04/25/18 07:13 Magnesium 1.8 mg/dL (1.6-2.3) 04/25/18 07:13 Total Bilirubin 0.4 mg/dL (0.2-1.3) 04/25/18 07:13 AST 22 U/L (17-59) 04/25/18 07:13 ALT 21 U/L (21-72) D 04/25/18 07:13 Alkaline Phosphatase 45 U/L (38-126) 04/25/18 07:13 Total Protein 7.2 g/dL (6.3-8.3) 04/25/18 07:13 Albumin 4.0 g/dL (3.5-5.0) 04/25/18 07:13 Globulin 3.2 gm/dL (2.2-3.9) 04/25/18 07:13 Albumin/Globulin Ratio 1.3 (1.0-2.1) 04/25/18 07:13 Triglycerides 242 mg/dL (0-149) H D 04/19/18 12:48 Cholesterol 105 mg/dL (0-199) 04/19/18 12:48 LDL Cholesterol Direct 70 mg/dL (0-129) 04/19/18 12:48 HDL Cholesterol 20 mg/dL (30-70) L 04/19/18 12:48 TSH 3rd Generation 0.98 mIU/L (0.46-4.68) 04/19/18 12:48 Vancomycin Trough 9.5 ug/mL (5.0-10.0) 04/22/18 15:53 Nicotine Metabolite 2 ng/ml 04/19/18 10:54 Cotinine 148 ng/ml 04/19/18 10:54 4-Yvzlbgs-Briyraec 113 ng/ml 04/19/18 10:54 - Hospital Course Hospital Course: Upon Admission Patient is a 57 yo male w/ PMH of emphysema, HTN, HLD, osteomyelitis, and DM2 a dmitted to hospital for operation of lower extremity. Patient states that two weeks ago he went to visit his crown pouncer who has been managing his ulcers on the lower extremity. Patient states at this time his doctor set up an appointment for surgical debridement of the 1st metatarsal. However, by the time the foot was re-evaluated two weeks later the crown pouncer noted further changes on the 4th digit of his foot. Patient went for surgical debridement and amputation. Post-op patient states he has pain in his lower extremity. Describes it as sharp pain, worsened with movement or touching and relieved with rest. Denies fevers, chills, chest pain, sob, n/v, constipation or diarrhea, and dysuria. Hospital Course Patient admitted for surgical debridement and amputation by podiatry. Patient intraop culture was positive for enterobacter clocae. Patient was initially treated with meropenem and vancomycin. After microbiology cx patient was continued on IV meropenem. Patient was continued on all home medications except for Tradjenta (not on hospital formulary). Patient was discharged with PICC line for IV infusions at home with education to continue all home meds upon discharge. Case management assisted on patient getting IV infusions. Patient will follow up with Dr. Wilson, ID, and pmd + podiatry. Discharge Plan Patient is medically stable for discharge when he has received PICC line and setup for home infusion. Patient to be on Meropenem 1gm IV Q8H for 6 weeks for 04/22/18- 06/03/18. Patient is to follow-up with in ten days on discharge Patient will resume all home medications and follow up with primary medical doctor and crown pouncer. Discharge Exam - Additional Findings Additional findings: - Constitutional Appears: Non-toxic, No Acute Distress - Head Exam Head Exam: ATRAUMATIC, NORMAL INSPECTION, NORMOCEPHALIC - Eye Exam Eye Exam: EOMI, Normal appearance - ENT Exam ENT Exam: Mucous Membranes Moist, Normal Exam - Neck Exam Neck Exam: Normal Inspection - Respiratory Exam Respiratory Exam: Clear to Ausculation Bilateral, NORMAL BREATHING PATTERN - Cardiovascular Exam Cardiovascular Exam: REGULAR RHYTHM. absent: Tachycardia - GI/Abdominal Exam GI & Abdominal Exam: Soft. absent: Distended, Tenderness - Extremities Exam Extremities Exam: absent: Calf Tenderness, Pedal Edema Additional comments: Right foot dressing changed, new gauze and wrapped in MOHAMUD bandage. No drainage noted. ROM at ankle intact - Neurological Exam Neurological Exam: Alert, Awake, Oriented x3 - Psychiatric Exam Psychiatric exam: Normal Affect, Normal Mood - Skin Skin Exam: Dry, Normal Color, Warm Discharge Plan - Discharge Medications Prescriptions: RX: Enalapril Maleate [Vasotec] 10 mg PO DAILY #30 tab RX: Fluticasone/Vilanterol 100/25 [Breo Ellipta 100-25 MCG INH] 1 puff INH RQD #1 puff RX: hydroCHLOROthiazide [Hydrodiuril] 25 mg PO DAILY #30 tab RX: Meropenem [Merrem] 1 gm IV Q8H 42 Days vial RX: metFORMIN [glucOPHAGE] 500 mg PO BIDCC #60 tab - Follow Up Plan Condition: GOOD Disposition: HOME/ ROUTINE Instructions: Osteomyelitis, Fluticasone and Vilanterol, Enalapril, Hydrochlorothiazide, Meropenem, Metformin Additional Instructions: Patient is medically stable for discharge when he has received PICC line and setup for home infusion. Patient to be on Meropenem 1gm IV Q8H for 6 weeks for 04/22/18- 06/03/18. Patient is to follow-up with in ten days on discharge Referrals: Jackie Wilson MD [Staff Provider] - <Nivia Ramsay V - Last Filed: 04/25/18 19:43> Provider - Provider Date of Admission: 04/19/18 10:04 Attending physician: Juan Carlos Flynn MD Consults: 04/19/18 14:51 Infectious Disease Consult Routine Comment: Consulting Provider: Jackie Wilson Consulting Physician: Jackie Wilson Reason for Consult: Osteomyelitis Abx duration Hospital Course - Lab Results Lab Results: Micro Results 04/19/18 13:45 Blood Blood Culture - Final NO GROWTH AFTER 5 DAYS 04/19/18 13:45 Blood Gram Stain - Final TEST NOT PERFORMED 04/19/18 12:48 Blood Blood Culture - Final NO GROWTH AFTER 5 DAYS 04/19/18 12:48 Blood Gram Stain - Final TEST NOT PERFORMED 04/19/18 10:31 Bone Gram Stain - Final 04/19/18 10:31 Bone Tissue Culture - Final Enterobacter Cloacae Ssp Cloac Most Recent Lab Values WBC 10.4 K/uL (4.8-10.8) 04/25/18 07:13 RBC 4.38 Mil/uL (4.40-5.90) L 04/25/18 07:13 Hgb 13.0 g/dL (12.0-18.0) 04/25/18 07:13 Hct 39.1 % (35.0-51.0) 04/25/18 07:13 MCV 89.3 fL (80.0-94.0) 04/25/18 07:13 MCH 29.8 pg (27.0-31.0) 04/25/18 07:13 MCHC 33.3 g/dL (33.0-37.0) 04/25/18 07:13 RDW 13.1 % (11.5-14.5) 04/25/18 07:13 Plt Count 435 K/uL (130-400) H 04/25/18 07:13 MPV 8.0 fL (7.2-11.7) 04/25/18 07:13 Neut % (Auto) 68.9 % (50.0-75.0) 04/25/18 07:13 Lymph % (Auto) 20.9 % (20.0-40.0) 04/25/18 07:13 [place] % (Auto) 6.8 % (0.0-10.0) 04/25/18 07:13 Eos % (Auto) 2.3 % (0.0-4.0) 04/25/18 07:13 Baso % (Auto) 1.1 % (0.0-2.0) 04/25/18 07:13 Neut # (Auto) 7.2 K/uL (1.8-7.0) H 04/25/18 07:13 Lymph # (Auto) 2.2 K/uL (1.0-4.3) 04/25/18 07:13 [place] # (Auto) 0.7 K/uL (0.0-0.8) 04/25/18 07:13 Eos # (Auto) 0.2 K/uL (0.0-0.7) 04/25/18 07:13 Baso # (Auto) 0.1 K/uL (0.0-0.2) 04/25/18 07:13 ESR 65 mm/hr (0-15) H 04/20/18 06:32 Sodium 136 mmol/L (132-148) 04/25/18 07:13 Potassium 4.8 mmol/L (3.6-5.2) 04/25/18 07:13 Chloride 100 mmol/L (98-107) 04/25/18 07:13 Carbon Dioxide 27 mmol/L (22-30) 04/25/18 07:13 Anion Gap 13 (10-20) 04/25/18 07:13 BUN 27 mg/dL (9-20) H 04/25/18 07:13 Creatinine 1.0 mg/dL (0.8-1.5) 04/25/18 07:13 Est GFR ( Amer) > 60 04/25/18 07:13 Est GFR (Non-Af Amer) > 60 04/25/18 07:13 POC Glucose (mg/dL) 310 mg/dL (65-110) H 04/25/18 11:26 Random Glucose 278 mg/dL (75-110) H 04/25/18 07:13 Calcium 9.1 mg/dl (8.6-10.4) 04/25/18 07:13 Phosphorus 3.5 mg/dL (2.5-4.5) 04/25/18 07:13 Magnesium 1.8 mg/dL (1.6-2.3) 04/25/18 07:13 Total Bilirubin 0.4 mg/dL (0.2-1.3) 04/25/18 07:13 AST 22 U/L (17-59) 04/25/18 07:13 ALT 21 U/L (21-72) D 04/25/18 07:13 Alkaline Phosphatase 45 U/L (38-126) 04/25/18 07:13 Total Protein 7.2 g/dL (6.3-8.3) 04/25/18 07:13 Albumin 4.0 g/dL (3.5-5.0) 04/25/18 07:13 Globulin 3.2 gm/dL (2.2-3.9) 04/25/18 07:13 Albumin/Globulin Ratio 1.3 (1.0-2.1) 04/25/18 07:13 Triglycerides 242 mg/dL (0-149) H D 04/19/18 12:48 Cholesterol 105 mg/dL (0-199) 04/19/18 12:48 LDL Cholesterol Direct 70 mg/dL (0-129) 04/19/18 12:48 HDL Cholesterol 20 mg/dL (30-70) L 04/19/18 12:48 TSH 3rd Generation 0.98 mIU/L (0.46-4.68) 04/19/18 12:48 Vancomycin Trough 9.5 ug/mL (5.0-10.0) 04/22/18 15:53 Nicotine Metabolite 2 ng/ml 04/19/18 10:54 Cotinine 148 ng/ml 04/19/18 10:54 7-Rznwpbc-Mwnbpzim 113 ng/ml 04/19/18 10:54 Attending/Attestation - Attestation I have personally seen and examined this patient.: Yes I have fully participated in the care of the patient.: Yes I have reviewed all pertinent clinical information, including history, physical exam and plan: Yes Notes (Text): Patient seen, examined and case discussed with biomedical engineering director. Patient see at bedside. Patient able to perform dressing changes as seen during our encounter today. Patient received PICC line and setup and called to confirmed with home transfusion personal that they will be there later today for him to receive the rest of his Meropenem 1gm IV Q8H to complete his 6 week course. Patient is aware he will follow-up with Dr. Wilson 10 days from discharge as well as Dr. Carney. Patient to resume his diabetic regiment which he is aware. This is a brief summary of patient's hospitalization. Please refer to EMR for further detail of record.
--- NOTE | 2018-04-25 16:43 | CP.PCM.PN ---
Subjective - Date & Time of Evaluation Date of Evaluation: 04/25/18 Time of Evaluation: 09:45 - Subjective Subjective: Podiatry Progress Note for Dr. Urrutia 57M seen at bedside with Dr. rUrutia s/p right foot fourth digit amputation and excision of bone from plantar first metatarsal (DOS: 04/19/18). Patient is AAO x 3 and NAD, resting comfortably in bed. States that he had his PICC line placed today. Denies any acute overnight events or new pedal complaints. States that his pain is well controlled. Denies any further pedal complaints at this time. Denies any recent N/V/F/C/CP/SOB/D Objective - Vital Signs/Intake and Output Vital Signs (last 24 hours): Temp Pulse Resp BP Pulse Ox 98.3 F 66 20 156/81 H 98 04/25/18 08:29 04/25/18 08:29 04/25/18 08:29 04/25/18 09:48 04/25/18 08:29 Intake and Output: 04/25/18 04/25/18 06:59 18:59 Intake Total 900 Balance 900 - Labs Labs: 04/25/18 07:13 04/25/18 07:13 - Constitutional Appears: Well, Non-toxic, No Acute Distress - Extremities Exam Additional comments: LE focused exam: Vasc: DP/PT pulses fully palpable 2/4. Temperature gradient is warm to warm from proximal to distal WNL. Capillary refill < 3 sec x 4 digits. No edema noted to forefoot Derm: Open wound noted to 3rd interspace s/p 4th digit amputation spanning approx 6cm from dorsal to plantar and approx 2cm wide, 0.7cm in depth. No active drainage or purulence, no malodor, no fluctuance present. Additional surgical site sub metatarsal head 1 with linear longitudinal incision approx 6cm in length with retention sutures intact and skin edges well-coapted. No signs of dehiscence, no drainage or purulence. No clinical signs of infection at either surgical site. Neuro: Epicritic and protective sensation grossly diminished MSK: Mild pain on palpation to surgical sites. No other gross deformities noted - Neurological Exam Neurological Exam: Alert, Awake, Oriented x3 - Psychiatric Exam Psychiatric exam: Normal Affect, Normal Mood Assessment and Plan - Assessment and Plan (Free Text) Assessment: 57M seen at bedside with Dr. Urrutia s/p right foot fourth digit amputation and excision of bone from plantar first metatarsal (DOS: 04/19/18). Plan: Patient seen and evaluated with Dr. Urrutia Absent leukocytosis, afebrile Patient stable from podiatric standpoint for discharge home on IV abx per ID Patient will follow up with Dr. Urrutia on an outpatient basis
--- NOTE | 2018-04-26 13:57 | RAD ---
PROCEDURE: Date of procedure: 04/25/2018 Procedure: 1. Placement of a right arm PICC with ultrasound and fluoroscopic guidance, CPT 55790 2. PICC tip confirmation with spot radiograph and is in the superior vena cava Medications: 3cc 1 percent lidocaine Total Fluoro time: 2.6 Seconds Radiation: 1.2 MGy EBL: 2 cc HISTORY: Infection requiring long-term IV antibiotics TECHNIQUE: Following informed consent and procedure time-out, the patient was placed supine on the interventional table and the right arm prepped and draped in the usual sterile fashion. Ultrasound showed a patent and compressible right basilic vein. After the skin was anesthetized with lidocaine, the basilic vein was accessed with micro micropuncture technique using ultrasound guidance. A guidewire was then advanced under fluoroscopic guidance into the superior vena cava. An image documenting ultrasound guidance for vascular access was permanently saved. The length of the single-lumen 4 Czech PICC was trimmed to 39 centimeters and advanced through a peel-away sheath. The PICC was position with tip of PICC confirm a spot radiograph the superior vena cava. The PICC was secured to the patient's skin. The PICC was flushed. A biopatch and sterile dressing was applied. IMPRESSION: Placement of a single-lumen 4 Czech PICC trimmed to 39 centimeters via right basilic vein. The tip of the PICC is confirmed with spot radiograph and is in the superior vena cava.
--- NOTE | 2018-04-26 14:00 | US ---
Date of procedure: 04/25/2018 Procedure: Ultrasound guidance for vascular access HISTORY: Infection requiring long-term IV antibiotics TECHNIQUE: Following informed consent and procedure time-out, the patient placed supine on the interventional table and the right arm prepped and draped in the usual sterile fashion. Ultrasound showed a patent and compressible basilic vein. After the skin was anesthetized with lidocaine, the basilic vein was accessed with micro micropuncture technique using ultrasound guidance. An image documenting ultrasound guidance for vascular access was permanently saved. IMPRESSION: Ultrasound guidance for vascular access for placement of PICC.
== END 2018-04-25 12:58 | disposition home health service (06) | DRG 617 ==
LOC: C.SDS 06:03 → C.9S 10:04 → C.5S 14:21 → C.3T 04-23 10:48
PROVIDERS: ADMIT Family Medicine; ATTEND Family Medicine
PROC: 0QBN0ZZ Excision of Right Metatarsal, Open Approach (ICD-10-PCS; 2018-04-19)
PROC: 0JBQ0ZZ Excision of Right Foot Subcutaneous Tissue and Fascia, Open Approach (ICD-10-PCS; 2018-04-19)
PROC: 0Y6V0Z0 Detachment at Right 4th Toe, Complete, Open Approach (ICD-10-PCS; principal; 2018-04-19 08:00)
PROC: 02HV33Z Insertion of Infusion Device into Superior Vena Cava, Percutaneous Approach (ICD-10-PCS; 2018-04-25)
PROC: B518ZZA Fluoroscopy of Superior Vena Cava, Guidance (ICD-10-PCS; 2018-04-25)
DX: E11.621 Type 2 diabetes mellitus with foot ulcer (principal); M86.9 Osteomyelitis, unspecified; E11.69 Type 2 diabetes mellitus with other specified complication; E11.42 Type 2 diabetes mellitus with diabetic polyneuropathy; L97.519 Non-pressure chronic ulcer of other part of right foot with unspecified severity; E11.51 Type 2 diabetes mellitus with diabetic peripheral angiopathy without gangrene; D72.829 Elevated white blood cell count, unspecified; I11.9 Hypertensive heart disease without heart failure; J43.9 Emphysema, unspecified; M19.90 Unspecified osteoarthritis, unspecified site; I51.9 Heart disease, unspecified; E78.5 Hyperlipidemia, unspecified; E78.00 Pure hypercholesterolemia, unspecified; F17.210 Nicotine dependence, cigarettes, uncomplicated; Z79.82 Long term (current) use of aspirin; Z79.84 Long term (current) use of oral hypoglycemic drugs; Z88.5 Allergy status to narcotic agent; Z90.49 Acquired absence of other specified parts of digestive tract; Z82.49 Family history of ischemic heart disease and other diseases of the circulatory system; Z83.3 Family history of diabetes mellitus

== ENCOUNTER 2018-06-14 08:16 | Outpatient (CLI) | payer MEDICARE, MEDICAID | END 2018-06-14 08:52 | disposition still patient (30) | LOC: C.RADH 08:16 | DX: M86.271 Subacute osteomyelitis, right ankle and foot (principal); E10.41 Type 1 diabetes mellitus with diabetic mononeuropathy; L97.911 Non-pressure chronic ulcer of unspecified part of right lower leg limited to breakdown of skin ==

== ENCOUNTER 2018-06-14 08:53 | Emergency (ER) | payer MEDICARE, MEDICAID ==
[2018-06-14 08:54] VITALS: BMI 28.8
--- NOTE | 2018-06-14 10:22 | C.PDOC ---
History Of Present Illness 57 year old male presents to ED with complaint of his PICC line not functioning properly. Patient administers his own at home daily Vancomycin infusions for treatment of his chronic right foot infection s/p amputation. PICC line nurse unable to take blood to start lab. Patient denies redness, swelling, pain, weakness, numbness, fever, and chills. Time Seen by Provider: 06/14/18 09:58 Chief Complaint (Nursing): Medical Clearance History Per: Patient History/Exam Limitations: no limitations Onset/Duration Of Symptoms: Other (PICC line not functioning properly) Current Symptoms Are (Timing): Still Present Past Medical History Reviewed: Historical Data, Nursing Documentation, Vital Signs - Medical History PMH: COPD (Emphlsema,), Diabetes, Emphysema, HTN, Hypercholesterolemia, Hyperlipidemia, End Stage Renal Disease Surgical History: Appendectomy (5 yrs ago) - [facility] Procedures CENTRAL VENOUS CATHETER PLACEMENT WITH GUIDANCE (11/13/14) DETACHMENT AT RIGHT 4TH TOE, COMPLETE, OPEN APPROACH (04/19/18) EXCIS DEBRIDE OF WOUND, INFECT, OR BURN (07/16/14) EXCISION OF R FOOT SUBCU/FASCIA, OPEN APPROACH (04/19/18) EXCISION OF RIGHT METATARSAL, OPEN APPROACH (04/19/18) FLUOROSCOPY OF SUPERIOR VENA CAVA, GUIDANCE (04/19/18) INSERTION OF INFUSION DEV INTO SUP VENA CAVA, PERC APPROACH (04/19/18) OTH METATARS/TARS INCIS (07/16/14) PART OSTECT-METATAR/TAR (10/29/13) Family History: States: Unknown Family Hx - Social History Hx Tobacco Use: Yes Hx Alcohol Use: No Hx Substance Use: No - Immunization History Hx Tetanus Toxoid Vaccination: No Hx Influenza Vaccination: No Hx Pneumococcal Vaccination: No Review Of Systems Constitutional: Negative for: Fever, Chills, Weakness Cardiovascular: Negative for: Chest Pain, Palpitations Respiratory: Negative for: Shortness of Breath Skin: Negative for: Rash Neurological: Negative for: Weakness, Numbness, Dizziness Physical Exam - Physical Exam Appears: Non-toxic, No Acute Distress Skin: Normal Color, Warm, Dry Head: Atraumatic, Normacephalic Neck: Normal ROM, Supple Chest: Symmetrical, No Deformity Cardiovascular: Rhythm Regular, No Murmur Respiratory: No Accessory Muscle Use, No Rales, No Rhonchi, No Wheezing Extremity: Capillary Refill (<2 seconds), Other (PICC line insert to the right upper arm) Neurological/Psych: Oriented x3, Normal Speech, Normal Cognition ED Course And Treatment - Other Rad CXR X-Ray: Interpreted by Me, Viewed By Me Interpretation: IMPRESSION: Right PICC line terminates at the cavoatrial junction. No acute findings. Progress Note: CXR ordered for patient. Patient given Cathflo IV. CXR: Good PICC line insertion. Discussed with PICC line nurse. PICC line nurse will come to see patient. Medical Decision Making Medical Decision Making: PICC line cleaned/opened by PICC line nurse excellent function now. Disposition Doctor Will See Patient In The: Office Counseled Patient/Family Regarding: Studies Performed, Diagnosis - Disposition Disposition: HOME/ ROUTINE Disposition Time: 12:32 Condition: GOOD Forms: [facility] (Polish) - Clinical Impression Clinical Impression: Occluded PICC line - Scribe Statement The provider has reviewed the documentation as recorded by the Scribe (Shonna Negrete) All medical record entries made by the Scribe were at my direction and personally dictated by me. I have reviewed the chart and agree that the record accurately reflects my personal performance of the history, physical exam, medical decision making, and the department course for this patient. I have also personally directed, reviewed, and agree with the discharge instructions and disposition.
--- NOTE | 2018-06-14 10:31 | RAD ---
Date of service: 06/14/2018 PROCEDURE: CHEST RADIOGRAPH, 1 VIEW HISTORY: check for PICC line placement COMPARISON: 10/18/2016. FINDINGS: The right PICC line terminates at the cavoatrial junction LUNGS: The lungs are well inflated and clear. There is linear atelectasis/scarring in the left lower lobe. PLEURA: No pneumothorax or pleural effusion. CARDIOVASCULAR: The heart is normal in size. No aortic atherosclerotic calcifications present. OSSEOUS STRUCTURES: Within normal limits for the patient's age. VISUALIZED UPPER ABDOMEN: Normal. OTHER FINDINGS: None. IMPRESSION: Right PICC line terminates at the cavoatrial junction. No acute findings.
[2018-06-14 12:18] VITALS: BP 104/67; PULSE 74; RESP 20; TEMP 98.7; O2SAT 99
== END 2018-06-14 12:38 | disposition home or self-care (01) ==
LOC: C.ER 08:53
DX: T82.898A Other specified complication of vascular prosthetic devices, implants and grafts, initial encounter (principal); Y84.9 Medical procedure, unspecified as the cause of abnormal reaction of the patient, or of later complication, without mention of misadventure at the time of the procedure

== ENCOUNTER 2018-06-25 07:26 | Inpatient (IN) | payer MEDICARE, MEDICAID ==
[2018-06-25] MEDS ORDERED: Bacitracin 150,000 UNIT in Sodium Chloride 0.9% Irrig 3,000 ML IR SCH (08:45)
[2018-06-25] MEDS ORDERED: Lidocaine 2% MPF (5 ml) Inj ONE (08:46)
[2018-06-25] MEDS ORDERED: Bupivacaine HCl 0.5% PF (10 ml) Inj ONE (08:46)
[2018-06-25] MEDS ORDERED: ceFAZolin 1 gm in NS 0 GM/0 ML BAG IVPB ONE (08:47)
[2018-06-25] MEDS ORDERED: Midazolam 2 MG/2 ML VIAL ONE (09:04)
[2018-06-25] MEDS ORDERED: Propofol 10 mg/ml Inj (20 ML) ONE (09:04)
[2018-06-25] MEDS: HYDROmorphone 0.5 mg/0.5 ml ISec IVP PRN ×2 (10:43→13:55)
[2018-06-25] MEDS ORDERED: HYDROmorphone 0.5 mg/0.5 ml ISec ONE ×2 (10:46→14:02)
[2018-06-25] MEDS ORDERED: Glucagon Recombinant 1 mg Inj IM PRN (11:23)
[2018-06-25] MEDS ORDERED: Dextrose 50% SYRINGE Inj (50 ml) IV PRN (11:23)
[2018-06-25] MEDS ORDERED: (Novolin R) Insulin Human Regular 100 units/ml vial SC SCH (11:30)
[2018-06-25] MEDS ORDERED: Oxycodone/Acetaminophen 5/325 mg Tab PO PRN ×3 (11:37→14:17)
--- NOTE | 2018-06-25 11:43 | PCM.SURG1 ---
Surgeon's Initial Post Op Note - Surgeon's Notes Surgeon: Dr. Urrutia Remotely Operated Vehicle: Dr. Lorena Lei Type of Anesthesia: IV Sedation, Local Pre-Operative Diagnosis: Right foot non-healing diabetic ulceration Operative Findings: See dictation. I: Pre-op: 20cc of 1:1 mix of 0.5% marcaine plain, 1% lidocaine plain. M: 3-0 Nylon, 2 inch packing Post-Operative Diagnosis: Same Operation Performed: 1) Wound debridement with first metatarsal head resection and excision of base of proximal phalanx 2) Fourth metatarsal head resection with primary closure Specimen/Specimens Removed: Bone from right foot Estimated Blood Loss: EBL {In ML}: 20 Blood Products Given: N/A Post-Op Condition: Good Date of Surgery/Procedure: 06/25/18 Time of Surgery/Procedure: 11:43
--- NOTE | 2018-06-25 12:54 | CP.PCM.HP ---
<YoanMiugel - Last Filed: 06/25/18 14:03> History of Present Illness - History of Present Illness History of Present Illness: H and P for Dr. Rouse Patient is a 57 yo male w/ PMH of emphysema, HTN, HLD, osteomyelitis, and DM2 who presents for admission s/p right foot debridement. Pt underwent Wound debridement with first metatarsal head resection and excision of base of proximal phalanx, Fourth metatarsal head resection with primary closure earlier today at [facility]. Patient states that two weeks ago he went to visit his first assistant manager who has been managing his ulcers on the lower extremity. Pt recently admitted (04/19-04/25 for osteomyelitis) and planned to have IV Abx through picc line until 06/03/18. Pt reports that he was doing infusions at home, Vancomycin 1g Q12, with visiting nurse. Pt states that his sutures fell apart and dehisced while walking on his foot recently, which prompted him to see the first assistant manager. Denies fevers, chills, chest pain, sob, abdominal pain, n/v, constipation or diarrhea, and dysuria, headache, dizziness, visual changes, numbness or tingling, recent illness. Pt evaluated in the PACU, s/p surgery. PMD- Junaid Scott EMR reviewed: PMH- emphysema, HTN, HLD, osteomyelitis, and DM2 PSH- Appendectomy, Disc replacement (cervical), Right foot gas gangrene Allergies- Morphine allergy (rash) Meds- Oxycodone 15mg tab q6, Lidoderm patch, Aspirin 81mg, Basaglar 20 units SC at bedtime, Novolog sliding scale 4 times a day before meals (usually a dministers 10-20 units each time), Breo ellipta one puff daily, Enalapril/HCTZ (10-25), Metformin 1000mg bid, Crestor 5mg, Albuterol inhaler, Famotidine 20mg po BID, Fenofibrate 160mg, Glimepride 2mg tabs, Tradjenta 5mg tab FH- Mother (DM, CAD w/ CABG), Father (DM) Social- smokes 1 pack per week (44 years), 1 beer per night with social outings but quit, MJ use as teenager (quit), Lives with gf, 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, 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) Present on Admission - Present on Admission Any Indicators Present on Admission: No Review of Systems - Review of Systems All systems: reviewed and no additional remarkable complaints except (as per HPI) Past Patient History - Infectious Disease Hx of Infectious Diseases: None - Tetanus Immunizations Tetanus Immunization: Unknown - Past Medical History & Family History Past Medical History?: Yes - Past Social History Smoking Status: Light Smoker < 10 Cigarettes Daily - CARDIAC Hx Cardiac Disorders: Yes Hx Hypercholesterolemia: Yes Hx Hypertension: Yes Hx Peripheral Vascular Disease: Yes - PULMONARY Hx Respiratory Disorders: Yes Hx Chronic Obstructive Pulmonary Disease (COPD): Yes Hx Emphysema: Yes - NEUROLOGICAL Hx Neurological Disorder: Yes (NEUROPATHY) - ENDOCRINE/METABOLIC Hx Endocrine Disorders: Yes Hx Diabetes Mellitus Type 2: Yes - INTEGUMENTARY Hx Dermatological Problems: Yes Other/Comment: HX: ULCER RIGHT FOOT PIC LINE RIGHT ARM IV VANCOMYCIN - MUSCULOSKELETAL/RHEUMATOLOGICAL Hx Musculoskeletal Disorders: Yes Hx Back Pain: Yes Hx Herniated Disk: Yes (cervical +metal, lumbar disc) Other/Comment: HX: ANGULAR BONE DEFORMITY 4TH METARCARPAL LEFT FOOT SX DONE - SURGICAL HISTORY Hx Surgeries: Yes Hx Appendectomy: Yes Hx Musculoskeletal Surgery: Yes (CERVICAL HARDWARE) Hx Orthopedic Surgery: Yes (BOTH FEET SEVERAL) Other/Comment: HX: 10/14/16-I&D RIGHT FOOT mar 2018 - ANESTHESIA Hx Anesthesia: Yes Hx Anesthesia Reactions: No Hx Malignant Hyperthermia: No Has any member of the family had a problem w/ anesthesia?: No Meds Allergies/Adverse Reactions: Allergies Allergy/AdvReac Type Severity Reaction Status Date / Time morphine Allergy RASH Verified 06/14/18 09:21 Physical Exam - Constitutional Appears: Non-toxic, No Acute Distress - Head Exam Head Exam: ATRAUMATIC, NORMAL INSPECTION - Eye Exam Eye Exam: EOMI, Normal appearance - ENT Exam ENT Exam: Mucous Membranes Moist - Respiratory Exam Respiratory Exam: Clear to Auscultation Bilateral. absent: Rales, Rhonchi, Wheezes, Respiratory Distress, Stridor - Cardiovascular Exam Cardiovascular Exam: REGULAR RHYTHM. absent: Tachycardia, +S1, +S2 - GI/Abdominal Exam GI & Abdominal Exam: Normal Bowel Sounds, Soft. absent: Distended, Firm, Guarding, Rebound, Rigid, Tenderness - Extremities Exam Extremities exam: Positive for: pedal edema (1+ pitting edema to the right lower extremity, dressing around the right foot, c/d/i; no signs of infection, good capillary refill ), pedal pulses present (2+ in left lower extremity DP). Negative for: calf tenderness Results - Vital Signs Recent Vital Signs: Last Vital Signs Temp 97.7 F 06/25/18 07:37 Pulse 87 06/25/18 07:37 Resp 20 06/25/18 07:37 BP 102/69 06/25/18 07:37 Pulse Ox 99 06/25/18 07:37 - Labs Result Diagrams: 06/25/18 13:18 06/25/18 13:18 Labs: Laboratory Results - last 24 hr 06/25/18 06/25/18 08:21 11:29 POC Glucose (mg/dL) 183 H 191 H Assessment & Plan - Assessment and Plan (Free Text) Assessment: Patient is a 57 yo male w/ PMH of emphysema, HTN, HLD, osteomyelitis, and DM2 who presents for admission s/p right foot debridement. Pt underwent Wound debridement with first metatarsal head resection and excision of base of proximal phalanx, Fourth metatarsal head resection with primary closure earlier 06/25/18 at [facility]. Plan: Wound debridement with first metatarsal head resection and excision of base of proximal phalanx, Fourth metatarsal head resection with primary closure 06/25/18 Hx of osteomyelitis Pt with PICC line Pt reports he is on Vancomycin 1g IVPB q12 up to date of surgery, it will be continued here 20 mL ESBL Podiatry Consulted: Dr. Patel- recs as below Percocet 5/325 mg x2 tab PO Q4H PRN Colace 100mg po bid Surgical cx pending F/u CBC, CMP, Mg, Ph F/u right foot x-ray Hypotension SBP high 90s to low 100s NS IVF F/u labs as above Hx of HTN Anesthesia record reviewed: SBP rang from 120-100 Home Enalapril 10mg po daily, HCTZ 25mg po daily held due to current hypotension Continue to monitor BP Hx of Emphysema Duonebs PRN Breo Ellipta daily Hx of HLD Lipid panel- shows elevated TGs, normal LDL, HDL, chol in March 2018 Fenofibrate 67mg po daily Aspirin 81mg daily Hx of DM Continue home Glargine 20 units SC at bedtime RISS medium ACHS Accucheck ACHS Metformin 1000 mg PO BID Amaryl 2mg po daily HgbA1c in the am Hx of chronic back pain Percocet as above Lidocaine patch 1 TD daily Hx of GERD Continue home pepcid 20 mg PO BID DVT ppx: Heparin 5000 sc q8, SCDs left leg only GI ppx: Pepcid 20 mg PO BID HHD, Moderate CCD PT/OT Dispo: As per podiatry, pt will have wound vac placed. NWB so will need rolling walker. Continue home Vancomycin 1g IVPB q12. Potential discharge home tomorrow, pending podiarty re-evaluation. <Tyron Rouse H - Last Filed: 06/25/18 14:44> Results - Vital Signs Recent Vital Signs: Last Vital Signs Temp 97.7 F 06/25/18 07:37 Pulse 87 06/25/18 07:37 Resp 20 06/25/18 07:37 BP 102/69 06/25/18 07:37 Pulse Ox 99 06/25/18 07:37 - Labs Result Diagrams: 06/25/18 13:18 06/25/18 13:18 Labs: Laboratory Results - last 24 hr 06/25/18 06/25/18 06/25/18 08:21 11:29 13:18 WBC 9.4 RBC 3.67 L Hgb 10.5 L D Hct 30.7 L MCV 83.6 D MCH 28.6 MCHC 34.2 RDW 13.9 Plt Count 490 H MPV 7.3 Neut % (Auto) 72.2 Lymph % (Auto) 16.3 L [place] % (Auto) 6.4 Eos % (Auto) 4.1 H Baso % (Auto) 1.0 Neut # (Auto) 6.8 Lymph # (Auto) 1.5 [place] # (Auto) 0.6 Eos # (Auto) 0.4 Baso # (Auto) 0.1 Sodium Potassium Chloride Carbon Dioxide Anion Gap BUN Creatinine Est GFR ( Amer) Est GFR (Non-Af Amer) POC Glucose (mg/dL) 183 H 191 H Random Glucose Calcium Phosphorus Magnesium Total Bilirubin AST ALT Alkaline Phosphatase Total Protein Albumin Globulin Albumin/Globulin Ratio 06/25/18 13:18 WBC RBC Hgb Hct MCV MCH MCHC RDW Plt Count MPV Neut % (Auto) Lymph % (Auto) [place] % (Auto) Eos % (Auto) Baso % (Auto) Neut # (Auto) Lymph # (Auto) [place] # (Auto) Eos # (Auto) Baso # (Auto) Sodium 134 Potassium 4.1 Chloride 103 Carbon Dioxide 26 Anion Gap 10 BUN 17 Creatinine 1.1 Est GFR ( Amer) > 60 Est GFR (Non-Af Amer) > 60 POC Glucose (mg/dL) Random Glucose 157 H D Calcium 9.2 Phosphorus 4.1 Magnesium 1.9 Total Bilirubin 0.3 AST 14 L D ALT 14 L D Alkaline Phosphatase 37 L Total Protein 6.3 Albumin 3.3 L Globulin 3.0 Albumin/Globulin Ratio 1.1 Attending/Attestation - Attestation I have personally seen and examined this patient.: Yes I have fully participated in the care of the patient.: Yes I have reviewed all pertinent clinical information: Yes Notes (Text): 06/25/18 14:35 Medical attending: Patient was seen and examined by me in the PACU with the medical supervisor The patient was awake, however it appears he was still drowsy from the anesthesia. He is S/P right foot detriment by podiatry. His blood sugars will be monitored, he will be on IV abx and lab work monitored as well The patient tells us he takes oxycodone at home, however for some reason it is listed he has an allergy to morphine. I am told podiatry is considering a wound vaccume placed on tommorow and he can potentially be DC tomilan Rouse
[2018-06-25] MEDS ORDERED: Albuterol-Ipratrop 3 mg / 0.5 (3 ml) UD INH PRN (13:04)
[2018-06-25 13:35] LABS: BASO # 0.1 K/uL (0.0-0.2); EOS # 0.4 K/uL (0.0-0.7); EOS % 4.1 % (0.0-4.0); LYMPH # 1.5 K/uL (1.0-4.3); LYMPH % 16.3 % (20.0-40.0); MEAN CORPUSCULAR HEMOGLOBIN 28.6 pg (27.0-31.0); MEAN CORPUSCULAR HGB CONC 34.2 g/dL (33.0-37.0); MEAN PLATELET VOLUME 7.3 fL (7.2-11.7); MONO # 0.6 K/uL (0.0-0.8); MONO % 6.4 % (0.0-10.0); NEUT # 6.8 K/uL (1.8-7.0); NEUT % 72.2 % (50.0-75.0); RBC 3.67 Mil/uL (4.40-5.90); RED CELL DISTRIBUTION WIDTH 13.9 % (11.5-14.5); WHITE BLOOD COUNT 9.4 K/uL (4.8-10.8)
[2018-06-25 13:37] LABS: HEMOGLOBIN 10.5 g/dL (12.0-18.0); MEAN CELL VOLUME 83.6 fL (80.0-94.0)
[2018-06-25] MEDS ORDERED: Lidocaine 5% Patch TD SCH (14:00)
[2018-06-25 14:02] LABS: ALB/GLOB RATIO 1.1 (1.0-2.1); ALBUMIN 3.3 g/dL (3.5-5.0); ALT/SGPT 14 U/L (21-72); AST/SGOT 14 U/L (17-59); BLOOD UREA NITROGEN 17 mg/dL (9-20); CALCIUM 9.2 mg/dl (8.6-10.4); GFR NON-AFRICAN AMERICAN > 60
[2018-06-25] MEDS: (Novolin R) Insulin Human Regular 100 units/ml vial SC SCH ×2 (17:35→22:02)
[2018-06-25] MEDS: Vancomycin 1 gm/NS 200 ml 1 GM/200 ML BAG IVPB SCH (17:35)
[2018-06-25] MEDS ORDERED: (Lantus) Insulin Glargine, Recombinant SC SCH (22:00)
[2018-06-26] MEDS ORDERED: oxyCODONE 10 mg Immediate Release Tab PO ONE ×2 (00:28→05:04)
[2018-06-26 00:31] VITALS: RESP 20
[2018-06-26] MEDS: Vancomycin 1 gm/NS 200 ml 1 GM/200 ML BAG IVPB SCH (02:57)
[2018-06-26 07:35] LABS: BASO # 0.1 K/uL (0.0-0.2); BASO % 0.9 % (0.0-2.0); EOS # 0.3 K/uL (0.0-0.7); EOS % 2.9 % (0.0-4.0); HEMOGLOBIN 10.4 g/dL (12.0-18.0); LYMPH # 1.5 K/uL (1.0-4.3); LYMPH % 12.8 % (20.0-40.0); MEAN CELL VOLUME 83.8 fL (80.0-94.0); MEAN CORPUSCULAR HEMOGLOBIN 28.6 pg (27.0-31.0); MEAN CORPUSCULAR HGB CONC 34.1 g/dL (33.0-37.0); MEAN PLATELET VOLUME 7.5 fL (7.2-11.7); MONO # 0.7 K/uL (0.0-0.8); MONO % 6.3 % (0.0-10.0); NEUT # 9.2 K/uL (1.8-7.0); NEUT % 77.1 % (50.0-75.0); RBC 3.65 Mil/uL (4.40-5.90); WHITE BLOOD COUNT 11.9 K/uL (4.8-10.8)
[2018-06-26] MEDS: (Novolin R) Insulin Human Regular 100 units/ml vial SC SCH ×2 (07:49→11:59)
[2018-06-26] MEDS ORDERED: Fluticasone-Vilanterol 100/25mcg Diskus INH SCH (08:00)
[2018-06-26 08:10] LABS: ALB/GLOB RATIO 1.2 (1.0-2.1); ALBUMIN 3.6 g/dL (3.5-5.0); ALT/SGPT < 6 U/L (21-72); AST/SGOT 14 U/L (17-59); BLOOD UREA NITROGEN 15 mg/dL (9-20); CALCIUM 9.1 mg/dl (8.6-10.4); GFR NON-AFRICAN AMERICAN > 60
[2018-06-26 08:25] VITALS: PULSE 75
[2018-06-26] MEDS ORDERED: oxyCODONE 10 mg Immediate Release Tab PO SCH (09:47)
[2018-06-26] MEDS: oxyCODONE 10 mg Immediate Release Tab PO PRN ×2 (09:57→15:01)
[2018-06-26] MEDS ORDERED: Pneumococcal 23-Valent Vaccine IM ONE (10:00)
[2018-06-26] MEDS ORDERED: Influenza Vaccine 60 mcg/0.5 mL SYR (4YR UP) IM ONE (10:00)
--- NOTE | 2018-06-26 13:48 | CP.PCM.DIS ---
<Miguel Milton - Last Filed: 06/27/18 11:54> Provider - Provider Date of Admission: 06/25/18 11:28 Attending physician: Jarad Patel DPM Consults: 06/25/18 13:03 Podiatry Consult Routine Comment: Consulting Provider: Jarad Patel Consulting Physician: Jarad Patel Reason for Consult: s/p right foot debridement by you 06/25/18 19:55 Nursing Referral for Palliative Care Routine Comment: Physician Instructions: Reason For Exam: Palliative care screening score =4 Time Spent in preparation of Discharge (in minutes): 35 Diagnosis - Discharge Diagnosis (1) HTN (hypertension) Status: Chronic (2) Emphysema lung Status: Chronic (3) IDDM (insulin dependent diabetes mellitus) Status: Chronic (4) Osteomyelitis Status: Chronic Hospital Course - Lab Results Lab Results: Most Recent Lab Values WBC 11.9 K/uL (4.8-10.8) H 06/26/18 07:25 RBC 3.65 Mil/uL (4.40-5.90) L 06/26/18 07:25 Hgb 10.4 g/dL (12.0-18.0) L 06/26/18 07:25 Hct 30.5 % (35.0-51.0) L 06/26/18 07:25 MCV 83.8 fL (80.0-94.0) 06/26/18 07:25 MCH 28.6 pg (27.0-31.0) 06/26/18 07:25 MCHC 34.1 g/dL (33.0-37.0) 06/26/18 07:25 RDW 14.0 % (11.5-14.5) 06/26/18 07:25 Plt Count 481 K/uL (130-400) H 06/26/18 07:25 MPV 7.5 fL (7.2-11.7) 06/26/18 07:25 Neut % (Auto) 77.1 % (50.0-75.0) H 06/26/18 07:25 Lymph % (Auto) 12.8 % (20.0-40.0) L 06/26/18 07:25 [facility] % (Auto) 6.3 % (0.0-10.0) 06/26/18 07:25 Eos % (Auto) 2.9 % (0.0-4.0) 06/26/18 07:25 Baso % (Auto) 0.9 % (0.0-2.0) 06/26/18 07:25 Neut # (Auto) 9.2 K/uL (1.8-7.0) H 06/26/18 07:25 Lymph # (Auto) 1.5 K/uL (1.0-4.3) 06/26/18 07:25 [facility] # (Auto) 0.7 K/uL (0.0-0.8) 06/26/18 07:25 Eos # (Auto) 0.3 K/uL (0.0-0.7) 06/26/18 07:25 Baso # (Auto) 0.1 K/uL (0.0-0.2) 06/26/18 07:25 Sodium 134 mmol/L (132-148) 06/26/18 07:25 Potassium 4.1 mmol/L (3.6-5.2) 06/26/18 07:25 Chloride 100 mmol/L (98-107) 06/26/18 07:25 Carbon Dioxide 26 mmol/L (22-30) 06/26/18 07:25 Anion Gap 12 (10-20) 06/26/18 07:25 BUN 15 mg/dL (9-20) 06/26/18 07:25 Creatinine 1.2 mg/dL (0.8-1.5) 06/26/18 07:25 Est GFR ( Amer) > 60 06/26/18 07:25 Est GFR (Non-Af Amer) > 60 06/26/18 07:25 POC Glucose (mg/dL) 254 mg/dL (65-110) H 06/26/18 11:24 Random Glucose 164 mg/dL (75-110) H 06/26/18 07:25 Hemoglobin A1c 8.4 % (4.2-6.5) H 06/26/18 07:25 Calcium 9.1 mg/dl (8.6-10.4) 06/26/18 07:25 Phosphorus 3.4 mg/dL (2.5-4.5) 06/26/18 07:25 Magnesium 1.8 mg/dL (1.6-2.3) 06/26/18 07:25 Total Bilirubin 0.4 mg/dL (0.2-1.3) 06/26/18 07:25 AST 14 U/L (17-59) L 06/26/18 07:25 ALT < 6 U/L (21-72) L D 06/26/18 07:25 Alkaline Phosphatase 40 U/L (38-126) 06/26/18 07:25 Total Protein 6.6 g/dL (6.3-8.3) 06/26/18 07:25 Albumin 3.6 g/dL (3.5-5.0) 06/26/18 07:25 Globulin 3.0 gm/dL (2.2-3.9) 06/26/18 07:25 Albumin/Globulin Ratio 1.2 (1.0-2.1) 06/26/18 07:25 Random Vancomycin 22.5 ug/mL 06/26/18 07:25 - Hospital Course Hospital Course: On admission: Patient is a 57 yo male w/ PMH of emphysema, HTN, HLD, osteomyelitis, and DM2 who presents for admission s/p right foot debridement. Pt underwent Wound debridement with first metatarsal head resection and excision of base of proximal phalanx, Fourth metatarsal head resection with primary closure earlier today at [facility]. Patient states that two weeks ago he went to visit his blueprinting and photocopy supervisor who has been managing his ulcers on the lower extremity. Pt recently admitted (04/19-04/25 for osteomyelitis) and planned to have IV Abx through picc line until 06/03/18. Pt reports that he was doing infusions at home, Vancomycin 1g Q12, with visiting nurse. Pt states that his sutures fell apart and dehisced while walking on his foot recently, which prompted him to see the blueprinting and photocopy supervisor. Denies fevers, chills, chest pain, sob, abdominal pain, n/v, constipation or diarrhea, and dysuria, headache, dizziness, visual changes, numbness or tingling, recent illness. Pt evaluated in the PACU, s/p surgery. Hospital course: As per podiatry resident Dr. Jorge Anderson states pt is being treated for osteomyelitis with vancomycin IVPB, 3 weeks remaining. Pt tolerated the surgery well. He was started on fluids, for asymptomatic hypotension, SBP 100s, . Home meds restarted, including Vancomycin 1g q12h, but antihypertensives held due to aforementioned hypotension. Pt's post-op pain was well controlled on oxycodone, which he takes at home for chronic lower back pain. Pt instructed to be NWB on the right foot, with use of rolling walker which he has from home. Wound vac was placed by podiatry Resident Monica. Pt was arranged home visiting nurse for wound care/vac management by podiatry resident and CM. On discharge interview, pt is resting comfortably. No complaints. Pain is well controlled. Denies fever, chills, chest pain, sob, abdominal pain, n/v/d, headache, numbness and tingling, dizziness. BP normalized prior to discharge, and again pt was asymptomatic. PICC line was flushed with alteplase by PICC line nurse Poonam due to inability to aspirate fluid. This is a summary of the hospital course. Please see EMR for full details. Discharge Exam - Additional Findings Additional findings: - Constitutional Appears: Non-toxic, No Acute Distress - Head Exam Head Exam: ATRAUMATIC, NORMAL INSPECTION - Eye Exam Eye Exam: EOMI, Normal appearance - ENT Exam ENT Exam: Mucous Membranes Moist - Respiratory Exam Respiratory Exam: Clear to Auscultation Bilateral. absent: Rales, Rhonchi, Wheezes, Respiratory Distress, Stridor - Cardiovascular Exam Cardiovascular Exam: REGULAR RHYTHM. absent: Tachycardia, +S1, +S2 - GI/Abdominal Exam GI & Abdominal Exam: Normal Bowel Sounds, Soft. absent: Distended, Firm, Guarding, Rebound, Rigid, Tenderness - Extremities Exam Extremities exam: Positive for: pedal edema (1+ pitting edema to the right lower extremity, dressing around the right foot with wound vac functioning, c/d/i; no signs of infection or active bleedig, good capillary refill ), pedal pulses present (2+ in left lower extremity DP). Negative for: calf tenderness Discharge Plan - Follow Up Plan Condition: GOOD Disposition: HOME/ ROUTINE Instructions: Debridement of a Wound or Burn (DC), Negative Pressure Wound Therapy Additional Instructions: Pt is medically stable for discharge home as per Dr. Rouse. Pt is to continue home medications as previously prescribed. As per podiatry, pt is being treated with IV Vancomycin for osteomyelitis, to complete in 3 weeks. This should be continued. Pt has wound vac on right foot wound, to be changed as per podiatry instructions and visiting nurse will do this. Pt should follow up with PMD, Dr. Scott, within 2 weeks of discharge. Pt should follow up with podiatry, Dr. Patel, within 1 week of discharge. Should symptoms worsen, please head to the nearest Emergency Department for further evaluation. Instructions explained to the pt, who understands and agrees with discharge home. Referrals: Jarad Patel DPM [[facility]] - <Tyron Rouse - Last Filed: 06/27/18 14:58> Provider - Provider Date of Admission: 06/25/18 11:28 Attending physician: Jarad Patel DPM Consults: 06/25/18 13:03 Podiatry Consult Routine Comment: Consulting Provider: Jarad Patel Consulting Physician: Jarad Patel Reason for Consult: s/p right foot debridement by you 06/25/18 19:55 Nursing Referral for Palliative Care Routine Comment: Physician Instructions: Reason For Exam: Palliative care screening score =4 Hospital Course - Lab Results Lab Results: Micro Results 06/25/18 13:20 Foot - Right Wound Culture - Final Serratia Marcescens Most Recent Lab Values WBC 11.9 K/uL (4.8-10.8) H 06/26/18 07:25 RBC 3.65 Mil/uL (4.40-5.90) L 06/26/18 07:25 Hgb 10.4 g/dL (12.0-18.0) L 06/26/18 07:25 Hct 30.5 % (35.0-51.0) L 06/26/18 07:25 MCV 83.8 fL (80.0-94.0) 06/26/18 07:25 MCH 28.6 pg (27.0-31.0) 06/26/18 07:25 MCHC 34.1 g/dL (33.0-37.0) 06/26/18 07:25 RDW 14.0 % (11.5-14.5) 06/26/18 07:25 Plt Count 481 K/uL (130-400) H 06/26/18 07:25 MPV 7.5 fL (7.2-11.7) 06/26/18 07:25 Neut % (Auto) 77.1 % (50.0-75.0) H 06/26/18 07:25 Lymph % (Auto) 12.8 % (20.0-40.0) L 06/26/18 07:25 [facility] % (Auto) 6.3 % (0.0-10.0) 06/26/18 07:25 Eos % (Auto) 2.9 % (0.0-4.0) 06/26/18 07:25 Baso % (Auto) 0.9 % (0.0-2.0) 06/26/18 07:25 Neut # (Auto) 9.2 K/uL (1.8-7.0) H 06/26/18 07:25 Lymph # (Auto) 1.5 K/uL (1.0-4.3) 06/26/18 07:25 [facility] # (Auto) 0.7 K/uL (0.0-0.8) 06/26/18 07:25 Eos # (Auto) 0.3 K/uL (0.0-0.7) 06/26/18 07:25 Baso # (Auto) 0.1 K/uL (0.0-0.2) 06/26/18 07:25 Sodium 134 mmol/L (132-148) 06/26/18 07:25 Potassium 4.1 mmol/L (3.6-5.2) 06/26/18 07:25 Chloride 100 mmol/L (98-107) 06/26/18 07:25 Carbon Dioxide 26 mmol/L (22-30) 06/26/18 07:25 Anion Gap 12 (10-20) 06/26/18 07:25 BUN 15 mg/dL (9-20) 06/26/18 07:25 Creatinine 1.2 mg/dL (0.8-1.5) 06/26/18 07:25 Est GFR ( Amer) > 60 06/26/18 07:25 Est GFR (Non-Af Amer) > 60 06/26/18 07:25 POC Glucose (mg/dL) 254 mg/dL (65-110) H 06/26/18 11:24 Random Glucose 164 mg/dL (75-110) H 06/26/18 07:25 Hemoglobin A1c 8.4 % (4.2-6.5) H 06/26/18 07:25 Calcium 9.1 mg/dl (8.6-10.4) 06/26/18 07:25 Phosphorus 3.4 mg/dL (2.5-4.5) 06/26/18 07:25 Magnesium 1.8 mg/dL (1.6-2.3) 06/26/18 07:25 Total Bilirubin 0.4 mg/dL (0.2-1.3) 06/26/18 07:25 AST 14 U/L (17-59) L 06/26/18 07:25 ALT < 6 U/L (21-72) L D 06/26/18 07:25 Alkaline Phosphatase 40 U/L (38-126) 06/26/18 07:25 Total Protein 6.6 g/dL (6.3-8.3) 06/26/18 07:25 Albumin 3.6 g/dL (3.5-5.0) 06/26/18 07:25 Globulin 3.0 gm/dL (2.2-3.9) 06/26/18 07:25 Albumin/Globulin Ratio 1.2 (1.0-2.1) 06/26/18 07:25 Random Vancomycin 22.5 ug/mL 06/26/18 07:25 Attending/Attestation - Attestation I have personally seen and examined this patient.: Yes I have fully participated in the care of the patient.: Yes I have reviewed all pertinent clinical information, including history, physical exam and plan: Yes Notes (Text): 06/27/18 14:55 Medical attending: Patient was seen and examined by me. Agree with the above note by the resident The patient will need to follow up with the podiatry and his primary physician Before leaving he had placement of a wound vac and also the patient will need to have visiting nurse as well Tyron Rouse
--- NOTE | 2018-06-26 14:00 | RAD ---
Date of service: 06/25/2018 PROCEDURE: Right Foot Radiographs. HISTORY: s/p debridement with bone resection COMPARISON: 06/14/2018 TECHNIQUE: 3 views obtained. FINDINGS: BONES: Interval resection of the 1st metatarsal limited visualization of the 1st proximal phalanx. Interval amorphous ossific like material inferred as bone graft at this postop site inferred. Regional soft tissue changes likely relating to interval surgical intervention. Tapered appearance of the 2nd and 3rd metatarsals and the amputated distal phalanges of the 4th digit are as before. Os tibial externum and os peroneum status-tibiotalar hypertrophic arthrosis and inferior calcaneal spurring and posterior Achilles tendon insertional enthesophyte status are all chronic changes. JOINTS: As above SOFT TISSUES: As above OTHER FINDINGS: None. IMPRESSION: Interval surgical changes about the 1st metatarsal-phalangeal joint inferred debridement-resection and interval osseous graft material placed. Other findings as above.
--- NOTE | 2018-06-26 14:28 | CP.PCM.PN ---
Subjective - Date & Time of Evaluation Date of Evaluation: 06/26/18 Time of Evaluation: 14:24 - Subjective Subjective: Podiatry Progress Note for Dr. Urrutia 57M seen at bedside with Dr. Urrutia one day s/p left foot wound debridement with first metatarsal head resection and excision of base of proximal phalanx and fourth metatarsal head resection with primary closure. Patient is AAO x 3 and NAD, resting comfortably in bed. States that pain to his left foot is well controlled at this time. Denies any acute overnight events or new pedal compla ints. Denies any recent nausea, vomiting, fever, chills, chest pain or shortness of breath. Denies any posterior calf pain. Objective - Vital Signs/Intake and Output Vital Signs (last 24 hours): Temp Pulse Resp BP Pulse Ox 98.3 F 75 20 130/70 95 06/26/18 08:00 06/26/18 08:00 06/26/18 08:00 06/26/18 08:00 06/26/18 08:00 Intake and Output: 06/26/18 06/26/18 06:59 18:59 Intake Total 400 Balance 400 - Medications Medications: Current Medications Acetaminophen (Tylenol 325mg Tab) 650 mg PO Q6 PRN PRN Reason: Pain, Mild (1-3) Albuterol/Ipratropium (Duoneb 3 Mg/0.5 Mg (3 Ml) Ud) 3 ml INH RQ6 PRN PRN Reason: Shortness of Breath Aspirin (Ecotrin) 81 mg PO DAILY [facility] Last Admin: 06/26/18 09:41 Dose: 81 mg Dextrose (Dextrose 50% Inj) 0 ml IV STAT PRN; Protocol PRN Reason: Hypoglycemia Protocol Dextrose (Glutose 15) 0 gm PO ONCE PRN; Protocol PRN Reason: Hypoglycemia Protocol Docusate Sodium (Colace) 100 mg PO BID [facility] Last Admin: 06/26/18 09:41 Dose: 100 mg Famotidine (Pepcid) 20 mg PO BID [facility] Last Admin: 06/26/18 09:41 Dose: 20 mg Fenofibrate (Tricor) 48 mg PO QPM [facility] Last Admin: 06/25/18 21:07 Dose: 48 mg Fluticasone/Vilanterol (Breo Ellipta 100-25 Mcg Inh) 1 puff INH RQD [facility] Glimepiride (Amaryl) 2 mg PO DAILY [facility] Last Admin: 06/26/18 09:41 Dose: 2 mg Glucagon (Glucagen Diagnostic Kit) 0 mg IM STAT PRN; Protocol PRN Reason: Hypoglycemia Protocol Heparin Sodium (Porcine) (Heparin) 5,000 units SC Q12 [facility] Last Admin: 06/26/18 09:58 Dose: Not Given Dextrose (Dextrose 5% In Water 1000 Ml) 1,000 mls @ 0 mls/hr IV .Q0M PRN; Protocol PRN Reason: Hypoglycemia Protocol Vancomycin/Sodium Chloride (Vancomycin 1 Gm/Ns 200 Ml) 1 gm in 200 mls @ 133.333 mls/hr IVPB Q12H [facility]; Protocol Stop: 06/30/18 15:31 Last Admin: 06/26/18 02:57 Dose: 133.333 mls/hr Insulin Glargine (Lantus) 20 unit SC [facility] Last Admin: 06/25/18 22:03 Dose: 20 units Insulin Human Regular (Novolin R) 0 unit SC ACHS [facility]; Protocol Last Admin: 06/26/18 11:59 Dose: 4 unit Lidocaine (Lidoderm) 1 ea TD DAILY [facility] Last Admin: 06/26/18 09:47 Dose: 1 ea Metformin HCl (Glucophage) 1,000 mg PO BIDCC [facility] Last Admin: 06/26/18 07:46 Dose: 1,000 mg Oxycodone HCl (Oxycodone Immediate Release Tab) 10 mg PO Q4H PRN PRN Reason: Pain, severe (8-10) Last Admin: 06/26/18 09:57 Dose: 10 mg Rosuvastatin Calcium (Crestor) 5 mg PO [facility] Last Admin: 06/25/18 21:08 Dose: 5 mg - Labs Labs: 06/26/18 07:25 06/26/18 07:25 - Constitutional Appears: Well, Non-toxic, No Acute Distress - Extremities Exam Additional comments: LLE focused exam: Vasc: DP/PT pulses faintly palpable 1/4. Skin temperature warm to warm from proximal to distal WNL. CFT < 3 seconds to all digits. Minimal edema noted surrounding surgical sites WNL given postoperative status. Neuro: Epicritic and protective sensation grossly diminished b/l Derm: Surgical incision noted to dorsal aspect of left foot at level of fourth metatarsal. All sutures are intact and skin edges are well coapted with no evidence of dehiscence. No evidence of drainage, malodor, fluctuance or other clinical signs of infection noted. Dorsal surgical wound noted at level of first metatarsal head measuring 6.5 cm x 1.5 cm x 1.5 cm with exposed tendon present in otherwise granular wound base. Minimal serosanguinous drainage appreciated. No malodor, no erythema or other clinical signs of infection noted. Plantar arterial ulceration noted at level of first metatarsal head measuring 2.1 cm x 1.9 cm x 2.0 cm with granular wound base. Minimal serosanguinous drainage appreciated. No malodor, no erythema or other clinical signs of infection noted. MSK: Pain on palpation of all surgical sites, ulcerations and wounds. No other gross deformities noted. MMT and ROM not assessed secondary to patient guarding - Neurological Exam Neurological Exam: Alert, Awake, Oriented x3 - Psychiatric Exam Psychiatric exam: Normal Affect, Normal Mood Assessment and Plan - Assessment and Plan (Free Text) Assessment: 57M seen at bedside with Dr. Urrutia one day s/p left foot wound debridement with first metatarsal head resection and excision of base of proximal phalanx and fourth metatarsal head resection with primary closure Plan: Patient seen and evaluated with Dr. Urrutia WBC 11.9, afebrile Continue abx HyperBees [facility] Negative Pressure Wound Vac Therapy applied to open wounds of patient's left foot at pressure setting of 125mmHg Patient is to have at home wound vac changes every two days Patient will follow up with Dr. Urrutia following discharge from hospital Podiatry will continue to follow while patient in house
[2018-06-26 16:36] VITALS: BP 154/74; TEMP 98.4; O2SAT 96
--- NOTE | 2018-06-27 06:56 | OP ---
PROCEDURE DATE: 06/25/2018 SURGEON: Jarad Youngblood DPM [employer] ASSOCIATE: Lorena Lei, PGY-1 ANESTHESIA: IV sedation with local. PREOPERATIVE DIAGNOSIS: Right foot nonhealing diabetic ulceration. POSTOPERATIVE DIAGNOSIS: Right foot nonhealing diabetic ulceration. NAME OF PROCEDURES: 1. Wound debridement with first metatarsal head resection and excision of the base of proximal phalanx. 2. Fourth metatarsal head resection with primary closure. INDICATIONS: The patient is a 57-year-old male patient with the above diagnosis. The patient has exhausted all conservative treatments at this time and now requires surgical intervention. The patient signed the consent after careful explanation of risks, benefits, complications, and alternatives of the surgical procedure. No guarantees were given nor implied. NPO status was confirmed prior to taking the patient to the operating room. PREPARATION: The patient was brought back to the operating room and placed on the operating room table in a supine position. After induction of IV sedation, the patient received a total of 20 mL of 1:1 mixture of 0.5% Marcaine plain and 1% lidocaine plain in a local block fashion to the right foot. Once local anesthesia was achieved, the right foot was then prepped and draped in a normal sterile manner. A time-out was performed and the procedure began. DESCRIPTION OF PROCEDURE: Attention was directed to the dorsal aspect of the patient's first metatarsophalangeal joint where an approximately 6-cm linear longitudinal incision was made medial and parallel to the tendon of the extensor hallucis longus. The incision was deepened down to the subcutaneous tissue with the use of a needle tip Bovie with care being taken to identify and retract all vital neurovascular structures. All bleeders were cauterized and ligated as necessary. The periosteal and capsular structures were then carefully dissected and freed from the osseous attachments, exposing the head of the patient's first metatarsal as well as base of the proximal phalanx. Next, utilizing a sagittal bone saw, the base of the proximal phalanx was resected and passed off the operating field. Next, attention was directed to the head of the first metatarsal, which was then resected and passed off the operating field utilizing the sagittal bone saw. Then, attention was directed to the plantar ulceration, measuring approximately 4 cm by 3 cm x 1cm which tracked through to first metatarsophalangeal joint. The hyperkeratotic and necrotic tissue adriane ulceration were debrided and passed from the operating field. The surgical incisions were then flushed with copious amounts of normal sterile saline with bacitracin. Next, attention was directed to the fourth metatarsal, which revealed a linear ulceration. Dissection was carried down to the head of the metatarsal with the use of needle tip Bovie. At this time, utilizing the sagittal saw, the head of the fourth metatarsal was then resected and passed off the operating filed. The area was then copiously flushed with a 1:1 mixture of normal sterile saline and hydrogen peroxide. Next, the surgical incisions were closed. The area over the fourth metatarsal was closed utilizing 3-0 nylon in a primary closure fashion. Then, attention was directed to the first metatarsal, which was packed with 2-inch iodoform packing from the inferior aspect of the proximal phalanx up through the surgical incision. The area was then dressed with 4x4, Kerlix and light ABD and light Krzysztof. POSTOPERATIVE CONDITION: The patient tolerated the anesthesia and procedure well and was escorted to the recovery room with all vital signs stable and neurovascular status intact to the right foot. The patient will be continued to be seen by Podiatry on the floors and will follow up with Dr. Youngblood as an outpatient. JONAS Alves Jarad Youngblood DPM [facility]
== END 2018-06-26 17:46 | disposition home or self-care (01) | DRG 629 ==
LOC: C.SDS 07:26 → C.9S 11:28 → C.3T 19:06
PROVIDERS: ADMIT Podiatrist Foot Surgery; ATTEND Podiatrist Foot Surgery
PROC: 0QTN0ZZ Resection of Right Metatarsal, Open Approach (ICD-10-PCS; 2018-06-25)
PROC: 0QTN0ZZ Resection of Right Metatarsal, Open Approach (ICD-10-PCS; 2018-06-25)
PROC: 0HBMXZZ Excision of Right Foot Skin, External Approach (ICD-10-PCS; 2018-06-25)
PROC: 0QBQ0ZZ Excision of Right Toe Phalanx, Open Approach (ICD-10-PCS; principal; 2018-06-25 09:00)
DX: E11.621 Type 2 diabetes mellitus with foot ulcer (principal); M86.671 Other chronic osteomyelitis, right ankle and foot; E11.51 Type 2 diabetes mellitus with diabetic peripheral angiopathy without gangrene; E11.69 Type 2 diabetes mellitus with other specified complication; L97.519 Non-pressure chronic ulcer of other part of right foot with unspecified severity; Z79.4 Long term (current) use of insulin; I10 Essential (primary) hypertension; J43.9 Emphysema, unspecified; E78.00 Pure hypercholesterolemia, unspecified; E11.40 Type 2 diabetes mellitus with diabetic neuropathy, unspecified